=== PATIENT | female | born 1945 | race Caucasian/White ===

== ENCOUNTER → 2018-04-29 10:09 | Outpatient (POV) | payer MEDICARE, SELFPAY | PROVIDERS: Visit Provider Nurse Practitioner Acute Care | DX: Z00.00 Encounter for general adult medical examination without abnormal findings (principal) ==

== ENCOUNTER → 2018-10-28 10:34 | Outpatient (POV) | payer MEDICARE, SELFPAY | PROVIDERS: Visit Provider Nurse Practitioner Acute Care | DX: Z00.00 Encounter for general adult medical examination without abnormal findings (principal) ==

== ENCOUNTER 2020-10-10 12:37 | Emergency (ER) | payer MEDICARE, OTHER, SELFPAY ==
[2020-10-10 12:50] VITALS: BP 148/72; PULSE 83; RESP 19; TEMP 36.8; O2SAT 97; BMI 29.2
--- NOTE | 2020-10-10 13:27 | HMH.EDUTC ---
[facility] Disposition Clinical Impression: Exposure to COVID-19 virus URI (upper respiratory infection) Qualifiers: URI type: unspecified URI Qualified Code(s): J06.9 - Acute upper respiratory infection, unspecified Disposition: Home, Self-Care Condition on Discharge: Good Instructions: DI for COVID-19 (Suspected or Confirmed ), Coronavirus Disease 2019, Preventing the Spread of Coronavirus Discharge Instructions Additional Instructions: *Monitor Temp, Over the counter Motrin or Tylenol as directed/as needed Tylenol every 4 hours and Motrin every 6 hours (as long as your family doctor has told you that you can take it) for fever or pain. and straight to ER if unable to lower temp less than 101.0 after medication given *Warm salt water gargles may help to soothe the throat *Throat Lozenges *Warm fluids like tea with honey may help to soothe the throat *Sleep elevated *Humidifier/Vaporizer Follow up IMMEDIATELY for new or worsening symptoms or no Noticeable improvement over the next 48-72 hours. 911 for difficulty breathing or swallowing You were tested for today for COVID19 your test result should be back in the next 24-48 hours, you may call to the [facility] to see if your test results are back in the next 48 hours [phone] [facility] hours are 9am-9pm You was given a handout with instructions for Self Quarantine and Self isolation for while you wait on test results and what to do if they are positive If you are positive the Health Dept will be contacting you also Prescriptions: Azithromycin [Z-Mario 250mg Tab] 250 mg PO DIRECTED #6 tab Transmission Status: Pending to [email or web address] #[id number] Referrals: Chris Kim [Primary Care Provider] - As needed Time of Disposition: 13:32 Medical Decision Making - Baljeet Inquiry Pt receiving controlled substance: No Baljeet was queried for this patient: No Vital Signs: 10/10/20 12:50 Temperature 98.2 F Temperature Source Oral Pulse Rate [Right Brachial] 83 Respiratory Rate 19 Blood Pressure [Right Arm] 148/72 H Blood Pressure Mean [Right Arm] 97 Blood Pressure Source [Right Arm] Automatic Cuff Blood Pressure Position [Right Arm] Sitting 02 Sat by Pulse Oximetry 97 Oxygen Delivery Method Room Air Orders (Tests/Meds): ORDERS Category Date Time Status Covid-19 Nasal PCR ([facility]) Routine Lab 10/10/20 12:48 Received Medical Decision Narrative: Patient state that she has taken a Z-pack multiple times in the past without reactions or complications [facility] HPI - General Stated complaint: covid test Time Seen by Provider: 10/10/20 13:27 Mode of Arrival: Ambulatory Source of Information: Patient Limitations: No Limitations Description of Symptoms (Recalled from Triage Doc. by RN): COVID TEST D/T EXPOSURE. C/O FATIGUE AND HEADACHE HEENT Symptoms (Recalled from RN notes): Yes Resp Symptoms (Recalled from RN notes): No Skin Symptoms (Recalled from RN notes): No MS Symptoms (Recalled from RN notes): No Functional Status (Recalled from RN notes): WNL - History of Present Illness Provider Complaint: Patient state that she was around her sister in law about 2 weeks ago and 3 days later she tested positive for COVID States that for the last couple of weeks she has been having sinus pressure and drainage in the back of her throat that she feels like is trying to move into her chest area, headache and feeling tired and achy State that she was concerned after it didnt go away so she came in to get tested for COVID - Related Data Home Medications Medication Instructions Recorded Confirmed atorvastatin 20 mg tablet 40 mg PO tab 03/03/20 03/03/20 estradiol 0.5 mg tablet mg PO 03/03/20 03/03/20 lisinopril 20 2 tab PO tab 03/03/20 03/03/20 mg-hydrochlorothiazide 25 mg tablet medroxyprogesterone 2.5 mg tablet mg PO 03/03/20 03/03/20 omeprazole 20 mg capsule,delayed 20 mg PO cap 03/03/20 03/03/20 release Previous Rx's Medication Instructions Recorded nita
[2020-10-10 13:33] VITALS: BP 148/72; PULSE 83; RESP 17; TEMP 36.8; O2SAT 97
--- NOTE | 2020-10-10 20:38 | PC.NURSE ---
PT NOTIFIED OF POSITIVE COVID RESULT
== END 2020-10-10 13:40 | disposition home or self-care (01) ==
PROVIDERS: Emergency Provider Nurse Practitioner; PCP Internal Medicine
DX: U07.1 COVID-19 (principal); I10 Essential (primary) hypertension; K58.9 Irritable bowel syndrome, unspecified; Z79.899 Other long term (current) drug therapy
CPT/HCPCS: G0463; 99202; U0003

== ENCOUNTER 2020-10-16 10:16 | Emergency (ER) | payer MEDICARE, OTHER, SELFPAY ==
[2020-10-16 10:20] VITALS: BP 142/68; PULSE 94; RESP 20; TEMP 36.9; O2SAT 98; BMI 28.3
--- NOTE | 2020-10-16 10:42 | XR_ITS ---
PROCEDURE: XR CHEST 2V Referring Doctor: Vidal Way Patient Age:75Y CLINICAL HISTORY: COVID +, COUGH smoker COMPARISON: CT ABDPELW CT ABD PELVIS W/ CONTRAST from 09/21/2016 FINDINGS: . There is subtle patchy areas of low-density infiltrate and opacity at lung jerome bilaterally. These tend to be towards the periphery of the mid and lower lung jerome but the most evident area is seen towards the lateral aspect of the right lung base. Believe infiltrate is likely involve all lobes but most evident towards lower lobes as well as RML Findings would be compatible with c covd pneumonia No prominent pleural effusion but there is some slight blunting left CP angle which could reflect scant pleural fluid. The heart is normal in size; pulmonary vascularity appears normal to upper normal.. Debra and mediastinal structures unremarkable chest wall in T-spine appears satisfactory. Mild degenerative changes T-spine IMPRESSION: Bilateral pneumonia . Multiple patchy low-density infiltrates throughout lung jerome bilaterally-most evident towards lower lobes and lung bases Dictated by: Carroll Hernandez MD 10/17/2020 07:47 Carroll Hernandez MD in [place] 10/17/2020 07:47
--- NOTE | 2020-10-16 10:52 | HMH.EDUTC ---
[facility] Disposition Clinical Impression: COVID-19 Disposition: Home, Self-Care Condition on Discharge: Good Instructions: Preventing the Spread of Coronavirus Discharge Instructions, DI for COVID-19 (Suspected or Confirmed ) Additional Instructions: follow up with pcp on sunday take all meds as ordered if symptoms worsen or no improvement return or be seen in ed Prescriptions: levoFLOXacin [Levaquin 500mg tab] 500 mg PO DAILY 5 Days #5 tab Transmission Status: Pending to [facility] #[id number] Referrals: Chris Kim [Primary Care Provider] - Time of Disposition: 11:29 Medical Decision Making - Baljeet Inquiry Pt receiving controlled substance: No Vital Signs: 10/16/20 10:20 Temperature 98.5 F Temperature Source Oral Pulse Rate [Right Brachial] 94 H Respiratory Rate 20 Blood Pressure [Right Arm] 142/68 H Blood Pressure Mean [Right Arm] 92 Blood Pressure Source [Right Arm] Automatic Cuff Blood Pressure Position [Right Arm] Sitting 02 Sat by Pulse Oximetry 98 Oxygen Delivery Method Room Air Orders (Tests/Meds): ORDERS Category Date Time Status Chest XR 2 view (NOT portable) [XR chest 2V] Stat Exams 10/16/20 10:42 Taken - Physician Consults Physician Consulted: keila Time: 11:31 Reason -: Other Comment/Response: pt could not tolerate zpak due to nausea. what other antibiotics? she recommends levaquin 500 mg po daily x5. no labs in computer, so lower dose recommended. [facility] HPI - General Chief complaint: Urgent Treatment Center Stated complaint: COVID Positive;SOA;Weak;Achy Time Seen by Provider: 10/16/20 11:25 Mode of Arrival: Ambulatory Source of Information: Patient Limitations: No Limitations Description of Symptoms (Recalled from Triage Doc. by RN): PATIENT REPORTS SHE TESTED POSITIVE FOR COVID ON TUESDAY 10/10. TODAY SHE C/O WEAKNESS, DIARRHEA, DECREASED APPETITE, DRY COUGH AND HEADACHE. SHE STATES SHE FEELS LIKE THE BASES OF HER LUNGS ARE NOT WORKING HEENT Symptoms (Recalled from RN notes): No Resp Symptoms (Recalled from RN notes): Yes Skin Symptoms (Recalled from RN notes): No MS Symptoms (Recalled from RN notes): No Functional Status (Recalled from RN notes): WNL - History of Present Illness Provider Complaint: 75 yr old female presents for soa,weakness and feeling her lower lungs are not working right. Pt states she tested positive for covid and was given zpak but did not finish it due to making stomach upset. - Related Data Home Medications Medication Instructions Recorded Confirmed atorvastatin 20 mg tablet 40 mg PO tab 03/03/20 03/03/20 estradiol 0.5 mg tablet mg PO 03/03/20 03/03/20 lisinopril 20 2 tab PO tab 03/03/20 03/03/20 mg-hydrochlorothiazide 25 mg tablet medroxyprogesterone 2.5 mg tablet mg PO 03/03/20 03/03/20 omeprazole 20 mg capsule,delayed 20 mg PO cap 03/03/20 03/03/20 release Previous Rx's Medication Instructions Recorded diclofenac sodium 1 % topical gel 4 g TOPICAL QID PRN 30 Days #100 g 03/03/20 methylprednisolone 4 mg tablets in See Rx Instructions PO PER PKG DIR 03/03/20 a dose pack #21 tab Azithromycin [Z-Mario 250mg Tab] 250 mg PO DIRECTED #6 tab 10/10/20 levoFLOXacin [Levaquin 500mg 500 mg PO DAILY 5 Days #5 tab 10/16/20 tab] Allergies Allergy/AdvReac Type Severity Reaction Status Date / Time No Known Allergies Allergy Verified 03/03/20 10:21 - Worker's Comp Is this a Worker's Comp case?: No [facility] History - Hepatitis A Screen Drug use history?: No High risk sexual behaviors?: No History of sexually transmitted infection?: No Currently employed?: No Childcare worker?: No Do you have indoor plumbing?: Yes Do you have electricity?: Yes Attestation statement:: This patient has been screened for Hepatitis A risk factors. I have reviewed the patient's past medical history: Yes Other Medical History: Reports: Other (Irritable Bowel Syndrome, Diverticulitis ) Other Surgeries: Yes: Colonoscopy, Tuba
[2020-10-16 11:36] VITALS: BP 142/68; PULSE 94; RESP 20; TEMP 36.9; O2SAT 98
== END 2020-10-16 11:44 | disposition home or self-care (01) ==
PROVIDERS: Emergency Provider Nurse Practitioner Family; PCP Internal Medicine
DX: U07.1 COVID-19 (principal); I10 Essential (primary) hypertension; E78.5 Hyperlipidemia, unspecified; Z79.899 Other long term (current) drug therapy
CPT/HCPCS: G0463; 71046; 99202

== ENCOUNTER 2020-10-18 15:23 | Emergency (ER) | payer MEDICARE, OTHER, SELFPAY ==
[2020-10-18 15:26] VITALS: BP 177/86; PULSE 99; RESP 18; TEMP 37.1; O2SAT 96; BMI 28.3
--- NOTE | 2020-10-18 15:54 | XR_ITS ---
PROCEDURE: XR CHEST PORTABLE CLINICAL HISTORY: covid, soa COMPARISON: CR XR CHEST 2V from 10/16/2020 FINDINGS: The cardiomediastinal silhouette and pulmonary vascularity are within normal limits. Patchy multi focal areas opacification noted consistent with Covid19 pneumonia which is slightly worse in the left upper lobe. No acute bony abnormalities. IMPRESSION: Slight worsening Covid19 pneumonia Dictated by: Brandon Adame MD 10/18/2020 16:33 Brandon Adame MD in [place] 10/18/2020 16:33
--- NOTE | 2020-10-18 15:56 | HMH.EDGENADL ---
ED Disposition Clinical Impression: COVID-19 Disposition: Home, Self-Care Condition on Discharge: Good Instructions: DI for COVID-19 (Suspected or Confirmed ) Additional Instructions: Monitor your pulse oximetry at home with a finger monitor. These can be purchased at most pharmacies. Return to the emergency department if you develop any acute shortness of breath, worsening symptoms. Return to the emergency department for any persistent oxygen saturations less than 90%. Follow-up with your primary care provider via telehealth within 2 to 3 days for reevaluation. - Critical Care Critical Care Time: No Attestation: On 10/18/20, the high probability of a clinically significant, sudden or life threatening deterioration of the following system(s) required my full and direct attention, intervention and personal management. The time I documented below is in addition to time spent performing reported procedures but includes the following listed in this critical care notation. Medical Decision Making - Medical Records Medical records reviewed: Yes: I reviewed the patient's medical records. - Baljeet Inquiry Pt receiving controlled substance: No Vital Signs: 10/18/20 15:26 10/18/20 16:00 Temperature 98.7 F Temperature Source Oral Pulse Rate [Right Radial] 99 H 95 H Respiratory Rate 18 Blood Pressure [Right Arm] 177/86 H 155/87 H Blood Pressure Mean [Right Arm] 116 109 Blood Pressure Source [Right Arm] Automatic Cuff Automatic Cuff Blood Pressure Position [Right Arm] Sitting Sitting 02 Sat by Pulse Oximetry 96 95 Oxygen Delivery Method Room Air Room Air Orders (Tests/Meds): ORDERS Category Date Time Status Chest XR -- portable [XR chest portable] Stat Exams 10/18/20 15:54 Taken - Radiology Data #1 Image(s): Chest Image Reviewed: Yes I reviewed the patient's radiology image Worsening bilateral patchy infiltrates Medical Decision Narrative: 75-year-old female with known Covid, chest x-ray appears slightly worse than a few days ago however her oxygen saturations are 96% on room air. Advise continuing to convalesce at home and purchasing a pulse ox so she can monitor her oxygenation. If less than 90%, she needs to present to emergency room. Patient expresses understanding of the plan, discharged home. General Adult HPI - General Stated complaint: Covid/Penominia, Weakness Time Seen by Provider: 10/18/20 15:56 Mode of Arrival: Ambulatory Source of Information: Patient Limitations: No Limitations - History of Present Illness HPI narrative: This is a 75-year-old female with a recent diagnosis of Covid pneumonia October 10 who presents to the emergency department requesting evaluation to see if her pneumonia is better. She has had shortness of breath and chest tightness since the beginning of her illness, now for several weeks. This is unchanged. She has had 3 days of a 5-day course of Levaquin and wants to know if her pneumonia is improving. No vomiting, diarrhea. - Related Data Home Medications Medication Instructions Recorded Confirmed atorvastatin 20 mg tablet 40 mg PO tab 03/03/20 03/03/20 estradiol 0.5 mg tablet mg PO 03/03/20 03/03/20 lisinopril 20 2 tab PO tab 03/03/20 03/03/20 mg-hydrochlorothiazide 25 mg tablet medroxyprogesterone 2.5 mg tablet mg PO 03/03/20 03/03/20 omeprazole 20 mg capsule,delayed 20 mg PO cap 03/03/20 03/03/20 release Previous Rx's Medication Instructions Recorded diclofenac sodium 1 % topical gel 4 g TOPICAL QID PRN 30 Days #100 g 03/03/20 methylprednisolone 4 mg tablets in See Rx Instructions PO PER PKG DIR 03/03/20 a dose pack #21 tab Azithromycin [Z-Mario 250mg Tab] 250 mg PO DIRECTED #6 tab 10/10/20 levoFLOXacin [Levaquin 500mg 500 mg PO DAILY 5 Days #5 tab 10/16/20 tab] Allergies Allergy/AdvReac Type Severity Reaction Status Date / Time No Known Allergies Allergy Verified 03/03/20 10:21 [facility] History -
[2020-10-18 16:00] VITALS: BP 155/87; PULSE 95; O2SAT 95
[2020-10-18 16:30] VITALS: BP 148/70; PULSE 93; O2SAT 95
[2020-10-18 17:00] VITALS: BP 135/77; PULSE 95; RESP 20; TEMP 37.1; O2SAT 96
== END 2020-10-18 17:00 | disposition home or self-care (01) ==
PROVIDERS: Emergency Provider Emergency Medicine; PCP Internal Medicine
DX: U07.1 COVID-19 (principal); J12.82 Pneumonia due to coronavirus disease 2019; I10 Essential (primary) hypertension; E78.5 Hyperlipidemia, unspecified; Z79.899 Other long term (current) drug therapy
CPT/HCPCS: 71045; 99282

== ENCOUNTER → 2021-06-28 14:49 | Outpatient (CLI) | payer MEDICARE, OTHER, SELFPAY ==
--- NOTE | 2021-06-28 14:53 | XR_ITS ---
PROCEDURE: XR CHEST 2V CLINICAL HISTORY: S/P COVID PNEUMONIA 11/07 COMPARISON: CR XR CHEST 2V from 10/16/2020 CR XR CHEST PORTABLE from 10/18/2020 FINDINGS: The cardiomediastinal silhouette and pulmonary vascularity are within normal limits. The lungs are clear without infiltrates, suspicious nodules, or pleural effusions. There is mild thoracic curvature convex left. Previously noted bilateral pneumonia has cleared. No pulmonary fibrotic changes apparent. IMPRESSION: No acute finding. Interval resolution of bilateral pneumonia Dictated by: Brandon Adame MD 06/29/2021 08:48 Brandon Adame MD in [place] 06/29/2021 08:48
--- NOTE | 2021-06-28 14:55 | XR_ITS ---
PROCEDURE: XR TIBIA FIBULA LT 2V CLINICAL INDICATION: HX OF LT LEG FX, LT LOWER LEG PAIN COMPARISON: No exams were available for comparison FINDINGS: No acute fracture or dislocation. There is mild cortical thickening of the distal fibula which may be related to an old fracture. Minimal hyperostosis noted at the medial malleolar region. No lytic or blastic change. Other findings:None. IMPRESSION: Suspect old distal fibular fracture. No acute finding Dictated by: Brandon Adame MD 06/29/2021 08:44 Brandon Adame MD in [place] 06/29/2021 08:44
== END ==
PROVIDERS: PCP Internal Medicine; Visit Provider Internal Medicine
DX: Z86.16 Personal history of COVID-19 (principal); M79.662 Pain in left lower leg; S82.202D Unspecified fracture of shaft of left tibia, subsequent encounter for closed fracture with routine healing; Z09 Encounter for follow-up examination after completed treatment for conditions other than malignant neoplasm
CPT/HCPCS: 71046; 73590

== ENCOUNTER → 2021-08-23 14:28 | Outpatient (POV) | payer MEDICARE, OTHER, SELFPAY | PROVIDERS: Visit Provider Dermatology | DX: Z00.00 Encounter for general adult medical examination without abnormal findings (principal) ==

== ENCOUNTER → 2021-09-14 15:06 | Outpatient (CLI) | payer MEDICARE, OTHER, SELFPAY ==
--- NOTE | 2021-09-14 | CA_ITS ---
APPROVED REPORT Left Lower Extremity Venous Study for DVT. Development Administrator: CT Indications LLE rash x 1 month. Medications Aspirin 81 mg Vein Imaging CFV (L): compressive, spontaneous, phasic, augmentation SFJ (L): compressive, spontaneous, phasic, augmentation FEM (L): compressive, spontaneous, phasic, augmentation POP (L): compressive, spontaneous, phasic, augmentation DFV (L): compressive, spontaneous, phasic, augmentation PTV (L): compressive, spontaneous, phasic, augmentation GSV (L): compressive, spontaneous, phasic, augmentation Peroneals (L):compressive, spontaneous, phasic, augmentation GAS (L): compressive, spontaneous, phasic, augmentation Findings LLE negative for DVT/SVT Vessels compressible Conclusion LLE negative for DVT/SVT Vessels compressible Electronically signed by : Brandon Adame MD 09/15/2021 14:56:33
== END ==
PROVIDERS: PCP Internal Medicine; Visit Provider Internal Medicine
DX: M79.662 Pain in left lower leg (principal)
CPT/HCPCS: 93971

== ENCOUNTER → 2021-11-30 12:26 | Outpatient (CLI) | payer MEDICARE, OTHER, SELFPAY ==
[2021-11-30 13:17] LABS: Basophils # 0.1 K/mm3 (0-0.2); Basophils % 1.8 % (0.1-2.0); Eosinophils # 0.3 K/mm3 (0.0-0.4); Eosinophils % 4.2 % (0.1-12.0); Hemoglobin 13.5 g/dL (12.2-16.2); Lymphocytes # 1.8 K/mm3 (0.7-4.5); Lymphocytes % 26.6 % (10-50); Mean Corpuscular HGB Conc 31.5 g/dL (31.8-35.4); Mean Corpuscular Hemoglobin 31.5 pg (27.0-31.2); Mean Platelet Volume 9.7 fl (7.4-10.4); Monocytes # 0.3 K/mm3 (0.1-1.0); Monocytes % 4.1 % (1.7-9.3); Neutrophils # 4.2 K/mm3 (1.8-7.8); Neutrophils % 63.4 % (37.0-80.0); Platelet Count 276 K/mm3 (142-424); Red Cell Distribution Width 13.1 % (11.5-17.5); White Blood Count 6.6 K/mm3 (4.8-10.8)
[2021-11-30 13:56] LABS: Chloride 102 mmol/L (98-107); Potassium 4.4 mmoL/L (3.5-5.1); Sodium 137 mmol/L (136-145)
[2021-11-30 13:58] LABS: Alanine Aminotransferase 26 U/L (12-78); Aspartate Amino Transferase 39 U/L (14-36); Blood Urea Nitrogen 13 mg/dl (7-17); Estimated Glomerular Filt Rate 70 ml/min (>60); GFR (African American) 84 ML/MIN (>60)
[2021-11-30 13:59] LABS: Albumin Level 4.2 g/dl (3.5-5.0); Albumin/Globulin Ratio 1.8 (1.1-1.8); Alkaline Phosphatase 78 U/L (38-126); Anion Gap 10.4 mEq/L (5-15); Calcium 8.5 mg/dl (8.4-10.2); Carbon Dioxide 29 mmol/L (22.0-30.0); Chol/HDL Ratio 2.8 (1-3.5); Cholesterol 136 mg/dl (140-200); Globulin 2.3 g/dL (1.3-3.2); Glucose 96 mg/dl (74-100); HDL Cholesterol 48 mg/dl (40-60); Total Protein,Serum 6.5 g/dl (6.3-8.2); Triglycerides 118 mg/dl (30-150); VLDL Cholesterol 24 mg/dL (0-40)
[2021-11-30 14:23] LABS: Direct LDL Cholesterol 63.58 mg/dL (100-129)
[2021-11-30 14:39] LABS: Thyroid Stimulating Hormone 3.41 uIU/mL (0.465-4.68)
== END ==
PROVIDERS: Visit Provider Internal Medicine
DX: I10 Essential (primary) hypertension (principal); E78.5 Hyperlipidemia, unspecified; E03.9 Hypothyroidism, unspecified; I73.9 Peripheral vascular disease, unspecified; D64.9 Anemia, unspecified; N18.2 Chronic kidney disease, stage 2 (mild)
CPT/HCPCS: 80053; 80061; 84443; 85025

== ENCOUNTER → 2022-01-17 13:54 | Outpatient (POV) | payer MEDICARE, OTHER, SELFPAY | PROVIDERS: Visit Provider Dermatology | DX: Z00.00 Encounter for general adult medical examination without abnormal findings (principal) ==

== ENCOUNTER → 2022-05-31 12:35 | Outpatient (CLI) | payer MEDICARE, OTHER, SELFPAY ==
[2022-05-31 13:26] LABS: Alanine Aminotransferase 24 U/L (12-78); Albumin/Globulin Ratio 1.7 (1.1-1.8); Alkaline Phosphatase 109 U/L (38-126); Anion Gap 11.1 mEq/L (5-15); Aspartate Amino Transferase 34 U/L (14-36); Bilirubin,Total 0.7 mg/dl (0.2-1.3); Blood Urea Nitrogen 14 mg/dl (7-17); Calcium 8.9 mg/dl (8.4-10.2); Carbon Dioxide 30 mmol/L (22.0-30.0); Chloride 101 mmol/L (98-107); Chol/HDL Ratio 3.1 (1-3.5); Cholesterol 142 mg/dl (140-200); Estimated Glomerular Filt Rate 70 ml/min (>60); GFR (African American) 84 ML/MIN (>60); Globulin 2.4 g/dL (1.3-3.2); Glucose 106 mg/dl (74-100); HDL Cholesterol 46 mg/dl (40-60); Potassium 4.1 mmoL/L (3.5-5.1); Sodium 138 mmol/L (136-145); Total Protein,Serum 6.4 g/dl (6.3-8.2); Triglycerides 115 mg/dl (30-150); VLDL Cholesterol 23 mg/dL (0-40)
[2022-05-31 13:37] LABS: Direct LDL Cholesterol 75.88 mg/dL (100-129)
[2022-05-31 13:43] LABS: 25-OH Vitamin D, Total 31.9 ng/mL (30-100)
== END ==
PROVIDERS: PCP Internal Medicine; Visit Provider Internal Medicine
DX: I10 Essential (primary) hypertension (principal); E78.5 Hyperlipidemia, unspecified; I73.9 Peripheral vascular disease, unspecified; K76.0 Fatty (change of) liver, not elsewhere classified; G60.9 Hereditary and idiopathic neuropathy, unspecified; M85.89 Other specified disorders of bone density and structure, multiple sites
CPT/HCPCS: 80053; 80061; 82306

== ENCOUNTER → 2022-06-09 09:13 | Outpatient (CLI) | payer MEDICARE, OTHER, SELFPAY ==
--- NOTE | 2022-06-09 09:21 | XR_ITS ---
FINAL REPORT TECHNIQUE: Bone densitometry calculations of the lumbar spine and left hip were obtained. CLINICAL HISTORY: . post menopausal screening, prior 2017 COMPARISON: 05/14/2017 FINDINGS: Using L1-4, the bone mineral density of the spine is 1.154 g/cm2, corresponding to T-score of 1.0. Using the left hip, the bone mineral density of the femoral neck is to the 0.641 g/cm2, corresponding to a T-score of -1.9. Using the right hip, the bone mineral density of the femoral neck is 0.624 g/cm2, corresponding to a T-score of -2.0. NOTE: T-score: Standard deviation compared with peak bone mass of young adult mean. *Following the recommendations of the International Society of Bone densitometry, classification of hip BMD is based on the lower of two T-scores; total hip or femoral neck. IMPRESSION: Diminished bone mineral density in the right and left hip consistent with osteopenia. There has been progressive demineralization as compared to previous. Normal bone mineral density of the lumbar spine however this may be falsely elevated secondary to degenerative change. FRAX data reports major osteoporotic fracture of 21% and hip fracture of 5.2%. Reviewed, Interpreted and Dictated by Lux Ventura MD Transcribed by Annalise Lewis Authenticated and [facility]
== END ==
PROVIDERS: PCP Internal Medicine; Visit Provider Internal Medicine
DX: M81.0 Age-related osteoporosis without current pathological fracture (principal)
CPT/HCPCS: 77080

== ENCOUNTER → 2022-08-01 13:02 | Outpatient (POV) | payer MEDICARE, OTHER, SELFPAY | PROVIDERS: Visit Provider Dermatology | DX: Z00.00 Encounter for general adult medical examination without abnormal findings (principal) ==

== ENCOUNTER → 2022-11-17 10:24 | Outpatient (CLI) | payer MEDICARE, OTHER, SELFPAY ==
--- NOTE | 2022-11-17 | CA_ITS ---
FINAL REPORT CLINICAL HISTORY: Pt fell 11/09/22 Right knee to ankle bruising. swollen right ankle. Pt on 81mg ASA . Dx with Breast Ca this week FINDINGS: DUPLEX VENOUS SONOGRAPHY OF THE RIGHT LOWER EXTREMITY Multiple transverse and longitudinal scans were performed of the femoropopliteal deep venous system, with augmentation and compression maneuvers. Normal phasic flow was noted in the visualized deep venous system. No intraluminal increased echogenicity is noted to suggest thrombus. There is normal compression and augmentation of the venous structures. No abnormal venous collaterals are seen. IMPRESSION: No evidence of deep venous thrombosis of the right lower extremity. Reviewed, Interpreted and Dictated by Matilda Baker MD Transcribed by Annalise Lewis Authenticated and [facility]
--- NOTE | 2022-11-17 11:11 | XR_ITS ---
FINAL REPORT CLINICAL HISTORY: LEG PAIN SWELLING REDNESS, fall COMPARISON: none FINDINGS: AP, lateral and oblique views of the right knee were obtained. There is no prior exam for comparison. There is no acute osseous abnormality of the right knee. The joint space is preserved. The soft tissues are normal. There is no joint effusion. IMPRESSION: No acute osseous abnormality of the right knee. Reviewed, Interpreted and Dictated by Matilda Baker MD Transcribed by Keesha Camacho Authenticated and . [facility]
== END ==
PROVIDERS: PCP Internal Medicine; Visit Provider Internal Medicine
DX: M25.561 Pain in right knee (principal); M79.604 Pain in right leg; R22.41 Localized swelling, mass and lump, right lower limb; W19.XXXA Unspecified fall, initial encounter
CPT/HCPCS: 73562; 93971

== ENCOUNTER → 2022-12-13 11:32 | Outpatient (CLI) | payer MEDICARE, OTHER, SELFPAY ==
--- NOTE | 2022-12-13 11:42 | ECG_ITS ---
APPROVED REPORT Exam: Resting ECG HR:70 bpm ECG Measurements Heart Rate 70 AXES RI 152 P 46 QRSd 84 QRS 62 QT 377 T 73 QTc 398 Conclusion SINUS RHYTHM POOR R WAVE PROGRESSION OTHERWISE A NORMAL ECG Electronically signed by : Chris Kim MD 12/13/2022 11:59:08
[2022-12-13 13:32] LABS: Basophils # 0.1 K/mm3 (0-0.2); Basophils % 0.8 % (0.1-2.0); Eosinophils # 0.3 K/mm3 (0.0-0.4); Hematocrit 41.7 % (37.0-47.0); Hemoglobin 13.4 g/dL (12.2-16.2); Lymphocytes # 1.9 K/mm3 (0.7-4.5); Lymphocytes % 23.4 % (10-50); Mean Corpuscular HGB Conc 32.1 g/dL (31.8-35.4); Mean Corpuscular Hemoglobin 31.2 pg (27.0-31.2); Mean Corpuscular Volume 97.2 fl (81-99); Mean Platelet Volume 9.1 fl (7.4-10.4); Monocytes # 0.3 K/mm3 (0.1-1.0); Monocytes % 4.1 % (1.7-9.3); Neutrophils # 5.6 K/mm3 (1.8-7.8); Neutrophils % 67.7 % (37.0-80.0); Platelet Count 287 K/mm3 (142-424); Red Blood Count 4.29 M/mm3 (4.20-5.40); White Blood Count 8.2 K/mm3 (4.8-10.8)
[2022-12-13 15:03] LABS: Alanine Aminotransferase 24 U/L (12-78); Albumin Level 4.2 g/dl (3.5-5.0); Albumin/Globulin Ratio 1.9 (1.1-1.8); Alkaline Phosphatase 108 U/L (38-126); Anion Gap 6.7 mEq/L (5-15); Aspartate Amino Transferase 34 U/L (14-36); Bilirubin,Total 0.8 mg/dl (0.2-1.3); Blood Urea Nitrogen 15 mg/dl (7-17); Calcium 9.1 mg/dl (8.4-10.2); Carbon Dioxide 30 mmol/L (22.0-30.0); Chloride 98 mmol/L (98-107); Chol/HDL Ratio 2.7 (1-3.5); Cholesterol 158 mg/dl (140-200); Estimated Glomerular Filt Rate 70 ml/min (>60); GFR (African American) 84 ML/MIN (>60); Globulin 2.2 g/dL (1.3-3.2); Glucose 96 mg/dl (74-100); HDL Cholesterol 58 mg/dl (40-60); Magnesium 2.1 mg/dl (1.6-2.3); Potassium 4.7 mmoL/L (3.5-5.1); Sodium 130 mmol/L (136-145); Total Protein,Serum 6.4 g/dl (6.3-8.2); Triglycerides 120 mg/dl (30-150); VLDL Cholesterol 24 mg/dL (0-40)
[2022-12-13 15:14] LABS: Direct LDL Cholesterol 76.35 mg/dL (100-129)
== END ==
PROVIDERS: PCP Internal Medicine; Visit Provider Internal Medicine
DX: I10 Essential (primary) hypertension (principal); I49.9 Cardiac arrhythmia, unspecified
CPT/HCPCS: 80053; 80061; 83735; 85025; 93005

== ENCOUNTER → 2023-01-16 14:07 | Outpatient (POV) | payer MEDICARE, OTHER, SELFPAY | PROVIDERS: Visit Provider Dermatology | DX: Z00.00 Encounter for general adult medical examination without abnormal findings (principal) ==

== ENCOUNTER → 2023-01-16 15:46 | Outpatient (CLI) | payer MEDICARE, OTHER, SELFPAY ==
[2023-01-16 17:43] LABS: Chloride 93 mmol/L (98-107)
[2023-01-16 17:44] LABS: Potassium 4.1 mmoL/L (3.5-5.1); Sodium 135 mmol/L (136-145)
[2023-01-16 17:46] LABS: Blood Urea Nitrogen 14 mg/dl (7-17); Estimated Glomerular Filt Rate 70 ml/min (>60); GFR (African American) 84 ML/MIN (>60)
[2023-01-16 17:47] LABS: Anion Gap 15.1 mEq/L (5-15); Calcium 9.7 mg/dl (8.4-10.2); Carbon Dioxide 31 mmol/L (22.0-30.0); Glucose 91 mg/dl (74-100)
== END ==
PROVIDERS: PCP Internal Medicine; Visit Provider Internal Medicine
DX: I49.9 Cardiac arrhythmia, unspecified (principal); I10 Essential (primary) hypertension
CPT/HCPCS: 80048; 83735; 93225; 93226

== ENCOUNTER → 2023-02-01 07:41 | Outpatient (CLI) | payer MEDICARE, OTHER, SELFPAY | PROVIDERS: PCP Internal Medicine; Visit Provider Internal Medicine | DX: R00.1 Bradycardia, unspecified (principal); R00.0 Tachycardia, unspecified; R94.39 Abnormal result of other cardiovascular function study; R06.09 Other forms of dyspnea | CPT/HCPCS: 93306 ==

== ENCOUNTER → 2023-02-22 13:46 | Outpatient (CLI) | payer MEDICARE, OTHER, SELFPAY | PROVIDERS: PCP Internal Medicine; Visit Provider Internal Medicine | DX: G47.30 Sleep apnea, unspecified (principal); I10 Essential (primary) hypertension; R06.83 Snoring; E66.9 Obesity, unspecified | CPT/HCPCS: G0399 ==

== ENCOUNTER → 2023-04-30 16:15 | Outpatient (CLI) | payer MEDICARE, OTHER, SELFPAY ==
--- NOTE | 2023-04-30 16:24 | CT_ITS ---
FINAL REPORT CLINICAL HISTORY: EPIGASTRIC PAIN that radiates into the back with nausea FINDINGS: Axial CT images of the abdomen and pelvis were obtained without intravenous contrast. Coronal reformatted images were also obtained. This study was performed with techniques to keep radiation doses as low as reasonably achievable (ALARA). Individualized dose reduction techniques using automated exposure control or adjustment of mA and/or kV according to the patient''s size were employed. Abdomen: The lung bases are clear. There is no evidence of renal stone or hydronephrosis. The liver, spleen and pancreas have an unremarkable, unenhanced appearance. No mass or adenopathy is seen. No inflammatory process is identified. Pelvis: Images of the pelvis reveal no evidence of ureteral dilation or ureteral stone. No mass or abnormal fluid collection is identified. The appendix is unremarkable. IMPRESSION: No renal or ureteral stone, or hydronephrosis. No mass or inflammatory process. Authenticated and [facility]
[2023-04-30 17:51] LABS: Basophils % 0.3 % (0.1-2.0); Eosinophils # 0.2 K/mm3 (0.0-0.4); Eosinophils % 1.7 % (0.1-12.0); Hemoglobin 13.1 g/dL (12.2-16.2); Lymphocytes # 1.7 K/mm3 (0.7-4.5); Mean Corpuscular Hemoglobin 31.2 pg (27.0-31.2); Mean Corpuscular Volume 97.3 fl (81-99); Mean Platelet Volume 8.5 fl (7.4-10.4); Monocytes # 0.5 K/mm3 (0.1-1.0); Monocytes % 4.4 % (1.7-9.3); Neutrophils # 9.2 K/mm3 (1.8-7.8); Neutrophils % 78.7 % (37.0-80.0); Platelet Count 276 K/mm3 (142-424); Red Blood Count 4.22 M/mm3 (4.20-5.40); Red Cell Distribution Width 13.5 % (11.5-17.5); White Blood Count 11.6 K/mm3 (4.8-10.8)
[2023-04-30 18:08] LABS: Alanine Aminotransferase 25 U/L (12-78); Albumin Level 4.3 g/dl (3.5-5.0); Albumin/Globulin Ratio 1.7 (1.1-1.8); Alkaline Phosphatase 122 U/L (38-126); Amylase 54 U/L (30-110); Anion Gap 14.3 mEq/L (5-15); Aspartate Amino Transferase 34 U/L (14-36); Bilirubin,Total 0.6 mg/dl (0.2-1.3); Blood Urea Nitrogen 13 mg/dl (7-17); Calcium 9.4 mg/dl (8.4-10.2); Carbon Dioxide 29 mmol/L (22.0-30.0); Chloride 95 mmol/L (98-107); Estimated Glomerular Filt Rate 70 ml/min (>60); GFR (African American) 84 ML/MIN (>60); Globulin 2.5 g/dL (1.3-3.2); Glucose 94 mg/dl (74-100); Potassium 4.3 mmoL/L (3.5-5.1); Sodium 134 mmol/L (136-145); Total Protein,Serum 6.8 g/dl (6.3-8.2)
== END ==
PROVIDERS: PCP Internal Medicine; Visit Provider Internal Medicine
DX: R10.13 Epigastric pain (principal)
CPT/HCPCS: 74176; 80053; 82150; 85025

== ENCOUNTER → 2023-05-03 08:32 | Outpatient (CLI) | payer MEDICARE, OTHER, SELFPAY ==
--- NOTE | 2023-05-03 08:48 | US_ITS ---
FINAL REPORT CLINICAL HISTORY: Right upper quadrant pain COMPARISON: None FINDINGS: Sonographic images of the right upper quadrant were obtained. The pancreas is partially obscured. The liver is fatty infiltrated. The gallbladder appears normal without evidence of gallstones.There is no evidence of biliary ductal dilatation.The common duct measures 4mm. Limited images of the right kidney are unremarkable. IMPRESSION: Fatty liver. Reviewed, Interpreted and Dictated by Terrance Doe III, MD Transcribed by Keesha Camacho Authenticated and [facility]
== END ==
PROVIDERS: PCP Internal Medicine; Visit Provider Internal Medicine
DX: R10.13 Epigastric pain (principal)
CPT/HCPCS: 76705

== ENCOUNTER → 2023-05-28 13:29 | Outpatient (CLI) | payer MEDICARE, OTHER, SELFPAY ==
[2023-05-28 16:36] LABS: Alanine Aminotransferase 30 U/L (12-78); Albumin Level 4.1 g/dl (3.5-5.0); Albumin/Globulin Ratio 1.8 (1.1-1.8); Alkaline Phosphatase 120 U/L (38-126); Anion Gap 13.3 mEq/L (5-15); Aspartate Amino Transferase 34 U/L (14-36); Bilirubin,Total 0.9 mg/dl (0.2-1.3); Blood Urea Nitrogen 19 mg/dl (7-17); Calcium 9.2 mg/dl (8.4-10.2); Carbon Dioxide 30 mmol/L (22.0-30.0); Chloride 97 mmol/L (98-107); Chol/HDL Ratio 2.5 (1-3.5); Cholesterol 160 mg/dl (140-200); Estimated Glomerular Filt Rate 70 ml/min (>60); GFR (African American) 84 ML/MIN (>60); Globulin 2.3 g/dL (1.3-3.2); Glucose 76 mg/dl (74-100); HDL Cholesterol 65 mg/dl (40-60); Potassium 5.3 mmoL/L (3.5-5.1); Sodium 135 mmol/L (136-145); Total Protein,Serum 6.4 g/dl (6.3-8.2); Triglycerides 75 mg/dl (30-150); VLDL Cholesterol 15 mg/dL (0-40)
[2023-05-28 16:47] LABS: Direct LDL Cholesterol 70.37 mg/dL (100-129)
== END ==
PROVIDERS: PCP Internal Medicine; Visit Provider Internal Medicine
DX: I10 Essential (primary) hypertension (principal); E78.5 Hyperlipidemia, unspecified; K76.0 Fatty (change of) liver, not elsewhere classified; K58.0 Irritable bowel syndrome with diarrhea; I73.9 Peripheral vascular disease, unspecified; C43.62 Malignant melanoma of left upper limb, including shoulder; C50.911 Malignant neoplasm of unspecified site of right female breast
CPT/HCPCS: 80053; 80061; 83735

== ENCOUNTER → 2023-06-22 15:53 | Outpatient (CLI) | payer MEDICARE, OTHER, SELFPAY ==
--- NOTE | 2023-06-22 15:58 | CT_ITS ---
FINAL REPORT CLINICAL HISTORY: ABD PAIN, CRAMPING COMPARISON: 04/30/2023 FINDINGS: Axial CT images of the abdomen and pelvis were obtained without intravenous contrast. Coronal and sagittal reformatted images were also obtained.This study was performed with techniques to keep radiation doses as low as reasonably achievable (ALARA). Individualized dose reduction techniques using automated exposure control or adjustment of mA and/or kV according to the patient's size were employed. Abdomen: There is lateral right lower lobe atelectasis or pneumonia. Moderate vascular calcifications are present. There is no evidence of renal stone or hydronephrosis.The liver, spleen and pancreas have an unremarkable, unenhanced appearance. No mass or adenopathy is seen. No inflammatory process is identified. Pelvis: Images of the pelvis reveal no evidence of ureteral dilation or ureteral stone.No mass or abnormal fluid collection is identified.There is diverticulosis of the descending and sigmoid colon, without evidence of acute inflammatory change. There is dextroscoliosis and degenerative change of the lumbar spine. The appendix is unremarkable in appearance. IMPRESSION: Lateral right lower lobe atelectasis or pneumonia. Diverticulosis of the descending and sigmoid colon without evidence of diverticulitis. Reviewed, Interpreted and Dictated by Trerance Doe III, MD Transcribed by Vivi Jansen Authenticated and [facility]
--- OUTSIDE RECORDS SUMMARY | 2023-06-22 15:59 | XMS_ITS | Clinical Summary ---
Author Name Unknown Address [address] [place] [address] Phone Organization [facility] Address [address] [place] [address] Phone Care Team Providers Care Radio Equipment Installer Name Role Phone THEE HERNANDEZ, ARON Matos Unavailable [phone] Sameer HERNANDEZ, Rafael Unavailable [phone] Reason for Visit and Chief Complaint The Chief Complaint is: Low back pain Problems Includes: Problems addressed during this encounter and other active Problems Current Visit Onset Date Resolved Date Provider Conditio n Status Lower Back Pain 03/05/2023 Rafael rios MD Active Plan of Treatment Pending Tests Order Diagnosis Results Due Ordering P rovider Radiology - MRI MRI Lumbar Spine Low back pain, unspecified 03/19/23 Rafael Estrella MD Future Appointments Date Time Location Provi bob Epidural Steroid Injection 08/16/2023 2:00PM [facility] [employer] Instructions to patient Lose weight Last Documented On 2:00PM ; [facility], [facility] Assessments Includes: Assessments from this encounter Findings - Overweight - Last Documented On 06/12/2023 4:44PM ; [facility], [facility] Lj
--- OUTSIDE RECORDS SUMMARY | 2023-06-22 15:59 | XMS_ITS | Clinical Summary ---
Author Name Unknown Address [address] [place] [address] Phone [facility] Address [address] [place] [address] Phone Care Team Providers Care Cross Tie Maker Name Role Phone THEE HERNANDEZ, ARON Matos Unavailable [phone] Sameer HERNANDEZ, Rafael Unavailable [phone] Reason for Visit and Chief Complaint Epidural Steroid Injection Problems Includes: Problems addressed during this encounter and other active Problems All Visits Onset Date Resolved Date Provider Condition S tatus Lower Back Pain 03/05/2023 Rafael rios MD Active Plan of Treatment Pending Tests Order Diagnosis Results Due Ordering P rovider Radiology - MRI MRI Lumbar Spine Low back pain, unspecified 03/19/23 Rafael Estrella MD Future Appointments Date Time Location Provi bob Epidural Steroid Injection [facility] 2[facility] Tsang CRNA Assessments Includes: Assessments from this encounter No Assessments Recorded Medical Equipment - Implanted Devices Includes: Current Devices No Medical Equipment Recorded Medications Includes: Medications discussed during this encounter and other current Medications Current Medications (continue as prescribed) Venlafaxine HCl ER 37.5 MG O ral Capsule
--- OUTSIDE RECORDS SUMMARY | 2023-06-22 15:59 | XMS_ITS ---
Author Name Unknown Address [address] [place] [address] Phone Organization [facility] Address [address] [place] [address] Phone Care Team Providers Care Machine Candle Molder Name Role Phone THEE HERNANDEZ, ARON Matos Unavailable [phone] Sameer HERNANDEZ, Rafael Unavailable [phone] Problems Includes: Active, inactive, and resolved Problems All Visits Onset Date Resolved Date Provider Condition S tatus Lower Back Pain 03/05/2023 Rafael rios MD Active Plan of Treatment Pending Tests Order Diagnosis Results Due Ordering P rovider Radiology - MRI MRI Lumbar Spine Low back pain, unspecified 03/19/23 Rafael Estrella MD Future Appointments Date Time Location Provi bob Epidural Steroid Injection [facility] MARY Tsang CRNA Instructions to patient Lose weight Last Documented On 3 2:00PM ; [facility], [facility] Lose weight Last Documented On 3 3:22PM ; [facility], [facility] Lose weight Last Documented On 3 1:03PM ; [facility], [facility] Assessments
--- OUTSIDE RECORDS SUMMARY | 2023-06-22 15:59 | XMS_ITS | Clinical Summary ---
Author Name Unknown Address [address] [place] [address] Phone Organization [facility] Address [address] [place] [address] Phone Care Team Providers Care Saddle Cutter Name Role Phone THEE HERNANDEZ, ARON Matos [...] Provi bob Epidural Steroid Injection 08/16/2023 2:00PM [facility] Tsnag CRNA Assessments Includes: Assessments from this encounter No Assessments Recorded Medical Equipment - Implanted Devices Includes: Current Devices No Medical Equipment Recorded Medications Includes: Medications discussed during this encounter and other current Medications Current Medications (continue as prescribed) Venlafaxine HCl ER 37.5 MG O ral Capsule
--- OUTSIDE RECORDS SUMMARY | 2023-06-22 15:59 | XMS_ITS ---
Care Plan - [facility] Created on: June 22, 2023 [place] Corbin : 1945 Sex: Female Author Name Unknown Address [address] [place] [address] Phone Organization [facility] Address [address] [place] [address] Phone Care Team Providers Care Geriatric Physical Therapist Name Role Phone THEE HERNANDEZ, ARON Matos Unavailable [phone] Sameer HERNANDEZ, Rafael Unavailable [phone]
--- OUTSIDE RECORDS SUMMARY | 2023-06-22 16:00 | XMS_ITS | Clinical Summary ---
Author Name Unknown Address [address] [place] [address] Phone Organization [facility] Address [address] [place] [address] Phone Care Team Providers Care Gyroscope Repairer Name Role Phone THEE HERNANDEZ, ARON Matos [...] Provi bob Epidural Steroid Injection 08/16/2023 2:00PM [facility] MARY Tsang EXECUTIVE DIRECTOR [employer]ET[employer] Instructions to patient Lose weight Last Documented On 3:22PM ; [facility], [facility] Assessments Includes: Assessments from this encounter Findings - Overweight - Last Documented On 06/22/2023 2:17PM ; [facility], [facility] Lj
--- OUTSIDE RECORDS SUMMARY | 2023-06-22 16:00 | XMS_ITS | Clinical Summary ---
Author Name Unknown Address [address] [place] [address] Phone Organization [facility] , [facility] Address [address] [place] [address] Phone Care Team Providers Care Sales Order Processor Name Role Phone THEE HERNANDEZ, ARON Matos Unavailable [phone] Sameer HERNANDEZ, Rafael Unavailable [phone] Reason for Visit and Chief Complaint MRI Problems Includes: Problems addressed during this encounter and other active Problems All Visits Onset Date Resolved Date Provider Condition S tatus Lower Back Pain 03/05/2023 Rafael rios MD Active Plan of Treatment Future Appointments Date Time Location Provi bob Epidural Steroid Injection 08/16/2023 2:00PM [facility] MARY Tsang WOOD ROOM SUPERVISOR Assessments Includes: Assessments from this encounter No Assessments Recorded Medical Equipment - Implanted Devices Includes: Current Devices No Medical Equipment Recorded Medications Includes: Medications discussed during this encounter and other current Medications Current Medications (continue as prescribed) Venlafaxine HCl ER 37.5 MG O ral Capsule Extended Release 24 Hour 03/04/2023 Provider: Shelia Mora MD Diagnosis: Anastrozole 1 MG Oral Tablet
== END ==
LOC: RAD 15:55
PROVIDERS: PCP Internal Medicine; Visit Provider Internal Medicine
DX: R10.9 Unspecified abdominal pain (principal)
CPT/HCPCS: 74176

== ENCOUNTER 2023-11-26 09:45 | Outpatient (CLI) | payer MEDICARE, OTHER, SELFPAY ==
[2023-11-26 10:15] LABS: Basophils # 0.1 K/mm3 (0-0.2); Basophils % 0.4 % (0.1-2.0); Eosinophils # 0.1 K/mm3 (0.0-0.4); Eosinophils % 0.5 % (0.1-12.0); Hematocrit 41.2 % (37.0-47.0); Hemoglobin 13.3 g/dL (12.2-16.2); Lymphocytes # 1.5 K/mm3 (0.7-4.5); Lymphocytes % 13.5 % (10-50); Mean Corpuscular HGB Conc 32.4 g/dL (31.8-35.4); Mean Corpuscular Hemoglobin 33.5 pg (27.0-31.2); Mean Corpuscular Volume 103.3 fl (81-99); Mean Platelet Volume 8.1 fl (7.4-10.4); Monocytes # 0.4 K/mm3 (0.1-1.0); Monocytes % 3.6 % (1.7-9.3); Neutrophils # 8.8 K/mm3 (1.8-7.8); Neutrophils % 81.9 % (37.0-80.0); Platelet Count 271 K/mm3 (142-424); Red Blood Count 3.98 M/mm3 (4.20-5.40); Red Cell Distribution Width 13.6 % (11.5-17.5); White Blood Count 10.8 K/mm3 (4.8-10.8)
[2023-11-26 10:43] LABS: Alanine Aminotransferase 24 U/L (12-78); Albumin Level 4.6 g/dl (3.5-5.0); Alkaline Phosphatase 101 U/L (38-126); Anion Gap 10.1 mEq/L (5-15); Aspartate Amino Transferase 29 U/L (14-36); Blood Urea Nitrogen 18 mg/dl (7-17); Calcium 9.6 mg/dl (8.4-10.2); Carbon Dioxide 31 mmol/L (22.0-30.0); Chloride 99 mmol/L (98-107); Chol/HDL Ratio 3.1 (1-3.5); Cholesterol 201 mg/dl (140-200); Estimated Glomerular Filt Rate 69 ml/min (>60); GFR (African American) 84 ML/MIN (>60); Globulin 2.3 g/dL (1.3-3.2); Glucose 108 mg/dl (74-100); HDL Cholesterol 64 mg/dl (40-60); Potassium 4.1 mmoL/L (3.5-5.1); Sodium 136 mmol/L (136-145); Total Protein,Serum 6.9 g/dl (6.3-8.2); Triglycerides 111 mg/dl (30-150); VLDL Cholesterol 22 mg/dL (0-40)
[2023-11-26 10:54] LABS: Direct LDL Cholesterol 91.26 mg/dL (100-129)
[2023-11-27 10:30] LABS: Vitamin B12 480 pg/mL (239-931)
[2023-11-27 13:10] LABS: Estradiol <5.0 pg/mL (0.0-54.7)
[2023-11-29 15:10] LABS: Pancreatic Elastase, Fecal 491 (>200)
== END 2023-11-26 23:59 ==
PROVIDERS: PCP Internal Medicine; Visit Provider Nurse Practitioner Family
DX: I10 Essential (primary) hypertension (principal); Z79.899 Other long term (current) drug therapy; K30 Functional dyspepsia; R14.0 Abdominal distension (gaseous); K58.0 Irritable bowel syndrome with diarrhea; N18.2 Chronic kidney disease, stage 2 (mild); E78.5 Hyperlipidemia, unspecified
CPT/HCPCS: 36415; 80053; 80061; 82607; 82656; 82670; 82746; 85025

== ENCOUNTER 2024-05-13 12:09 | Outpatient (CLI) | payer MEDICARE, OTHER, SELFPAY ==
--- OUTSIDE RECORDS SUMMARY | 2024-05-13 12:12 | XMS_ITS ---
Care Plan - [facility], [facility] Created on: May 13, 2024 Brooklyn Corbin : 1945 Sex: Female Author Organization [facility] Address [address] [place] [address] Phone Care Team Providers Care Crossbow Maker Name Role Phone THEE HERNANDEZ, ARON Matos Unavailable [phone] Sameer HERNANDEZ, Rafael Unavailable [phone]
--- OUTSIDE RECORDS SUMMARY | 2024-05-13 12:12 | XMS_ITS ---
Author Organization [facility] Address [address] [place] [address] Phone Care Team Providers Care Grill Cook Name Role Phone THEE HERNANDEZ, ARON Matos Unavailable [phone] Sameer HERNANDEZ, Rafael Unavailable [phone] Problems Includes: Active, inactive, and resolved Problems All Visits Onset Date Resolved Date Provider Condition S tatus Lower Back Pain 03/05/2023 Rafael rios MD Active Last Documented On 3 1:01PM ; [facility] Plan of Treatment Findings Encounter Date Patient screened for future fall risk: documentation of any fall with injury in past year Follow Up with THAI BECK PA-C 03/19/2024 Last Documented On 4 4:16PM ; [facility] Pending Tests Order Diagnosis Results Due Ordering P rovider Radiology - MRI MRI Lumbar Spine Low back pain, unspecified 03/19/23 Rafael Estrella MD Last Documented On 3 2:51PM ; [facility] Future Appointments Date Time Location Provi bob Follow Up 07/17/2024 10:45AM [facility] MARY BECK PA-C Last Documented On 4 2:06PM ; [facility] Follow Up 08/01/2024 1:15PM [facility] MARY Tsang CRNA Last Documented On 4 2:06PM ; [facility] Instructions to patient Lose weight Last Documented On 4 1:48PM ; [facility] Lose weight Last Documented On 4 10:12AM ; [facility] Lose weight Last Documented On 3 2:00PM ; [facility] Lose weight Last Documented On 3 3:22PM ; [facility] Lose weight Last Documented On 3 1:03PM ; [facility] Assessments Includes: Assessments for all patient encounters Findings Encounter Date Overweight Follow Up with THAI Moya 03/19/2024 Last Documented On 4 4:16PM ; [facility] Overweight Follow Up with THAI Moya 11/09/2023 Last Documented On 4 11:19AM ; [facility] Overweight Follow Up with Rafael Dugan MD 06/12/2023 Last Documented On 3 4:44PM ; [facility] Overweight Follow Up with Rafael Dugan MD 04/02/2023 Last Documented On 3 2:17PM ; [facility] Instructions Includes: Instructions for all patient encounters Instructions to patient Lose weight Last Documented On 4 1:48PM ; [facility] Lose weight Last Documented On 4 10:12AM ; [facility] Lose weight Last Documented On 3 2:00PM ; [facility] Lose weight Last Documented On 3 3:22PM ; [facility] Lose weight Last Documented On 3 1:03PM ; [facility] Medical Equipment - Implanted Devices Includes: Current and historical Devices No Medical Equipment Recorded Medications Includes: Current and historical Medications Current Medications (continue as prescribed) Venlafaxine HCl ER 37.5 MG O ral Capsule Extended Release 24 Hour 03/04/2023 Provider: Shelia Mora MD Diagnosis: Last Documented On 3 1:01PM By [place] ; [facility] Anastrozole 1 MG Oral Tablet 02/27/2023 Provider: Shelia Mora MD Diagnosis: Last Documented On 3 1:01PM By [place] ; [facility] chlordiazePOXIDE HCl 10 MG Oral Capsule 02/19/2023 P rovider: ARON KINGSTON MD Diagnosis: Last Documented On 3 1:02PM By [place] ; [facility] busPIRone HCl 10 MG Oral Tablet 02/12/2023 Provider: JOHN BAJWA II, MD Diagnosis: Last Documented On 3 1:02PM By [place] ; [facility] Atorvastatin Calcium 40 MG Oral Tablet 02/09/2023 Pr ovider: ARON KINGSTON MD Diagnosis: Last Documented On 3 1:02PM By [place] ; [facility] Lisinopril-hydroCHLOROthiazi de 20-25 MG Oral Tablet 02/09/2023 Provider: ARON KINGSTON MD Diagnosis: Last Documented On 3 1:02PM By [place] ; [facility] Omeprazole 20 MG Oral Capsule Delayed Release 02/10/20 Provider: ARON KINGSTON MD Diagnosis: Last Documented On 3 1:02PM By [place] ; [facility] ZyrTEC-D Allergy & Congestio n 5-120 MG Oral Tablet Extended Release 12 Hour 01/12/2023 Provider: ARON KINGSTON MD Diagnosis: Last Documented On 3 1:02PM By [place] ; [facility] Calcium Carb-Cholecalciferol 600-10 MG-MCG Oral Tablet 12/07/2022 Provider: Diagnosis: Last Documented On 3 1:02PM By [place] ; [facility] Past Medications on file Venlafaxine HCl ER 37.5 MG O ral Capsule Extended Release 24 Hour 02/05/2023 - 03/04/2023 Provider: Libby Mora MD Diagnosis: Last Documented On 3 3:18PM By Rafael Estrella ; [facility] Medications Administered Includes: Administered Medications in patient's chart No Administered Medications Recorded Vital Signs Includes: Vital Signs from 05/13/2023 through 05/13/2024 Vital Name 03/19/2024 01:49P 11/09/2023 10:12A 06/12 02:17P Height (in) 65 65 65 Weight (lb) 187 183.4 177.1 Body Mass Index 31.1 30.5 29.5 Body Surface Area 1.9 1.9 1.9 Pain Level 5 Note: HL HL Last Documented: On 03/19/2024 1:49PM ; [facility] On 11/09/2023 10:16AM ; [facility] On 06/12/2023 2:17PM ; [facility] Results Includes: Results from 05/13/2023 through 05/13/2024 No Results Recorded For Specified Dates History of Present Illness History of Present Illness not supported for this document type No History of Present Illness Recorded Social History Description Last Updated Caffeine use 03/05/2023 Last Documented On 3 3:19PM ; [facility] Exercising regularly 03/05/2023 Last Documented On 3 3:19PM ; [facility] Tobacco non-user 03/05/2023 Last Documented On 3 3:19PM ; [facility] No recent change in diet 03/05/2023 Last Documented On 3 3:19PM ; [facility] Not a current smoker. 03/05/2023 Last Documented On 3 3:19PM ; [facility] Not using alcohol 03/05/2023 Last Documented On 3 3:19PM ; [facility] Not using drugs 03/05/2023 Last Documented On 3 3:19PM ; [facility] Smoking Status Unknown Procedures and Surgical History Includes: Procedures from 05/13/2023 through 05/13/2024 Procedures Code Diagnosis Performing Provider Service Location Service Date Triamcinolone/Hugo alog, 10mg per cc J3301 Radiculopathy, lumbar region Rafael Tsang CRNA [facility] 04/02/2024 Last Documented On 4 7:10AM ; [facility] Lumbar epidural 92424 Radiculopathy, l umbar region Rafael Tsang WARDROBE TECHNICIAN [facility] 04/02/2024 Last Documented On 4 7:10AM ; [facility] X-RAY EXAM OF LOWER SPINE 4-5 VIEWS 11049 Other intervertebral disc degeneration, lumbar region, Spinal stenosis, lumbar region without neurogenic major THAI Sriram BECK PA-C [facility] 03/19/2024 Last Documented On 4 10:06AM ; [facility] Lumbar epidural 52299 Radiculopathy, l umbar region Rafael Tsang WARDROBE TECHNICIAN [facility] 11/21/2023 Last Documented On 4 10:08AM ; [facility] Triamcinolone/Kenalog, 10mg per cc J3301 Radiculopathy, lumbar region Rafael Tsang WARDROBE TECHNICIAN [facility] 11/21/2023 Last Documented On 4 10:08AM ; [facility] OMIPAQUE (WARDROBE TECHNICIAN performes anesthesia) Q9965 Radiculopathy, lumbar region Rafael Tsang WARDROBE TECHNICIAN [facility] 08/16/2023 Last Documented On 4 6:42PM ; [facility] Lumbar epidural (ABN signed) [id number] Radiculopathy, lumbar region Rafael Tsang WARDROBE TECHNICIAN [facility] 08/16/2023 Last Documented On 3 10:45AM ; [facility] Triamcinolone/Kenalog, 10mg per cc J3301 Radiculopathy, lumbar region Rafael Tsang WARDROBE TECHNICIAN [facility] 08/16/2023 Last Documented On 3 10:45AM ; [facility] OMIPAQUE Q9965 Radiculopathy, l umbar region Rafael Estrella MD [facility] 05/14/2023 Last Documented On 3 12:34PM ; [facility] Injection, methylprednisolone acetate, 40 mg J1030 Radiculopathy, lumbar region Rafael Estrella MD [facility] 05/14/2023 Last Documented On 3 12:34PM ; [facility] Lumbar epidural (ABN signed) [id number] Radiculopathy, lumbar region Rafael Estrella MD [facility] [place] 05/14/2023 Last Documented On 3 12:34PM ; [facility] Medical History Includes: Medical History in patient's chart Description Last Updated Past surgical history non-contributory 0 03/05/2023 Last Documented On 3 3:19PM ; [facility] History of arthritis 03/05/2023 Last Documented On 3 3:19PM ; [facility] History of diverticulitis of colon 03/05 Last Documented On 3 3:19PM ; [facility] History of Heartburn / Acid Reflux 03/05 Last Documented On 3 3:19PM ; [facility] History of History of Cancer 03/05/2023 Last Documented On 3 3:19PM ; [facility] History of Hypertension 03/05/2023 Last Documented On 3 3:19PM ; [facility] Family History Includes: Family History in patient's chart Description Last Updated Diabetes mellitus 03/05/2023 Last Documented On 3 3:19PM ; [facility] Family history of cancer 03/05/2023 Last Documented On 3 3:19PM ; [facility] Family history of heart disease 03/05/20 23 Last Documented On 3 3:19PM ; [facility] Family history of rheumatoid arthritis 0 03/05/2023 Last Documented On 3 3:19PM ; [facility] Stroke / Seizures 03/05/2023 Last Documented On 3 3:19PM ; [facility] Review of Systems Review of Systems not supported for this document type No Review of Systems Recorded Mental Status No Mental Status Recorded Functional Status No Functional Status Recorded Physical Exam Physical Exam not supported for this document type No Physical Exam Recorded Immunizations Includes: Immunizations in patient's chart Vaccine Dose # Date Site Reaction(s) Status Source Influenza 1 03/05/2023 Complete (Refused - Patient objection) [facility] Last Documented On 3 1:04PM ; [facility] PCV (Pneumovax 23) 1 03/05/2023 Complete (Refused - Patient objection) [facility] Last Documented On 3 1:04PM ; [facility] Allergies Includes: Active, inactive, and resolved Allergies No Known Allergies Encounters Includes: Encounters from 05/13/2023 through 05/13/2024 Encounter Provider Location Date Check-In Time Check-Out Time Diagnosis Epidural Steroid Injection Rafael Tsang WARDROBE TECHNICIAN 04/02/20 24 03/19/2024 3:10PM 03/19/2024 11:59PM Epidural Steroid Injection Rafael Tsang [facility] 04/02/20 12:56PM 1:57PM Follow Up THAI BECK PA-C [facility] 03/19/20 1:30PM 1:56PM Overweight Epidural Steroid Injection Rafael Tsang WARDROBE TECHNICIAN 11/21/19 24 11/09/2023 3:38PM 11/09/2023 11:59PM Epidural Steroid Injection Rafael Tsang [facility] 11/21/19 24 12:49PM 1:47PM Follow Up THAI BECK PA-C [facility] 11/09/19 24 10:05AM 10:28AM Overweight Epidural Steroid Injection Rafael Tsang [facility] 08/16/20 2:00PM 2:43PM Epidural Steroid Injection Rafael Tsang [facility] 08/16/20 23 06/12/2023 9:14AM 06/12/2023 11:59PM Follow Up Rafael rios MD [facility] 06/12/20 23 2:02PM 2:53PM Overweight Epidural Steroid Injection Rafael rios MD [facility] 05/14/20 1:49PM 2:32PM Epidural Steroid Injection Rafael rios MD 05/14/20 23 04/02/2023 11:41AM 04/02/2023 11:59PM Insurance Includes: Active Insurance Policies Plan Name Member ID Group # Subscriber Relationship Effect boom Dates 1 - Medicare Part B [facility] [id number] Brooklyn Corbin Self 2 - [facility] [id number] Brooklyn Corbin Self Clinical Notes Includes: Signed Clinical Notes starting from 08/31/2022 * Progress note Date Encounter Last Documented by 03/19/2024 Follow Up Last documented on 03/19/2024; 4:16 PM, THAI Nye; [facility] Active Problems & Conditions - Lower Back Pain Chief Complaint The Chief Complaint is: Low back pain. Referred Here Referred by Self. History of Present Illness Brooklyn Corbin is a 78 year old female. - Allergy list reviewed - Problem list reviewed - Medication list reviewed - Patient pain level from 1-10: 5 - History of Injections 05/14/2023 L4-5 ANA 08/16/2023 L4-5 ANA 11/09/2023 L4-5 ANA 80% FOR 3 MTHS - - Review of medications documented Patient returns prior to repeat lumbar epidural injection. She is received several these over the past couple of years. She finds him very effective. Patient reports she will get 80% relief of her back pain and 100% relief of her leg symptoms for about 3 months before the symptoms returned. She finds the injections very effective. She is able to participate with more activities. She would get out and do her yd work and some house work without significant problems. Patient does require the injections to be done periodically as her symptoms occur about every 3 months. In she would like to continue these. She does not feel like she requires any surgical treatment. Current Medication - Anastrozole 1 MG Oral Tablet 90 days, 0 refills - Atorvastatin Calcium 40 MG Oral Tablet 90 days, 0 refills - busPIRone HCl 10 MG Oral Tablet 90 days, 0 refills - Calcium Carb-Cholecalciferol 600-10 MG-MCG Oral Tablet 90 days, 0 refills - chlordiazePOXIDE HCl 10 MG Oral Capsule 30 days, 0 refills - Lisinopril-hydroCHLOROthiazide 20-25 MG Oral Tablet 90 days, 0 refills - Omeprazole 20 MG Oral Capsule Delayed Release 90 days, 0 refills - Venlafaxine HCl ER 37.5 MG Oral Capsule Extended Release 24 Hour 30 days, 0 refills - ZyrTEC-D Allergy & Congestion 5-120 MG Oral Tablet Extended Release 12 Hour 84 days, 0 refills Past Medical/Surgical History Diagnoses: History of Cancer Heartburn / Acid Reflux Hypertension. Diverticulitis of colon. Arthritis Past surgical history non-contributory. Social History Not a current smoker. Current diet: No recent change in diet. Caffeine use: Caffeine use. Tobacco use: Tobacco non-user. Alcohol: Not using alcohol. Drug Use: Not using drugs. Habits: Exercising regularly. Allergies - No Known Allergies Family History Cancer Heart disease Stroke / Seizures Diabetes mellitus Rheumatoid arthritis Review Of Systems Systemic: Not feeling tired, no recent weight loss, and no recent weight gain. Head: Headache. No sinus pain. Eyes: No vision problems, no Cataracts, no Glasses/Contacts, and no Glaucoma. Otolaryngeal: No hearing loss. Tinnitus. Cardiovascular: No chest pain or discomfort and no palpitations. Hypertension and High Cholesterol. Pulmonary: No daytime asthma symptoms and no chronic cough. No wheezing. Gastrointestinal: No heartburn and no abdominal pain. No Indigestion, no Peptic Ulcer, no GI Stomach Bleed, and no Ulcers. Acid Reflux. Endocrine: Hot flashes and muscle weakness. No Diabetes, no Hypothyroid, and no Hyperthyroid. Hematologic: No easy bleeding, no tendency for easy bruising, and no Anemia. Musculoskeletal: Arthritis and lower back pain. No soft tissue swelling. Pain localized to one or more joints. Neurological: No dizziness and no convulsions. Numbness. Psychological: Anxiety. No emotional lability, no depression, and no insomnia. Not crying for no reason. Skin: No dry skin. No Ulcers. Scars. No rash. Allergic and Immunologic: Complaint of seasonal allergic reaction. Physical Findings - Vitals taken 03/19/2024 01:49 pm Height 65 in 59 - 78 Weight 187 lbs 95 - 175 Body Mass Index 31.1 kg/m2 Body Surface Area 1.9 m2 Pain Level 5 Skin is unremarkable. There is some scoliosis. Patient has good mobility. She would done easily without assistance. Hip knee and ankle motion normal. She has a normal gait. Normal strength. As with activities she will have increasing L5 and S1 radicular symptoms down into both legs with increasing pain and pressure across the lower back. Tests Four views of the lumbar spine demonstrating advanced disc degeneration with some lumbar scoliosis. There is foraminal narrowing associated with this. No evidence of fracture or gross instability. Assessment - Overweight Lumbar disc degeneration with stenosis. Patient is getting excellent results out of the occasional L4-5 epidural injection. Previous Tests Imaging: X-Ray: An X-ray was performed 03/05/2023 [facility]. MRI Scan: An MRI was performed 03/22/2023 [facility]. Basic Management Procedures And Services: - Brace Counseling/Education - Tobacco non-user - Use of tobacco assessment performed - Lose weight Plan - Patient screened for future fall risk: documentation of any fall with injury in past year Fall Risk Assessment: This patient has been identified as a fall risk. Balance/gait along with postural blood pressure, vision and home fall hazards have been assessed. Medications have been reviewed, and recommendations made with regard to contributing factors for future falls. Plan of care: Consideration of vitamin D supplementation along with balance and strength training with consideration for formal physical therapy has been discussed with the patient. Patient is already scheduled for repeat injection. As long as she is doing well we will see her on an as-needed basis. Notes This dictation was done with voice recognition software and may contain errors and omissions. Practice Management Use of tobacco assessment performed and patient screened for future fall risk documentation of any fall with injury in past year Review of medications documented. Care Team - ARON KINGSTON MD - DECK MECHANIC Health Reminders - Assess BMI satisfied 03/19/2024. - Assess Tobacco Use satisfied 03/19/2024. - Follow Up Plan BMI Management satisfied 03/19/2024. User Defined 5 Fall Risk Assessment: This patient has been identified as a fall risk. Balance/gait along with postural blood pressure, vision and home fall hazards have been assessed. Medications have been reviewed, and recommendations made with regard to contributing factors for future falls. Plan of care: Consideration of vitamin D supplementation along with balance and strength training with consideration for formal physical therapy has been discussed with the patient. * Progress note Date Encounter Last Documented by 11/09/2023 Follow Up Last documented on 11/09/2023; 11:19 AM, THAI Nye; [facility] Active Problems & Conditions - Lower Back Pain Chief Complaint The Chief Complaint is: Low back pain. Referred Here Referred by Self. History of Present Illness Brooklyn Corbin is a 78 year old female. - Allergy list reviewed - Problem list reviewed - Medication list reviewed - Previous history of new onset pain Injury is not work related or an automotive accident - Pain is constant (100% of the time) - Pain is dull, aching - Patient pain level from 1-10: 7 - Yes, previous treatment. Dr. Jones - History of Physical Therapy @ [facility] - History of Home Exercise - History of Injections 05/14/2023 L4-5 ANA 08/16/2023 L4-5 ANA Medications used for this condition: Patient returns to see us prior to another lumbar epidural injection. She has had a few these over the past year to with great success. She will get 80% relief for about 3 months before she requires repeat injection. Certain activities may aggravate her symptoms such as bending lifting. Overall she finds the injections very effective. They improve her mobility and range of motion and the improve her activity level. Current Medication - Anastrozole 1 MG Oral Tablet 90 days, 0 refills - Atorvastatin Calcium 40 MG Oral Tablet 90 days, 0 refills - busPIRone HCl 10 MG Oral Tablet 90 days, 0 refills - Calcium Carb-Cholecalciferol 600-10 MG-MCG Oral Tablet 90 days, 0 refills - chlordiazePOXIDE HCl 10 MG Oral Capsule 30 days, 0 refills - Lisinopril-hydroCHLOROthiazide 20-25 MG Oral Tablet 90 days, 0 refills - Omeprazole 20 MG Oral Capsule Delayed Release 90 days, 0 refills - Venlafaxine HCl ER 37.5 MG Oral Capsule Extended Release 24 Hour 30 days, 0 refills - ZyrTEC-D Allergy & Congestion 5-120 MG Oral Tablet Extended Release 12 Hour 84 days, 0 refills Past Medical/Surgical History Diagnoses: History of Cancer Heartburn / Acid Reflux Hypertension. Diverticulitis of colon. Arthritis Past surgical history non-contributory. Social History Not a current smoker. Current diet: No recent change in diet. Caffeine use: Caffeine use. Tobacco use: Tobacco non-user. Alcohol: Not using alcohol. Drug Use: Not using drugs. Habits: Exercising regularly. Allergies - No Known Allergies Family History Cancer Heart disease Stroke / Seizures Diabetes mellitus Rheumatoid arthritis Review Of Systems Systemic: Not feeling tired, no recent weight loss, and no recent weight gain. Head: Headache. No sinus pain. Eyes: No vision problems, no Cataracts, no Glasses/Contacts, and no Glaucoma. Otolaryngeal: No hearing loss. Tinnitus. Cardiovascular: No chest pain or discomfort and no palpitations. Hypertension and High Cholesterol. Pulmonary: No daytime asthma symptoms and no chronic cough. No wheezing. Gastrointestinal: No heartburn and no abdominal pain. No Indigestion. Acid Reflux. No Peptic Ulcer, no GI Stomach Bleed, and no Ulcers. Endocrine: Hot flashes and muscle weakness. No Diabetes, no Hypothyroid, and no Hyperthyroid. Hematologic: No easy bleeding, no tendency for easy bruising, and no Anemia. Musculoskeletal: Arthritis and lower back pain. No soft tissue swelling. Pain localized to one or more joints. Neurological: No dizziness and no convulsions. Numbness. Psychological: Anxiety. No emotional lability, no depression, and no insomnia. Not crying for no reason. Skin: No dry skin. No Ulcers. Scars. No rash. Allergic and Immunologic: Complaint of seasonal allergic reaction. Physical Findings - Vitals taken 11/09/2023 10:12 am HL Height 65 in 59 - 78 Weight 183 lbs 6.4 oz 95 - 175 Body Mass Index 30.5 kg/m2 Body Surface Area 1.9 m2 Patient does not have a lot of symptoms at rest periods when she stands or walks or does a lot of bending. She would get up and down easily without assistance. She has a normal gait. Hip knee and ankle motion normal. Straight leg raising negative nerve root compression. Symptoms seem to follow more of a spinal stenosis pattern with increasing lower back and hip pains and leg pain with numbness and weakness that extended down into the legs. At rest symptoms resolve. Assessment - Overweight Lumbar scoliosis with advanced disc degeneration facet arthropathy. Foraminal stenosis. Patient has excellent response to the occasional epidural injection. She has not interested in pursuing any surgical treatment present time. She finds the injections provide really good relief for a few months at a time. She would like to continue these as long as they are effective. Previous Tests Imaging: X-Ray: An X-ray was performed 03/05/2023 [facility]. MRI Scan: An MRI was performed 03/22/2023 [facility]. Basic Management Procedures And Services: - Brace Counseling/Education - Lose weight Plan Patient is already scheduled for another epidural injection here in the next couple of weeks. We will continue these as long as they are effective. Follow up as needed. Fall Risk Assessment: This patient has been identified as a fall risk. Balance/gait along with postural blood pressure, vision and home fall hazards have been assessed. Medications have been reviewed, and recommendations made with regard to contributing factors for future falls. Plan of care: Consideration of vitamin D supplementation along with balance and strength training with consideration for formal physical therapy has been discussed with the patient. Notes This dictation was done with voice recognition software and may contain errors and omissions. Practice Management Use of tobacco assessment performed and patient screened for future fall risk documentation of any fall with injury in past year Review of medications documented. Care Team - ARON KINGSTON MD - DECK MECHANIC Health Reminders - Assess BMI satisfied 11/09/2023. - Assess Tobacco Use satisfied 03/05/2023. - Follow Up Plan BMI Management satisfied 11/09/2023. 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 Corbin had a great response to an L4-5 epidural steroid injection. I am going to give her a prescription for a therapeutic L4-5 epidural steroid injection which she can proceed with at her discretion. I told her that most she can do this every 3 months but my hope is that she can space them out considerably further than that. She will do so and follow-up with us as needed in the future. Fall Risk Assessment: This patient has been identified as a fall risk. Balance/gait along with postural blood pressure, vision and home fall hazards have been assessed. Medications have been reviewed, and recommendations made with regard to contributing factors for future falls. Plan of care: Consideration of vitamin D supplementation along with balance and strength training with consideration for formal physical therapy has been discussed with the patient. * Progress note Date Encounter Last Documented by 06/12/2023 Follow Up Last documented on 06/12/2023; 4:44 PM, Rafael Dugan MD; [facility], [facility] Active Problems & Conditions - Lower Back Pain Chief Complaint The Chief Complaint is: Low back pain. Referred Here Referred by Self. History of Present Illness Brooklyn Corbin is a 77 year old female. - Allergy list reviewed - Problem list reviewed - Medication list reviewed - Previous history of new onset pain Injury is not work related or an automotive accident - Pain is constant (100% of the time) - Pain is dull, aching - Patient pain level from 1-10: 2 - Yes, previous treatment. Dr. Jones - History of Physical Therapy @ [facility] - History of Home Exercise - History of Injections 05/14/2023 L4-5 ANA Medications used for this condition: This is a 77-year-old female with a known history of adult degenerative scoliosis and mild L4-5 spondylolisthesis following up with me after undergoing an L4-5 epidural steroid injection. Brooklyn is very happy to tell me today that this provided her a great deal of pain relief and she is doing very well. She is hopeful to continue nonoperatively for the foreseeable future. Current Medication - Anastrozole 1 MG Oral Tablet 90 days, 0 refills - Atorvastatin Calcium 40 MG Oral Tablet 90 days, 0 refills - busPIRone HCl 10 MG Oral Tablet 90 days, 0 refills - Calcium Carb-Cholecalciferol 600-10 MG-MCG Oral Tablet 90 days, 0 refills - chlordiazePOXIDE HCl 10 MG Oral Capsule 30 days, 0 refills - Lisinopril-hydroCHLOROthiazide 20-25 MG Oral Tablet 90 days, 0 refills - Omeprazole 20 MG Oral Capsule Delayed Release 90 days, 0 refills - Venlafaxine HCl ER 37.5 MG Oral Capsule Extended Release 24 Hour 30 days, 0 refills - ZyrTEC-D Allergy & Congestion 5-120 MG Oral Tablet Extended Release 12 Hour 84 days, 0 refills Past Medical/Surgical History Diagnoses: History of Cancer Heartburn / Acid Reflux Hypertension. Diverticulitis of colon. Arthritis Past surgical history non-contributory. Social History Not a current smoker. Current diet: No recent change in diet. Caffeine use: Caffeine use. Tobacco use: Tobacco non-user. Alcohol: Not using alcohol. Drug Use: Not using drugs. Habits: Exercising regularly. Allergies - No Known Allergies Family History Cancer Heart disease Stroke / Seizures Diabetes mellitus Rheumatoid arthritis Review Of Systems Systemic: Not feeling tired, no recent weight loss, and no recent weight gain. Head: Headache. No sinus pain. Eyes: No vision problems, no Cataracts, no Glasses/Contacts, and no Glaucoma. Otolaryngeal: No hearing loss. Tinnitus. Cardiovascular: No chest pain or discomfort and no palpitations. Hypertension and High Cholesterol. Pulmonary: No daytime asthma symptoms and no chronic cough. No wheezing. Gastrointestinal: No heartburn and no abdominal pain. No Indigestion. Acid Reflux. No Peptic Ulcer, no GI Stomach Bleed, and no Ulcers. Endocrine: Hot flashes and muscle weakness. No Diabetes, no Hypothyroid, and no Hyperthyroid. Hematologic: No easy bleeding, no tendency for easy bruising, and no Anemia. Musculoskeletal: Arthritis and lower back pain. No soft tissue swelling. Pain localized to one or more joints. Neurological: No dizziness and no convulsions. Numbness. Psychological: Anxiety. No emotional lability, no depression, and no insomnia. Not crying for no reason. Skin: No dry skin. No Ulcers. Scars. No rash. Allergic and Immunologic: Complaint of seasonal allergic reaction. reviewed 06/12/2023 Physical Findings - Vitals taken 06/12/2023 02:17 pm HL Height 65 in Weight 177 lbs 1.6 oz Body Mass Index 29.5 kg/m2 Body Surface Area 1.9 m2 General: Alert and Oriented ? 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 Corbin had a great response to an L4-5 epidural steroid injection. I am going to give her a prescription for a therapeutic L4-5 epidural steroid injection which she can proceed with at her discretion. I told her that most she can do this every 3 months but my hope is that she can space them out considerably further than that. She will do so and follow-up with us as needed in the future. Fall Risk Assessment: This patient has been identified as a fall risk. Balance/gait along with postural blood pressure, vision and home fall hazards have been assessed. Medications have been reviewed, and recommendations made with regard to contributing factors for future falls. Plan of care: Consideration of vitamin D supplementation along with balance and strength training with consideration for formal physical therapy has been discussed with the patient. Assessment - Overweight Previous Tests Imaging: X-Ray: An X-ray was performed 03/05/2023 [facility]. MRI Scan: An MRI was performed 03/22/2023 [facility]. Basic Management Procedures And Services: - Brace Counseling/Education - Lose weight Practice Management Use of tobacco assessment performed and patient screened for future fall risk documentation of any fall with injury in past year Review of medications documented. Care Team - ARON KINGSTON MD - DECK MECHANIC Notes This dictation was done with voice recognition software and may contain errors and omissions.
--- OUTSIDE RECORDS SUMMARY | 2024-05-13 12:12 | XMS_ITS | Clinical Summary ---
Author Organization [facility] , [facility] Address [address] [place] [address] Phone Care Team Providers Care Electro Mechanic Name Role Phone THEE HERNANDEZ, ARON E Unavailable [phone] Sameer HERNANDEZ, Rafael Unavailable [phone] Reason for Visit and Chief Complaint Epidural Steroid Injection Problems Includes: Problems addressed during this encounter and other active Problems All Visits Onset Date Resolved Date Provider Condition S tatus Lower Back Pain 03/05/2023 Rafael rios MD Active Last Documented On 3 1:01PM ; [facility] Plan of Treatment Future Appointments Date Time Location Provi bob Follow Up 07/17/2024 10:45AM [facility] MARY BECK PA-C Last Documented On 4 2:06PM ; [facility] Follow Up 08/01/2024 1:15PM [facility] Rafael Tsang CRNA Last Documented On 4 2:06PM ; [facility] Assessments Includes: Assessments from this encounter No [...] On 3 1:01PM By [place] ; [facility] Anastrozole 1 MG Oral Tablet 02/27/2023 Provider: Shelia Mora MD Diagnosis: Last Documented On 3 1:01PM By [place] ; [facility] chlordiazePOXIDE HCl 10 MG Oral Capsule 02/19/2023 Viji bland: ARON KINGSTON MD Diagnosis: Last Documented On 3 1:02PM By [place] ; [facility] busPIRone HCl 10 MG Oral Tablet 02/12/2023 Provider: JOHN BAJWA II, MD Diagnosis: Last Documented On 3 1:02PM By [place] ; [facility] Atorvastatin Calcium 40 MG Oral Tablet 02/09/2023 Pr ovider: ARON KINGSTON MD Diagnosis: Last Documented On 3 1:02PM By [place] ; [facility] Lisinopril-hydroCHLOROthiazi de 20-25 MG Oral Tablet 02/09/2023 Provider: ARON KINGSTON MD Diagnosis: Last Documented On 3 1:02PM By [place] ; [facility] Omeprazole 20 MG Oral Capsule Delayed Release 02/10/20 Provider: ARON KINGSTON MD Diagnosis: Last Documented On 3 1:02PM By [place] ; [facility] ZyrTEC-D Allergy & Congestio n 5-120 MG Oral Tablet Extended Release 12 Hour 01/12/2023 Provider: ARON KINGSTON MD Diagnosis: Last Documented On 3 1:02PM By [place] ; [facility] Calcium Carb-Cholecalciferol 600-10 MG-MCG Oral Tablet 12/07/2022 Provider: Diagnosis: Last Documented On 3 1:02PM By [place] ; [facility] Medications Administered Includes: Administered Medications from this encounter No Administered Medications Recorded Results Includes: Results discussed during this encounter No Results Recorded For Specified Dates History of Present Illness Includes: History of Present Illness from this encounter No History of Present Illness Recorded Social History No Social History Recorded - Smoking Status Unknown Procedures and Surgical History Includes: Procedures from this encounter Procedures Code Diagnosis Performing Provider Service Location Service Date Lumbar epidural 50088 Radiculopathy, lumbar region Rafael Tsang [facility] 04/02/2024 Last Documented On 4 7:10AM ; [facility] Triamcinolone/Kenalog, 10mg per cc [id number] Radiculopathy, lumbar region Rafael Tsang CRNA [facility] 04/02/2024 Last Documented On 4 7:10AM ; [facility] Medical History Includes: Medical History addressed during this encounter No Medical History Recorded Family History Includes: Family History addressed during this encounter No Family History Recorded Review of Systems Includes: Review of Systems from this encounter No Review of Systems Recorded Mental Status Includes: Mental Status from this encounter No Mental Status Recorded Functional Status Includes: Functional Status from this encounter No Functional Status Recorded Physical Exam Includes: Physical Exam from this encounter No Physical Exam Recorded Allergies Includes: Active Allergies No Known Allergies Encounters Encounter Provider Location Date Check-In Time Check-Out Time Diagnosis Epidural Steroid Injection Rafael Tsang CRNA [facility] 04/02/20 24 12:56PM 1:57PM Insurance Includes: Active Insurance Policies Plan Name Member ID Group # Subscriber Relationship Effect boom Dates 1 - Medicare Part B [facility] [id number] [place] Corbin Self 2 - [facility] [id number] [place] Corbin Self Clinical Notes Includes: Clinical Notes from this encounter No Clinical Notes Recorded
--- OUTSIDE RECORDS SUMMARY | 2024-05-13 12:12 | XMS_ITS | Clinical Summary ---
Author Organization [facility] , [facility] Address [address] [place] [address] Phone Care Team Providers Care Retail Management Keyholder Name Role Phone THEE HERNANDEZ, ARON E [...] Active Last Documented On 3 1:01PM ; [facility] Plan of Treatment Future Appointments Date Time Location Provi bob Follow Up 07/17/2024 10:45AM [facility] MARY BECK PA-C Last Documented On 4 2:06PM ; [facility] Follow Up 08/01/2024 1:15PM [facility] Rafael Tsang CRNA Last Documented On 4 2:06PM ; [facility] Assessments Includes: Assessments from this encounter No [...] On 3 1:01PM By [place] ; [facility] Anastrozole 1 MG Oral Tablet 02/27/2023 Provider: Shelia Mora MD Diagnosis: Last Documented On 3 1:01PM By [place] ; [facility], [facility] chlordiazePOXIDE HCl 10 MG Oral Capsule 02/19/2023 Viji bland: ARON KINGSTON MD Diagnosis: Last Documented On 3 1:02PM By [place] ; [facility], [facility] busPIRone HCl 10 MG Oral Tablet 02/12/2023 Provider: JOHN BAJWA II, MD Diagnosis: Last Documented On 3 1:02PM By [place] ; [facility], [facility] Atorvastatin Calcium 40 MG Oral Tablet 02/09/2023 Pr ovider: ARON KINGSTON MD Diagnosis: Last Documented On 3 1:02PM By [place] ; [facility], [facility] Lisinopril-hydroCHLOROthiazi de 20-25 MG Oral Tablet 02/09/2023 Provider: ARON KINGSTON MD Diagnosis: Last Documented On 3 1:02PM By [place] ; [facility], [facility] Omeprazole 20 MG Oral Capsule Delayed Release 02/10/20 Provider: ARON KINGSTON MD Diagnosis: Last Documented On 3 1:02PM By [place] ; [facility], [facility] ZyrTEC-D Allergy & Congestio n 5-120 MG Oral Tablet Extended Release 12 Hour 01/12/2023 Provider: ARON KINGSTON MD Diagnosis: Last Documented On 3 1:02PM By [place] ; [facility], [facility] Calcium Carb-Cholecalciferol 600-10 MG-MCG Oral Tablet 12/07/2022 Provider: Diagnosis: Last Documented On 3 1:02PM By [place] ; [facility], [facility] Medications Administered Includes: Administered Medications from this encounter No Administered Medications Recorded Results Includes: Results discussed during this encounter No Results Recorded For Specified Dates History of Present Illness Includes: History of Present Illness from this encounter No History of Present Illness Recorded Social History No Social History Recorded - Smoking Status Unknown Medical History Includes: Medical History addressed during [...] Diagnosis Epidural Steroid Injection Rafael Tsang CRNA 04/02/2024 3:10PM 11:59PM Insurance Includes: Active Insurance Policies Plan Name Member ID Group # Subscriber Relationship Effect boom Dates 1 - Medicare Part B [facility] [id number] Brooklyn Batista 2 - [facility] [id number] Brooklyn Batista Clinical Notes Includes: Clinical Notes from this encounter No Clinical Notes Recorded
--- OUTSIDE RECORDS SUMMARY | 2024-05-13 12:13 | XMS_ITS | Clinical Summary ---
Author Organization [facility] , [facility] Address [address] [place] [address] Phone Care Team Providers Care Thread Puller Name Role Phone THEE HERNANDEZ, ARON Matos Unavailable [phone] Sameer HERNANDEZ, Rafael Unavailable [phone] Reason for Visit and Chief Complaint The Chief Complaint is: Low back pain Problems Includes: Problems addressed during this encounter and other active Problems Current Visit Onset Date Resolved Date Provider Iftikhar agustin Status Lower Back Pain 03/05/2023 Rafael rios MD Active Last Documented On 1:01PM ; [facility] Plan of Treatment - Patient screened for future fall risk: documentation of any fall with injury in past year - Last Documented On 03/19/2024 4:16PM ; [facility] Fall Risk Assessment: This patient has been [...] therapy has been discussed with the patient. - Last Documented On 03/19/2024 4:16PM ; [facility] Patient is already scheduled for repeat injection. As long as she is doing well we will see her on an as-needed basis. - Last Documented On 03/19/2024 4:16PM ; [facility] Future Appointments Date Time Location Provi bob Follow Up 07/17/2024 10:45AM [facility] MARY BECK PA-C Last Documented On 4 2:06PM ; [facility] Follow Up 08/01/2024 1:15PM [facility] MARY Tsang CRNA Last Documented On 4 2:06PM ; [facility] Instructions to patient Lose weight Last Documented On 4 1:48PM ; [facility] Assessments Includes: Assessments from this encounter Findings - Overweight - Last Documented On 03/19/2024 4:16PM ; [facility] Lumbar disc degeneration with stenosis. Patient is getting excellent results out of the occasional L4-5 epidural injection. - Last Documented On 03/19/2024 4:16PM ; [facility] Fall Risk Assessment: - Last Documented On 03/19/2024 4:16PM ; [facility] This patient has been identified as a fall risk. Balance/gait along with postural blood pressure, vision and home fall hazards have been assessed. Medications have been reviewed, and recommendations made with regard to contributing factors for future falls. - Last Documented On 03/19/2024 4:16PM ; [facility] Plan of care: Consideration of vitamin D supplementation along with balance and strength training with consideration for formal physical therapy has been discussed with the patient. - Last Documented On 03/19/2024 4:16PM ; [facility] Instructions Includes: Instructions from this encounter Instructions to patient Lose weight Last Documented On 4 1:48PM ; [facility] Medical Equipment - Implanted Devices Includes: Current Devices No Medical Equipment Recorded Medications Includes: Medications discussed during this encounter and other current Medications Current Medications (continue as prescribed) Venlafaxine HCl ER 37.5 MG O ral Capsule Extended Release 24 Hour 03/04/2023 Provider: Shelia Mora MD Diagnosis: Last Documented On 3 1:01PM By [place] ; [facility] Anastrozole 1 MG Oral Tablet 02/27/2023 Provider: Shelia Mora MD Diagnosis: Last Documented On 3 1:01PM By [place] ; [facility] chlordiazePOXIDE HCl 10 MG Oral Capsule 02/19/2023 Viji bland: ARON KINGSTON MD Diagnosis: Last Documented On 3 1:02PM By [place] ; [facility] busPIRone HCl 10 MG Oral Tablet 02/12/2023 Provider: JOHN BAJWA II, MD Diagnosis: Last Documented On 3 1:02PM By [place] ; [facility] Atorvastatin Calcium 40 MG Oral Tablet 02/09/2023 Pr ovider: ARON KINGSTON MD Diagnosis: Last Documented On 3 1:02PM By [place] ; [facility] Lisinopril-hydroCHLOROthiazi de 20-25 MG Oral Tablet 02/09/2023 Provider: ARON KINGSTON MD Diagnosis: Last Documented On 3 1:02PM By [place] ; [facility] Omeprazole 20 MG Oral Capsule Delayed Release 02/10/20 Provider: ARON KINGSTON MD Diagnosis: Last Documented On 3 1:02PM By [place] ; [facility] ZyrTEC-D Allergy & Congestio n 5-120 MG Oral Tablet Extended Release 12 Hour 01/12/2023 Provider: ARON KINGSTON MD Diagnosis: Last Documented On 3 1:02PM By [place] ; [facility] Calcium Carb-Cholecalciferol 600-10 MG-MCG Oral Tablet 12/07/2022 Provider: Diagnosis: Last Documented On 3 1:02PM By [place] ; [facility] Medications Administered Includes: Administered Medications from this encounter No Administered Medications Recorded Vital Signs Includes: Vital Signs from this encounter Vital Name 03/19/2024 01:49P Height (in) 65 Weight (lb) 187 Body Mass Index 31.1 Body Surface Area 1.9 Pain Level 5 Last Documented: On 03/19/2024 1:49PM ; [facility] Results Includes: Results discussed during this encounter No Results Recorded For Specified Dates History of Present Illness Includes: History of Present Illness from this encounter HANNAH Corbin is a 78 year old female. [...] feel like she requires any surgical treatment. Social History Description Last Updated Caffeine use 03/05/2023 Last Documented On 4 1:48PM ; [facility] Exercising regularly 03/05/2023 Last Documented On 4 1:48PM ; [facility] Tobacco non-user 03/05/2023 Last Documented On 4 1:48PM ; [facility] No recent change in diet 03/05/2023 Last Documented On 4 1:48PM ; [facility] Not a current smoker. 03/05/2023 Last Documented On 4 1:48PM ; [facility] Not using alcohol 03/05/2023 Last Documented On 4 1:48PM ; [facility] Not using drugs 03/05/2023 Last Documented On 4 1:48PM ; [facility] Smoking Status Unknown Procedures and Surgical History Includes: Procedures from this encounter Procedures Code Diagnosis Performing Provider Service Location Service Date X-RAY EXAM OF LOWER SPINE 4-5 VIEWS 74513 Other intervertebral disc degeneration, lumbar region, Spinal stenosis, lumbar region without neurogenic major THAI BECK PA-C [facility] MARY 03/19/2024 Last Documented On 4 10:06AM ; [facility] use of tobacco assessment performed 1000F Last Documented On 4 1:48PM ; [facility] patient screened for future fall risk: documentation of any fall with injury in past year 1100F Last Documented On 4 1:48PM ; [facility] review of medications documented 1160F Last Documented On 4 1:48PM ; [facility] an X-ray was performed 03/05/2023 [facility] @ [facility] [id number] Last Documented On 4 1:48PM ; [facility] an MRI was performed 03/22/2023 [facility] @ [facility] [id number] Last Documented On 4 1:48PM ; [facility] brace Last Documented On 4 1:48PM ; [facility] Medical History Includes: Medical History addressed during this encounter Description Last Updated Past surgical history non-contributory 0 03/05/2023 Last Documented On 4 1:48PM ; [facility] History of arthritis 03/05/2023 Last Documented On 4 1:48PM ; [facility] History of diverticulitis of colon 03/05 Last Documented On 4 1:48PM ; [facility] History of Heartburn / Acid Reflux 03/05 Last Documented On 4 1:48PM ; [facility] History of History of Cancer 03/05/2023 Last Documented On 4 1:48PM ; [facility] History of Hypertension 03/05/2023 Last Documented On 4 1:48PM ; [facility] Family History Includes: Family History addressed during this encounter Description Last Updated Diabetes mellitus 03/05/2023 Last Documented On 4 1:48PM ; [facility] Family history of cancer 03/05/2023 Last Documented On 4 1:48PM ; [facility] Family history of heart disease 03/05/20 Last Documented On 4 1:48PM ; [facility] Family history of rheumatoid arthritis 0 03/05/2023 Last Documented On 4 1:48PM ; [facility] Stroke / Seizures 03/05/2023 Last Documented On 4 1:48PM ; [facility] Review of Systems Includes: Review of Systems from this encounter Systemic: Not feeling tired, no recent weight [...] and Immunologic: Complaint of seasonal allergic reaction. Mental Status Includes: Mental Status from this encounter Description Anxiety Functional Status Includes: Functional Status from this encounter No Functional Status Recorded Physical Exam Includes: Physical Exam from this encounter Allergies Includes: Active Allergies No Known Allergies Encounters Encounter Provider Location Date Check-In Time Check-Out Time Diagnosis Follow Up THAI BECK PA-C [facility] 4 1:30PM 1:56PM Overweight Insurance Includes: Active Insurance Policies Plan Name Member ID Group # Subscriber Relationship Effect boom Dates 1 - Medicare Part B [facility] [id number] [place] Corbin Self 2 - [facility] [id number] Brooklyn Batista Clinical Notes Includes: Clinical Notes from this encounter * Progress note Date Encounter Last Documented by 03/19/2024 Follow Up Last documented on 03/19/2024; 4:16 PM, THAI Nye; [facility] Active Problems & Conditions - Lower Back [...] Imaging: X-Ray: An X-ray was performed 03/05/2023 [facility] @ [facility]. MRI Scan: An MRI was [place] [facility]. Basic Management Procedures And Services: - Brace [...] Care Team - ARON KINGSTON MD - [employer] Health Reminders - Assess BMI satisfied 03/19/2024. [...]
--- OUTSIDE RECORDS SUMMARY | 2024-05-13 12:13 | XMS_ITS | Clinical Summary ---
Author Organization [facility] Address [address] [place] [address] Phone Care Team Providers Care Instrument And Electrical Technician Name Role Phone THEE HERNANDEZ, ARON E [...] Active Last Documented On 3 1:01PM ; [facility] Plan of Treatment Future Appointments Date Time Location Provi bob Follow Up 07/17/2024 10:45AM [facility] MARY BECK PA-C Last Documented On 4 2:06PM ; [facility] Follow Up 08/01/2024 1:15PM [facility] Rafael Tsang CRNA Last Documented On 4 2:06PM ; [facility] Assessments Includes: Assessments from this [...] On 3 1:01PM By [place] ; [facility] Anastrozole 1 MG Oral Tablet 02/27/2023 Provider: Shelia Mora MD Diagnosis: Last Documented On 3 1:01PM By [place] ; [facility] chlordiazePOXIDE HCl 10 MG Oral Capsule 02/19/2023 Viji bland: ARON KINGSTON MD Diagnosis: Last Documented On 3 1:02PM By [place] ; [facility] busPIRone HCl 10 MG Oral Tablet 02/12/2023 Provider: JOHN BAJWA II, MD Diagnosis: Last Documented On 3 1:02PM By [place] ; [facility] Atorvastatin Calcium 40 MG Oral Tablet 02/09/2023 Pr ovider: ARON KINGSTON MD Diagnosis: Last Documented On 3 1:02PM By [place] ; [facility] Lisinopril-hydroCHLOROthiazi de 20-25 MG Oral Tablet 02/09/2023 Provider: ARON KINGSTON MD Diagnosis: Last Documented On 3 1:02PM By [place] ; [facility] Omeprazole 20 MG Oral Capsule Delayed Release 02/10/20 Provider: ARON KINGSTON MD Diagnosis: Last Documented On 3 1:02PM By [place] ; [facility] ZyrTEC-D Allergy & Congestio n 5-120 MG Oral Tablet Extended Release 12 Hour 01/12/2023 Provider: ARON KINGSTON MD Diagnosis: Last Documented On 3 1:02PM By [place] ; [facility] Calcium Carb-Cholecalciferol 600-10 MG-MCG Oral Tablet 12/07/2022 Provider: Diagnosis: Last Documented On 3 1:02PM By [place] ; [facility] Medications Administered Includes: Administered Medications [...] Provider Service Location Service Date Lumbar epidural 36177 Radiculopathy, lumbar region Rafael Tsang [facility] 11/21/2023 Last Documented On 4 10:08AM ; [facility] Triamcinolone/Kenalog, 10mg per cc J3301 Radiculopathy, lumbar region Rafael Tsang CRNA [facility] 11/21/2023 Last Documented On 4 10:08AM ; [facility] Medical History Includes: Medical History [...] Diagnosis Epidural Steroid Injection Rafael Tsang CRNA [facility] 11/21/19 24 12:49PM 1:47PM Insurance Includes: Active Insurance Policies Plan Name Member ID Group # Subscriber Relationship Effect boom Dates 1 - Medicare Part B [facility] [id number] Brooklyn Corbin Self 2 - [facility] [id number] [place] Corbin Self Clinical Notes Includes: Clinical Notes from this encounter No Clinical Notes Recorded
--- OUTSIDE RECORDS SUMMARY | 2024-05-13 12:13 | XMS_ITS | Clinical Summary ---
Author Organization [facility] , [facility] Address [address] [address] Phone Care Team Providers Care Dock Builder Name Role Phone THEE HERNANDEZ, ARON E [...] Active Last Documented On 3 1:01PM ; [facility] Plan of Treatment Future Appointments Date Time Location Provi bob Follow Up 07/17/2024 10:45AM [facility] MARY BECK PA-C Last Documented On 4 2:06PM ; [facility] Follow Up 08/01/2024 1:15PM [facility] Rafael Tsang CRNA Last Documented On 4 2:06PM ; [facility] Assessments Includes: Assessments from this [...] On 3 1:01PM By [place] ; [facility] Anastrozole 1 MG Oral Tablet 02/27/2023 Provider: Shelia Mora MD Diagnosis: Last Documented On 3 1:01PM By [place] ; [facility], [facility] chlordiazePOXIDE HCl 10 MG Oral Capsule 02/19/2023 Viji bland: ARON KINGSTON MD Diagnosis: Last Documented On 3 1:02PM By [place] ; [facility], [facility] busPIRone HCl 10 MG Oral Tablet 02/12/2023 Provider: JOHN BAJWA II, MD Diagnosis: Last Documented On 3 1:02PM By [place] ; [facility], [facility] Atorvastatin Calcium 40 MG Oral Tablet 02/09/2023 Pr ovider: ARON KINGSTON MD Diagnosis: Last Documented On 3 1:02PM By [place] ; [facility], [facility] Lisinopril-hydroCHLOROthiazi de 20-25 MG Oral Tablet 02/09/2023 Provider: ARON KINGSTON MD Diagnosis: Last Documented On 3 1:02PM By [place] ; [facility], [facility] Omeprazole 20 MG Oral Capsule Delayed Release 02/10/20 Provider: ARON KINGSTON MD Diagnosis: Last Documented On 3 1:02PM By [place] ; [facility], [facility] ZyrTEC-D Allergy & Congestio n 5-120 MG Oral Tablet Extended Release 12 Hour 01/12/2023 Provider: ARON KINGSTON MD Diagnosis: Last Documented On 3 1:02PM By [place] ; [facility], [facility] Calcium Carb-Cholecalciferol 600-10 MG-MCG Oral Tablet 12/07/2022 Provider: Diagnosis: Last Documented On 3 1:02PM By [place] ; [facility], [facility] Medications Administered Includes: Administered Medications from [...] Diagnosis Epidural Steroid Injection Rafael Tsang CRNA 11/21/2023 3:38PM 11:59PM Insurance Includes: Active Insurance Policies Plan Name Member ID Group # Subscriber Relationship Effect boom Dates 1 - Medicare Part B [facility] [id number] Brooklyn Batista 2 - [facility] [id number] Brooklyn Batista Clinical Notes Includes: Clinical Notes from this encounter No Clinical Notes Recorded
--- NOTE | 2024-05-13 12:31 | CT_ITS ---
FINAL REPORT TECHNIQUE: Axial images through the abdomen and pelvis were performed without contrast. This study was performed with techniques to keep radiation doses as low as reasonably achievable, (ALARA). Individualized dose reduction techniques using automated exposure control or adjustment of mA and/or kV according to the patient's size were employed. CLINICAL HISTORY: Right lower quadrant pain COMPARISON: 06/22/2023 FINDINGS: Abdomen: There is chronic scarring in the lung bases. The liver parenchyma is homogeneous. The gallbladder is present. There are calcified granulomas in the spleen. The pancreas, adrenals and kidneys are unremarkable. Pelvis: The urinary bladder is unremarkable. The appendix is not visualized. The uterus is present and lies eccentric to the lower left. There is no pelvic mass or inflammation. There is a 30 degree lumbar scoliosis convex to the right. There is advanced disc space narrowing at L1-2, L2-3, and L3-4. IMPRESSION: No acute inflammatory process in the abdomen or pelvis. Scoliosis. Reviewed, Interpreted and Dictated by Lux Ventura MD Transcribed by Tiffany Herrera Authenticated and [facility]
== END 2024-05-13 23:59 | disposition home or self-care (01) ==
LOC: RAD 12:11
PROVIDERS: PCP Internal Medicine; Visit Provider Internal Medicine
DX: R10.31 Right lower quadrant pain (principal)
CPT/HCPCS: 74176

== ENCOUNTER 2024-05-15 14:31 | Outpatient (CLI) | payer MEDICARE, OTHER, SELFPAY ==
[2024-05-15 15:00] LABS: Basophils # 0.1 K/mm3 (0-0.2); Basophils % 0.6 % (0.1-2.0); Eosinophils # 0.2 K/mm3 (0.0-0.4); Eosinophils % 2.7 % (0.1-12.0); Hematocrit 37.5 % (37.0-47.0); Hemoglobin 12.1 g/dL (12.2-16.2); Lymphocytes % 12.6 % (10-50); Mean Corpuscular HGB Conc 32.1 g/dL (31.8-35.4); Mean Corpuscular Hemoglobin 32.6 pg (27.0-31.2); Mean Corpuscular Volume 101.4 fl (81-99); Mean Platelet Volume 8.1 fl (7.4-10.4); Monocytes # 0.3 K/mm3 (0.1-1.0); Monocytes % 3.9 % (1.7-9.3); Neutrophils # 6.6 K/mm3 (1.8-7.8); Neutrophils % 80.1 % (37.0-80.0); Platelet Count 293 K/mm3 (142-424); Red Cell Distribution Width 14.6 % (11.5-17.5); White Blood Count 8.2 K/mm3 (4.8-10.8)
== END 2024-05-15 23:59 | disposition home or self-care (01) ==
LOC: LAB 14:32
PROVIDERS: PCP Internal Medicine; Visit Provider Internal Medicine
DX: R10.31 Right lower quadrant pain (principal)
CPT/HCPCS: 36415; 85025

== ENCOUNTER 2024-05-28 09:00 | Outpatient (CLI) | payer MEDICARE, OTHER, SELFPAY ==
[2024-05-28 19:02] LABS: Alanine Aminotransferase 49 U/L (12-78); Albumin Level 3.5 g/dl (3.5-5.0); Albumin/Globulin Ratio 1.4 (1.1-1.8); Alkaline Phosphatase 94 U/L (38-126); Anion Gap 10.3 mEq/L (5-15); Aspartate Amino Transferase 34 U/L (14-36); Bilirubin,Total 0.9 mg/dl (0.2-1.3); Blood Urea Nitrogen 20 mg/dl (7-17); Calcium 8.6 mg/dl (8.4-10.2); Carbon Dioxide 27 mmol/L (22.0-30.0); Chloride 96 mmol/L (98-107); Chol/HDL Ratio 3.6 (1-3.5); Cholesterol 160 mg/dl (140-200); Estimated Glomerular Filt Rate 97 ml/min (>60); GFR (African American) 117 ML/MIN (>60); Globulin 2.5 g/dL (1.3-3.2); Glucose 59 mg/dl (74-100); HDL Cholesterol 44 mg/dl (40-60); Potassium 4.3 mmoL/L (3.5-5.1); Sodium 129 mmol/L (136-145); Triglycerides 109 mg/dl (30-150); VLDL Cholesterol 22 mg/dL (0-40)
[2024-05-28 19:15] LABS: Direct LDL Cholesterol 90.39 mg/dL (100-129)
== END 2024-05-28 23:59 | disposition home or self-care (01) ==
LOC: LAB.DROPOF 05-29 09:33
PROVIDERS: PCP Internal Medicine; Visit Provider Internal Medicine
DX: E78.5 Hyperlipidemia, unspecified (principal); I77.9 Disorder of arteries and arterioles, unspecified; I10 Essential (primary) hypertension
CPT/HCPCS: 80053; 80061

== ENCOUNTER 2024-07-03 14:43 | Outpatient (CLI) | payer MEDICARE, OTHER, SELFPAY ==
[2024-07-03 15:22] LABS: Anion Gap 4.4 mEq/L (5-15); Blood Urea Nitrogen 9 mg/dl (7-17); Calcium 9.3 mg/dl (8.4-10.2); Carbon Dioxide 31 mmol/L (22.0-30.0); Chloride 101 mmol/L (98-107); Estimated Glomerular Filt Rate 81 ml/min (>60); GFR (African American) 98 ML/MIN (>60); Glucose 91 mg/dl (74-100); Potassium 4.4 mmoL/L (3.5-5.1); Sodium 132 mmol/L (136-145)
== END 2024-07-03 23:59 | disposition home or self-care (01) ==
LOC: LAB.DROPOF 14:44
PROVIDERS: PCP Internal Medicine; Visit Provider Internal Medicine
DX: E87.1 Hypo-osmolality and hyponatremia (principal); I10 Essential (primary) hypertension
CPT/HCPCS: 80048

== ENCOUNTER 2024-07-22 08:40 | Outpatient (POV) | payer MEDICARE, OTHER, SELFPAY ==
--- OUTSIDE RECORDS SUMMARY | 2024-07-23 07:32 | XMS_ITS | Clinical Summary ---
Author Organization [facility] Address [address] [place] [address] Phone Care Team Providers Care Fuller Brush Man Name Role Phone THEE HERNANDEZ, ARON Matos [...] Documented On 3 1:01PM ; [facility], [facility] Plan of Treatment Future Appointments Date Time Location Provi bob Epidural Steroid Injection 08/01/2024 1:00PM [facility] MARY Tsang [employer] Last Documented On 4 2:10PM ; [facility], [facility] Assessments Includes: Assessments from this encounter [...] 1:01PM By [place] ; [facility], [facility] Anastrozole 1 MG Oral Tablet 02/27/2023 Provider: Shelia Mora MD Diagnosis: Last Documented On 3 1:01PM By [place] ; [facility], [facility] chlordiazePOXIDE HCl 10 MG Oral Capsule 02/19/2023 Viji bland: ARON KINGSTON MD Diagnosis: Last Documented On 3 1:02PM By [place] ; [facility] busPIRone HCl 10 MG Oral Tablet 02/12/2023 Provider: JOHN BAJWA II, MD Diagnosis: Last Documented On 3 1:02PM By [place] ; [facility] Atorvastatin Calcium 40 MG Oral Tablet 02/09/2023 Pr ovider: ARON KINGSTON MD Diagnosis: Last Documented On 3 1:02PM By [place] ; [facility] Lisinopril-hydroCHLOROthiazi de 20-25 MG Oral Tablet 02/09/2023 Provider: ARON KINGSTON MD Diagnosis: Last Documented On 3 1:02PM By [place] ; [facility] Omeprazole 20 MG Oral Capsule Delayed Release 02/10/20 Provider: ARON KINGSTON MD Diagnosis: Last Documented On 3 1:02PM By [place] ; [facility] ZyrTEC-D Allergy & Congestio n 5-120 MG Oral Tablet Extended Release 12 Hour 01/12/2023 Provider: ARON KINGSTON MD Diagnosis: Last Documented On 3 1:02PM By [place] ; [facility] Calcium Carb-Cholecalciferol 600-10 MG-MCG Oral Tablet 12/07/2022 Provider: Diagnosis: Last Documented On 3 1:02PM By [place] ; [facility] Medications Administered Includes: Administered Medications from [...] Provider Service Location Service Date Lumbar epidural 88335 Radiculopathy, lumbar region Rafael Tsang CRNA [facility] 04/02/2024 Last Documented On 4 7:10AM ; [facility] Triamcinolone/Kenalog, 10mg per cc J3301 Radiculopathy, lumbar region Rafael Tsang CRNA [facility] 04/02/2024 Last Documented On 4 7:10AM ; [facility] Medical History Includes: Medical History addressed [...] Time Diagnosis Epidural Steroid Injection Rafael Tsang [facility] 04/02/20 24 12:56PM 1:57PM Insurance Includes: Active Insurance Policies Plan Name Member ID Group # Subscriber Relationship Effect boom Dates 1 - Medicare Part B [facility] [id number] [place] Batista 2 - [employer] Medicare Supplement [id number] Brooklyn Batista Clinical Notes Includes: Clinical Notes from this encounter No Clinical Notes Recorded
--- OUTSIDE RECORDS SUMMARY | 2024-07-23 07:32 | XMS_ITS | Clinical Summary ---
Author Organization [facility] Address [address] [place] [address] Phone Care Team Providers Care Assistant Tennis Coach Name Role Phone THEE HERNANDEZ, ARON Matos [...] MD Active Last Documented On 1:01PM ; [facility] Plan of Treatment - Patient screened for future fall risk: documentation of any fall with injury in past year - Last Documented On 07/17/2024 11:11AM ; [facility] Fall Risk Assessment: This patient has been [...] with the patient. - Last Documented On 07/17/2024 11:11AM ; [facility] We will set her up for another epidural injection here in a few weeks. Follow up as needed. No surgical needs at the present time. - Last Documented On 07/17/2024 11:11AM ; [facility] Future Appointments Date Time Location Provi bob Epidural Steroid Injection 08/01/2024 1:00PM [facility] MARY Tsang [employer] Last Documented On 4 2:10PM ; [facility] Instructions to patient Lose weight Last Documented On 4 10:41AM ; [facility] Assessments Includes: Assessments from this encounter Findings - Overweight - Last Documented On 07/17/2024 11:11AM ; [facility] Patient has a lumbar scoliosis with 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 She had been getting excellent results out of the occasional L4-5 epidural injection. - Last Documented On 07/17/2024 11:11AM ; [facility] Fall Risk Assessment: - Last Documented On 07/17/2024 11:11AM ; [facility] This patient has been identified as a fall risk. Balance/gait along with postural blood pressure, vision and home fall hazards have been assessed. Medications have been reviewed, and recommendations made with regard to contributing factors for future falls. - Last Documented On 07/17/2024 11:11AM ; [facility] Plan of care: Consideration of vitamin D supplementation along with balance and strength training with consideration for formal physical therapy has been discussed with the patient. - Last Documented On 07/17/2024 11:11AM ; [facility] Instructions Includes: Instructions from this encounter Instructions to patient Lose weight Last Documented On 4 10:41AM ; [facility] Medical Equipment - Implanted Devices Includes: Current Devices No Medical Equipment Recorded Medications Includes: Medications discussed during this encounter and other current Medications Current Medications (continue as prescribed) Venlafaxine HCl ER 37.5 MG O ral Capsule Extended Release 24 Hour 03/04/2023 Provider: Shelia Mora MD Diagnosis: Last Documented On 3 1:01PM By [place] ; [facility] Anastrozole 1 MG Oral Tablet 02/27/2023 Provider: Shelia Mora MD Diagnosis: Last Documented On 3 1:01PM By [place] ; [facility] chlordiazePOXIDE HCl 10 MG Oral Capsule 02/19/2023 Viji bland: ARON KINGSTON MD Diagnosis: Last Documented On 3 1:02PM By [place] ; [facility] busPIRone HCl 10 MG Oral Tablet 02/12/2023 Provider: JOHN BAJWA II, MD Diagnosis: Last Documented On 3 1:02PM By [place] ; [facility] Atorvastatin Calcium 40 MG Oral Tablet 02/09/2023 Pr ovider: ARON KINGSTON MD Diagnosis: Last Documented On 3 1:02PM By [place] ; [facility] Lisinopril-hydroCHLOROthiazi de 20-25 MG Oral Tablet 02/09/2023 Provider: ARON KINGSTON MD Diagnosis: Last Documented On 3 1:02PM By [place] ; [facility] Omeprazole 20 MG Oral Capsule Delayed Release 02/10/20 Provider: ARON KINGSTON MD Diagnosis: Last Documented On 3 1:02PM By [place] ; [facility] ZyrTEC-D Allergy & Congestio n 5-120 MG Oral Tablet Extended Release 12 Hour 01/12/2023 Provider: ARON KINGSTON MD Diagnosis: Last Documented On 3 1:02PM By [place] ; [facility] Calcium Carb-Cholecalciferol 600-10 MG-MCG Oral Tablet 12/07/2022 Provider: Diagnosis: Last Documented On 3 1:02PM By [place] ; [facility] Medications Administered Includes: Administered Medications from this encounter No Administered Medications Recorded Vital Signs Includes: Vital Signs from this encounter Vital Name 07/17/2024 11:08A Height (in) 65 Weight (lb) 187 Body Mass Index 31.1 Body Surface Area 1.9 Pain Level 8 Note: PW Last Documented: On 07/17/2024 11:09A M ; [facility] Results Includes: Results discussed during this encounter No Results Recorded For Specified Dates History of Present Illness Includes: History of Present Illness from this encounter HANNAH Corbin is a 79 year old female. - Allergy list reviewed - Problem list reviewed - Medication list reviewed - Patient pain level from 1-10: 8 - History of Home Exercise 11/09/2023-DAILY - History of Injections 05/14/2023 L4-5 ANA 08/16/2023 L4-5 ANA 11/09/2023 L4-5 ANA 80% FOR 3 MTHS 04/02/2024 L4-5 ANA 95% FOR 3 MTHS - - Review of medications documented Medications used for this condition: IBUPROFEN Patient returns regarding her lower back bilateral leg pain numbness and weakness. Patient has been receiving the occasional L4-5 epidural injections since April of last year. She has found them to be extremely effective. She reports 95% relief with the injections that we will last for about 3 months or so. Patient finds that the injections improve her mobility as well and she can get out and participate with more activities even doing things out in the yd and around the house. Patient is starting to notice some increasing symptoms again through the lower back hips and legs. She would like to go ahead and do another epidural injection is it has been very effective in treating her symptoms. Social History Description Last Updated Caffeine use 03/05/2023 Last Documented On 4 10:41AM ; [facility] Exercising regularly 03/05/2023 Last Documented On 4 10:41AM ; [facility] Tobacco non-user 03/05/2023 Last Documented On 4 10:41AM ; [facility] No recent change in diet 03/05/2023 Last Documented On 4 10:41AM ; [facility] Not a current smoker. 03/05/2023 Last Documented On 4 10:41AM ; [facility] Not using alcohol 03/05/2023 Last Documented On 4 10:41AM ; [facility] Not using drugs 03/05/2023 Last Documented On 4 10:41AM ; [facility] Smoking Status Unknown Procedures and Surgical History Includes: Procedures from this encounter Procedures Code Diagnosis Performing Provider Service L ocation Service Date use of tobacco assessment performed 1000F Last Documented On 4 10:41AM ; [facility] patient screened for future fall risk: documentation of any fall with injury in past year 1100F Last Documented On 4 10:41AM ; [facility] review of medications documented 1160F Last Documented On 4 10:41AM ; [facility] an X-ray was performed 03/05/2023 [facility] @ [facility] ~ 03/19/2024 [facility] [id number] Last Documented On 4 10:42AM ; [facility] an MRI was performed 03/22/2023 [facility]Spine @ [facility] [id number] Last Documented On 4 10:41AM ; [facility] brace Last Documented On 4 10:41AM ; [facility] Medical History Includes: Medical History addressed during this encounter Description Last Updated Past surgical history non-contributory 0 03/05/2023 Last Documented On 4 10:41AM ; [facility] History of arthritis 03/05/2023 Last Documented On 4 10:41AM ; [facility] History of diverticulitis of colon 03/05 Last Documented On 4 10:41AM ; [facility] History of Heartburn / Acid Reflux 03/05 Last Documented On 4 10:41AM ; [facility] History of History of Cancer 03/05/2023 Last Documented On 4 10:41AM ; [facility] History of Hypertension 03/05/2023 Last Documented On 4 10:41AM ; [facility] Family History Includes: Family History addressed during this encounter Description Last Updated Diabetes mellitus 03/05/2023 Last Documented On 4 10:41AM ; [facility] Family history of cancer 03/05/2023 Last Documented On 4 10:41AM ; [facility] Family history of heart disease 03/05/20 23 Last Documented On 4 10:41AM ; [facility] Family history of rheumatoid arthritis 0 03/05/2023 Last Documented On 4 10:41AM ; [facility] Stroke / Seizures 03/05/2023 Last Documented On 4 10:41AM ; [facility] Review of Systems Includes: Review of Systems [...] Check-In Time Check-Out Time Diagnosis Follow Up THIA BECK PA-C [facility] 4 10:32AM 11:02AM Overweight Insurance Includes: Active Insurance Policies Plan Name Member ID Group # Subscriber Relationship Effect boom Dates 1 - Medicare Part [facility] [id number] Brooklyn Corbin Self 2 - LILIYA Medicare Supplement [id number] Brooklyn Corbin Self Clinical Notes Includes: Clinical Notes from this encounter * Progress note Date Encounter Last Documented by 07/17/2024 Follow Up Last documented on 07/17/2024; 11:11 AM, THAI Nye; [facility] Active Problems & Conditions - Lower Back Pain Chief Complaint The Chief Complaint is: Low back pain. Referred Here Referred by Self. History of Present Illness Brooklyn Corbin is a 79 year old female. - Allergy list reviewed - Problem list reviewed - Medication list reviewed - Patient pain level from 1-10: 8 - History of Home Exercise 11/09/2023-DAILY - History of Injections 05/14/2023 L4-5 ANA 08/16/2023 L4-5 ANA 11/09/2023 L4-5 ANA 80% FOR 3 MTHS 04/02/2024 L4-5 ANA 95% FOR 3 MTHS - - Review of medications documented Medications used for this condition: IBUPROFEN Patient returns regarding her lower back bilateral leg pain numbness and weakness. Patient has been receiving the occasional L4-5 epidural injections since April of last year. She has found them to be extremely effective. She reports 95% relief with the injections that we will last for about 3 months or so. Patient finds that the injections improve her mobility as well and she can get out and participate with more activities even doing things out in the yd and around the house. Patient is starting to notice some increasing symptoms again through the lower back hips and legs. She would like to go ahead and do another epidural injection is it has been very effective in treating her symptoms. Current Medication - Anastrozole 1 MG Oral [...] allergic reaction. Physical Findings - Vitals taken 07/17/2024 11:08 am PW Height 65 in 59 - 78 Weight 187 lbs 95 - 175 Body Mass Index 31.1 kg/m2 Body Surface Area 1.9 m2 Pain Level 8 Skin is unremarkable. There is some scoliosis. Patient has good mobility. She would done easily without assistance. Hip knee and ankle motion normal. She has a normal gait. Normal strength. As with activities she will have increasing L5 and S1 radicular symptoms down into both legs with increasing pain and pressure across the lower back. 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 She had been getting excellent results out of the occasional L4-5 epidural injection. Previous Tests Imaging: X-Ray: An X-ray was performed 03/05/2023 [facility] 03/19/2024 [facility]. MRI Scan: An MRI was performed 03/22/2023 [facility] @ [facility]. Basic Management Procedures And Services: - [...] therapy has been discussed with the patient. We will set her up for another epidural injection here in a few weeks. Follow up as needed. No surgical needs at the present time. Notes This dictation was done with voice recognition software and may contain errors and omissions. Practice Management Use of tobacco assessment performed and patient screened for future fall risk documentation of any fall with injury in past year Review of medications documented. Care Team - ARON KINGSTON MD - [employer] Health Reminders - Assess BMI satisfied 07/17/2024. - Assess Tobacco Use satisfied 03/05/2023. - Follow Up Plan BMI Management satisfied 07/17/2024. User Defined 5 Fall Risk Assessment: This [...]
--- OUTSIDE RECORDS SUMMARY | 2024-07-23 07:32 | XMS_ITS ---
Author Organization [facility] , [facility] Address [address] [place] [address] Phone Care Team Providers Care Accountant Manager Name Role Phone THEE HERNANDEZ, ARON Matos Unavailable [phone] Sameer HERNANDEZ, Rafael Unavailable [phone] Problems Includes: Active, inactive, and resolved Problems All Visits Onset Date Resolved Date Provider Condition S tatus Lower Back Pain 03/05/2023 Rafael rios MD Active Last Documented On 3 1:01PM ; [facility], [facility] Plan of Treatment Findings Encounter Date Patient screened for future fall risk: documentation of any fall with injury in past year Follow Up with THAI BECK PA-C 07/17/2024 Last Documented On 4 11:11AM ; [facility], [facility] Patient screened for future fall risk: documentation of any fall with injury in past year Follow Up with THAI BECK PA-C 03/19/2024 Last Documented On 4 4:16PM ; [facility], [facility] Pending Tests Order Diagnosis Results Due Ordering P rovider Radiology - MRI MRI Lumbar Spine Low back pain, unspecified 03/19/23 Rafael Estrella MD Last Documented On 3 2:51PM ; [facility], [facility] Future Appointments Date Time Location Provi bob Epidural Steroid Injection 08/01/2024 1:00PM [facility] MARY Tsang CRNA Last Documented On 4 2:10PM ; [facility], [facility] Instructions to patient Lose weight Last Documented On 4 10:41AM ; [facility] Lose weight Last Documented On 4 1:48PM ; [facility] Lose weight Last Documented On 4 10:12AM ; [facility] Lose weight Last Documented On 3 2:00PM ; [facility] Lose weight Last Documented On 3 3:22PM ; [facility] Lose weight Last Documented On 3 1:03PM ; [facility] Assessments Includes: Assessments for all patient encounters Findings Encounter Date Overweight Follow Up with THAI Moya 07/17/2024 Last Documented On 4 11:11AM ; [facility] Overweight Follow Up with THAI Moya 03/19/2024 Last Documented On 4 4:16PM ; [facility] Overweight Follow Up with THAI Moya 11/09/2023 Last Documented On 4 11:19AM ; [facility] Overweight Follow Up with Rafael Dugan MD 06/12/2023 Last Documented On 3 4:44PM ; [facility] Overweight Follow Up with Rafael Dugan MD 04/02/2023 Last Documented On 3 2:17PM ; [facility] Instructions Includes: Instructions for all patient encounters Instructions to patient Lose weight Last Documented On 4 10:41AM ; [facility] Lose weight Last Documented On 4 1:48PM ; [facility] Lose weight Last Documented On 4 10:12AM ; [facility] Lose weight Last Documented On 3 2:00PM ; [facility] Lose weight Last Documented On 3 3:22PM ; [facility] Lose weight Last Documented On 3 1:03PM ; [facility] Medical Equipment - Implanted Devices Includes: Current and historical Devices No Medical Equipment Recorded Medications Includes: Current and historical Medications Current Medications (continue as prescribed) Venlafaxine HCl ER 37.5 MG O ral Capsule Extended Release 24 Hour 03/04/2023 Provider: Shelia Mora MD Diagnosis: Last Documented On 3 1:01PM By [place] ; [facility], [facility] Anastrozole 1 MG Oral Tablet 02/27/2023 Provider: Shelia Mora MD Diagnosis: Last Documented On 3 1:01PM By [place] ; [facility], [facility] chlordiazePOXIDE HCl 10 MG Oral Capsule 02/19/2023 P rovider: ARON KINGSTON MD Diagnosis: Last Documented On 3 1:02PM By [place] ; [facility] busPIRone HCl 10 MG Oral Tablet 02/12/2023 Provider: JOHN BAJWA II, MD Diagnosis: Last Documented On 3 1:02PM By [place] ; [facility] Atorvastatin Calcium 40 MG Oral Tablet 02/09/2023 Pr ovider: ARON KINGSTON MD Diagnosis: Last Documented On 3 1:02PM By [place] ; [facility] Lisinopril-hydroCHLOROthiazi de 20-25 MG Oral Tablet 02/09/2023 Provider: ARON KINGSTON MD Diagnosis: Last Documented On 3 1:02PM By [place] ; [facility] Omeprazole 20 MG Oral Capsule Delayed Release 02/10/20 Provider: ARON KINGSTON MD Diagnosis: Last Documented On 3 1:02PM By [place] ; [facility] ZyrTEC-D Allergy & Congestio n 5-120 MG Oral Tablet Extended Release 12 Hour 01/12/2023 Provider: ARON KINGSTON MD Diagnosis: Last Documented On 3 1:02PM By [place] ; [facility] Calcium Carb-Cholecalciferol 600-10 MG-MCG Oral Tablet 12/07/2022 Provider: Diagnosis: Last Documented On 3 1:02PM By [place] ; [facility], [facility] Past Medications on file Venlafaxine HCl ER 37.5 MG O ral Capsule Extended Release 24 Hour 02/05/2023 - 03/04/2023 Provider: Libby Mora MD Diagnosis: Last Documented On 3 3:18PM By Rafael Estrella ; [facility] Medications Administered Includes: Administered Medications in patient's chart No Administered Medications Recorded Vital Signs Includes: Vital Signs from 07/23/2023 through 07/23/2024 Vital Name 07/17/2024 11:08A 03/19/2024 01:49P 11/09 10:12A Height (in) 65 65 65 Weight (lb) 187 187 183.4 Body Mass Index 31.1 31.1 30.5 Body Surface Area 1.9 1.9 1.9 Pain Level 8 5 Note: PW HL Last Documented: On 07/17/2024 11:09A M ; [facility], [facility] On 03/19/2024 1:49PM ; [facility], [facility] On 11/09/2023 10:16AM ; [facility], [facility] Results Includes: Results from 07/23/2023 through 07/23/2024 No Results Recorded For Specified Dates History of Present Illness History of Present Illness not supported for this document type No History of Present Illness Recorded Social History Description Last Updated Caffeine use 03/05/2023 Last Documented On 3 3:19PM ; [facility], [facility] Exercising regularly 03/05/2023 Last Documented On 3 3:19PM ; [facility], [facility] Tobacco non-user 03/05/2023 Last Documented On 3 3:19PM ; [facility], [facility] No recent change in diet 03/05/2023 Last Documented On 3 3:19PM ; [facility], [facility] Not a current smoker. 03/05/2023 Last Documented On 3 3:19PM ; [facility], [facility] Not using alcohol 03/05/2023 Last Documented On 3 3:19PM ; [facility], [facility] Not using drugs 03/05/2023 Last Documented On 3 3:19PM ; [facility] Smoking Status Unknown Procedures and Surgical History Includes: Procedures from 07/23/2023 through 07/23/2024 Procedures Code Diagnosis Performing Provider Service Location Service Date Triamcinolone/Hugo alog, 10mg per cc J3301 Radiculopathy, lumbar region Rafael Tsang [facility] 04/02/2024 Last Documented On 4 7:10AM ; [facility] Lumbar epidural 70140 Radiculopathy, l umbar region Rafael Tsang [facility] 04/02/2024 Last Documented On 4 7:10AM ; [facility] X-RAY EXAM OF LOWER SPINE 4-5 VIEWS [id number] Other intervertebral disc degeneration, lumbar region, Spinal stenosis, lumbar region without neurogenic major THAI Sriram BECK PA-C [facility] 03/19/2024 Last Documented On 4 10:06AM ; [facility] Lumbar epidural 56798 Radiculopathy, l umbar region Rafael Tsang [facility] 11/21/2023 Last Documented On 4 10:08AM ; [facility] Triamcinolone/Kenalog, 10mg per cc J3301 Radiculopathy, lumbar region Rafael Tsang [facility] 11/21/2023 Last Documented On 4 10:08AM ; [facility] OMIPAQUE (SOFTWARE LICENSING ANALYST performes anesthesia) Q9965 Radiculopathy, lumbar region Rafael Tsang [facility] 08/16/2023 Last Documented On 4 6:42PM ; [facility] Lumbar epidural (ABN signed) [id number] Radiculopathy, lumbar region Rafael Tsang [facility] 08/16/2023 Last Documented On 3 10:45AM ; [facility] Triamcinolone/Kenalog, 10mg per cc [id number] Radiculopathy, lumbar region Rafael Tsang [facility] 08/16/2023 Last Documented On 3 10:45AM ; [facility] Medical History Includes: Medical History in patient's chart Description Last Updated Past surgical history non-contributory 0 03/05/2023 Last Documented On 3 3:19PM ; [facility] History of arthritis 03/05/2023 Last Documented On 3 3:19PM ; [facility], [facility] History of diverticulitis of colon 03/05 Last Documented On 3 3:19PM ; [facility] History of Heartburn / Acid Reflux 03/05 Last Documented On 3 3:19PM ; [facility], [facility] History of History of Cancer 03/05/2023 Last Documented On 3 3:19PM ; [facility] History of Hypertension 03/05/2023 Last Documented On 3 3:19PM ; [facility], [facility] Family History Includes: Family History in patient's chart Description Last Updated Diabetes mellitus 03/05/2023 Last Documented On 3 3:19PM ; [facility], [facility] Family history of cancer 03/05/2023 Last Documented On 3 3:19PM ; [facility] Family history of heart disease 03/05/20 23 Last Documented On 3 3:19PM ; [facility] Family history of rheumatoid arthritis 0 03/05/2023 Last Documented On 3 3:19PM ; [facility], [facility] Stroke / Seizures 03/05/2023 Last Documented On 3 3:19PM ; [facility] Review of Systems Review of Systems not supported for this document type No Review of Systems Recorded Mental Status Description Anxiety Functional Status No Functional Status Recorded Physical Exam Physical Exam not supported for this document type No Physical Exam Recorded Immunizations Includes: Immunizations in patient's chart Vaccine Dose # Date Site Reaction(s) Status Source Influenza 1 03/05/2023 Complete (Refused - Patient objection) [facility] Last Documented On 3 1:04PM ; [facility], [facility] PCV (Pneumovax 23) 1 03/05/2023 Complete (Refused - Patient objection) [facility] Last Documented On 3 1:04PM ; [facility], [facility] Allergies Includes: Active, inactive, and resolved Allergies No Known Allergies Encounters Includes: Encounters from 07/23/2023 through 07/23/2024 Encounter Provider Location Date Check-In Time Check-Out Time Diagnosis Follow Up THAI BECK PA-[facility] 07/17/20 24 10:32AM 11:02AM Overweight [Patient Encounter] Rafael Tsang SOFTWARE LICENSING ANALYST 06/19/20 24 04/02/2024 2:37PM 04/02/2024 11:59PM Epidural Steroid Injection Rafael Tsang [facility] 04/02/20 24 03/19/2024 3:10PM 03/19/2024 11:59PM Epidural Steroid Injection Rafael Tsang SOFTWARE LICENSING ANALYST [facility] 04/02/20 12:56PM 1:57PM Follow Up THAI BECK PA-C [facility] 03/19/20 24 1:30PM 1:56PM Overweight Epidural Steroid Injection Rafael Tsang [facility] 11/21/19 24 11/09/2023 3:38PM 11/09/2023 11:59PM Epidural Steroid Injection Rafael Tsang [facility] 11/21/19 24 12:49PM 1:47PM Follow Up THAI BECK PA-C [facility] 11/09/19 24 10:05AM 10:28AM Overweight Epidural Steroid Injection Rafael Tsang [facility] 08/16/20 23 2:00PM 2:43PM Epidural Steroid Injection Rafael Tsang [facility] 08/16/20 23 06/12/2023 9:14AM 06/12/2023 11:59PM Insurance Includes: Active Insurance Policies Plan Name Member ID Group # Subscriber Relationship Effect boom Dates 1 - Medicare Part B [facility] [id number] [place] Batista 2 - LILIYA Medicare Supplement [id number] [place] Batista Clinical Notes Includes: Signed Clinical Notes starting from 08/31/2022 * Progress note Date Encounter Last Documented by 07/17/2024 Follow Up Last documented on 07/17/2024; 11:11 AM, HTAI Nye; [facility] Active Problems & Conditions - Lower [...] X-Ray: An X-ray was performed 03/05/2023 [facility] 03/19/2024 [facility]. MRI Scan: An MRI was performed 03/22/2023 [place] @ [facility]. Basic Management Procedures And Services: - Brace [...] Care Team - ARON KINGSTON MD - FELT HAT POUNCING OPERATOR HAND Health Reminders - Assess BMI satisfied 07/17/2024. [...] documented on 03/19/2024; 4:16 PM, THAI Nye; [facility] Active Problems & Conditions - Lower [...] An X-ray was performed 03/05/2023 [place] @ [facility]. MRI Scan: An MRI was performed 03/22/2023 [place] @ [facility]. Basic Management Procedures And Services: - Brace [...] Care Team - ARON KINGSTON MD - FELT HAT POUNCING OPERATOR HAND Health Reminders - Assess BMI satisfied 03/19/2024. [...] documented on 11/09/2023; 11:19 AM, THAI Nye; [facility] Active Problems & Conditions - Lower [...] Jones - History of Physical Therapy @ [facility] - History of Home Exercise - [...] Imaging: X-Ray: [place] [facility]. MRI Scan: An MRI was performed [place] [facility]. Basic Management Procedures And Services: - Brace [...] Care Team - ARON KINGSTON MD - FELT HAT POUNCING OPERATOR HAND Health Reminders - Assess BMI satisfied 11/09/2023. [...]
--- OUTSIDE RECORDS SUMMARY | 2024-07-23 07:32 | XMS_ITS | Clinical Summary ---
Author Organization [facility] Address [address] [place] [address] Phone Care Team Providers Care Executive Manager Name Role Phone THEE HERNANDEZ, ARON [...] MD Active Last Documented On 1:01PM ; [facility] Plan of Treatment - Patient screened for future fall risk: documentation of any fall with injury in past year - Last Documented On 03/19/2024 4:16PM ; [facility] Fall Risk Assessment: This patient has [...] - Last Documented On 03/19/2024 4:16PM ; [facility] Patient is already scheduled for repeat injection. As long as she is doing well we will see her on an as-needed basis. - Last Documented On 03/19/2024 4:16PM ; [facility] Future Appointments Date Time Location Provi bob Epidural Steroid Injection 08/01/2024 1:00PM [facility] MARY Tsang RECREATION CENTER DIRECTOR Last Documented On 4 2:10PM ; [facility] Instructions to patient Lose weight Last Documented On 4 1:48PM ; [facility] Assessments Includes: Assessments from this encounter Findings - Overweight - Last Documented On 03/19/2024 4:16PM ; [facility], [facility] Lumbar disc degeneration with stenosis. Patient is getting excellent results out of the occasional L4-5 epidural injection. - Last Documented On 03/19/2024 4:16PM ; [facility] Fall Risk Assessment: - Last Documented On 03/19/2024 4:16PM ; [facility] This patient has been identified as a fall risk. Balance/gait along with postural blood pressure, vision and home fall hazards have been assessed. Medications have been reviewed, and recommendations made with regard to contributing factors for future falls. - Last Documented On 03/19/2024 4:16PM ; [facility], [facility] Plan of care: Consideration of vitamin D supplementation along with balance and strength training with consideration for formal physical therapy has been discussed with the patient. - Last Documented On 03/19/2024 4:16PM ; [facility] Instructions Includes: Instructions from this encounter Instructions to patient Lose weight Last Documented On 4 1:48PM ; [facility] Medical Equipment - Implanted Devices Includes: Current Devices No Medical Equipment Recorded Medications Includes: Medications discussed during this encounter and other current Medications Current Medications (continue as prescribed) Venlafaxine HCl ER 37.5 MG O ral Capsule Extended Release 24 Hour 03/04/2023 Provider: Shelia Mora MD Diagnosis: Last Documented On 3 1:01PM By [place] Park ; [facility] Anastrozole 1 MG Oral Tablet 02/27/2023 Provider: Shelia Mora MD Diagnosis: Last Documented On 3 1:01PM By [place] ; [facility] chlordiazePOXIDE HCl 10 MG Oral Capsule 02/19/2023 Viji bland: ARON KINGSTON MD Diagnosis: Last Documented On 3 1:02PM By [place] Park ; [facility] busPIRone HCl 10 MG Oral Tablet 02/12/2023 Provider: JOHN BAJWA II, MD Diagnosis: Last Documented On 3 1:02PM By [place] Park ; [facility] Atorvastatin Calcium 40 MG Oral Tablet 02/09/2023 Pr ovider: ARON KINGSTON MD Diagnosis: Last Documented On 3 1:02PM By [place] Park ; [facility] Lisinopril-hydroCHLOROthiazi de 20-25 MG Oral Tablet 02/09/2023 Provider: ARON KINGSTON MD Diagnosis: Last Documented On 3 1:02PM By Carey Park ; [facility] Omeprazole 20 MG Oral Capsule Delayed Release 02/10/20 Provider: ARON KINGSTON MD Diagnosis: Last Documented On 3 1:02PM By Carey Park ; [facility] ZyrTEC-D Allergy & Congestio n 5-120 MG Oral Tablet Extended Release 12 Hour 01/12/2023 Provider: ARON KINGSTON MD Diagnosis: Last Documented On 3 1:02PM By [place] Park ; [facility] Calcium Carb-Cholecalciferol 600-10 MG-MCG Oral Tablet 12/07/2022 Provider: Diagnosis: Last Documented On 3 1:02PM By Carey Park ; [facility] Medications Administered Includes: Administered Medications from this encounter No Administered Medications Recorded Vital Signs Includes: Vital Signs from this encounter Vital Name 03/19/2024 01:49P Height (in) 65 Weight (lb) 187 Body Mass Index 31.1 Body Surface Area 1.9 Pain Level 5 Last Documented: On 03/19/2024 1:49PM ; [facility] Results Includes: Results discussed during this encounter No Results Recorded For Specified Dates History of Present Illness Includes: History of Present Illness from this encounter HPI Brooklyn Corbin is a 78 year old [...] 03/05/2023 Last Documented On 4 1:48PM ; [facility] Exercising regularly 03/05/2023 Last Documented On 4 1:48PM ; [facility] Tobacco non-user 03/05/2023 Last Documented On 4 1:48PM ; [facility] No recent change in diet 03/05/2023 Last Documented On 4 1:48PM ; [facility] Not a current smoker. 03/05/2023 Last Documented On 4 1:48PM ; [facility] Not using alcohol 03/05/2023 Last Documented On 4 1:48PM ; [facility] Not using drugs 03/05/2023 Last Documented On 4 1:48PM ; [facility] Smoking Status Unknown Procedures and Surgical History Includes: Procedures from this encounter Procedures Code Diagnosis Performing Provider Service Location Service Date X-RAY EXAM OF LOWER SPINE 4-5 VIEWS 07161 Other intervertebral disc degeneration, lumbar region, Spinal stenosis, lumbar region without neurogenic major THAI BECK PA-C [facility] 03/19/2024 Last Documented On 4 10:06AM ; [facility] use of tobacco assessment performed 1000F Last Documented On 4 1:48PM ; [facility] patient screened for future fall risk: documentation of any fall with injury in past year 1100F Last Documented On 4 1:48PM ; [facility] review of medications documented 1160F Last Documented On 4 1:48PM ; [facility] an X-ray was performed 03/05/2023 LSpine @ [facility] [id number] Last Documented On 4 1:48PM ; [facility], [facility] an MRI was performed 03/22/2023 LSpine @ [facility] [id number] Last Documented On 4 1:48PM ; [facility] brace Last Documented On 4 1:48PM ; [facility], [facility] Medical History Includes: Medical History addressed during this encounter Description Last Updated Past surgical history non-contributory 0 03/05/2023 Last Documented On 4 1:48PM ; [facility], [facility] History of arthritis 03/05/2023 Last Documented On 4 1:48PM ; [facility], [facility] History of diverticulitis of colon 03/05 Last Documented On 4 1:48PM ; [facility], [facility] History of Heartburn / Acid Reflux 03/05 Last Documented On 4 1:48PM ; [facility], [facility] History of History of Cancer 03/05/2023 Last Documented On 4 1:48PM ; [facility], [facility] History of Hypertension 03/05/2023 Last Documented On 4 1:48PM ; [facility], [facility] Family History Includes: Family History addressed during this encounter Description Last Updated Diabetes mellitus 03/05/2023 Last Documented On 4 1:48PM ; [facility], [facility] Family history of cancer 03/05/2023 Last Documented On 4 1:48PM ; [facility], [facility] Family history of heart disease 03/05/20 23 Last Documented On 4 1:48PM ; [facility], [facility] Family history of rheumatoid arthritis 0 03/05/2023 Last Documented On 4 1:48PM ; [facility], [facility] Stroke / Seizures 03/05/2023 Last Documented On 4 1:48PM ; [facility], [facility] Review of Systems Includes: Review of Systems [...] Time Check-Out Time Diagnosis [facility]:30[facility] 1:56PM Overweight Insurance Includes: Active Insurance Policies Plan Name Member ID Group # Subscriber Relationship Effect boom Dates 1 - Medicare Part [facility] [id number] Brooklyn Corbin Self 2 - LILIYA Medicare Supplement [id number] Brooklyn Corbin Self Clinical Notes Includes: Clinical Notes from this encounter * Progress note Date Encounter Last Documented by 03/19/2024 Follow Up Last documented on 03/19/2024; 4:16 PM, THAI Nye; [facility] Active Problems & Conditions - Lower [...] An X-ray was performed 03/05/2023 Osbaldo @ [facility]. MRI Scan: An MRI was performed 03/22/2023 Osbaldo @ [facility]. Basic Management Procedures And Services: - [...] of medications documented. Care Team - ARON IKNGSTON MD - BACTERIOLOGIST [employer] Health Reminders - Assess BMI satisfied 03/19/2024. [...]
--- OUTSIDE RECORDS SUMMARY | 2024-07-23 07:32 | XMS_ITS ---
Care Plan - [facility], [facility] Created on: July 23, 2024 Brooklyn Corbin : 1945 Sex: Female Author Organization [facility] Address [address] [place] [address] Phone Care Team Providers Care Supervisor Marble Name Role Phone THEE HERNANDEZ, ARON Matos Unavailable [phone] Sameer HERNANDEZ, Rafael Unavailable [phone]
--- OUTSIDE RECORDS SUMMARY | 2024-07-23 07:32 | XMS_ITS | Clinical Summary ---
Author Organization [facility] Address [address] [place] [address] Phone Care Team Providers Care Concentrator Operator Name Role Phone THEE HERNANDEZ, ARON Matos [...] Active Last Documented On 3 1:01PM ; [facility], [facility] Plan of Treatment Future Appointments Date Time Location Provi bob Epidural Steroid Injection 08/01/2024 1:00PM [facility] MARY Tsang HITTING COACH Last Documented On 4 2:10PM ; [facility], [facility] Assessments Includes: Assessments from this encounter No [...] On 3 1:01PM By Carey Park ; [facility], [facility] Anastrozole 1 MG Oral Tablet 02/27/2023 Provider: Shelia Mora MD Diagnosis: Last Documented On 3 1:01PM By Carey Park ; [facility], [facility] chlordiazePOXIDE HCl 10 MG Oral Capsule 02/19/2023 Viji bland: ARON KINGSTON MD Diagnosis: Last Documented On 3 1:02PM By Carey Park ; [facility], [facility] busPIRone HCl 10 MG Oral Tablet 02/12/2023 Provider: JOHN BAJWA II, MD Diagnosis: Last Documented On 3 1:02PM By Carey Park ; [facility], [facility] Atorvastatin Calcium 40 MG Oral Tablet 02/09/2023 Pr ovider: ARON KINGSTON MD Diagnosis: Last Documented On 3 1:02PM By Carey Park ; [facility], [facility] Lisinopril-hydroCHLOROthiazi de 20-25 MG Oral Tablet 02/09/2023 Provider: ARON KINGSTON MD Diagnosis: Last Documented On 3 1:02PM By Carey Park ; [facility], [facility] Omeprazole 20 MG Oral Capsule Delayed Release 02/10/20 Provider: ARON KINGSTON MD Diagnosis: Last Documented On 3 1:02PM By Carey Park ; [facility] ZyrTEC-D Allergy & Congestio n 5-120 MG Oral Tablet Extended Release 12 Hour 01/12/2023 Provider: ARON KINGSTON MD Diagnosis: Last Documented On 3 1:02PM By Carey Park ; [facility], [facility] Calcium Carb-Cholecalciferol 600-10 MG-MCG Oral Tablet 12/07/2022 Provider: Diagnosis: Last Documented On 3 1:02PM By Carey Park ; [facility], [facility] Medications Administered Includes: Administered Medications from this [...] 1 - Medicare Part B [facility] [id number] Brooklyn Batista 2 - [place]IL[place] Medicare Supplement [id number] Brooklyn Batista Clinical Notes Includes: Clinical Notes from this encounter No Clinical Notes Recorded
--- OUTSIDE RECORDS SUMMARY | 2024-07-23 07:32 | XMS_ITS | Clinical Summary ---
Author Organization [facility] Address [address] [place] [address] Phone Care Team Providers Care Warp Starter Name Role Phone THEE HERNANDEZ, ARON Matos Unavailable [phone] Sameer HERNANDEZ, Rafael Unavailable [phone] Reason for Visit and Chief Complaint [Patient Encounter] Problems Includes: Problems addressed during this encounter and other active Problems All Visits Onset Date Resolved Date Provider Condition S tatus Lower Back Pain 03/05/2023 Rafael rios MD Active Last Documented On 3 1:01PM ; [facility], [facility] Plan of Treatment Future Appointments Date Time Location Provi bob Epidural Steroid Injection 08/01/2024 1:00PM [facility] MARY Tsang ROLLER Last Documented On 4 2:10PM ; [facility], [facility] Assessments Includes: Assessments from this encounter [...] On 3 1:01PM By Carey Park ; [facility], [facility] Anastrozole 1 MG Oral Tablet 02/27/2023 Provider: Shelia Mora MD Diagnosis: Last Documented On 3 1:01PM By Carey Park ; [facility], [facility] chlordiazePOXIDE HCl 10 MG Oral Capsule 02/19/2023 P rovider: ARON KINGSTON MD Diagnosis: Last Documented On 3 1:02PM By Carey Park ; [facility], [facility] busPIRone HCl 10 MG Oral Tablet 02/12/2023 Provider: JOHN BAJWA II, MD Diagnosis: Last Documented On 3 1:02PM By Carey Park ; [facility], [facility] Atorvastatin Calcium 40 MG Oral Tablet 02/09/2023 Pr ovider: ARON KINGSTON MD Diagnosis: Last Documented On 3 1:02PM By Carey Park ; [facility], [facility] Lisinopril-hydroCHLOROthiazi de 20-25 MG Oral Tablet 02/09/2023 Provider: ARON KINGSTON MD Diagnosis: Last Documented On 3 1:02PM By Carey Park ; [facility], [facility] Omeprazole 20 MG Oral Capsule Delayed Release 02/10/20 Provider: ARON KINGSTON MD Diagnosis: Last Documented On 3 1:02PM By Carey Park ; [facility] ZyrTEC-D Allergy & Congestio n 5-120 MG Oral Tablet Extended Release 12 Hour 01/12/2023 Provider: ARON KINGSTON MD Diagnosis: Last Documented On 3 1:02PM By Carey Park ; [facility], [facility] Calcium Carb-Cholecalciferol 600-10 MG-MCG Oral Tablet 12/07/2022 Provider: Diagnosis: Last Documented On 3 1:02PM By Carey Park ; [facility], [facility] Medications Administered Includes: Administered Medications from [...] Location Date Check-In Time Check-Out Time Diagnosis [Patient Encounter] Rafael Lucio Inderamber DENNYS 06/19/2024 2:37PM 11:59PM Insurance Includes: Active Insurance Policies Plan Name Member ID Group # Subscriber Relationship Effect boom Dates 1 - Medicare Part B [facility] [id number] Brooklyn Batista 2 - LILIYA Medicare Supplement [id number] Brooklyn Batista Clinical Notes Includes: Clinical Notes from this encounter No Clinical Notes Recorded
== END 2024-07-22 23:59 | disposition home or self-care (01) ==
LOC: SC 07-23 07:30
PROVIDERS: Visit Provider Dermatology
DX: Z00.00 Encounter for general adult medical examination without abnormal findings (principal)

== ENCOUNTER 2024-11-25 12:59 | Outpatient (CLI) | payer MEDICARE, OTHER, SELFPAY | END 2024-11-25 23:59 | disposition home or self-care (01) | LOC: DIETICIAN 13:00 | PROVIDERS: PCP Internal Medicine; Visit Provider Nurse Practitioner Family | DX: K63.8219 Small intestinal bacterial overgrowth, unspecified (principal); K58.9 Irritable bowel syndrome, unspecified | CPT/HCPCS: 97802 ==

== ENCOUNTER 2024-12-02 09:30 | Outpatient (CLI) | payer MEDICARE, OTHER, SELFPAY ==
[2024-12-02 16:54] LABS: Basophils # 0.1 K/mm3 (0-0.2); Basophils % 0.5 % (0.1-2.0); Eosinophils # 0.2 K/mm3 (0.0-0.4); Eosinophils % 1.6 % (0.1-12.0); Hematocrit 37.2 % (37.0-47.0); Hemoglobin 12.1 g/dL (12.2-16.2); Lymphocytes # 1.5 K/mm3 (0.7-4.5); Lymphocytes % 16.1 % (10-50); Mean Corpuscular HGB Conc 32.5 g/dL (31.8-35.4); Mean Corpuscular Volume 101.4 fl (81-99); Mean Platelet Volume 11.1 fl (7.4-10.4); Monocytes # 0.5 K/mm3 (0.1-1.0); Monocytes % 5.3 % (1.7-9.3); Neutrophils # 7.3 K/mm3 (1.8-7.8); Neutrophils % 76.3 % (37.0-80.0); Platelet Count 186 K/mm3 (142-424); Red Blood Count 3.67 M/mm3 (4.20-5.40); Red Cell Distribution Width 12.8 % (11.5-17.5); White Blood Count 9.6 K/mm3 (4.8-10.8)
[2024-12-02 18:25] LABS: Albumin Level 4.1 g/dl (3.5-5.0); Chloride 101 mmol/L (98-107); Potassium 4.3 mmoL/L (3.5-5.1); Sodium 133 mmol/L (136-145)
[2024-12-02 18:28] LABS: Alanine Aminotransferase 25 U/L (12-78); Albumin/Globulin Ratio 2.3 (1.1-1.8); Alkaline Phosphatase 79 U/L (38-126); Anion Gap 8.3 mEq/L (5-15); Aspartate Amino Transferase 35 U/L (14-36); Bilirubin,Total 0.4 mg/dl (0.2-1.3); Blood Urea Nitrogen 19 mg/dl (7-17); Carbon Dioxide 28 mmol/L (22.0-30.0); Cholesterol 155 mg/dl (140-200); Estimated Glomerular Filt Rate 60 ml/min (>60); GFR (African American) 73 ML/MIN (>60); Globulin 1.8 g/dL (1.3-3.2); Total Protein,Serum 5.9 g/dl (6.3-8.2); Triglycerides 119 mg/dl (30-150); VLDL Cholesterol 24 mg/dL (0-40)
[2024-12-02 18:29] LABS: Calcium 8.9 mg/dl (8.4-10.2); Chol/HDL Ratio 2.8 (1-3.5); Glucose 73 mg/dl (74-100); HDL Cholesterol 56 mg/dl (40-60)
[2024-12-02 18:39] LABS: Direct LDL Cholesterol 74.64 mg/dL (100-129)
== END 2024-12-02 23:59 | disposition home or self-care (01) ==
LOC: LAB.DROPOF 12-03 09:47
PROVIDERS: PCP Internal Medicine; Visit Provider Internal Medicine
DX: E78.5 Hyperlipidemia, unspecified (principal); I10 Essential (primary) hypertension; E87.1 Hypo-osmolality and hyponatremia
CPT/HCPCS: 80053; 80061; 85025

== ENCOUNTER 2024-12-26 13:53 | Emergency (ER) | payer MEDICARE, OTHER, SELFPAY ==
--- NOTE | 2024-12-26 13:59 | ED_ITS ---
Discharge Plan Disposition Patient Disposition: Home, Self-Care Condition: Good Prescriptions Prescriptions: New methocarbamol 750 mg tablet 750 mg PO Q6H PRN (Reason: muscle spasm) Qty: 20 0RF lidocaine 5 % adhesive patch,medicated 1 patch topical DAILY Qty: 30 0RF Rx Instructions: leave on most painful area for up to 12 hrs No Action venlafaxine 37.5 mg capsule,extended release 24hr PO buspirone 10 mg tablet 10 mg PO DAILY dicyclomine 10 mg capsule 10 mg PO ONCE tamoxifen 20 mg tablet 20 mg PO DAILY polyethylene glycol 3350 [Miralax] 17 gram/dose powder 17 g PO DAILY ruewqvedqrgz-Lt-ciin-minerals 18-0.4 mg tablet PO acetaminophen [Tylenol] 325 mg tablet 325 mg PO QID PRN Saccharomyces boulardii [Daily Probiotic (S. boulardii)] 250 mg capsule 250 mg PO BID Zyrtec 10 mg capsule 10 mg PO DAILY PRN Konsyl Sugar-Free 6 gram/6 gram powder 1 tbsp PO DAILY PRN Rx Instructions: mix into at least 8 oz of water or juice before administering simethicone [Gas-X Extra Strength] 125 mg capsule 125 mg PO QD-BID PRN turmeric 400 mg capsule 400 mg PO DAILY doxycycline hyclate 100 mg capsule 100 mg PO BID Qty: 28 0RF omeprazole 20 mg capsule,delayed release(DR/EC) See Rx Instructions .ROUTE .COMPLEX Qty: 90 1RF Dose Instruction: TAKE 1 CAPSULE EVERY MORNING Rx Instructions: TAKE 1 CAPSULE EVERY MORNING atorvastatin 40 mg tablet See Rx Instructions .ROUTE .COMPLEX Qty: 90 1RF Dose Instruction: TAKE 1 TABLET AT BEDTIME Rx Instructions: TAKE 1 TABLET AT BEDTIME lisinopril-hydrochlorothiazide 20-25 mg tablet See Rx Instructions .ROUTE .COMPLEX Qty: 90 1RF Dose Instruction: TAKE 1 TABLET EVERY MORNING Rx Instructions: TAKE 1 TABLET EVERY MORNING chlordiazepoxide HCl 10 mg capsule 10 mg PO TID PRN (Reason: anxiety) Qty: 90 1RF amlodipine 5 mg tablet 5 mg PO DAILY Qty: 90 1RF Referrals Follow up/Referrals: Chris Kim MD [Primary Care Provider] - See instructions Activity Restrictions/Add. Instructions Additional Instructions/Restrictions: Have sent a prescription for Robaxin and Lidoderm patch. If the Lidoderm patch works for you brain picker the prescription. If you have continued new or worsening signs or symptoms follow-up with your PCP return to the ER as needed. I have recommended that you follow-up with [facility] as you already established care. Clinical Impressions Clinical Impression: Right-sided chest wall pain Print Language Print Language: Croatian Discharge ED Provider: Wally Doll General Adult HPI <JUSTA Bucio - Last Filed: 12/26/24 15:25> General Chief complaint: PAIN Stated complaint: AO4/4@home, Rt side and back pain Time Seen by Provider: 12/26/24 13:59 History of Present Illness HPI narrative: Patient presents for evaluation of right-sided anterior chest wall pain. Dalton vazquez states she tripped falling into the edge of a table several days ago. It is continued to hurt in the location where she struck. She did not suffer any other injury she did not strike her head. Patient denies shortness of breath fever chills hemoptysis hematochezia melena nausea vomiting diarrhea. Patient also has longstanding scoliosis with lumbar disease and sees [facility] for injections approximately every 3 months. She states that when she fell she may have wrenched her back as well but she has no loss of motor or sensory no focal neurologic deficits and has full range of motion of her lower extremities. Related Data Home Medications ?Medication ?Instructions ?Recorded ?Confirmed buspirone 10 mg tablet 10 mg PO DAILY 05/13/24 12/02/24 dicyclomine 10 mg capsule 10 mg PO ONCE 05/13/24 12/02/24 venlafaxine 37.5 mg mg PO 05/13/24 12/02/24 capsule,extended release 24 hr tamoxifen 20 mg tablet 20 mg PO DAILY 07/03/24 12/02/24 Saccharomyces boulardii 250 mg 250 mg PO BID 07/24/24 12/02/24 capsule (Daily Probiotic (S. boulardii)) acetaminophen 325 mg tablet 325 mg PO QID PRN 07/24/24 12/02/24 (Tylenol) cetirizine 10 mg capsule (Zyrtec) 10 mg PO DAILY PRN 07/24/24 12/02/24 uvtvuytcwkee-Tv-fvuf-minerals 18 tab PO 07/24/24 12/02/24 mg-0.4 mg tablet polyethylene glycol 3350 17 17 g PO DAILY 07/24/24 12/02/24 gram/dose oral powder (Miralax) psyllium husk 6 gram/6 gram oral 1 tbsp PO DAILY PRN 07/24/24 12/02/24 powder (Konsyl Sugar-Free) simethicone 125 mg capsule (Gas-X 125 mg PO QD-BID PRN 07/24/24 12/02/24 Extra Strength) turmeric 400 mg capsule 400 mg PO DAILY 10/23/24 12/02/24 Previous Rx's ?Medication ?Instructions ?Recorded doxycycline hyclate 100 mg capsule 100 mg PO BID #28 caps 08/13/24 atorvastatin 40 mg tablet See Rx Instructions .Route 09/19/24 .COMPLEX #90 tabs omeprazole 20 mg capsule,delayed See Rx Instructions .Route 09/19/24 release .COMPLEX #90 caps lisinopril 20 See Rx Instructions .Route 10/03/24 mg-hydrochlorothiazide 25 mg tablet .COMPLEX #90 tabs chlordiazepoxide HCl 10 mg capsule 10 mg PO TID PRN anxiety #90 caps 11/14/24 amlodipine 5 mg tablet 5 mg PO DAILY #90 tabs 12/26/24 lidocaine 5 % topical patch 1 patch topical DAILY #30 ea 12/26/24 methocarbamol 750 mg tablet 750 mg PO Q6H PRN muscle spasm #20 12/26/24 tabs Allergies Allergy/AdvReac Type Severity Reaction Status Date / Time No Known Allergies Allergy Verified 12/02/24 08:54 [facility] <JUSTA Bucio - Last Filed: 12/26/24 15:25> [facility] Disclaimer: The information contained in this section may have been updated after the patient was seen, as this information can be updated by other users. Social History Smoking Status: Never smoker alcohol intake: never current occupational status: retired Travel in the last 8 weeks: None Have you lived/traveled outside [place] in past 30 days?: No Contact w/someone who lives/traveled outside [place] past 30 days?: No Exposure to someone with infectious disease in past 14 days?: No Do you have a fever (greater than 100.4 F or 38 C)?: No Have you tested positive for COVID-19: No Exposed to someone with COVID-19 in past 14 days?: No Do you have a sore throat?: No Do you have a cough?: No Do you have any weakness?: No Do you have any diarrhea?: No Are you experiencing any unusual bleeding?: No Do you have any muscle aches/pain?: No Do you have any abdominal pain?: No Are you experiencing loss of taste or smell?: No Other Medical History Have you received the Flu Vaccine for this season: No Have you received the Pneumonia Vaccine: Yes <JUSTA Bucio - Last Filed: 12/26/24 15:25> ROS Obtained: Yes Systems reviewed as appropriate & no additional complaints except as documented Physical Exam <JUSTA Bucio - Last Filed: 12/26/24 15:25> General General appearance: alert and in no apparent distress Respiratory Respiratory exam: Present normal lung sounds bilaterally and accessory muscle use Cardiovascular Cardiovascular exam: Present regular rate Neurological Exam Neurological exam: Present alert and oriented X3 Medical Decision Making <JUSTA Bucio - Last Filed: 12/26/24 15:25> Medical Records Medical records reviewed: Yes I reviewed the patient's medical records. Screening: Per USPSTF and CDC recommendations, given the prevalence of disease in our region, it is our hospital?s policy to screen for HIV and viral Hepatitis for all patients aged 18 and over and those with ongoing risk factors. Baljeet Inquiry Pt receiving controlled substance: No Vital Signs: 12/26/24 14:07 12/26/24 14:30 12/26/24 15:00 Temperature 98.7 F Temperature Source Oral Pulse Rate 72 72 Pulse Rate [Left Radial] 80 Respiratory Rate 13 Blood Pressure 134/57 L 135/64 Blood Pressure [Right Arm] 172/75 H Blood Pressure Mean [Right Arm] 107 02 Sat by Pulse Oximetry 98 100 98 Oxygen Delivery Method Room Air Room Air Orders (Tests/Meds): ED MEDICATIONS Discontinued Medications Generic Name Dose Route Start Last Admin Trade Name Freq PRN Reason Stop Dose Admin Acetaminophen 1,000 mg 12/26/24 14:22 Acetaminophen 500mg Tab PO 12/26/24 14:23 ONCE ONE Lidocaine 1 each 12/26/24 14:22 Lidocaine 5% Transdermal Patch TD 12/26/24 14:23 ONCE ONE Methocarbamol 500 mg 12/26/24 14:22 Methocarbamol 500mg Tablet PO 12/26/24 14:23 ONCE ONE ORDERS Category Date Time Status CT chest wo con Stat Cat Scan 12/26/24 14:22 Completed HIV Combo Stat Lab 12/26/24 14:11 Ordered Hepatitis C Ab Qual. W/ RFX Stat Lab 12/26/24 14:11 Ordered Medical Decision Narrative: In summary patient is a 79-year-old female who presents to the emergency department for evaluation of right-sided anterior chest wall pain. Patient is initially hypertensive with a blood pressure of 172/75 heart rate 80 with normal sinus rhythm on the bedside monitor breathing 13 times minute satting at 98% on room air upon arrival, afebrile at 90.7. Physical exam is remarkable for tenderness to palpation in the right anterior chest wall and the nipple line underneath the breast crease of the right breast however there is no palpable bony deformity ecchymosis contusions abrasions erythema edema noted. Breath sounds are clear and equal bilaterally to the bases without adventitious sounds or increased work of breathing. Patient has full range of motion of her bilater al extremities is ambulatory in the ER has no focal neurologic deficits has slight tenderness in the paraspinous musculature of the lumbar spine without palpable bony deformity contusions abrasions erythema edema ecchymosis noted.. Differential diagnosis includes costochondral separation versus occult fracture versus lumbar strain versus contusion etc. Initial workup will be conducted with CT of the chest without contrast. Initial interventions include Tylenol Lidoderm Robaxin. Initial workup reviewed by me and my informal to rotation of CT scan does not show any evidence of fracture contusion or acute intrathoracic abnormality prior to radiology read.. Upon repeat evaluation patient reported only minimal improvement after initial intervention. Given this patient is appropriate for discharge with a prescription for Robaxin and Lidoderm. I have offered pain management but she prefers to follow-up with [facility] as she is already established there. I have advised patient if she has any worsening signs or symptoms to return to the ER as needed. <Wally Doll MD - Last Filed: 12/26/24 15:32> Vital Signs: 12/26/24 14:07 12/26/24 14:30 12/26/24 15:00 Temperature 98.7 F Temperature Source Oral Pulse Rate 72 72 Pulse Rate [Left Radial] 80 Respiratory Rate 13 Blood Pressure 134/57 L 135/64 Blood Pressure [Right Arm] 172/75 H Blood Pressure Mean [Right Arm] 107 02 Sat by Pulse Oximetry 98 100 98 Oxygen Delivery Method Room Air Room Air Orders (Tests/Meds): ED MEDICATIONS Discontinued Medications Generic Name Dose Route Start Last Admin Trade Name Aimee PRN Reason Stop Dose Admin Acetaminophen 1,000 mg 12/26/24 14:22 Acetaminophen 500mg Tab PO 12/26/24 14:23 ONCE ONE Lidocaine 1 each 12/26/24 14:22 Lidocaine 5% Transdermal Patch TD 12/26/24 14:23 ONCE ONE Methocarbamol 500 mg 12/26/24 14:22 Methocarbamol 500mg Tablet PO 12/26/24 14:23 ONCE ONE ORDERS Category Date Time Status CT chest wo con Stat Cat Scan 12/26/24 14:22 Completed HIV Combo Stat Lab 12/26/24 14:11 Ordered Hepatitis C Ab Qual. W/ RFX Stat Lab 12/26/24 14:11 Ordered Medical Decision Narrative: In summary patient is a 79-year-old female who presents to the emergency department for evaluation of right-sided anterior chest wall pain. Patient is initially hypertensive with a blood pressure of 172/75 heart rate 80 with normal sinus rhythm on the bedside monitor breathing 13 times minute satting at 98% on room air upon arrival, afebrile at 90.7. Physical exam is remarkable for tenderness to palpation in the right anterior chest wall and the nipple line underneath the breast crease of the right breast however there is no palpable bony deformity ecchymosis contusions abrasions erythema edema noted. Breath sounds are clear and equal bilaterally to the bases without adventitious sounds or increased work of breathing. Patient has full range of motion of her bilateral extremities is ambulatory in the ER has no focal neurologic deficits has slight tenderness in the paraspinous musculature of the lumbar spine without palpable bony deformity contusions abrasions erythema edema ecchymosis noted.. Differential diagnosis includes costochondral separation versus occult fracture versus lumbar strain versus contusion etc. Initial workup will be conducted with CT of the chest without contrast. Initial interventions include Tylenol Lidoderm Robaxin. Initial workup reviewed by me and my informal to rotation of CT scan does not show any evidence of fracture contusion or acute intrathoracic abnormality prior to radiology read.. Upon repeat evaluation patient reported only minimal improvement after initial intervention. Given this patient is appropriate for discharge with a prescription for Robaxin and Lidoderm. I have offered pain management but she prefers to follow-up with [facility] as she is already established there. I have advised patient if she has any worsening signs or symptoms to return to the ER as needed. I was consulted by the SALMA, and we discussed the complexity of the problems being addressed. I approved the treatment and management plan for this patient's care in the emergency department, thus performing a substantive portion of the medical decision making. Wally Doll MD Critical Care <JUSTA Bucio - Last Filed: 12/26/24 15:25> Critical Care Time Critical Care Time: No
[2024-12-26 14:07] VITALS: BP 172/75; PULSE 80; RESP 13; TEMP 37.1; O2SAT 98; BMI 29.9
--- NOTE | 2024-12-26 14:14 | PC.NURSE ---
SPEAKING WITH VERONIQEU SMITH FROM
--- NOTE | 2024-12-26 14:22 | CT_ITS ---
FINAL REPORT CLINICAL HISTORY: Right sided anterior chest wall pain after falling COMPARISON: None FINDINGS: CT CHEST without contrast COMPARISON: None . TECHNIQUE: Axial CT without contrast This study was performed with techniques to keep radiation doses as low as reasonably achievable, (ALARA). Individualized dose reduction techniques using automated exposure control or adjustment of mA and/or kV according to the patient's size were employed. FINDINGS: Scattered atelectasis is present. There is no evidence of pneumothorax or pulmonary contusion. No pleural or pericardial effusion is seen . No adenopathy or mass lesion is present . No rib or sternal fracture is appreciated. IMPRESSION: No evidence of pneumothorax, pulmonary contusion, or fracture. This study was performed using automated techniques to achieve radiation exposure as low as reasonably achievable Reviewed, Interpreted and Dictated by Abdiel Lugo MD Transcribed by Vivi Jansen Authenticated and [facility]
[2024-12-26 14:30] VITALS: BP 134/57; PULSE 72; O2SAT 100
[2024-12-26 15:00] VITALS: BP 135/64; PULSE 72; O2SAT 98
[2024-12-26] MEDS: LIDOCAINE 5% TRANSDERMAL PATCH 1 EACH TD (15:31)
[2024-12-26] MEDS: ACETAMINOPHEN 500MG TAB 1000 MG PO (15:31)
[2024-12-26] MEDS: METHOCARBAMOL 500MG TABLET 500 MG PO (15:31)
[2024-12-26 15:52] VITALS: BP 135/64; PULSE 72; RESP 17; TEMP 37.1; O2SAT 98
== END 2024-12-26 15:52 | disposition home or self-care (01) ==
PROVIDERS: Emergency Provider Emergency Medicine; PCP Internal Medicine
DX: R07.89 Other chest pain (principal)
CPT/HCPCS: 71250; 99284

== ENCOUNTER 2025-06-04 09:50 | Outpatient (CLI) | payer MEDICARE, OTHER, SELFPAY ==
--- OUTSIDE RECORDS SUMMARY | 2025-04-10 14:00 | XMS_ITS | Encounter Summary ---
Author Organization [employer] ([place], [place], [place], [place]) Address [address] [place] [address] Care Team Providers Care Registered Nurse Bone Marrow Transplant Name Role Phone Chris Kim MD Primary Care Provider [phone] Shelia Mora MD Unavailable [phone] Mehrdad Ford MD Unavailable [phone] Reason for Referral * Ultrasound (Routine) - Closed Specialty Diagnoses / Procedures Referred By Edmundo vazquez Referred To Contact Radiology Diagnoses RLQ abdominal pain Procedures Ultrasound non-ob transvaginal Keesha Tidwell DO [address] [place] [address] Phone: tel: fax: [facility] Ultrasound [address] [place] [phone] Phone: tel: fax: Referral ID Status Reason Start Date Expiration Date Visits Re quested Visits Authorized [id number] Closed 04/10/2025 04/10/2026 1 1 Encounter Details Date Type Department Care Team (Late st Contact Info) Description 04/10/2025 2:00 PM EDT Office Visit [facility] ANIMAL CARE SERVICE WORKER - [address] [place] [address] Tidwell, Keesha E, DO [address] [place] [address] RLQ abdominal pain (Primary Dx); Use of tamoxifen (Nolvadex); Thickened endometrium; Endometrial polyp Social History Tobacco Use Types Packs/Day Years Used Date Smoking Tobacco: Never Passive Smoke Exposure: Never Smokeless Tobacco: Never Alcohol Use Standard Drinks/Week Comments Never 0 (1 standard drink = 0.6 oz pur e alcohol) Social Connection and Isolation Panel Answer Date Recorded In a typical week, how many times do you talk on the phone with family, friends, or neighbors? More than three times a week 11/16/2022 How often do you get togethe r with friends or relatives? More than three times a week 11/16/2022 How often do you attend chur ch or adventism services? More than 4 times per year 11/16/2022 Do you belong to any clubs o r organizations such as islam groups, unions, fraternal or athletic groups, or school groups? Yes 11/16/2022 How often do you attend meet ings of the clubs or organizations you belong to? More than 4 times per year 11/16/2022 Are you , , di vorced, , never , or living with a partner? 11/16/2022 Overall Financial Resource Strain (CARDIA) Answe r Date Recorded How hard is it for you to pa y for the very basics like food, housing, medical care, and heating? Not hard at all 11/16/2022 Exercise Vital Sign Answer Date Recorde d On average, how many days pe r week do you engage in moderate to strenuous exercise (like a brisk walk)? 0 days Minutes of Exercise per Session Not on file 11/16/2022 Hunger Vital Sign Answer Date Recorded Within the past 12 months, y ou worried that your food would run out before you got the money to buy more. Never true 11/17/19 23 Within the past 12 months, t he food you bought just didn't last and you didn't have money to get more. Never true 11/16/2022 PRAPARE - Transportation Answer Date Re corded In the past 12 months, has l ack of transportation kept you from medical appointments or from getting medications? No 10/2022 In the past 12 months, has l ack of transportation kept you from meetings, work, or from getting things needed for daily living? No 11/16/2022 Family and Community Support Answer Ace e Recorded Help with Day to Day Activities Not on file 09/28/2023 Feeling Lonely or Isolated Not on file 09/28 Educational Attainment Answer Date Donavon rded Speak language other than [place]ore[place] at home Not on file 09/28/2023 Want help with school or training Not on file 09/28/2023 Substance Use Answer Date Recorded Used prescription meds for non-medical reasons N ot on file 09/28/2023 Used illegal drugs past 12 months Not on file 09/28/2023 Comments No Sex and Gender Information Value Date Recorded Sex Assigned at Not on file Legal Sex Female 7:22 PM CDT Gender Identity Not on file Sexual Orientation Not on file documented as of this encounter Last Filed Vital Signs Vital Sign Reading Time Taken Comments Blood Pressure 144/73 04/10/2025 2:02 PM EDT Pulse 83 04/10/2025 2:02 PM EDT Temperature - - Respiratory Rate - - Oxygen Saturation - - Inhaled Oxygen Concentration - - Weight 81.2 kg (179 lb) 04/10/2025 2:02 PM EDT Height 165.1 cm (5' 5 ) 04/10/2025 2:02 PM EDT Body Mass Index 29.79 04/10/2025 2:02 PM EDT documented in this encounter Progress Notes * Keesha Tidwell, - 04/10/2025 2:00 PM EDT MANAGER IMPLEMENTATION Ambulatory Office Note HPI: Brooklyn Corbin is a 79 y.o. here to discuss surgical management of endometrial polyp. She has single polyp seen during [facility] in [place]. At last visit patient was considering hysterectomy but has now decided to just have polypectomy. Since our last visit she has also stopped taking her Tamoxifen. She states she was told she had a small right ovarian cyst but records from [place] state normalovaries bilaterally on US done in December 2024. She reports having right lower quadrant pain that is intermittent. Seems to worsen later in the day. Obstetrical history OB History Para Term AB Living 1 1 SAB IAB Ectopic Multiple Live Births # Outcome Date GA Lbr Loki/2nd Weight Sex Type Anes PTL Lv 1 Para Obstetric Comments Menarche: age 12 LMP: around age 50 P: 1 Age at first live : 31 Hx hrt: yes, 30 year hx Surgeries: Past Surgical History: Procedure Laterality Date BIOPSY/EXCISION,SENTINEL LYMPH NODE Right 11/28/2022 Procedure: EXCISIONAL BIOPSY, LYMPH NODE, SENTINEL; Surgeon: Mehrdad Ford MD; Location: [facility] OR; Service: General Surgery; Laterality: Right; BREAST BIOPSY Right 11/01/2022 COLONOSCOPY LUMPECTOMY Right 11/28/2022 Procedure: LUMPECTOMY, BREAST; Surgeon: Mehrdad Ford MD; Location: [facility] OR; Service: General Surgery; Laterality: Right; LYMPH NODE BIOPSY Left 11/15/2022 left axillary node NEEDLE LOCALIZATION Right 11/28/2022 Procedure: RIGHT BREAST NEEDLE LOCALIZED LUMPECTOMY WITH SENTINEL NODE BX; Surgeon: Mehrdad Ford MD; Location: [facility] OR; Service: General Surgery; Laterality: Right; SKIN CANCER EXCISION Left 03/23/2021 left arm; melanoma TUBAL LIGATION 1980 Curent Medications: Current Outpatient Medications Medication Sig Dispense Refill acetaminophen (TYLENOL) 325 MG tablet Take 500 mg by mouth every 6 (six) hours if needed . amLODIPine (NORVASC) 5 MG tablet Take 1 tablet (5 mg total) by mouth daily. aspirin 81 MG EC tablet Take 1 tablet (81 mg total) by mouth. atorvastatin (LIPITOR) 40 MG tablet Take by mouth. busPIRone (BUSPAR) 5 MG tablet Take 1 tablet (5 mg total) by mouth 2 (two) times daily For IBS . calcium carbonate-vitamin D3 (Calcium 600 + D,3,) 600 mg-10 mcg (400 unit) Tab Take 1 tablet by mouth 2 (two) times daily. 180 tablet 3 calcium polycarbophil (KONSYL FIBER ORAL) Take by mouth daily. cetirizine (ZyrTEC) 10 MG tablet Take 1 tablet (10 mg total) by mouth daily. chlordiazePOXIDE (LIBRIUM) 10 MG capsule Take 1 capsule (10 mg total) by mouth. dicyclomine (BENTYL) 10 MG capsule Take 1 capsule (10 mg total) by mouth every 6 (six) hours as needed. exemestane (AROMASIN) 25 mg tablet Take 1 tablet (25 mg total) by mouth daily. 90 tablet 2 lisinopril-hydroCHLOROthiazide (PRINZIDE,ZESTORETIC) 20-25 mg per tablet Take by mouth. multivitamin per tablet Take 1 tablet by mouth daily. omeprazole (PriLOSEC) 20 MG capsule Take by mouth. polyethylene glycol (GLYCOLAX) 17 gram packet Take 17 g by mouth daily. tamoxifen (NOLVADEX) 20 MG tablet Take 1 tablet (20 mg total) by mouth daily. 90 tablet 3 venlafaxine XR (EFFEXOR-XR) 37.5 MG 24 hr capsule Take 1 capsule (37.5 mg total) by mouth daily. 90capsule 3 vit L-xilkmip-djin-rutin-hb196 (Bioflex) 762-03-11-40 mg Tab Take by mouth. No current facility-administered medications for this visit. Allergies: Allergies Allergen Reactions Pollen Extracts Other (See Comments) Family History: family history includes Breast cancer in her paternal aunt; Cancer in her father; Diabetes in her brother; Prostate cancer in her father; Rheum arthritis in her brother; Stroke in her mother. Review of Systems: A complete review of systems revealed no pertinent patient complaints except as noted below or in the history of present illness. Constitutional: Normal. Eyes: Normal. ENT: Normal. Cardiovascular: Normal. Breasts: Normal. Respiratory: Normal. Gastrointestinal: Normal. Genital: Normal. Urinary: Normal. Musculoskeletal: Normal. Integumentary: Normal. Neurological: Normal. Psychiatric: Normal. Endocrine: Normal. Hematologic/lymphatic: Normal. Allergic/immunologic: Normal. Physical Exam: BP (!) 144/73 Pulse 83 Ht 1.651 m (5' 5 ) Wt 81.2 kg (179 lb) BMI 29.79 kg/m?? BP Readings from Last 3 Encounters: 04/10/25 (!) 144/73 03/30/25 130/67 12/04/24 (!) 150/68 BP (!) 144/73 Pulse 83 Ht 1.651 m (5' 5 ) Wt 81.2 kg (179 lb) BMI 29.79 kg/m?? General: well-developed, well-nourished, and in no acute distress. HEENT: Atraumatic, EOMI Pulmonary: Respiratory effort is normal, no increased work of breathing or signs of respiratory distress. 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 year-old Thickened endometrium Endometrial polyp RLQ pain Tamoxifen use At this time, patient desires hysteroscopy, dilation and curettage, polypectomy. Explained surgical procedure in detail including surgical risks such as bleeding, infection, risk for open surgery, damage to internal organs, pelvic pain following surgery. This was reviewed with the patient and she understands the potential risks related to the procedure. Reviewed postoperative pain management and post-operative recovery time and restrictions. Will also order repeat TVUS due to pain and patient concern for ovarian cyst Advised patient not to stop her Tamoxifen unless directed to do so by Oncologist. Electronically signed by Keesha Tidwell DO - 04/10/2025 - 2:44 PM EDT documented in this encounter Plan of Treatment Upcoming Encounters Date Type Department Care Team (Late st Contact Info) Description 06/25/2025 1:00 PM EDT Appointment [facility] Breast [facility] [address] [place] [address] Mehrdad Ford MD [address] [place] [address] 06/25/2025 2:15 PM EDT Office Visit [facility] - [address] [place] [address] Tracie Menendez PA-C [address] [place] [address] Shelia Mora MD [address] [facility] [address] [place], [place] [id number] 12/10/2025 1:00 PM EDT Appointment [facility] Breast Care [address] [facility] [address] [place] [id number] Mehrdad Ford MD [address] [place] [address] 12/10/2025 2:00 PM EDT Office Visit [facility] [address] [facility] [address] [place] [address] Mehrdad Ford MD [address] [place], [place] [id number] 05/17/2026 2:00 PM EDT Office Visit [facility] ANIMAL CARE SERVICE WORKER - [address] [place] [address] Keesha Tidwell, DO [address] [place] [address] documented as of this encounter Results * Ultrasound non-ob transvaginal (04/20/2025 2:03 PM EDT) Anatomical Region Laterality Modality Pelvis Ultrasound 04/20/2025 4:26 PM EDT Impressions 04/20/2025 4:53 PM EDT 1. Thickened, heterogeneous endometrium in this patient on Tamoxifen. Recommend short follow-up. If this patient has bleeding, consider biopsy. 2. Normal sonographic appearance to the ovaries for age. Images reviewed, interpreted, and dictated by Matilda Baker MD Narrative 04/20/2025 4:53 PM EDT ULTRASOUND PELVIS, TRANSVAGINAL INDICATION: Right lower quadrant pain. History of breast cancer. On Tamoxifen. TECHNIQUE: Sonographic images of the pelvis were obtained transvaginally. COMPARISON: None. FINDINGS: The uterus is retroverted and retroflexed. It measures 4.4 x 6.0 x 3.7 cm. The endometrial stripe measures 8 mm. It is heterogeneous. This is thickened, even in a patient on Tamoxifen. The myometrium is homogeneous. The cervix is unremarkable. The right ovary measures 1.5 x 2.4 x 1.6 cm. There is a 1.7 cm cyst. Color and spectral imaging of the right ovary reveals blood flow to be present. The left ovary measures 0.8 x 1.8 x 0.8 cm. It is unremarkable for age. Color and spectral imaging to the left ovary reveals blood flow to be present. There is no free fluid. Procedure Note Matilda Baker MD - 04/20/2025 ULTRASOUND PELVIS, TRANSVAGINAL INDICATION: Right lower quadrant pain. History of breast cancer. On Tamoxifen. TECHNIQUE: Sonographic images of the pelvis were obtained transvaginally. COMPARISON: None. FINDINGS: The uterus is retroverted and retroflexed. It measures 4.4 x 6.0 x 3.7 cm. The endometrial stripe measures 8 mm. It is heterogeneous. This is thickened, even in a patient on Tamoxifen. The myometrium is homogeneous. The cervix is unremarkable. The right ovary measures 1.5 x 2.4 x 1.6 cm. There is a 1.7 cm cyst. Color and spectral imaging of the right ovary reveals blood flow to be present. The left ovary measures 0.8 x 1.8 x 0.8 cm. It is unremarkable for age. Color and spectral imaging to the left ovary reveals blood flow to be present. There is no free fluid. IMPRESSION: 1. Thickened, heterogeneous endometrium in this patient on Tamoxifen. Recommend short follow-up. If this patient has bleeding, consider biopsy. 2. Normal sonographic appearance to the ovaries for age. Images reviewed, interpreted, and dictated by Matilda Baker MD us Keesha Tidwell DO Nivia US ORDERABLES Final Result documented in this encounter Visit Diagnoses Diagnosis RLQ abdominal pain- Primary Abdominal pain, right lower quadrant Use of tamoxifen (Nolvadex) Thickened endometrium Nonspecific (abnormal) findings on radiological and other examination of genitourinary organs Endometrial polyp Polyp of corpus uteri RLQ abdominal pain Abdominal pain, right lower quadrant documented in this encounter Care Teams Registered Nurse Bone Marrow Transplant Relationship Specialty Start Date End Date Chris Kim MD [address] [place] [address] [place] [id number] PCP - General General Internal Medicine 10/11/22 Shelia Mora MD [address] [facility] [address] [place] [address] Medical Oncologist Hematology and Oncology 11/14/22 Mehrdad Ford MD [address] [facility] [address] [place], [place] [id number] General Surgery 12/04/22 documented as of this encounter
--- OUTSIDE RECORDS SUMMARY | 2025-04-20 13:31 | XMS_ITS | Encounter Summary ---
Author Organization [employer] ([place], [place], [place], [place]) Address [address] [place] [address] Care Team Providers Care Wood Piler Name Role Phone Chris Kim MD Primary Care Provider [phone] Shelia Mora MD Unavailable Mehrdad Ford MD Unavailable [phone] Reason for Referral * Ultrasound (Routine) - Closed Specialty Diagnoses / Procedures Referred By Contac t Referred To Contact Radiology Diagnoses RLQ abdominal pain Procedures Ultrasound non-ob transvaginal Keesha Tidwell DO [address] [place] [address] Phone: tel: fax: [address] [address] Phone: tel: fax: Referral ID Status Reason Start Date Expiration Date Visits Re quested Visits Authorized [id number] Closed 04/10/2025 04/10/2026 1 1 Reason for Visit * Ultrasound (Routine) - Closed Specialty Diagnoses / Procedures Referred By Contac t Referred To Contact Radiology Diagnoses RLQ abdominal pain Procedures Ultrasound non-ob transvaginal Keesha Tidwell DO [address] [place] [address] Phone: tel: fax: [facility] Ultrasound [address] [place] [address] Phone: tel: fax: Referral ID Status Reason Start Date Expiration Date Visits Re quested Visits Authorized [id number] Closed 04/10/2025 04/10/2026 1 1 Encounter Details Date Type Department Care Team (Latest Contact Info) Description 04/20/2025 1:31 PM EDT - 04/20/2025 11:59 PM EDT Hospital Encounter [facility] Ultrasound [address] [place] [address] Keesha Tidwell, DO [address] [place] [address] RLQ abdominal pain Discharge Disposition: Home or Self Care Social History Tobacco Use Types Packs/Day Years [...] often do you attend chur ch or cheondoism services? More than 4 times per year 11/16/2022 Do you belong to any clubs o r organizations such as worship groups, unions, fraternal or athletic groups, or [...] Date Donavon rded Speak language other than [place]er at home Not on file 09/28/2023 Want [...] on file documented as of this encounter Medications at Time of Discharge acetaminophen (TYLENOL) 325 MG tablet Take 500 mg by mouth every 6 (six) hours if needed . amLODIPine (NORVASC) 5 MG tablet Take 1 tablet (5 mg total) by mouth daily. 09/15/2024 aspirin 81 MG EC tablet Take 1 tablet (81 mg total) by mouth. atorvastatin (LIPITOR) 40 MG tablet Take by mouth. 08/30/2022 busPIRone (BUSPAR) 5 MG tablet Take 1 tablet (5 mg total) by mouth 2 (two) times daily For IBS . calcium carbonate-vitamin D3 (Calcium 600 + D,3,) 600 mg-10 mcg (400 unit) Tab Take 1 tablet by mouth 2 (two) times daily. 180 tablet 3 05/14/2023 calcium polycarbophil (KONSYL FIBER ORAL) Take by mouth daily. cetirizine (ZyrTEC) 10 MG tablet Take 1 tablet (10 mg total) by mouth daily. chlordiazePOXIDE (LIBRIUM) 10 MG capsule Take 1 capsule (10 mg total) by mouth. dicyclomine (BENTYL) 10 MG capsule Take 1 capsule (10 mg total) by mouth every 6 (six) hours as needed. 08/07/2023 exemestane (AROMASIN) 25 mg tabletIndications:M alignant neoplasm of upper-inner quadrant of right breast in female, estrogen receptor positive (HCC),Post-menopaus e,Vasomotor symptoms due to menopause Take 1 tablet (25 mg total) by mouth daily. 90 tablet 2 02/25/2025 lisinopril-hydroCHL OROthiazide (PRINZIDE,ZESTORETI C) 20-25 mg per tablet Take by mouth. 08/30/2022 multivitamin per tablet Take 1 tablet by mouth daily. omeprazole (PriLOSEC) 20 MG capsule Take by mouth. 08/30/2022 polyethylene glycol (GLYCOLAX) 17 gram packet Take 17 g by mouth daily. tamoxifen (NOLVADEX) 20 MG tabletIndications:H istory of breast cancer Take 1 tablet (20 mg total) by mouth daily. 90 tablet 3 12/04/2024 venlafaxine XR (EFFEXOR-XR) 37.5 MG 24 hr capsuleIndications: History of breast cancer Take 1 capsule (37.5 mg total) by mouth daily. 90 capsule 3 12/04/2024 vit O-mikugsd-mheb-lacey n-hb196 (Bioflex) 456-81-98-40 mg Tab Take by mouth. ibuprofen (MOTRIN) 600 MG tablet Take 1 tablet (600 mg total) by mouth every 6 (six) hours as needed for pain for up to 10 days. 40 tablet 04/30/2025 documented as of this encounter Miscellaneous Notes * Result Encounter Note - Keesha Tidwell DO - 04/20/2025 2:30 PM EDT Please call patient with result. Ovaries appear normal. Endometrium still thickened which we will address with D&C as planned. documented in this encounter Plan of Treatment Upcoming Encounters Date Type Department Care Team (Late st Contact Info) Description 06/25/2025 1:00 PM EDT Appointment [facility] [address] [facility] [address] [place] [address] Mehrdad Ford MD [address] [facility] [address] [place] [address] 06/25/2025 2:15 PM EDT Office Visit [facility] - [address] [facility] [address] [place] [address] Tracie Menendez PA-C [address] [place] [address] Shelia Mora MD [address] [facility] [address] [place] [address] 12/10/2025 1:00 PM EDT Appointment [facility] [address] [facility] [address] [place] [address] Mehrdad Ford MD [address] [place] [address] 12/10/2025 2:00 PM EDT Office Visit [facility] [address] [facility] [address] [place] [address] Mehrdad Ford MD [address] [facility] [address] [place] [address] 05/17/2026 2:00 PM EDT Office Visit [facility] SPANISH TUTOR - [address] [place] [address] Keesha Tidwell, [address] [place] [address] documented as of this encounter Procedures Procedure Name Priority Date/Time Associated Diagnosis Comments US NON-OB TRANSVAGINAL Routine 04/20/2025 2:03 PM EDT RLQ abdominal pain documented in this encounter Results * Ultrasound non-ob transvaginal [...] Matilda Baker MD us Keesha Tidwell DO [facility] US ORDERABLES Final Result documented in this encounter Visit Diagnoses Diagnosis RLQ abdominal pain Abdominal pain, right lower quadrant documented in this encounter Care Teams Wood Piler Relationship Specialty Start Date End Date Chris Kim MD [address] [place] [address] [place] [address] PCP - General General Internal Medicine 10/11/22 Shelia Mora MD [address] [facility] [address] [place] [address] Medical Oncologist Hematology and Oncology 11/14/22 Mehrdad Ford MD [address] [facility] [address] [place] [address] General Surgery 12/04/22 documented as of this encounter
--- OUTSIDE RECORDS SUMMARY | 2025-04-30 10:39 | XMS_ITS | Encounter Summary ---
Author Organization [employer] ([place], [place], [place], [place]) Address [address] [place] [address] Care Team Providers Care Map Plotter Name Role Phone Chris Kim MD Primary Care Provider [phone] Shelia Mora MD Unavailable [phone] Mehrdad Ford MD Unavailable [phone] Reason for Visit * Auth/Cert (Routine) Specialty Diagnoses / Procedures Referred By Edmundo vazquez Referred To Contact Diagnoses Endometrial polyp Endometrial polyp Procedures VA HYSTEROSCOPY BX ENDOMETRIUM&/POLYPC W/WO D&C HYSTEROSCOPY, WITH DILATION AND CURETTAGE OF UTERUS IF INDICATED Keesha Tidwell DO [address] [place] [address] Phone: tel: fax: Referral ID Status Reason Start Date Expiration Date Visits Re quested Visits Authorized [id number] 04/10/2025 1 1 Encounter Details Date Type Department Care Team (Latest Contact Info) Description 04/30/2025 10:39 AM EDT - 04/30/2025 4:09 PM EDT Hospital Encounter [facility] Surgery Department [address] [place] [address] Keesha Tidwell DO [address] [place] [address] Endometrial polyp Discharge Disposition: Home or Self Care Social [...] often do you attend chur ch or spiritism services? More than 4 times per year 11/16/2022 Do you belong to any clubs o r organizations such as shinto groups, unions, fraternal or athletic groups, or [...] Date Donavon rded Speak language other than Botswanan at home Not on file 09/28/2023 Want [...] Sign Reading Time Taken Comments Blood Pressure 144/70 04/30/2025 3:44 PM EDT Pulse 74 04/30/2025 3:44 PM EDT Temperature 36.7 C (98 F) 04/30/2025 3:23 PM EDT Respiratory Rate 16 04/30/2025 3:44 PM EDT Oxygen Saturation 98% 04/30/2025 3:4 4 PM EDT Inhaled Oxygen Concentration - - Weight 82.7 kg (182 lb 5.1 oz) 04/30/2025 11:00 AM EDT Previous value was entered in error Height - - Body Mass Index 30.34 04/10/2025 2:02 PM EDT documented in this encounter Discharge Instructions * Attachments The following attachments cannot be sent through Care Everywhere. * Hysteroscopy Care After (Botswanan) * General Anesthesia Adult Care After (Botswanan) * Dilation and Curettage or Vacuum Curettage Care After Egsf-zm-Arzd (Botswanan) documented in this encounter Medications at Time of Discharge [...] mouth daily. 90 capsule 3 12/04/2024 vit T-nepacbv-ctyh-lacey n-hb196 (Bioflex) 195-09-96-40 mg Tab Take by mouth. ibuprofen (MOTRIN) 600 MG tablet Take 1 tablet (600 mg total) by mouth every 6 (six) hours as needed for pain for up to 10 days. 40 tablet 04/30/2025 5 documented as of this encounter H&P Notes * Keesha Tidwell, - 04/30/2025 12:57 PM EDT SURGICAL FIRST ASSISTANT History & Physical Name: Brooklyn Corbin Date/Time of Admission: 04/30/2025 10:39 AM CSN: [id number] Attending Provider: Keesha Tidwell DO Room/Bed: Periop Pool Rooms/OR : 1945 79 y.o. CC: Endometrial polyp Subjective: HPI: Brooklyn Corbin is a 79 y.o. who presents for scheduled procedure due to thickened endometrium and endometrial polyp seen during hysteroscopy at outside facility. She is also taking Tamoxifen. ALL: Allergies Allergen Reactions Pollen Extracts Other (See Comments) HOME MEDS: Prior to Admission medications Medication Sig Start Date End Date Taking? Authorizing Provider acetaminophen (TYLENOL) 325 MG tablet Take 500 mg by mouth every 6 (six) hours if needed . Historical Provider, amLODIPine (NORVASC) 5 MG tablet Take 1 tablet (5 mg total) by mouth daily. 09/15/24 Historical Provider, aspirin 81 MG EC tablet Take 1 tablet (81 mg total) by mouth. Historical Provider, atorvastatin (LIPITOR) 40 MG tablet Take by mouth. 08/30/22 Historical Provider, busPIRone (BUSPAR) 5 MG tablet Take 1 tablet (5 mg total) by mouth 2 (two) times daily For IBS . Historical Provider, calcium carbonate-vitamin D3 (Calcium 600 + D,3,) 600 mg-10 mcg (400 unit) Tab Take 1 tablet by mouth 2 (two) times daily. 05/14/23 Shelia Mora MD calcium polycarbophil (KONSYL FIBER ORAL) Take by mouth daily. Historical Provider, cetirizine (ZyrTEC) 10 MG tablet Take 1 tablet (10 mg total) by mouth daily. Historical Provider, chlordiazePOXIDE (LIBRIUM) 10 MG capsule Take 1 capsule (10 mg total) by mouth. Historical Provider, dicyclomine (BENTYL) 10 MG capsule Take 1 capsule (10 mg total) by mouth every 6 (six) hours as needed. 08/07/23 Historical Provider, exemestane (AROMASIN) 25 mg tablet Take 1 tablet (25 mg total) by mouth daily. 02/25/25 Leigh B Martyeling, TIE LOADER lisinopril-hydroCHLOROthiazide (PRINZIDE,ZESTORETIC) 20-25 mg per tablet Take by mouth. 08/30/22 Historical Provider, multivitamin per tablet Take 1 tablet by mouth daily. Historical Provider, omeprazole (PriLOSEC) 20 MG capsule Take by mouth. 08/30/22 Historical Provider, polyethylene glycol (GLYCOLAX) 17 gram packet Take 17 g by mouth daily. Historical Provider, tamoxifen (NOLVADEX) 20 MG tablet Take 1 tablet (20 mg total) by mouth daily. 12/04/24 Tracie Menendez PA-C venlafaxine XR (EFFEXOR-XR) 37.5 MG 24 hr capsule Take 1 capsule (37.5 mg total) by mouth daily. 12/04/24 Tracie Menendez PA-C vit N-vjkvrpz-kndw-rutin-hb196 (Bioflex) 159-16-83-40 mg Tab Take by mouth. Historical Provider, PMH: Past Medical History: Diagnosis Date Anxiety Arthritis Back pain Breast cancer (HCC) Broken fibula 2013 Left GERD (gastroesophageal reflux disease) High cholesterol Hypertension IBS (irritable bowel syndrome) Melanoma (HCC) left upper arm Seasonal allergies SURHX: Past Surgical History: Procedure Laterality Date BIOPSY/EXCISION,SENTINEL LYMPH NODE Right 11/28/2022 Procedure: EXCISIONAL BIOPSY, LYMPH NODE, SENTINEL; Surgeon: Mehrdad Ford MD; Location: [facility] OR; Service: General Surgery; Laterality: Right; BREAST BIOPSY Right 11/01/2022 COLONOSCOPY LUMPECTOMY Right 11/28/2022 Procedure: LUMPECTOMY, BREAST; Surgeon: Mehrdad Ford MD; Location: [facility] OR; Service: General Surgery; Laterality: Right; LYMPH NODE BIOPSY Left 11/15/2022 left axillary node NEEDLE LOCALIZATION Right 11/28/2022 Procedure: RIGHT BREAST NEEDLE LOCALIZED LUMPECTOMY WITH SENTINEL NODE BX; Surgeon: Mehrdad Ford MD; Location: [facility] OR; Service: General Surgery; Laterality: Right; SKIN CANCER EXCISION Left 03/23/2021 left arm; melanoma TUBAL LIGATION 1979 FAMHX: Family History Problem Relation Name Age of Onset Stroke Mother Appie Cancer Father Dakota Prostate cancer Father Dakota Diabetes Brother Evgeny Rheum arthritis Brother Noel Breast cancer Paternal Aunt Eleni Family Status Relation Name Status Mother Appie Father Dakota Brother Evgeny Brother Noel Pat Aunt Eleni No partnership data on file SOCHX: Social History Socioeconomic History Marital status: Tobacco Use Smoking status: Never Passive exposure: Never Smokeless tobacco: Never Vaping Use Vaping status: Never Used Substance and Sexual Activity Alcohol use: Never Drug use: Never Sexual activity: Yes Social Drivers of Health Financial Resource Strain: Low Risk (11/16/2022) Overall Financial Resource Strain (CARDIA) Difficulty of Paying Living Expenses: Not hard at all Food Insecurity: No Food Insecurity (11/16/2022) Hunger Vital Sign Worried About Running Out of Food in the Last Year: Never true Ran Out of Food in the Last Year: Never true Transportation: No Transportation Needs (11/16/2022) PRAPARE - Transportation Lack of Transportation (Medical): No Lack of Transportation (Non-Medical): No Physical Activity: Unknown (11/16/2022) Exercise Vital Sign Days of Exercise per Week: 0 days Family and Community Support REVIEW OF SYSTEMS: CONSTI no weight loss, fever, night sweats EYES negative HENT negative HRT no chest pain or dyspnea on exertion LUNGS no cough, shortness of breath, or wheezing GI no abdominal pain, change in bowel habits, or black or bloody stools no dysuria, trouble voiding, or hematuria MSKS negative SKIN negative NEURO no TIA or stroke symptoms PSYCH negative ENDO negative HEME/LYM negative IMMUNO negative Objective: VITALS: Blood pressure (!) 218/85, pulse 91, temperature 98.6 ??F (37 ??C), temperature source Oral, resp. rate 16, weight 51.3 kg (113 lb), SpO2 97%. PHYSICAL EXAM: CONST: Well developed, well nourished, in no distress. HEENT: EOMI LUNGS: Unlabored breathing HRT: RRR, ABD: Soft, nontender, nondistended EXT: No cyanosis or edema. NEURO: A/O x 3. Normal affect. LABS: CBC BMP LIVER No results for input(s): WBC , HEMOGLOBIN , HCT , PLT , MCV in the last 72 hours. No results for input(s): NA , K , CL , CO2 , BUN , CREATININE , GLU in the last 72 hours. No results for input(s): AST , ALT , ALKPHOS , BILITOTAL , BILIIND , ALBUMIN in the last 72 hours. Cardiac ABG Other No results for input(s): TROPONINI , BNP in the last 72 hours. Invalid input(s): CREATINEPHOSKINASE No results for input(s): PH , PO2 , PCO2 , [id number] in the last 72 hours. No results for input(s): TSH , ARSIPYYF18 , FOLATE in the last 72 hours. Invalid input(s): [id number] Imaging Ultrasound non-ob transvaginal Result Date: 04/20/2025 ULTRASOUND PELVIS, TRANSVAGINAL INDICATION: Right lower quadrant pain. History of breast cancer. OnTamoxifen. TECHNIQUE: Sonographic images of the pelvis were obtained transvaginally. COMPARISON: None. FINDINGS: The uterus is retroverted and retroflexed. It measures 4.4 x 6.0 x 3.7 cm. The endometrial stripe measures 8 mm. It is heterogeneous. This is thickened, even in a patient on Tamoxifen. Th e myometrium is homogeneous. The cervix is unremarkable. [...] be present. There is no free fluid. 1. Thickened, heterogeneous endometrium in this patient on Tamoxifen. Recommend short follow-up. Ifthis patient has bleeding, consider biopsy. 2. Normal sonographic appearance to the ovaries for age. Images reviewed, interpreted, and dictated by Matilda Baker MD Assessment/Plan Endometrial polyp Tamoxifen use R/B/A discussed. Risks include but not limited to infection, bleeding, injury to bowel, bladder, major blood vessels, uterus, ovaries, fallopian tubes. Patient voiced understanding and consents. Patient wishes to proceed with hysteroscopy, dilation and curettage, polypectomy. Keesha Tidwell DO documented in this encounter OR Notes * Op Note - Keesha Tidwell DO - 04/30/2025 2:12 PM EDT Operative Report Name: Brooklyn Corbin Surgeon: Keesha Tidwell DO PCP: Chris Kim MD CSN#: [id number] Date of Surgery: 04/30/2025 : 1945 Facility: [facility] PREOP DX: Thickened endometrium Endometrial polyp Tamoxifen use POSTOP DX: Same SURGICAL PROCEDURES: Hysteroscopy 2. Dilatation and Curettage 3. Endometrial polypectomy TYPE OF ANESTHESIA: General SPECIMENS: Endometrial polyp, Endometrial currettings DEVICES IMPLANTED: none ESTIMATED BLOOD LOSS: scant COMPLICATIONS: none INDICATIONS FOR PROCEDURE: The patient is a 79 y.o. female that presented to the office with known endometrial polyp seen during Endosee at outside facility. Patient also on Tamoxifen. FINDINGS: On bimanual exam, the uterus was noted to be anteverted and of normal size, shape, and symmetry without any adnexal masses palpated. On hysteroscopic examination, the endometrial cavity appears within normal limits. Bilateral tubal ostia are easily visualized. One endometrial polyp noted originating from the left fundus. Grossly normal endometrial tissue present otherwise. PROCEDURE IN DETAIL: The risks, benefits, and alternatives were discussed with the patient including but not limited to risk of infection, bleeding, damage to bowel, bladder, ureters and other pelvicorgans. The patient voiced understanding and agreed to proceed. The patient was wheeled back to theoperating room and placed under general anesthesia without difficulty. The patient was placed in the dorsal lithotomy position and prepped and draped in the the normal sterile fashion. A bimanual exam was performed. A weighted speculum was placed inside the vaginal vault. A single-tooth tenaculum was used to grasp the anterior lip of the cervix. Sequential Genaro dilators were used to dilate the cervical os. Uterine sound measured depth of the cavity to 7cm. Hysteroscope was tested and inserted through the cervical os. Examination of the endometrial cavity was performed. See findings as above. Appropriate pictures were taken. Mysoure was used to remove polyp in its entirety. Hysteroscope was removed and sharp curette inserted through the cervical os and rotated in a 360 degree fashion to obtain a small amount of tissue which will be sent to pathology for review. All instruments were then removed from the vagina. Tenaculum site was noted to be hemostatic. Patient was cleaned and returned to the dorsal supine position. She tolerated the procedure well and was transported to the recovery room in stable condition. Patient will be discharged home when awake andambulating. She will be given prescriptions for pain control upon discharge as well as instructionsto follow up in the office in 2 weeks. Keesha Tidwell DO documented in this encounter Plan of Treatment Upcoming Encounters Date Type Department Care Team (Late st Contact Info) Description 06/25/2025 1:00 PM EDT Appointment [facility] [address] [place] [phone] Mehrdad Ford MD [address] [place] [address] 06/25/2025 2:15 PM EDT Office Visit [facility] [address] [place] [phone] Tracie Menendez PA-C [address] [place] [phone] Shelia Mora MD [address] [place] [address] 12/10/2025 1:00 PM EDT Appointment [facility] [address] [place] [phone] Mehrdad Ford MD [address] [place] [address] 12/10/2025 2:00 PM EDT Office Visit [facility] [address] [address] [place] [address] Mehrdad Ford MD [address] [place], [place] [id number] 05/17/2026 2:00 PM EDT Office Visit [facility] CARDIOLOGY NURSE - [address] [place] [address] Keesha Tidwell, DO [address] [place] [address] documented as of this encounter Procedures Procedure Name Priority Date/Time Associated Diagnosis Comments TISSUE EXAM (GREGORIA PAULINO) AP Routine 04/30/2025 1 :51 PM EDT Endometrial polyp VA DILATION & CURETTAGE DX&/THER NONOBSTETRIC 04/30/2025 1:29 PM EDT Endometrial polyp HYSTEROSCOPY, WITH TISSUE REMOVAL, USING HYSTEROSCOPIC ROTATING CUTTER BLADE 04/30/2025 1:29 PM EDT Endometrial polyp NOVA GLUCOSE POC Routine 04/30/2025 11:2 3 AM EDT documented in this encounter Results * Tissue Exam (04/30/2025 1:51 PM EDT) AP RESULT See Note: [facility] Comment: PATHOLOGY REPORT DIAGNOSIS: A. ENDOMETRIUM, CURETTINGS: Scant benign endometrial tissue, admixed with strips of squamous mucosa No atypia identified B. ENDOMETRIUM, POLYPECTOMY: Benign endometrial polyp Negative for hyperplasia, atypia, or malignancy Final Reviewed, Diagnosed and Electronically Signed By: FADY MILLIGAN MD CLINICAL HISTORY: Essential (primary) hypertension ENDOMETRIAL POLYP, GERD, ANXIETY MICROSCOPIC DESCRIPTION: Tissue blocks are prepared and slides examined microscopically on all specimens. See diagnosis for details. GROSS DESCRIPTION: A. Labeled endometrial curettings . Consists of multiple pieces of agrawal soft tissue with mucus measuring 1.2 x 0.8 x 0.2 cm in aggregate, filtered and submitted entirely in 1 block. CHANTALE B. Labeled endometrial polyp . Consists of multiple pieces of agrawal soft tissue with mucus measuring 2.5 x 1.4 x 0.4 cm in aggregate, filtered and submitted entirely on 1 block. See other report ([id number]) Tissue SPECIMEN FROM ENDOMETRIUM OBTAINED BY CURETTAGE / Unknown 04/30/2025 1:51 PM EDT Tissue specimen (specimen) POLYP / Unknown 04/30/2025 1:51 PM EDT Keesha Tidwell DO PATHOLOGY/CYTOLOGY ORDERABLES Fi nal Result Performing Organization Address [facility] Co de Phone Number [facility] [address] * (ABNORMAL) Glucose, Nova Meter (04/30/2025 11:23 AM EDT) POC-GLUCOSE 113(H) 70 - 110 mg/dL 04/30/2025 11:29 AM EDT [facility] Comment:In the event of poor peripheral blood flow, venous or arterial blood should be used due to the potential of erroneous results. Salvage Supervisor [phone] 04/30/2025 11:29 AM EDT [facility] Blood WHOLE BLOOD / Unknown 04/30/2025 11:23 AM EDT 04/30/2025 11:29 AM EDT Narrative [facility] - 04/30/2025 11:29 AM EDT Salvage Supervisor ID is - [id number] Keesha Tidwell DO POINT OF CARE TEST ORDERABLES Fi nal Result Performing Organization Address [facility]/ZIP Co de Phone Number [facility] [address] [phone] documented in this encounter Visit Diagnoses Diagnosis Endometrial polyp- Primary Polyp of corpus uteri GERD (gastroesophageal reflux disease) Esophageal reflux Hypertension Unspecified essential hypertension Anxiety Anxiety state, unspecified documented in this encounter Admitting Diagnoses Diagnosis Endometrial polyp Polyp of corpus uteri documented in this encounter Administered Medications Inactive Administered Medications - up to 3 most recent administrations Medication Order MAR Action Action Date Dose Rate Site electrolyte-R (NORMOSOL-R) infusion at 100 mL/hr, intravenous, Continuous, Starting on Nichole 04/30/25 at 1130, Pre-op New Bag 04/30/2025 1:29 PM EDT 75 mL/hr 75 mL/h r famotidine (PEPCID) tablet 20 mg 20 mg Once, oral, On Nichole 04/30/25 at 1130, For 1 dose, Pharmacist to renally dose if CrCl is less than 50 mL/min or on CRRT., Pre-op Given 04/30/2025 11:14 AM EDT 20 mg sodium chloride flush 10 mL 10 mL As needed, intravenous, line care, Starting on Nichole 04/30/25 at 1114, Every 8 hours and PRN to flush, Pre-op sodium chloride flush 10 mL 10 mL As needed, intravenous, line care, Starting on Nichole 04/30/25 at 1308, Every 8 hours and PRN to flush, Pre-op documented in this encounter Active and Recently Administered Medications Times are shown in EDT. Scheduled Medication Order 04/28/2025 04/29/2025 04/30/2025 ceFAZolin (ANCEF) IVPB 2 g/50 mL D5W (premix) (COMPLETED) 2 g Once, intravenous, Administer over 30 Minutes, On Nichole 04/30/25 at 1330, For 1 dose, Administer within 60 minutes of incision or procedure start., Pre-op, Please choose an indication: Surgical Prophylaxis 1343 (Given - Provid er: Rafael Ruvalcaba CRNA) famotidine (PEPCID) tablet 20 mg (COMPLETED) 20 mg Once, oral, On Nichole 04/30/25 at 1130, For 1 dose, Pharmacist to renally dose if CrCl is less than 50 mL/min or on CRRT., Pre-op 1114 (Given - Provid er: Anabel Rapp RN) Continuous Medication Order 04/28/2025 04/29/2025 04/30/2025 electrolyte-R (NORMOSOL-R) infusion at 100 mL/hr, intravenous, Continuous, Starting on Nichole 04/30/25 at 1130, Pre-op 1329 (New Bag - Prov ider: Rafael uRvalcaba CRNA)1410 (Anesthesia Volume Adjustment - Provider: Rafael Ruvalcaba CRNA) PRN Medication Order 04/28/2025 04/29/2025 04/30/2025 sodium chloride flush 10 mL(Linked Group 1) 10 mL As needed, intravenous, line care, Starting on Nichole 04/30/25 at 1114, Every 8 hours and PRN to flush, Pre-op sodium chloride flush 10 mL(Linked Group 2) 10 mL As needed, intravenous, line care, Starting on Nichole 04/30/25 at 1308, Every 8 hours and PRN to flush, Pre-op Linked Groups Order Group 1: Insert Peripheral IV (CANCELED) STAT, Once, On Nichole 04/30/25 at 1114, For 1 occurrence, Pre-op And Saline Lock IV (CANCELED) Routine, Once, On Nichole 04/30/25 at 1114, For 1 occurrence, Pre-op And sodium chloride flush 10 mLJump to med 10 mL As needed, intravenous, line care, Starting on Nichole 04/30/25 at 1114, Every 8 hours and PRN to flush, Pre-op Group 2: Insert Peripheral IV (CANCELED) STAT, Once, On Nichole 04/30/25 at 1309, For 1 occurrence, Pre-op And Saline Lock IV (CANCELED) Routine, Once, On Nichole 04/30/25 at 1309, For 1 occurrence, Pre-op And sodium chloride flush 10 mLJump to med 10 mL As needed, intravenous, line care, Starting on Inchole 04/30/25 at 1308, Every 8 hours and PRN to flush, Pre-op documented in this encounter Care Teams Map Plotter Relationship Specialty Start Date End Date Chris Kim MD [address] [place] [address] [place] [address] PCP - General General Internal Medicine 10/11/22 Shelia Mora MD [address] [facility] [address] [place] [address] Medical Oncologist Hematology and Oncology 11/14/22 Mehrdad Ford MD [address] [facility] [address] [place] [address] General Surgery 12/04/22 documented as of this encounter
--- OUTSIDE RECORDS SUMMARY | 2025-04-30 13:29 | XMS_ITS | Encounter Summary ---
Author Organization [employer] ([place], [place], [place], [place]) Address [address] [place] [address] Care Team Providers Care Sales Training Manager Name Role Phone Chris Kim MD Primary Care Provider [phone] Shelia Mora MD Unavailable [phone] Mehrdad Ford MD Unavailable [phone] Reason for Visit * Auth/Cert (Routine) Specialty Diagnoses / Procedures Referred By Contac t Referred To Contact Diagnoses Endometrial polyp Endometrial polyp Procedures [place] HYSTEROSCOPY BX ENDOMETRIUM&/POLYPC W/WO D&C HYSTEROSCOPY, WITH DILATION AND CURETTAGE OF UTERUS IF INDICATED Keesha Tidwell, DO [address] [place] [address] Phone: tel: fax: Referral ID Status Reason Start Date Expiration Date Visits Re quested Visits Authorized [id number] 04/10/2025 1 1 Encounter Details Date Type Department Care Team (Late st Contact Info) Description 04/30/2025 1:29 PM EDT Anesthesia Event [facility] Surgery Department [address] [place] [address] Rafael Ruvalcaba CRNA [address] [place], [place] [phone] Hector Hamilton MD [address] [place], [place] [phone] (work) Anesthesia Record Procedure Summary Procedure Name [...] week 11/16/2022 How often do you attend [facility] or zoroastrian services? More than 4 times per year 11/16/2022 Do you belong to any clubs o r organizations such as scientologist groups, unions, fraternal or athletic groups, or [...] Date Donavon rded Speak language other than [place]ican at home Not on file 09/28/2023 Want [...] Procedure Summary Date: 04/30/25 Room / Location: [facility] OR OPERATING ROOM Anesthesia Start: 1329 Anesthesia [...] and oral airway Hydration status: stable Color: Zuehl Activity: Moves 4 extremities Inotropes/Vasopressors: N/A No [...] OF UTERUS IF INDICATED - polypectomy Location: [facility] OR 03 / [facility] O[facility]ATING [facility] Surgeons: [...] risks discussed with patient. Plan discussed with WHITE METAL CASTER. documented in this encounter Plan of Treatment Upcoming Encounters Date Type Department Care Team (Late st Contact Info) Description 06/25/2025 1:00 PM EDT Appointment [facility] [address] [facility] [address] [place] [address] Mehrdad Ford MD [address] [facility] [address] [place] [address] 06/25/2025 2:15 PM EDT Office Visit [place] [facility] - [facility] [address] [place] [address] [address] [place] [address] Tracie Menendez PA-C [address] [facility] [address] [place] [address] Shelia Mora MD [address] [facility] [address] [place] [address] 12/10/2025 1:00 PM EDT Appointment [facility] [address] [place] [address] Mehrdad Ford MD [address] [place] [address] [address] [place] [address] 12/10/2025 2:00 PM EDT Office Visit [facility] [address] [facility] [address] [place] [address] Mehrdad Ford MD [address] [place] [address] 05/17/2026 2:00 PM EDT Office Visit [facility] CATALOGUE CLERK - [address] [place] [address] Keesha Tidwell, DO [address] [place] [address] documented as of this encounter [...] mg documented in this encounter Care Teams Sales Training Manager Relationship Specialty Start Date End Date Chris Kim MD [address] [place] [address] PCP - General General Internal Medicine 10/11/22 Shelia Mora MD [address] [facility] [address] [place], [place] [phone] Medical Oncologist Hematology and Oncology 11/14/22 Mehrdad Ford MD [address] [facility] [address] [place], [place] [phone] General Surgery 12/04/22 documented as of this encounter
--- OUTSIDE RECORDS SUMMARY | 2025-04-30 13:43 | XMS_ITS | Encounter Summary ---
Author Organization [employer] ([place], [place], [place], [place]) Address [address] [place] [address] Care Team Providers Care Medical Doctor Md/Medical Director Name Role Phone Chris Kim MD Primary Care Provider [phone] Shelia Mora MD Unavailable [phone] Mehrdad Ford MD Unavailable [phone] Reason for Visit * Auth/Cert (Routine) Specialty Diagnoses / Procedures Referred By Edmundo vazquez Referred To Contact Diagnoses Endometrial polyp Endometrial polyp Procedures AL HYSTEROSCOPY BX ENDOMETRIUM&/POLYPC W/WO D&C HYSTEROSCOPY, WITH DILATION AND CURETTAGE OF UTERUS IF INDICATED Keesha Tidwell DO [address] [place] [address] Phone: tel: fax: Referral ID Status Reason Start Date Expiration Date Visits Re quested Visits Authorized [id number] 04/10/2025 1 1 Encounter Details Date Type Department Care Team (Late st Contact Info) Description 04/30/2025 1:43 PM EDT - 04/30/2025 2:46 PM EDT Surgery [facility] Surgery Department [address] [place] [address] Keesha Tidwell DO [address] [place] [address] HYSTEROSCOPY, WITH DILATION AND CURETTAGE, WITH POLYPECTOMY OF UTERUS Social History Tobacco Use Types Packs/Day Years [...] often do you attend chur ch or lutheran services? More than 4 times per year 11/16/2022 Do you belong to any clubs o r organizations such as episcopal groups, unions, fraternal or athletic groups, or [...] Date Donavon rded Speak language other than New Zealander at home Not on file 09/28/2023 Want [...] Sign Reading Time Taken Comments Blood Pressure 156/66 04/30/2025 2:45 PM EDT Pulse 67 04/30/2025 2:45 PM EDT Temperature 36.3 C (97.4 F) 04/30/2025 2:03 PM EDT Respiratory Rate 17 04/30/2025 2:45 PM EDT Oxygen Saturation 100% 04/30/2025 2:4 5 PM EDT Inhaled Oxygen Concentration - - Weight 82.7 kg (182 lb 5.1 oz) 04/30/2025 11:00 AM EDT Previous value was entered in error Height - - Body Mass Index 30.34 04/10/2025 2:02 PM EDT documented in this encounter Discharge Instructions * Attachments The following attachments cannot be sent through Care Everywhere. * Hysteroscopy Care After (New Zealander) * General Anesthesia Adult Care After ([place] Zealander) * Dilation and Curettage or Vacuum Curettage Care After Ppmr-lo-Gqvg ([place] Zealander) documented in this encounter Medications at Time [...] mouth daily. 90 capsule 3 12/04/2024 vit H-xpvvqhl-jitk-lacey n-hb196 (Bioflex) 623-64-26-40 mg Tab Take by mouth. ibuprofen (MOTRIN) 600 MG tablet Take 1 tablet (600 mg total) by mouth every 6 (six) hours as needed for pain for up to 10 days. 40 tablet 04/30/2025 5 documented as of this encounter H&P Notes * Keesha Tidwell DO - 04/30/2025 12:57 PM EDT ORACLE TECHNICAL DEVELOPER History & Physical Name: Brooklyn oCrbin Date/Time of Admission: 04/30/2025 10:39 AM CSN: [id number] Attending Provider: Keesha Tidwell DO Room/Bed: Periop [...] mg total) by mouth daily. 02/25/25 Leigh Romi Rodarte APRN lisinopril-hydroCHLOROthiazide (PRINZIDE,ZESTORETIC) 20-25 mg per tablet Take [...] mouth daily. 12/04/24 Tracie Menendez PA-C vit L-bjelzeg-pyea-rutin-hb196 (Bioflex) 364-15-99-40 mg Tab Take by mouth. Historical Provider, [...] NODE, SENTINEL; Surgeon: Mehrdad Ford MD; Location: [facility] OR; Service: General Surgery; Laterality: Right; BREAST BIOPSY Right 11/01/2022 COLONOSCOPY LUMPECTOMY Right 11/28/2022 Procedure: LUMPECTOMY, BREAST; Surgeon: Mehrdad Ford MD; Location: [facility] OR; Service: General Surgery; Laterality: Right; LYMPH NODE BIOPSY Left 11/15/2022 left axillary node NEEDLE LOCALIZATION Right 11/28/2022 Procedure: RIGHT BREAST NEEDLE LOCALIZED LUMPECTOMY WITH SENTINEL NODE BX; Surgeon: Mehrdad Ford MD; Location: [facility] OR; Service: General Surgery; Laterality: Right; SKIN CANCER EXCISION Left 03/23/2021 left arm; melanoma TUBAL LIGATION 1979 FAMHX: Family History Problem Relation Name Age of Onset Stroke Mother Appie Cancer Father Dakota Prostate cancer Father [place] Diabetes Brother Evgeny Rheum arthritis Brother Noel Breast cancer Paternal Aunt Eleni Family Status Relation Name Status Mother Appie Father [place] Brother Evgeny Brother Noel Pat Aunt Eleni [...] input(s): PH , PO2 , PCO2 , QPY5KEG in the last 72 hours. No results for input(s): TSH , [id number] , FOLATE in the last 72 hours. Invalid input(s): [id number] Imaging Ultrasound non-ob transvaginal Result Date: 04/20/2025 [...] thickened, even in a patient on Tamoxifen. T he myometrium is homogeneous. The cervix is unremarkable. [...] Keesha Tidwell DO PCP: Chris Kim MD [facility]#: [id number] Date of Surgery: 04/30/2025 : 1945 Facility: [...] Info) Description 06/25/2025 1:00 PM EDT Appointment [facility] [address] [place] [address] Mehrdad Ford MD [facility] [address] [place] [address] 06/25/2025 2:15 PM EDT Office Visit [facility] [address] [place] [address] Tracie Menendez PA-C [address] [place] [address] Shelia Mora MD [address] [place] [address] 12/10/2025 1:00 PM EDT Appointment [facility] [address] [place] [address] Mehrdad Ford MD [address] [place] [address] 12/10/2025 2:00 PM EDT Office Visit [facility] [address] [place] [address] Mehrdad Ford MD [address] [place] [address] [facility] [address] [place] [address] 05/17/2026 2:00 PM EDT Office Visit [facility] WRINGER MACHINE OPERATOR - [address] [place] [address] Keesha Tidwell, DO [address] [place] [address] documented as of this encounter Procedures Procedure Name Priority Date/Time Associated Diagnosis Comments TISSUE EXAM (GREGORIA PAULINO) AP Routine 04/30/2025 1 :51 PM EDT Endometrial polyp AL DILATION & CURETTAGE DX&/THER NONOBSTETRIC 04/30/2025 1:29 [...] entirely on 1 block. See other report ([id number]) Tissue SPECIMEN FROM ENDOMETRIUM OBTAINED BY CURETTAGE / Unknown 04/30/2025 1:51 PM EDT Tissue specimen (specimen) POLYP / Unknown 04/30/2025 1:51 PM EDT Keesha Tidwell DO PATHOLOGY/CYTOLOGY ORDERABLES Fi nal Result Performing Organization Address [facility] Co de Phone Number [facility]Y [facility]TOLOGY LABORATORY [address] * (ABNORMAL) Glucose, Nova Meter (04/30/2025 11:23 AM EDT) POC-GLUCOSE 113(H) 70 - 110 mg/dL 04/30/2025 11:29 AM EDT [facility] Comment:In the event of poor peripheral blood flow, venous or arterial blood should be used due to the potential of erroneous results. Career Education Teacher [phone] 04/30/2025 11:29 AM EDT [facility] Blood WHOLE BLOOD / Unknown 04/30/2025 11:23 AM EDT 04/30/2025 11:29 AM EDT Narrative [facility] - 04/30/2025 11:29 AM EDT Career Education Teacher ID is - [id number] us Keesha Tidwell DO POINT OF CARE TEST ORDERABLES Fi nal Result [facility] [address] [phone] documented in this encounter Visit Diagnoses Diagnosis Endometrial polyp- Primary Polyp of corpus uteri GERD (gastroesophageal reflux disease) Esophageal reflux Hypertension Unspecified essential hypertension Anxiety Anxiety state, unspecified Endometrial polyp Polyp of corpus uteri documented in this encounter Admitting Diagnoses Diagnosis [...] Pre-op documented in this encounter Care Teams Medical Doctor Md/Medical Director Relationship Specialty Start Date End Date Chris Kim MD [address] [place] [address] [place] [address] PCP - General General Internal Medicine 10/11/22 Shelia Mora MD [address] [facility] [address] [place] [address] Medical Oncologist Hematology and Oncology 11/14/22 Mehrdad Ford MD [address] [phone] General Surgery 12/04/22 documented as of this encounter
--- OUTSIDE RECORDS SUMMARY | 2025-05-13 11:00 | XMS_ITS | Encounter Summary ---
Author Organization [employer] ([place], [place], [place], [place]) Address [address] [place] [address] Care Team Providers Care Gunner'S Mate Name Role Phone Chris Kim MD Primary Care Provider [phone] Shelia Mora MD Unavailable [phone] Mehrdad Ford MD Unavailable [phone] Encounter Details Date Type Department Care Team (Latest Contact Info) Description 05/13/2025 11:00 AM EDT Office Visit [facility] AIRLINE PILOT FLIGHT INSTRUCTOR - [address] [place] [address] Keesha Tidwell, DO [address] [place] [address] Postoperative examination (Primary Dx) Social History Tobacco Use Types Packs/Day Years Used Date Smoking Tobacco: Never Passive Smoke Exposure: Never Smokeless Tobacco: Never Tobacco Cessation:Counseling Given: No Alcohol Use Standard Drinks/Week Comments Never 0 [...] week 11/16/2022 How often do you attend [facility] or latter-day services? More than 4 times per year 11/16/2022 Do you belong to any clubs o r organizations such as confucianist groups, unions, fraternal or athletic groups, or [...] Date Donavon rded Speak language other than [place]inean at home Not on file 09/28/2023 Want [...] Sign Reading Time Taken Comments Blood Pressure 149/77 05/13/2025 10:51 AM EDT Pulse 78 05/13/2025 10:51 AM EDT Temperature - - Respiratory Rate - - Oxygen Saturation - - Inhaled Oxygen Concentration - - Weight 82.1 kg (181 lb) 05/13/2025 10:51 AM EDT Height 165.1 cm (5' 5 ) 05/13/2025 10:51 AM EDT Body Mass Index 30.12 05/13/2025 10:51 AM EDT documented in this encounter Progress Notes * Keesha Tidwell DO - 05/13/2025 11:00 AM EDT Postoperative follow up visit SUBJECTIVE: Status post hysteroscopy, D&C, endometrial polypectomy Date: 04/30/25 She has had the following problems since discharge from the hospital: none no fever or chills Urinary symptoms: No dysuria, incontinence, hematuria. No Nausea/vomiting, constipation. Pain is controlled. OBJECTIVE: There were no vitals taken for this visit. General: alert and no distress Lungs: unlabored breathing Heart: regular rate and rhythm Abdomen: soft, nontender, nondistended Assessment: 79 y.o. yo s/p hysteroscopy, D&C, endometrial polypectomy Plan: Reviewed pathology - benign endometrial polyp Electronically signed by Keesha Tidwell DO - 05/13/2025 - 10:37 AM EDT documented in this encounter Plan of Treatment Upcoming Encounters Date Type Department Care Team (Late st Contact Info) Description 06/25/2025 1:00 PM EDT Appointment [facility] Department [address] [place] [address] Mehrdad Ford MD [address] [place], [place] [id number] 06/25/2025 2:15 PM EDT Office Visit [facility] - [address] [place] [address] Tracie Menendez PA-C [address] [facility] [address] [place] [address] Shelia oMra MD [address] [facility] [address] [place] [address] 12/10/2025 1:00 PM EDT Appointment [facility] Breast Care [address] [facility] [address] [place] [address] Mehrdad Ford MD [address] [facility] [address] [place], [place] [address] 12/10/2025 2:00 PM EDT Office Visit [facility] [address] [facility] [address] [place] [address] Mehrdad Ford MD [address] [facility] [address] [place], [place] [address] 05/17/2026 2:00 PM EDT Office Visit [facility] AIRLINE PILOT FLIGHT INSTRUCTOR - [address] [place] [address] Keesha Tidwell, [address] [place] [address] documented as of this encounter Visit Diagnoses Diagnosis Postoperative examination- Primary Follow-up examination, following unspecified surgery documented in this encounter Care Teams Gunner'S Mate Relationship Specialty Start Date End Date Chris Kim MD [address] [place] [address] PCP - General General Internal Medicine 10/11/22 Shelia Mora MD [address] [facility] [address] [place] [address] Medical Oncologist Hematology and Oncology 11/14/22 Mehrdad Ford MD [address] [place] [address] General Surgery 12/04/22 documented as of this encounter
[2025-06-04 14:20] LABS: Hematocrit 36.6 % (37.0-47.0); Hemoglobin 12.1 g/dL (12.2-16.2); Immature Granulocytes % 0.6 %; Mean Corpuscular HGB Conc 33.1 g/dL (31.8-35.4); Mean Corpuscular Hemoglobin 32.8 pg (27.0-31.2); Mean Corpuscular Volume 99.2 fl (81-99); Nucleated Red Blood Cells % 0 %; Platelet Count 239 K/mm3 (142-424); Red Blood Count 3.69 M/mm3 (4.20-5.40); Red Cell Distribution Width-SD 46.8 fL; White Blood Count 10.8 K/mm3 (4.8-10.8)
[2025-06-04 14:50] LABS: Alanine Aminotransferase 25 U/L (12-78); Albumin Level 4.2 g/dl (3.5-5.0); Albumin/Globulin Ratio 1.8 (1.1-1.8); Alkaline Phosphatase 75 U/L (38-126); Anion Gap 12.6 mEq/L (5-15); Aspartate Amino Transferase 34 U/L (14-36); Bilirubin,Total 1.1 mg/dl (0.2-1.3); Blood Urea Nitrogen 18 mg/dl (7-17); Calcium 9.1 mg/dl (8.4-10.2); Carbon Dioxide 28 mmol/L (22.0-30.0); Chloride 98 mmol/L (98-107); Cholesterol 171 mg/dl (140-200); Creatinine,Serum 1.00 mg/dl (0.52-1.04); Estimated Glomerular Filt Rate 53 ml/min (>60); GFR (African American) 65 ML/MIN (>60); Globulin 2.4 g/dL (1.3-3.2); Glucose 83 mg/dl (74-100); HDL Cholesterol 57 mg/dl (40-60); Potassium 4.6 mmoL/L (3.5-5.1); Sodium 134 mmol/L (136-145); Total Protein,Serum 6.6 g/dl (6.3-8.2); Triglycerides 145 mg/dl (30-150)
--- OUTSIDE RECORDS SUMMARY | 2025-06-05 13:38 | XMS_ITS | Continuity of Care Document ---
Author Organization [facility]. If a dditional information is needed, contact Health Information Management at [phone] Address [address] [place] [address] Phone Care Team Providers Care Project Design Engineer Name Role Phone Unavailable Unavailable Unavailable Unavailable Unavailable Unavailable Problems Right upper quadrant pain Onset:11-Sep-2016 Ant Bojorquez II DO Diarrhea Onset:11-Sep-2016 Ant Bojorquez II DO Allergies and Adverse Reactions No Known Allergies(Allergy) Onset: 08-Sep-2016 Medications 12 HR cetirizine hydrochlori de 5 MG / pseudoephedrine hydrochloride 120 MG Extended Release Oral Tablet [ZyrTEC-D];1 TAB PO DAILY Start:08-Sep-2016 Comments:1 TAB PO DAILY hydroCHLOROthiazide 25 MG / lisinopril 20 MG Oral Tablet [Zestoretic];1 TAB PO DAILY Start:08-Sep-2016 Comments:1 TAB PO DAILY MULTIVITAMIN;1 TAB PO BID Start:08-Sep-2016 Comments:1 TAB PO BID estradiol 0.5 MG Oral Tablet ;0.5 MG PO ASDIR Start:08-Sep-2016 Comments:0.5 MG PO ASDIR PROVERA;2.5 MG PO ASDIR Start:08-Sep-2016 Comments:2.5 MG PO ASDIR linseed oil 1000 MG Oral Cap byron;1000 MG PO BEDTIME Start:08-Sep-2016 Comments:1000 MG PO BEDTIME atorvastatin 80 MG Oral Tabl et;80 MG PO BEDTIME Start:08-Sep-2016 Comments:80 MG PO BEDTIME aspirin 81 MG Delayed Releas e Oral Tablet;81 MG PO BEDTIME Start:08-Sep-2016 Comments:81 MG PO BEDTIME chlordiazePOXIDE hydrochlori de 10 MG Oral Capsule;10 MG PO DAILY Start:08-Sep-2016 Comments:10 MG PO DAILY acetaminophen 325 MG Oral Ta blet [Tactinal];325 MG PO DAILY Start:08-Sep-2016 Comments:325 MG PO DAILY omeprazole 20 MG Delayed Rel ease Oral Capsule;20 MG PO DAILY Start:08-Sep-2016 Comments:20 MG PO DAILY PROBIOTIC;1 CAP PO BEDTIME Start:08-Sep-2016 Comments:1 CAP PO BEDTIME polyethylene glycol 3350 170 00 MG Powder for Oral Solution;17 GRAM PO DAILY Start:08-Sep-2016 Comments:17 GRAM PO DAILY Social History Smoking Status Never smoked tobacco Recorded: 08-Sep-2016
--- OUTSIDE RECORDS SUMMARY | 2025-06-05 13:39 | XMS_ITS | Encounter Summary ---
Author Organization [employer] ([place], [place], [place], [place]) Address [address] [place] [address] Care Team Providers Care Graining Operator Name Role Phone Chris Kim MD Primary Care Provider [phone] Shelia Mora MD Unavailable [phone] Liliam Raman RN Unavailable Unavailable Mehrdad Ford MD Unavailable [phone] Reason for Referral * Ultrasound (Routine) - Closed Specialty Diagnoses / Procedures Referred By Contac t Referred To Contact Diagnoses Personal history of malignant neoplasm of breast Procedures US breast axilla left US BREAST RIGHT LIMITED Mehrdad Ford MD Phone: tel: fax: Referral ID Status Reason Start Date Expiration Date Visits Re quested Visits Authorized [id number] Closed 11/06/2022 05/05/2023 1 1 Encounter Details Date Type Department Care Team (Late st Contact Info) Description 11/06/2022 Outside Orders [facility] Breast Care [address] [place] [address] [address] [place] [address] Mehrdad Ford MD [address] [facility] [address] [place] [address] Personal history of malignant neoplasm of breast (Primary Dx) Social History Tobacco Use Types Packs/Day Years Used Date Smoking Tobacco: Never Assessed Comments Unknown Sex and Gender Information Value Date Recorded Sex Assigned at Not on file Legal Sex Female 7:22 PM CDT Gender Identity Not on file Sexual Orientation Not on file documented as of this encounter Plan of Treatment Upcoming Encounters Date Type Department Care Team (Late st Contact Info) Description 06/25/2025 1:00 PM EDT Appointment [facility] Breast [address] [place] [address] Mehrdad Ford MD [address] [place] [address] [address] [place] [address] 06/25/2025 2:15 PM EDT Office Visit [facility] [address] [facility] [address] [place] [address] Tracie Menendez PA-C [address] [facility] [address] [place] [address] Shelia Mora MD [address] [facility] [address] [place] [address] 12/10/2025 1:00 PM EDT Appointment [facility] Breast [facility] [address] [facility] [address] [place] [address] Mehrdad Ford MD [address] [place] [address] [address] [place] [address] 12/10/2025 2:00 PM EDT Office Visit [facility] Breast Surgery Clinic [address] [facility] [address] [place] [address] Mehrdad Ford MD [address] [place] [address] [address] [place] [address] 05/17/2026 2:00 PM EDT [facility] LEAK DETECTION ENGINEER - [address] [place] [address] Keesha Tidwell, DO [address] [place] [address] documented as of this encounter Results * (ABNORMAL) US breast axilla left (11/15/2022 4:22 PM EST) Anatomical Region Laterality Modality Breast Left Ultrasound 11/15/2022 6:03 PM EST Impressions 11/20/2022 1:11 PM EST FINAL IMPRESSION: ACR BI-RADS 4: Suspicious findings. RECOMMENDATION: Ultrasound-guided biopsy The findings and recommendations were discussed with the patient and a report in lay language was given to the patient. PROCEDURE: Ultrasound guided LEFT axillary lymph node core biopsy INDICATION: Abnormal LEFT axillary lymph node. New diagnosis of RIGHT breast cancer. History of LEFT upper extremity melanoma REPORT: Informed consent was obtained. Time-out was observed to verify patient's identity and correct location of the breast abnormality. The presence of the LEFT abnormal lymph node was confirmed with a 18 MHz linear transducer. A inferolateral approach was chosen. The breast was prepped and draped in the usual sterile fashion. 1% Lidocaine solution mixed with epinephrine was used for local anesthesia. A small skin incision was made with a scalpel. A 16-gauge [place] biopsy device was introduced into the lesion under direct sonographic guidance. Position within the mass was documented with ultrasound. A total of 4 core samples were obtained following the above described procedure. The samples were placed in formalin to be forwarded to the Pathology Department. Upon completion of the procedure, manual compression was applied to the biopsy site until all appreciable bleeding subsided. The incision was cleaned and closed with Steri-Strips and a dressing. An ice pack was applied. Post-biopsy instructions were reviewed with the patient. A written copy of these instructions was sent home with the patient as well. PATHOLOGY: Benign reactive lymph node. Negative for melanoma or metastatic carcinoma. These results are concordant with the mammographic/sonographic evaluation. FINAL IMPRESSION: ACR BI-RADS 1: Negative. RECOMMENDATION: The patient has been referred to Dr. Ford for her known right breast malignancy.. Six month follow-up with ultrasound of the breast. The results and recommendations were phoned to the patient by Hailey Echevarria on 11/20/22 Narrative 11/20/2022 1:11 PM EST PROCEDURE: Left axillary Ultrasound, using 18 MHz transducer and left axillary lymph node ultrasound-guided biopsy. REASON FOR EXAM: Prominent LEFT axillary lymph nodes on preoperative breast MRI for a new RIGHT breast malignancy. The patient relates that she has a history of a left upper extremity melanoma excised approximately 3 years ago. FAMILY HISTORY: Weak family history of breast cancer. COMPARISON STUDY: The MRI performed earlier today 11/15/2022 as well as the recent bilateral screening mammogram 10/11/2022 FINDINGS: Scattered in the left axilla axilla normal lymph nodes with fatty ruben are seen. However, there is a level 1 axillary lymph node with lobular cortical thickening up to 7 mm. Given the history of ipsilateral upper extremity melanoma and new diagnosis of contralateral breast cancer, ultrasound-guided biopsy will be performed. us Mehrdad Ford MD IMG US ORDERABLES Final Resu lt documented in this encounter Visit Diagnoses Diagnosis Personal history of malignant neoplasm of breast- Primary Personal history of malignant neoplasm of breast documented in this encounter Care Teams Graining Operator Relationship Specialty Start Date End Date Chris Kim MD [address] [facility] [address] [place] [address] PCP - General General Internal Medicine 10/11/22 Shelia Mora MD [address] [facility] [address] [place] [address] Medical Oncologist Hematology and Oncology 11/14/22 Liliam Raman RN Nurse Navigator 11/14/22 03/16/24 Mehrdad Ford MD General Surgery 12/04/22 documented as of this encounter
--- OUTSIDE RECORDS SUMMARY | 2025-06-05 13:39 | XMS_ITS | Encounter Summary ---
Author Organization [employer] ([place], [place], [place], [place]) Address [address] [place] [address] Care Team Providers Care Forder Operator Name Role Phone Chris Kim MD Primary Care Provider [phone] Shelia Mora MD Unavailable [phone] Liliam Raman RN Unavailable Unavailable Mehrdad Ford MD Unavailable [phone] Reason for Referral * Mammography (Routine) - Closed Specialty Diagnoses / Procedures Referred By Contac t Referred To Contact Diagnoses Abnormal mammogram Procedures MM Stereotactic breast biopsy right Leidy Gordillo MD [address] [place] [phone] Phone: tel: fax: Referral ID Status Reason Start Date Expiration Date Visits Re quested Visits Authorized [id number] Closed 10/30/2022 04/28/2023 1 1 Encounter Details Date Type Department Care Team (Late st Contact Info) Description 10/30/2022 Outside Orders [facility] Breast Care [address] [place] [phone] Leidy Gordillo MD [address] [place] [phone] Abnormal mammogram (Primary Dx) Social History Tobacco Use Types [...] Info) Description 06/25/2025 1:00 PM EDT Appointment [facility] Breast [facility] [address] [place] [phone] Mehrdad Ford MD [facility] [address] [place] [address] 06/25/2025 2:15 PM EDT Office Visit [facility] [place] [address] [place] [address] Tracie Menendez PA-C [address] [place] [phone] Shelia Mora MD [address] [place] [address] 12/10/2025 1:00 PM EDT Appointment [facility] [address] [place] [phone] Mehrdad Ford MD [address] [place] [address] [address] [place] [address] 12/10/2025 2:00 PM EDT Office Visit [facility] [address] [facility] [address] [place] [phone] Mehrdad Ford MD [address] [place] [address] [address] [place] [address] 05/17/2026 2:00 PM EDT [facility] FORMING PROCESS LINE WORKER - [address] [place] [address] YawKeesha, DO [address] [place] [address] documented as of this encounter Results * (ABNORMAL) MM Stereotactic breast biopsy right (11/01/2022 9:43 AM EST) Anatomical Region Laterality Modality Breast Right Mammography 11/01/2022 10:0 0 AM EST Impressions 11/03/2022 3:09 PM EST FINAL IMPRESSION: ACR BI-RADS 6: Known biopsy proven cancer. RECOMMENDATION: The patient will be referred for surgical intervention as well as possible breast MRI. This report will serve as an order for the above imaging study. The results and recommendations have been called to the patient by on cc: Narrative 11/03/2022 3:09 PM EST PROCEDURE: VACUUM ASSISTED STEREOTACTIC/ 3D NEEDLE CORE BIOPSY FOLLOWED BY A UNILATERAL MAMMOGRAM TO DOCUMENT MARKER POSITION INDICATION: Posterior 3:00 architectural distortion REPORT: Informed consent was obtained. Time-out was observed to verify patient's identity and correct location of the breast abnormality. A medial approach was used. The lesion was targeted on 3D images. The breast was cleansed with ChloraPrep and local anesthesia was obtained with 1% Lidocaine, with and without Epinephrine. A small skin incision was made with a scalpel and an 8 gauge Mammotome Revolve probe was then advanced into the breast using the stereotactic coordinates. Images were obtained to confirm accurate positioning of the probe. Continuous core samples were then obtained. A specimen radiograph was obtained confirming calcifications in the core samples. Post-biopsy images revealed that the architectural distortion had been sampled. An MR compatible HydroMark tissue marker was placed at the biopsy site for future monitoring. The needle was withdrawn and pressure was applied until all appreciable bleeding subsided. The incision was closed with Steri-strips and a dressing/ice pack was applied. Mammographic images were obtained in ML and CC projections to document position of the clip relative to the biopsy site. The clip was shown to be in excellent position Biopsy specimens were forwarded to the Pathology Department. Post-biopsy instructions were reviewed with and a written copy was given to the patient. PATHOLOGY: Invasive lobular carcinoma 0.2 cm in greatest dimension. ER positive, OR positive, HER-2/cristin negative These results are concordant with the mammographic evaluation. Leidy Gordillo MD IMG MAMMOGRAPHY ORDERABLES Annalise pulido Result documented in this encounter Visit Diagnoses Diagnosis Abnormal mammogram- Primary Abnormal mammogram, unspecified Abnormal mammogram Abnormal mammogram, unspecified documented in this encounter Care Teams Forder Operator Relationship Specialty Start Date End Date Chris Kim MD [address] [place] [address] [place] [address] PCP - General General Internal Medicine 10/11/22 Shelia Mora MD [address] [facility] [address] [place] [address] Medical Oncologist Hematology and Oncology 11/14/22 Lamine, Liliam Nye RN Nurse Navigator 11/14/22 03/16/24 Mehrdad Ford MD General Surgery 12/04/22 documented as of this encounter
--- OUTSIDE RECORDS SUMMARY | 2025-06-05 13:40 | XMS_ITS | Encounter Summary ---
Author Organization [employer] ([place], [place], [place], [place]) Address [address] [place] [address] Care Team Providers Care Childcare Director Name Role Phone Chris Kim MD Primary Care Provider Shelia Mora MD Unavailable [phone] Mehrdad Ford MD Unavailable [phone] Reason for Visit * Reason Onset Date Comments Appointment 04/07/2025 Encounter Details Date Type Department Care Team (Late st Contact Info) Description 04/07/2025 Telephone [facility] BILLING MANAGER - [address] [place] [address] Keesha Tidwell, DO [address] [place] [address] Appointment Social History Tobacco Use Types Packs/Day Years [...] How often do you attend [facility] or mosque services? More than 4 times per year 11/16/2022 Do you belong to any clubs o r organizations such as religious groups, unions, fraternal or athletic groups, or [...] on file documented as of this encounter Miscellaneous Notes * Telephone Encounter - [facility] - 04/07/2025 10:57 AM EDT Per RN, patient needs an appt to come discuss surgery options with Dr. Tidwell. Called patient back, she is agreeable to come in to discuss. Scheduled patient for Thursday, April 10, 2025 at 2:00 PM. * Telephone Encounter - [facility] - 04/07/2025 10:20 AM EDTSummary: Surgery Patient called, states she had spoke with Dr. Tidwell about surgery during her office visit. She thinks she would like to proceed with surgery, but would like someone to call to discuss the options Dr. Tidwell went over during the visit and to see what Dr. Tidwell thinks is best for her situation. She is unsure which options would be best for her. Pt also wants her to know that she is not currently taking Tamoxifen- She stopped taking it last Sunday. She said she does not see the point of taking something like that if it is going to cause issues somewhere else. documented in this encounter Plan of Treatment Upcoming Encounters Date Type Department Care Team (Late st Contact Info) Description 06/25/2025 1:00 PM EDT Appointment [facility] Breast [facility] [address] [facility] [address] [place] [address] Mehrdad Ford MD [address] [facility] [address] [place] [address] 06/25/2025 2:15 PM EDT Office Visit [facility] - [address] [place] [address] Tracie Menendez PA-C [address] [place] [address] Shelia Mora MD [address] [facility] [address] [place], [place] [id number] 12/10/2025 1:00 PM EDT Appointment [facility] Breast Care [address] [facility] [address] [place] [phone] Mehrdad Ford MD [address] [place] [address] 12/10/2025 2:00 PM EDT Office Visit [facility] Breast Surgery [facility] [address] [facility] [address] [place] [address] Mehrdad Ford MD [address] [facility] [address] [place], [place] [phone] 05/17/2026 2:00 PM EDT Office Visit [facility] BILLING MANAGER - [address] [place] [address] Keesha Tidwell DO [address] [place] [address] documented as of this encounter Visit Diagnoses Not on filedocumented in this encounter Care Teams Childcare Director Relationship Specialty Start Date End Date Chris Kim MD [address] [place] [address] [place] [address] PCP - General General Internal Medicine 10/11/22 Shelia Mora MD [address] [facility] [address] [place], [place] [phone] Medical Oncologist Hematology and Oncology 11/14/22 [place] [address] [place] [address] [address] [place], [place] [id number] General Surgery 12/04/22 documented as of this encounter
--- OUTSIDE RECORDS SUMMARY | 2025-06-05 13:40 | XMS_ITS | Encounter Summary ---
Author Organization [employer] ([place], [place], [place], [place]) Address [address] [place] [address] Care Team Providers Care Cigarette Stamper Name Role Phone Chris Kim MD Primary Care Provider [phone] Shelia Mora MD Unavailable [phone] Mehrdad Ford MD Unavailable [phone] Encounter Details Date Type Department Care Team (Latest Contact Info) Description 04/10/2025 Travel Social History Tobacco Use Types Packs/Day Years [...] often do you attend chur ch or sabianism services? More than 4 times per year 11/16/2022 Do you belong to any clubs o r organizations such as baptism groups, unions, fraternal or athletic groups, or [...] Date Donavon rded Speak language other than Irish at home Not on file 09/28/2023 Want [...] Info) Description 06/25/2025 1:00 PM EDT Appointment [facility] [address] [place] [address] Mehrdad Ford MD [address] [facility] [address] [place] [address] 06/25/2025 2:15 PM EDT Office Visit [facility] [address] [place] [phone] Tracie Menendez PA-C [address] [place] [phone] Shelia Mora MD [address] [place] [address] 12/10/2025 1:00 PM EDT Appointment [facility] Breast Care [address] [facility] [address] [place] [address] Mehrdad Ford MD [address] [facility] [address] [place] [address] 12/10/2025 2:00 PM EDT Office Visit [facility] [address] [facility] [address] [place] [phone] Mehrdad Ford MD [address] [facility] [address] [place] [address] 05/17/2026 2:00 PM EDT Office Visit [facility] RECORDS MANAGEMENT CLERK - [address] [place] [address] Keesha Tidwell, DO [address] [place] [address] documented as of this encounter Visit Diagnoses Not on filedocumented in this encounter Care Teams Cigarette Stamper Relationship Specialty Start Date End Date Chris Kim MD [address] [place] [address] [place] [address] PCP - General General Internal Medicine 10/11/22 Shelia Mora MD [address] [facility] [address] [place] [address] Medical Oncologist Hematology and Oncology 11/14/22 Mehrdad Ford MD [address] [facility] [address] [place] [address] General Surgery 12/04/22 documented as of this encounter
--- OUTSIDE RECORDS SUMMARY | 2025-06-05 13:40 | XMS_ITS | Referral Summary ---
Author Organization [employer] ([place], [place], [place], [place]) Address [address] [place] [address] Care Team Providers Care Planner Internship Name Role Phone Chris Kim MD Primary Care Provider [phone] Shelia Mora MD Unavailable [phone] Mehrdad Ford MD Unavailable Encounters Date Type Department Care Team Description 05/13/2025 11:00 AM EDT Office Visit [facility] CHEMICAL EDUCATOR - [address] [place] [address] Keesha Tidwell, DO Postoperative examination (Primary Dx) 05/04/2025 Telephone [facility] CHEMICAL EDUCATOR - [place] [address] [facility] [address] [place] [address] Anisa Castro RN Results 04/30/2025 1:43 PM EDT - 04/30/2025 2:46 PM EDT Surgery [facility] Surgery Department [address] [place] [address] Keesha Tidwell, DO HYSTEROSCOPY, WITH DILATION AND CURETTAGE, WITH POLYPECTOMY OF UTERUS 04/30/2025 1:29 PM EDT Anesthesia Event [facility] Surgery Department [address] [place] [address] Rafael Ruvalcaba, Hector Gallegos MD 04/30/2025 10:39 AM EDT - 04/30/2025 4:09 PM EDT Hospital Encounter [facility] Surgery Department [address] [place] [address] Keesha Tidwell, Endometrial polyp Discharge Disposition: Home or Self Care 04/29/2025 Telephone [facility] CHEMICAL EDUCATOR - [place] [address] [facility] [address] [place] [address] Anisa Castro RN Triage Call 04/21/2025 Telephone [facility] CHEMICAL EDUCATOR [facility] [address] [facility] [address] [place] [address] Rosa Monahan, LÁZARO Results 04/20/2025 1:31 PM EDT - 04/20/2025 11:59 PM EDT Hospital Encounter [facility] Ultrasound [address] [place] [address] Keesha Tidwell, RLQ abdominal pain Discharge Disposition: Home or Self Care 04/10/2025 Surgery Prep [facility] CHEMICAL EDUCATOR [facility] [address] [facility] [address] [place] [address] Rosa Monahan, RN Endometrial polyp (Primary Dx) 04/10/2025 Travel 04/10/2025 2:00 PM EDT Office Visit [facility] CHEMICAL EDUCATOR [facility] [address] [facility] [address] [place] [address] Keesha Tidwell, RLQ abdominal pain (Primary Dx); Use of tamoxifen (Nolvadex); Thickened endometrium; Endometrial polyp 04/07/2025 Telephone [facility] CHEMICAL EDUCATOR [facility] [address] [facility] [address] [place] [address] Keesha Tidwell, Appointment 03/30/2025 Travel 03/30/2025 1:40 PM EDT Office Visit [facility] CHEMICAL EDUCATOR [facility] [address] [facility] [address] [place] [address] Keesha Tidwell DO Use of tamoxifen (Nolvadex) (Primary Dx); Thickened endometrium; Endometrial polyp 03/27/2025 Telephone [facility] CHEMICAL EDUCATOR - [address] [place] [address] Keesha Tidwell DO Appointment; Confirmation from Last 3 Months Allergies Active Allergy Reactions Criticality Noted Date Comments Pollen Extracts Other (See Comments) Low 03/24/2021 Medications omeprazole (PriLOSEC) 20 MG capsule Take by mouth. 2 Active lisinopril-hydroCH LOROthiazide (PRINZIDE,ZESTORET IC) 20-25 mg per tablet Take by mouth. 2 Active atorvastatin (LIPITOR) 40 MG tablet Take by mouth. 2 Active busPIRone (BUSPAR) 5 MG tablet Take 1 tablet (5 mg total) by mouth 2 (two) times daily For IBS . Active chlordiazePOXIDE (LIBRIUM) 10 MG capsule Take 1 capsule (10 mg total) by mouth. Active cetirizine (ZyrTEC) 10 MG tablet Take 1 tablet (10 mg total) by mouth daily. Active acetaminophen (TYLENOL) 325 MG tablet Take 500 mg by mouth every 6 (six) hours if needed . Active aspirin 81 MG EC tablet Take 1 tablet (81 mg total) by mouth. Active vit G-nwidxsj-narm-rut in-hb196 (Bioflex) 678-17-40-40 mg Tab Take by mouth. Active multivitamin per tablet Take 1 tablet by mouth daily. Active polyethylene glycol (GLYCOLAX) 17 gram packet Take 17 g by mouth daily. Active calcium polycarbophil (KONSYL FIBER ORAL) Take by mouth daily. Active calcium carbonate-vitamin D3 (Calcium 600 + D,3,) 600 mg-10 mcg (400 unit) Tab Take 1 tablet by mouth 2 (two) times daily. 180 tablet 3 3 Active dicyclomine (BENTYL) 10 MG capsule Take 1 capsule (10 mg total) by mouth every 6 (six) hours as needed. 3 Active amLODIPine (NORVASC) 5 MG tablet Take 1 tablet (5 mg total) by mouth daily. 4 Active tamoxifen (NOLVADEX) 20 MG tabletIndications: History of breast cancer Take 1 tablet (20 mg total) by mouth daily. 90 tablet 3 5 Active venlafaxine XR (EFFEXOR-XR) 37.5 MG 24 hr capsuleIndications :History of breast cancer Take 1 capsule (37.5 mg total) by mouth daily. 90 capsule 3 5 Active exemestane (AROMASIN) 25 mg tabletIndications: Malignant neoplasm of upper-inner quadrant of right breast in female, estrogen receptor positive (HCC),Post-menopau se,Vasomotor symptoms due to menopause Take 1 tablet (25 mg total) by mouth daily. 90 tablet 2 5 Active ibuprofen (MOTRIN) 600 MG tablet Take 1 tablet (600 mg total) by mouth every 6 (six) hours as needed for pain for up to 10 days. 40 tablet 5 05/10/20 25 Active Problems Problem Noted Date Diagnosed Date Endometrial polyp 04/10/2025 Malignant neoplasm of upper- inner quadrant of right breast in female, estrogen receptor positive 11/16/2022 Cancer Staging:Clinical stage from 11/16/2022:Stage IA(cT1b, cN0, cM0, G1, ER+, NH+, HER2-) - Signed by Shelia Mora MD on 11/16/2022 Pathologic stage from 11/28/2022:Stage IA(pT1b, pN0(sn), cM0, G1, ER+, NH+, HER2- ) - Signed by Jose Angel Parrish MD on 12/04/2022 Atypical melanocytic hyperplasia 03/24/2021 Malignant melanoma of left u pper extremity including shoulder 03/24/2021 Melanoma GERD (gastroesophageal reflux disease) Hypertension Anxiety Social History Tobacco Use Types Packs/Day Years [...] often do you attend chur ch or jehovah's witness services? More than 4 times per year [...] Date Donavon rded Speak language other than Zambian at home Not on file 09/28/2023 Want [...] on file Sexual Orientation Not on file Last Filed Vital Signs Vital Sign Reading Time Taken Comments Blood Pressure 149/77 05/13/2025 10:51 AM EDT Pulse 78 05/13/2025 10:51 AM EDT Temperature 36.7 C (98 F) 04/30/2025 3:23 PM EDT Respiratory Rate 16 04/30/2025 3:44 PM EDT Oxygen Saturation 98% 04/30/2025 3:44 PM EDT Inhaled Oxygen Concentration - - Weight 82.1 kg (181 lb) 05/13/2025 10:51 AM EDT Height 165.1 cm (5' 5 ) 05/13/2025 10:51 AM EDT Body Mass Index 30.12 05/13/2025 10:51 AM EDT Plan of Treatment Upcoming Encounters Date Type Department Care Team (Late st Contact Info) Description 06/25/2025 1:00 PM EDT Appointment [address] [place] [address] Mehrdad Ford MD [address] [place] [address] 06/25/2025 2:15 PM EDT Office Visit [facility] - [address] [facility] [address] [facility] [address] [place] [id number] Tracie Menendez PA-C [address] [place] [address] Shelia Mora MD [address] [facility] [address] [place] [address] 12/10/2025 1:00 PM EDT Appointment [address] [place] [address] Mehrdad Ford MD [address] [place] [address] 12/10/2025 2:00 PM EDT Office Visit [facility] [address] [facility] [address] [place] [address] Mehrdad Ford MD [address] [place] [address] 05/17/2026 2:00 PM EDT Office Visit [facility] CHEMICAL EDUCATOR - [address] [place] [address] Keesha Tidwell DO [address] [place] [address] Procedures Procedure Name Priority Date/Time Associated Diagnosis Comments TISSUE EXAM (GREGORIA PAULINO) AP Routine 04/30/2025 1 :51 PM EDT Endometrial polyp ANESTHESIA INTUBATION Routine 04/30/2025 1:39 PM EDT [place] DILATION & CURETTAGE DX&/THER NONOBSTETRIC 04/30/2025 1:29 PM EDT Endometrial polyp HYSTEROSCOPY, WITH TISSUE REMOVAL, USING HYSTEROSCOPIC ROTATING CUTTER BLADE 04/30/2025 1:29 PM EDT Endometrial polyp NOVA GLUCOSE POC Routine 04/30/2025 11:2 3 AM EDT US NON-OB TRANSVAGINAL Routine 04/20/2025 2:03 PM EDT RLQ abdominal pain DXA BONE DENSITY SPINE AND HIP Routine 06/12/2024 10:41 AM EDT Malignant neoplasm of upper-inner quadrant of right breast in female, estrogen receptor positive (HCC) Post-menopause Vasomotor symptoms due to menopause Osteopenia after menopause from Last 3 Months or Most Recently Relevant to Health Maintenance Results * Tissue Exam (04/30/2025 1:51 PM [...] entirely on 1 block. See other report ([id number]) Tissue SPECIMEN FROM ENDOMETRIUM OBTAINED BY CURETTAGE / Unknown 04/30/2025 1:51 PM EDT Tissue specimen (specimen) POLYP / Unknown 04/30/2025 1:51 PM EDT us Keesha Tidwell DO PATHOLOGY/CYTOLOGY ORDERABLES Fi nal Result [facility] [address] [place] [address] * AN SINGLE LUMEN INTUBATION (04/30/2025 1:39 PM EDT) Narrative Rafael Ruvalcaba CRNA - 04/30/2025 1:39 PM EDT Rafael Ruvalcaba CRNA 04/30/2025 1:45 PM Intubation Authorized by: Rafael Ruvalcaba CRNA Performed by: Rfaael Ruvalcaba CRNA Date/Time: 04/30/2025 1:39 PM Urgency: elective Indications and Patient Condition Indications for airway management: anesthesia and airway protection Spontaneous Ventilation: absent Sedation level: general anesthesia Preoxygenated: yes Patient position: sniffing no Mask difficulty assessment: 0 - not attempted no Final Airway Details Final airway type: supraglottic airway Size: 3 Number of attempts at approach: 1 Number of other approaches attempted: 0 us Rafael Ruvalcaba CRNA ANESTHESIA ORDERABLES Final Result * (ABNORMAL) Glucose, Nova Meter (04/30/2025 11:23 AM EDT) POC-GLUCOSE 113(H) 70 - 110 mg/dL 04/30/2025 11:29 AM EDT [facility] Comment:In the event of poor peripheral blood flow, venous or arterial blood should be used due to the potential of erroneous results. Polysomnographic Tech [id number] 04/30/2025 11:29 AM EDT [facility] Blood WHOLE BLOOD / Unknown 04/30/2025 11:23 AM EDT 04/30/2025 11:29 AM EDT Narrative [facility] - 04/30/2025 11:29 AM EDT Polysomnographic Tech ID is - [id number] us Keesha Tidwell DO POINT OF CARE TEST ORDERABLES Fi nal Result [facility] [address] [phone] * Ultrasound non-ob transvaginal (04/20/2025 2:03 PM [...] dictated by Matilda Baker MD us Keesha E Tidwell DO IMG US ORDERABLES Final Result * DXA bone density spine and hip (06/12/2024 10:41 AM EDT) Anatomical Region Laterality Modality Bone Dual-energy X-ra y absorptiometry (DEXA) 06/12/2024 1:45 PM EDT Impressions 06/12/2024 1:57 PM EDT 1. Normal BMD of the lumbar spine. No increased risk for fracture. 2. Osteoporotic BMD of the left femoral neck. Increased risk for fracture. Images reviewed, interpreted, and dictated by Dr. Jodee Ludwig. Transcribed by Liliam Edwards PA-C. Narrative 06/12/2024 1:57 PM EDT BONE MINERAL DENSITOMETRY, DEXA SCAN 06/12/2024 10:41 AM . CLINICAL HISTORY: Osteoporosis. COMPARISON: None. FINDINGS: Bone densitometry calculations of the lumbar spine and left femoral neck were obtained. Average BMD for the lumbar spine from L1-L4 is 1.2 g/sq cm. T-score is 0.4. Z-score is 1.7. Left femoral neck BMD is 0.6 g/sq cm. T-score is -2.6. Z score is -0.9. Procedure Note Dean Ludwig MD - 06/12/2024 BONE MINERAL DENSITOMETRY, DEXA SCAN 06/12/2024 10:41 AM . CLINICAL HISTORY: Osteoporosis. COMPARISON: None. FINDINGS: Bone densitometry calculations of the lumbar spine and left femoral neck were obtained. Average BMD for the lumbar spine from L1-L4 is 1.2 g/sq cm. T-score is 0.4. Z-score is 1.7. Left femoral neck BMD is 0.6 g/sq cm. T-score is -2.6. Z score is -0.9. IMPRESSION: 1. Normal BMD of the lumbar spine. No increased risk for fracture. 2. Osteoporotic BMD of the left femoral neck. Increased risk for fracture. Images reviewed, interpreted, and dictated by Dr. Jodee Ludwig. Transcribed by Liliam Edwards PA-C. Shelia Mora MD [facility] DXA ORDERABLES Final Resul t from Last 3 Months or Most Recently Relevant to Health Maintenance Insurance [address] [place] [id number] MEDICARE PART A B [employer] Advance Directives For more information, please contact: [phone] * Full Code (Latest Code Status on File) Date Activated Date Inactivated Comments 04/30/2025 10:14 AM 04/30/2025 5:24 PM Care Teams Planner Internship Relationship Specialty Start Date End Date Chris Kim MD [address] [place] [address] [place] [address] PCP - General General Internal Medicine 10/11/22 Shelia Mora MD [address] [facility] [address] [place] [address] Medical Oncologist Hematology and Oncology 11/14/22 Mehrdad Ford MD [address] [facility] [address] [place] [address] General Surgery 12/04/22
--- OUTSIDE RECORDS SUMMARY | 2025-06-05 13:41 | XMS_ITS | Clinical Summary ---
Author Organization [employer] ([place], [place], [place], [place]) Address [address] [place] [address] Care Team Providers Care Client Insights Consultant Name Role Phone Chris Kim MD Primary Care Provider [phone] Shelia Mora MD Unavailable [phone] Mehrdad Ford MD Unavailable [phone] Allergies Active Allergy Reactions Criticality Noted Date [...] (81 mg total) by mouth. Active vit V-kmhapzy-zddw-rut in-hb196 (Bioflex) 203-06-78-40 mg Tab Take by mouth. Active multivitamin [...] from 11/16/2022:Stage IA(cT1b, cN0, cM0, G1, ER+, OH+, HER2-) - Signed by Shelia Mora MD on 11/16/2022 Pathologic stage from 11/28/2022:Stage IA(pT1b, pN0(sn), cM0, G1, ER+, OH+, HER2- ) - Signed by Jose Angel Parrish MD on 12/04/2022 Atypical melanocytic hyperplasia 03/24/2021 Malignant melanoma of left u pper extremity including shoulder 03/24/2021 Melanoma GERD (gastroesophageal reflux disease) Hypertension Anxiety Encounters Date Type Department Care Team Description 05/13/2025 11:00 AM EDT Office Visit [facility] HEAD OF MARKETING ANALYTICS - [address] [place] [address] Keesha Tidwell, DO Postoperative examination (Primary Dx) 05/04/[address] [facility] HEAD OF MARKETING ANALYTICS - [place] [address] [place] [address] Anisa Castro, LÁZARO Results 04/30/2025 1:43 PM EDT - 04/30/2025 2:46 PM EDT Surgery [facility] Surgery Department [address] [place] [address] Keesha Tidwell, DO HYSTEROSCOPY, WITH DILATION AND CURETTAGE, WITH POLYPECTOMY OF UTERUS 04/30/2025 1:29 PM EDT Anesthesia Event [facility] Surgery Department [address] [place] [address] Rafael Ruvalcaba, Hector Gallegos MD 04/30/2025 10:39 AM EDT - 04/30/2025 4:09 PM EDT Hospital Encounter [facility] Surgery Department [address] [place] [address] Keesha Tidwell, DO Endometrial polyp Discharge Disposition: Home or Self Care 04/29/[address] [facility] HEAD OF MARKETING ANALYTICS - [place] [address] [facility] [address] [place] [address] Anisa Castro RN Triage Call 04/21/2025 Telephone [facility] HEAD OF MARKETING ANALYTICS - [address] [place] [address] Rosa Monahan RN Results 04/20/2025 1:31 PM EDT - 04/20/2025 11:59 PM EDT Hospital Encounter [facility] Ultrasound [address] [place] [address] Keesha Tidwell DO RLQ abdominal pain Discharge Disposition: Home or Self Care 04/10/2025 2:00 PM EDT Office Visit [facility] HEAD OF MARKETING ANALYTICS [facility] [address] [facility] [address] [place] [address] Keesha Tidwell DO RLQ abdominal pain (Primary Dx); Use of tamoxifen (Nolvadex); Thickened endometrium; Endometrial polyp 04/10/2025 Surgery Prep [facility] [address] [facility] [address] [place] [address] Rosa Monahan RN Endometrial polyp (Primary Dx) 04/10/2025 Travel 04/07/2025 Telephone [facility] [address] [facility] [address] [place] [address] Keesha Tidwell DO Appointment 03/30/2025 1:40 PM EDT Office Visit [facility] [address] [facility] [address] [place] [address] Keesha Tidwell DO Use of tamoxifen (Nolvadex) (Primary Dx); Thickened endometrium; Endometrial polyp 03/30/2025 Travel 03/27/2025 Telephone [facility] [address] [facility] [address] [place] [address] Keesha Tidwell DO Appointment; Confirmation from Last 3 Months Family History Medical History Relation Name Comments Diabetes Brother 1 [place] Rheum arthritis Brother 2 Noel Cancer Father [place] Prostate cancer Father [place] Stroke Mother App[place] Breast cancer Paternal Aunt Eleni Relation Name Status Comments Brother 1 [place] Brother 2 Noel Father [place] Mother Appie Paternal Aunt Eleni Social History Tobacco Use Types Packs/Day Years [...] often do you attend chur ch or nondenominational services? More than 4 times per year 11/16/2022 Do you belong to any clubs o r organizations such as mormon groups, unions, fraternal or athletic groups, or [...] Date Donavon rded Speak language other than [place]an at home Not on file 09/28/2023 Want [...] Info) Description 06/25/2025 1:00 PM EDT Appointment [facility] Breast [facility] [address] [facility] [address] [place] [address] Mehrdad Ford MD [address] [place] [address] 06/25/2025 2:15 PM EDT Office Visit [facility] - [place] [address] [place] [address] Tracie Menendez PA-C [address] [place] [address] Shelia Mora MD [address] [place] [id number] 12/10/2025 1:00 PM EDT Appointment [facility] Breast Care [address] [facility] [address] [place] [address] Mehrdad Ford MD [address] [facility] [address] [place] [address] 12/10/2025 2:00 PM EDT Office Visit [facility] [address] [facility] [address] [place] [address] Mehrdad Ford MD [address] [facility] [address] [place], [place] [id number] 05/17/2026 2:00 PM EDT Office Visit [facility] HEAD OF MARKETING ANALYTICS - [address] [place] [address] Keesha Tidwell, DO [address] [place] [address] Health Maintenance Due Date Last Done Comments Medicare Initial AWV G0438 Hepatitis C Screening 1963 DTAP/TDAP/TD VACCINES (1 - Tdap) 1964 Shingles Vaccine (Zoster) (1 of 2) 1995 Respiratory Syncytial Virus (RSV) Adult or (1 - 1-dose 75+ series) 2020 Falls Risk Screening 09/17/2024 COVID-19 VACCINE (6 - 2024-2 6 season) 2025 06/14/2022, 12/23/2021, 06/15/2021, Additional history exists Influenza Vaccine (#1) 2025 06/01/2022 Depression Screening (12+) 12/04/2025 12/04/2024 Tobacco Cessation Counseling and Screening (12+) 05/13/2026 05/13/2025 DXA SCAN 06/12/2026 06/12/2024 Pneumococcal 50+ years Completed 03/24/2022, 2020 Procedures Procedure Name Priority Date/Time Associated Diagnosis Comments TISSUE EXAM (GREGORIA PAULINO) AP Routine 04/30/2025 1 :51 PM EDT Endometrial polyp ANESTHESIA INTUBATION Routine 04/30/2025 1:39 PM EDT [place] DILATION & CURETTAGE DX&/THER NONOBSTETRIC 04/30/2025 1:29 [...] entirely on 1 block. See other report ([id number]) Tissue SPECIMEN FROM ENDOMETRIUM OBTAINED BY CURETTAGE / Unknown 04/30/2025 1:51 PM EDT Tissue specimen (specimen) POLYP / Unknown 04/30/2025 1:51 PM EDT Keesha Tidwell DO PATHOLOGY/CYTOLOGY ORDERABLES Fi nal Result PATHOLOGY AND [facility]OLOGY LABORATORY [address] [place] [address] * AN SINGLE LUMEN INTUBATION (04/30/2025 1:39 [...] - 110 mg/dL 04/30/2025 11:29 AM EDT [facility] Comment:In the event of poor peripheral blood flow, venous or arterial blood should be used due to the potential of erroneous results. Filer Finish [id number] 04/30/2025 11:29 AM EDT [facility] Blood WHOLE BLOOD / Unknown 04/30/2025 11:23 AM EDT 04/30/2025 11:29 AM EDT Narrative [facility] - 04/30/2025 11:29 AM EDT Filer Finish ID is - [id number] us Keesha Tidwell DO POINT OF CARE TEST ORDERABLES Fi nal Result Performing Organization Address City/State/[facility] Co de Phone Number [facility] [address] [phone] * Ultrasound non-ob transvaginal (04/20/2025 2:03 PM [...] Matilda Baker MD us Keesha Tidwell DO IMG US ORDERABLES Final Result [...] by Liliam Edwards PA-C. Shelia Mora MD IM DXA ORDERABLES Final Resul t from Last 3 Months or Most Recently Relevant to Health Maintenance Insurance MEDICARE PART A B [employer] Advance Directives For more information, please contact: [phone] * Full Code (Latest Code Status on File) Date Activated Date Inactivated Comments 04/30/2025 10:14 AM 04/30/2025 5:24 PM Care Teams Client Insights Consultant Relationship Specialty Start Date End Date Chris Kim MD [address] [place] [address] [place] [address] PCP - General General Internal Medicine 10/11/22 Shelia Mora MD [address] [facility] [address] [place] [address] Medical Oncologist Hematology and Oncology 11/14/22 Mehrdad Ford MD [address] [facility] [address] [place], [place] [id number] General Surgery 12/04/22
--- OUTSIDE RECORDS SUMMARY | 2025-06-05 13:41 | XMS_ITS | Encounter Summary ---
Author Organization Healthcare Address [address] 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 LEFT ARM, UPPER ANTERIOR DISTAL ( A, [id number]): - MALIGNANT MELANOMA IN-SITU (SEE COMMENT). COMMENT: Both peripheral margins are involved with tumor. The tumor is decorated by Sox-10. B. LEFT ARM, UPPER DISTAL ANTERIOR ( B, [id number]): - MALIGNANT MELANOMA IN-SITU, RE-EXCISION (SEE COMMENT). COMMENT: One peripheral margin is involved with tumor. C. LEFT ARM, UPPER DISTAL ANTERIOR ([id number]): - MALIGNANT MELANOMA, THICKNESS 0.2 MM (SEE COMMENT). COMMENT: The tumor is decorated by SOX-10. D. LEFT ARM, UPPER PROXIMAL ANTERIOR LATERAL (D, [id number]): - MALIGNANT MELANOMA IN SITU, RE-EXCISION (SEE COMMENT). COMMENT: The margins are free of tumor. Subcutaneous fat is identified. 03/31/2021 5:26 PM EDT [facility] Amendment electronically signed by Britney Quezada MD on 03/31/2021 at 1726 EDT at 0952 EDT Comment:Corrected result: Pr eviously reported as [Previous value contains rich text formatting which cannot be displayed here] (see Result History) on 03/24/2021 at 0952 EDT. Comment This report reflects the expert opinion of Dr. Carlos Aponte. Dr. Aponte's entire consultation report can be viewed as a scanned document in [employer]. 03/31/2021 5:26 PM EDT [facility] Comment:Corrected result: Pr eviously reported as [Previous value contains rich text formatting which cannot be displayed here] (see Result History) on 03/24/2021 at 0952 EDT. Synoptic Checklist MELANOMA OF THE SKIN: Excision, Re-Excision (MELANOMA OF THE SKIN: EXCISION, RE-EXCISION - C) 8th Edition - Protocol posted: 01/14/2020 SPECIMEN Procedure: Re-excision Specimen Laterality: Left TUMOR Tumor Site: Skin of upper limb and shoulder: left arm, upper distal anterior Histologic Type: Melanoma, not otherwise classified Histologic Type Comments: two small to classify Maximum Tumor (Breslow) Thickness (Millimeters): 0.2 mm Macroscopic Satellite Nodule(s): Not identified Ulceration: Not identified Anatomic (Doug) Level: II (Melanoma present in but does not fill and expand papillary dermis) Mitotic Rate: None identified Microsatellite(s) : Not identified Lymphovascular Invasion: Not identified Neurotropism: Not identified Tumor-Infiltratin g Lymphocytes: Not identified Tumor Regression: Not identified MARGINS: Peripheral Margins: Negative for invasive melanoma Distance of Invasive Melanoma from Closest Peripheral Margin (Millimeters): 4 mm Status of Melanoma in situ at Peripheral Margins: Melanoma in situ present at margin Location: not oriented Deep Margin: Negative for invasive melanoma Distance of Invasive Melanoma from Deep Margin (Millimeters): Less than: 1 mm Status of Melanoma in situ at Deep Margin: Negative for melanoma in situ LYMPH NODES: Regional Lymph Nodes: No lymph nodes submitted or found PATHOLOGIC STAGE CLASSIFICATION (pTNM, AJCC 8th Edition): Primary Tumor (pT): pT1a Regional Lymph Nodes (pN): pNX Comment(s) Comment(s): The tumor, consisting of a few cells is decorated by SOX10 with a properly working control. 03/31/2021 5:26 PM EDT [facility] Tumor Adequacy for Ancillary Testing Limited Tissue Present 03/31/2021 5:26 PM EDT [facility] Comment:These results have b een appended to a previously final verified report. Clinical Information Melanoma in situ 03/31/2021 5:26 PM EDT [facility] Gross Description A. OU [id number] Received along with a corresponding pathology report from [facility] are 3 slide(s) labeled outside case: [id number] collected on 08/20/2020. B. OU [id number] Received along with a corresponding pathology report from [facility] are 4 slide(s) labeled outside case: [id number] collected on 09/03/2020. C. OU [id number] Received along with a corresponding pathology report from [facility] are 5 slide(s) labeled outside case: [id number] collected on 11/24/2020. DFrances IZQUIERDO [id number] Received along with a corresponding pathology report from [facility] are 4 slide(s) labeled outside case: [id number] collected on 12/23/2020. 03/31/2021 5:26 PM EDT [facility] Comment:Corrected result: Pr eviously reported as [Previous value contains rich text formatting which cannot be displayed here] (see Result History) on 03/24/2021 at 0952 EDT. 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
--- OUTSIDE RECORDS SUMMARY | 2025-06-05 13:41 | XMS_ITS | Encounter Summary ---
Author Organization [employer] ([place], [place], [place], [place]) Address [address] [place] [address] Care Team Providers Care Ornamental Ironworking Supervisor Name Role Phone Chris Kim MD Primary Care Provider [phone] Shelia Mora MD Unavailable [phone] Mehrdad Ford MD Unavailable [phone] Reason for Visit * Reason Onset Date Comments Results 05/04/2025 Encounter Details Date Type Department Care Team (Late st Contact Info) Description 05/04/2025 Telephone [facility] METER CALIBRATOR - [address] [facility] [address] [place] [address] Anisa Castro, RN Results Social History Tobacco Use Types Packs/Day Years [...] 11/16/2022 How often do you attend chur or mormonism services? More than 4 times per year 11/16/2022 Do you belong to any clubs o r organizations such as yazidism groups, unions, fraternal or athletic groups, or [...] Date Donavon rded Speak language other than Jamaican at home Not on file 09/28/2023 Want [...] encounter Miscellaneous Notes * Telephone Encounter - Anisa Castro RN - 05/04/2025 2:04 PM EDT Patient called triage requesting pathology results. Explained everything was negative and provider will discuss more at f/u appt. Patient acknowledged. documented in this encounter Plan of Treatment Upcoming Encounters Date Type Department Care Team (Late st Contact Info) Description 06/25/2025 1:00 PM EDT Appointment [facility] [address] [facility] [address] [place] [phone] Mehrdad Ford MD [address] [place] [address] 06/25/2025 2:15 PM EDT Office Visit [facility] - [address] [facility] [address] [place] [address] Tracie Menendez PA-C [address] [place] [address] Shelia Mora MD [address] [place] [address] 12/10/2025 1:00 PM EDT Appointment [facility] [address] [facility] [address] [place] [address] Mehrdad Ford MD [address] [place] [address] 12/10/2025 2:00 PM EDT Office Visit [facility] [address] [facility] [address] [place] [address] Mehrdad Ford MD [address] [place] [address] 05/17/2026 2:00 PM EDT Office Visit [facility] METER CALIBRATOR - [address] [place] [address] Keesha Tidwell, [address] [place] [address] documented as of this encounter Visit Diagnoses Not on filedocumented in this encounter Care Teams Ornamental Ironworking Supervisor Relationship Specialty Start Date End Date Chris Kim MD [address] [place] [address] PCP - General General Internal Medicine 10/11/22 Shelia Mora MD [address] [facility] [address] [place] [address] Medical Oncologist Hematology and Oncology 11/14/22 Mehrdad Ford MD [address] [facility] [address] [place], [place] [id number] General Surgery 12/04/22 documented as of this encounter
--- OUTSIDE RECORDS SUMMARY | 2025-06-05 13:41 | XMS_ITS | Encounter Summary ---
Author Organization [employer] ([place], [place], [place], [place]) Address [address] [place] [address] Care Team Providers Care Rooms Director Name Role Phone Chris Kim MD Primary Care Provider [phone] Shelia Mora MD Unavailable [phone] Liliam Raman RN Unavailable Unavailable Mehrdad Ford MD Unavailable [phone] Reason for Referral * Mammography (Routine) - Closed Specialty Diagnoses / Procedures Referred By Contac t Referred To Contact Diagnoses Malignant neoplasm of right female breast, unspecified estrogen receptor status, unspecified site of breast (HCC) Procedures MM digital mammo diagnostic with sylvain right Mehrdad Ford MD [address] [place] [address] Phone: tel: fax: Referral ID Status Reason Start Date Expiration Date Visits Re quested Visits Authorized [id number] Closed 11/22/2022 05/21/2023 1 1 Encounter Details Date Type Department Care Team (Late st Contact Info) Description 11/22/2022 Outside Orders [facility] [address] [place] [address] Mehrdad Ford MD [address] [place] [address] Malignant neoplasm of right female breast, unspecified estrogen receptor status, unspecified site of breast (HCC) (Primary Dx) Social History Tobacco Use Types Packs/Day Years Used Date Smoking Tobacco: Never Smokeless Tobacco: Never Alcohol Use Standard [...] often do you attend chur ch or tenriism services? More than 4 times per year 11/16/2022 Do you belong to any clubs o r organizations such as jainism groups, unions, fraternal or athletic groups, or [...] things needed for daily living? No 11/16/2022 Comments No Sex and Gender Information Value Date Recorded Sex Assigned at Not on file Legal Sex Female 7:22 PM CDT Gender Identity Not on file Sexual Orientation Not on file COVID-19 Exposure Response Date Recorded In the last 10 days, have yo u been in contact with someone who was confirmed or suspected to have Coronavirus/COVID-19? No / Unsure 11/21/2022 5:44 PM EST documented as of this encounter Plan of Treatment Upcoming Encounters Date Type Department Care Team (Late st Contact Info) Description 06/25/2025 1:00 PM EDT Appointment [facility] [address] [facility] [address] [place] [address] Mehrdad Ford MD [address] [facility] [address] [place], [place] [address] 06/25/2025 2:15 PM EDT Office Visit [facility] [address] [address] [place] [address] Tracie Menendez PA-C [address] [facility] [address] [place] [address] Shelia Mora MD [address] [facility] [address] [place], [place] [address] 12/10/2025 1:00 PM EDT Appointment [facility] [address] [facility] [address] [place] [address] Mehrdad Ford MD [address] [facility] [address] [place], [place] [address] 12/10/2025 2:00 PM EDT Office Visit [facility] [address] [facility] [address] [place] [address] Mehrdad Ford MD [address] [place], [place] [address] 05/17/2026 2:00 PM EDT Office Visit [facility] FIRST PRESS OPERATOR - [address] [place] [address] Keesha Tidwell, DO [address] [place] [address] documented as of this encounter Results * MM digital mammo diagnostic with sylvain right (06/07/2023 1:53 PM EDT) Anatomical Region Laterality Modality Breast Right Mammography 06/07/2023 1:56 PM EDT Impressions 06/07/2023 2:04 PM EDT FINAL IMPRESSION: No findings suspicious for malignancy. New postoperative changes as described Bi-RADS: ACR BI-RADS 2: Benign findings. RECOMMENDATIONS: 6 month follow-up bilateral mammogram At our facility, a twenty-nine palms marker is positioned over a visible skin lesion and a linear marker is The results and recommendations were discussed with the patient on the day of her appointment. In addition, a written report in lay terms was given to the patient. Patient information was entered into a reminder system with a target due date for the next mammogram. Narrative 06/07/2023 2:04 PM EDT PROCEDURE: Right diagnostic mammogram with Digital Breast Tomosynthesis (DBT). REASON FOR EXAM: First follow-up post lumpectomy on the right November 28, 2022 FAMILY HISTORY: Weak family history of breast cancer COMPARISON STUDY: [facility] 11/28/2022 11/15/2022, 11/01/2022, 10/26/2022, 10/11/2022, 10/10/2021 FINDINGS: Craniocaudal and mediolateral oblique images of the right breast were obtained in 2D and DBT modes. Synthesized views were reconstructed from DBT data. The breast tissue is heterogeneously dense, which may obscure small masses. New postsurgical changes are present in the posterior upper inner quadrant with apparent residual seroma measuring approximately 2 cm. The breast is otherwise entirely stable with no focal dominant mass, group of calcifications, or distortion to suggest malignancy. This examination was reviewed with the benefit of computer aided detection (CAD). us Mehrdad Ford MD IMG MAMMOGRAPHY ORDERABLES F inal Result documented in this encounter Visit Diagnoses Diagnosis Malignant neoplasm of right female breast, unspecified estrogen receptor status, unspecified site of breast (HCC)- Primary Malignant neoplasm of right female breast, unspecified estrogen receptor status, unspecified site of breast (HCC) documented in this encounter Care Teams Rooms Director Relationship Specialty Start Date End Date Chris Kim MD [address] [place] [address] PCP - General General Internal Medicine 10/11/22 Shelia Mora MD [address] [facility] [address] [place] [address] Medical Oncologist Hematology and Oncology 11/14/22 Case, Liliam Nye, RN Nurse Navigator 11/14/22 03/16/24 Mehrdad Ford MD General Surgery 12/04/22 documented as of this encounter
--- OUTSIDE RECORDS SUMMARY | 2025-06-05 13:41 | XMS_ITS | Encounter Summary ---
Author Organization [employer] ([place], [place], [place], [place]) Address [address] [place] [address] Care Team Providers Care Vascular Surgery Physician Name Role Phone Chris Kim MD Primary Care Provider [phone] Shelia Mora MD Unavailable [phone] Mehrdad Ford MD Unavailable [phone] Reason for Visit * Reason Onset Date Comments Results 04/21/2025 Encounter Details Date Type Department Care Team (Late st Contact Info) Description 04/21/2025 Telephone [facility] DRAMATIC READER - [address] [place] [address] Rosa Monahan, RN Results Social History Tobacco Use Types [...] any clubs o r organizations such as orthodoxy groups, unions, fraternal or athletic groups, or [...] Date Donavon rded Speak language other than Tuvaluan at home Not on file 09/28/2023 Want [...] encounter Miscellaneous Notes * Telephone Encounter - Rosa Monahan RN - 04/21/2025 4:50 PM EDT Spoke with patient, updated on results. All questions answered. * Telephone Encounter - Rosa Monahan RN - 04/21/2025 4:48 PM EDT ----- Message from Keesha Tidwell sent at 04/21/2025 4:25 PM EDT ----- Please call patient with result. Ovaries appear normal. Endometrium still thickened which we will address with D&C as planned. documented in this encounter Plan of Treatment Upcoming Encounters Date Type Department Care Team (Late st Contact Info) Description 06/25/2025 1:00 PM EDT Appointment [address] [place] [address] Mehrdad Ford MD [address] [place] [address] 06/25/2025 2:15 PM EDT Office Visit [facility] - [address] [facility] [address] [facility] [address] [place] [address] Tracie Menendez PA-C [address] [facility] [address] [place] [address] Shelia Mora MD [address] [place] [address] 12/10/2025 1:00 PM EDT Appointment [facility] [address] [facility] [address] [place] [address] Mehrdad Ford MD [address] [place] [address] 12/10/2025 2:00 PM EDT Office Visit [facility] [address] [place] [address] Mehrdad Ford MD [address] [place], [place] [address] 05/17/2026 2:00 PM EDT Office Visit [facility] DRAMATIC READER - [address] [place] [address] Keesha Tidwell, DO [address] [place] [address] documented as of this encounter Visit Diagnoses Not on filedocumented in this encounter Care Teams Vascular Surgery Physician Relationship Specialty Start Date End Date Chris Kim MD [address] [place] [address] PCP - General General Internal Medicine 10/11/22 Shelia Mora MD [address] [facility] [address] [place], [place] [address] Medical Oncologist Hematology and Oncology 11/14/22 Mehrdad Ford MD [address] [facility] [address] [place], [place] [address] General Surgery 12/04/22 documented as of this encounter
--- OUTSIDE RECORDS SUMMARY | 2025-06-05 13:41 | XMS_ITS | Clinical Summary ---
Author Organization Healthcare Address [address] [place] [address] Care Team Providers Care Business Services Director Name Role Phone Pcp, No Primary Care Provider Unavailabl e Allergies Active Allergy Reactions Criticality Noted Date Comments Gramineae Pollens Runny nose Low 03/24/2021 Medications atorvastatin (Lipitor) 40 MG tablet 02/15/2021 Active estradiol (Estrace) 0.5 MG tablet 02/15/2021 Active lisinopril-hydro CHLOROthiazide 20-25 MG tablet 02/15/2021 Act boom medroxyPROGESTER one (Provera) 2.5 MG tablet 02/15/2021 Activ e omeprazole (PriLOSEC) [address] capsule 02/15/2021 Active polyethylene glycol (Miralax) 17 g packet Take 17 g by mouth 1 (one) time each day. Active acetaminophen (Tylenol) 325 MG tablet Take by mouth every 6 (six) hours if needed for mild pain. Active fish oil (Pruden-3) 500 MG capsule Take 500 mg by mouth 1 (one) time each day. Active aspirin 81 MG EC tablet Take 81 mg by mouth 1 (one) time each day. Active simethicone (Mylicon,Gas-X) 125 MG capsule Take 125 mg by mouth every 6 (six) hours if needed for flatulence. 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 Malignant melanoma of left u pper extremity including shoulder 03/24/2021 Cancer Staging:Pathologic stage from 12/23/2020:Stage IA(pT1a, cN0, cM0) - Signed by Arlin Bush on 03/24/2021 Family History Medical History Relation Name Comments Cancer Father Arthritis Other Diabetes Other Heart Problem Other Hypertension Other Stroke Other Relation Name Status Comments Father Other Social History Tobacco Use Types Packs/Day Years Used Date Smoking Tobacco: Never Smokeless Tobacco: Never Comments Unknown Sex and Gender Information Value Date Recorded Sex Assigned at Not on file Legal Sex Female 8:50 PM EDT Gender Identity Not on file Sexual Orientation Not on file Last Filed Vital Signs Vital Sign Reading Time Taken Comments Blood Pressure 138/80 02/01/2023 10:25 AM EDT Pulse 84 03/24/2021 2:37 PM EDT Temperature 36.7 C (98 F) 03/24/2021 2:37 PM EDT Respiratory Rate 20 03/24/2021 2:37 PM EDT Oxygen Saturation 98% 03/24/2021 2:37 PM EDT Inhaled Oxygen Concentration - - Weight 79.4 kg (175 lb) 02/01/2023 10:25 AM EDT Height 165.1 cm (5' 5 ) 02/01/2023 10:25 AM EDT Body Mass Index 29.12 02/01/2023 10:25 AM EDT Plan of Treatment Health Maintenance Due Date Last Done Comments [facility]-Bone Density Scan 1945 [facility]-Depression Screening 1945 [facility]-Hepatitis C Screening 1945 [facility]-Medicare Annual Wellness (AWV) 1945 [facility]-Infant/Child/Adol SDOH Screenings 1945 [facility]-Obesity Intervention 1951 [facility]- SDOH Screenings 1963 [facility]-Adult SDOH Screenings 1963 [facility]-DTaP,Tdap,and Td Vaccines (1 - Tdap) 1964 [facility]-Zoster Vaccines (1 of 2) 1964 [facility]-RSV Vaccine: 60+ Years or (1 - 1-dose 75+ series) 2020 [id number] Vaccine ( - season) 2025 06/14/2022, 12/23/2021, 06/15/2021, Additional history exists [facility]-Influenza Vaccine (#1) 2025 [facility]-Pneumococcal Vaccine: 50+ Years Completed 03/24/2022, 02/18/2021 HPV Vaccines Aged Out No longer eligi ble based on patient's age to complete this topic [facility]-HIB Vaccines Aged Out No longer e ligible based on patient's age to complete this topic [facility]-Hepatitis A Vaccines Aged Out No longer eligible based on patient's age to complete this topic [facility]-IPV Vaccines Aged Out No longer e ligible based on patient's age to complete this topic [facility]-Rotavirus Vaccines Aged Out No lo nger eligible based on patient's age to complete this topic Insurance MEDICARE Member Subscriber Plan / Payer (Ef fective 2010-Present) Name:Brooklyn Corbin Member ID:[id number] Relation to Subscriber:Self Name:Brooklyn Corbin Subscriber ID:[id number] Payer ID:MEDICARE Group ID:Not on file Type:Medicare Address: [address] [facility] [employer] [address] [address] [place] [address] [employer]IC COMMERCIAL Care Teams Business Services Director Relationship Specialty Start Date End Date Pcp, Merly [address] [place] [address] PCP - General Family Medicine 09/17/21
--- OUTSIDE RECORDS SUMMARY | 2025-06-05 13:41 | XMS_ITS | Encounter Summary ---
Author Organization [employer] ([place], [place], [place], [place]) Address [address] [place] [address] Care Team Providers Care Camera Maker Name Role Phone Chris Kim MD Primary Care Provider [phone] Shelia Mora MD Unavailable [phone] Mehrdad Ford MD Unavailable [phone] Encounter Details Date Type Department Care Team (Late st Contact Info) Description 04/10/2025 Surgery Prep [facility] BEHAVIOR ANALYST - [address] [place] [address] Rosa Monahan RN Endometrial polyp (Primary Dx) Social History Tobacco Use Types [...] often do you attend chur ch or christian services? More than 4 times per year 11/16/2022 Do you belong to any clubs o r organizations such as religion groups, unions, fraternal or athletic groups, or [...] Date Donavon rded Speak language other than Togolese at home Not on file 09/28/2023 Want [...] 06/25/2025 1:00 PM EDT Appointment [facility] 160 . [facility] [address] [place] [address] Mehrdad Ford MD 160 [facility] [address] [place] [address] 06/25/2025 2:15 PM EDT Office Visit [facility] - [facility] [address] [facility] [address] [place] [address] Tracie Menendez PA-C [address] [facility] [address] [place] [address] Shelia Mora MD [address] [facility] [address] [place] [address] 12/10/2025 1:00 PM EDT Appointment [address] [place] [address] Mehrdad Ford MD 160 [facility] [address] [place] [address] 12/10/2025 2:00 PM EDT Office Visit [facility] [address] [phone] Mehrdad Ford MD 160 [facility] [address] [place] [address] 05/17/2026 2:00 PM EDT [facility] - [address] [place] [address] Keesha Tidwell, [address] [place] [address] documented as of this encounter Visit Diagnoses Diagnosis Endometrial polyp- Primary Polyp of corpus uteri documented in this encounter Care Teams Camera Maker Relationship Specialty Start Date End Date Chris Kim MD [address] [place] [address] PCP - General General Internal Medicine 10/11/22 Shelia Mora MD [address] [facility] [address] [place], [place] [address] Medical Oncologist Hematology and Oncology 11/14/22 Mehrdad Ford MD [address] [facility] [address] [place], [place] [address] General Surgery 12/04/22 documented as of this encounter
--- OUTSIDE RECORDS SUMMARY | 2025-06-05 13:41 | XMS_ITS | Encounter Summary ---
Author Organization [employer] ([place], [place]) Address [address] [place] [address] Care Team Providers Care Manager Economic Name Role Phone Chris Kim MD Primary Care Provider [phone] Shelia Mora MD Unavailable [phone] Mehrdad Ford MD Unavailable [phone] Reason for Visit * Reason Onset Date Comments Triage Call 04/29/2025 Encounter Details Date Type Department Care Team (Late st Contact Info) Description 04/29/2025 Telephone [facility] INDEPENDENT LIVING SPECIALIST - [place] [address] [facility] [address] [place] [address] Anisa Castro, first sampler Call Social History Tobacco Use Types Packs/Day Years [...] How often do you attend chur or quaker services? More than 4 times per year 11/16/2022 Do you belong to any clubs o r organizations such as cheondoism groups, unions, fraternal or athletic groups, or [...] Date Donavon rded Speak language other than Czech at home Not on file 09/28/2023 Want [...] Telephone Encounter - Anisa Castro RN - 04/29/2025 11:58 AM EDT Patient called triage asking if she can proceed with surgery tomorrow, she has a UTI currently. PerDr. Tidwell, yes, as long as she doesn't have a fever. Patient acknowledged. documented in this encounter Plan of Treatment Upcoming Encounters Date Type Department Care Team (Late st Contact Info) Description 06/25/2025 1:00 PM EDT Appointment [facility] Breast [facility] 160 [facility] [address] [place] [address] Mehrdad Ford MD [address] [place], [place] [address] [place] [address] 06/25/2025 2:15 PM EDT Office Visit [facility] - [address] [place] [address] Tracie Menendez PA-C [address] [place] [address] [address] [place] [address] Shelia Mora MD [address] [place] [address] [address] [place] [address] 12/10/2025 1:00 PM EDT Appointment [facility] [address] [facility] [address] [place] [address] Mehrdad Ford MD [address] [place] [address] 12/10/2025 2:00 PM EDT Office Visit [facility] 160 [facility] 101 [place] [address] Mehrdad Ford MD [address] [place], [place] [address] 05/17/2026 2:00 PM EDT Office Visit [facility] INDEPENDENT LIVING SPECIALIST - [address] [place] [address] Keesha Tidwell, [address] [place] [address] documented as of this encounter Visit Diagnoses Not on filedocumented in this encounter Care Teams Manager Economic Relationship Specialty Start Date End Date Chris Kim MD [address] [place] [address] [place] [address] PCP - General General Internal Medicine 10/11/22 Shelia Mora MD [address] [facility] [address] [place], [place] [address] Medical Oncologist Hematology and Oncology 11/14/22 Mehrdad Ford MD [address] [facility] [address] [place], [place] [address] General Surgery 12/04/22 documented as of this encounter
== END 2025-06-04 23:59 | disposition home or self-care (01) ==
LOC: LAB.DROPOF 06-05 13:37
PROVIDERS: PCP Internal Medicine; Visit Provider Internal Medicine
DX: E78.5 Hyperlipidemia, unspecified (principal); I10 Essential (primary) hypertension; I77.9 Disorder of arteries and arterioles, unspecified
CPT/HCPCS: 80053; 80061; 85025

== ENCOUNTER 2025-06-22 10:41 | Emergency (ER) | payer MEDICARE, OTHER, SELFPAY ==
--- OUTSIDE RECORDS SUMMARY | 2025-04-30 10:39 | XMS_ITS | Encounter Summary ---
Author Organization [employer] ([place], [place], [place], [place]) Address [address] [place] [address] Care Team Providers Care Wellness Instructor Name Role Phone Chris Kim MD Primary Care Provider [phone] Shelia Mora MD Unavailable [phone] Mehrdad Ford MD Unavailable [phone] Reason for Visit * Auth/Cert (Routine) Specialty Diagnoses / Procedures Referred By Edmundo vazquez Referred To Contact Diagnoses Endometrial polyp Endometrial polyp Procedures AR HYSTEROSCOPY BX ENDOMETRIUM&/POLYPC W/WO D&C HYSTEROSCOPY, WITH DILATION AND CURETTAGE OF UTERUS IF INDICATED Keesha Tidwell DO [address] [place] [address] Phone: tel: fax: Referral ID Status Reason Start Date Expiration Date Visits Re quested Visits Authorized [id number] 04/10/2025 1 1 Encounter Details Date Type Department Care Team (Latest Contact Info) Description 04/30/2025 10:39 AM EDT - 04/30/2025 4:09 PM EDT Hospital Encounter [facility] Surgery Department [address] [place] [address] Keesha Tidwell DO [address] [place] [address] Endometrial polyp Discharge Disposition: Home [...] often do you attend chur ch or jain services? More than 4 times per year [...] Date Donavon rded Speak language other than [place] at home Not on file 09/28/2023 [...] through Care Everywhere. * Hysteroscopy Care After ([place]) * General Anesthesia Adult Care After ([place]) * Dilation and Curettage or Vacuum Curettage Care After Pyxt-oo-Lkti ([place]) documented in this encounter Medications at Time [...] mouth daily. 90 capsule 3 12/04/2024 vit I-tdyknwx-padu-lacey n-hb196 (Bioflex) 254-65-75-40 mg Tab Take by mouth. ibuprofen (MOTRIN) 600 MG tablet Take 1 tablet (600 mg total) by mouth every 6 (six) hours as needed for pain for up to 10 days. 40 tablet 04/30/2025 5 documented as of this encounter H&P Notes * Keesha Tidwell, - 04/30/2025 12:57 PM EDT CURATOR H[employer]ICULTURAL MUSEUM History & Physical Name: Brooklyn Corbin Date/Time of Admission: 04/30/2025 10:39 AM CSN: [id number] Attending Provider: Keesha Tidwell DO Room/Bed: Periop [...] by mouth daily. 02/25/25 Leigh B Martyeling, DOOR TO DOOR SELLING DISTRIBUTOR lisinopril-hydroCHLOROthiazide (PRINZIDE,ZESTORETIC) 20-25 mg per tablet Take [...] mouth daily. 12/04/24 Tracie Menendez PA-C vit G-dzzosdr-salz-rutin-hb196 (Bioflex) 398-33-13-40 mg Tab Take by mouth. Historical Provider, [...] NODE, SENTINEL; Surgeon: Mehrdad Ford MD; Location: [facility] OR; Service: General Surgery; Laterality: Right; BREAST BIOPSY Right 11/01/2022 COLONOSCOPY LUMPECTOMY Right 11/28/2022 Procedure: LUMPECTOMY, BREAST; Surgeon: Mehrdad Ford MD; Location: [facility] OR; Service: General Surgery; Laterality: Right; LYMPH NODE BIOPSY Left 11/15/2022 left axillary node NEEDLE LOCALIZATION Right 11/28/2022 Procedure: RIGHT BREAST NEEDLE LOCALIZED LUMPECTOMY WITH SENTINEL NODE BX; Surgeon: Mehrdad Ford MD; Location: [facility] OR; Service: General Surgery; Laterality: Right; SKIN [...] input(s): PH , PO2 , PCO2 , BFU7KTK in the last 72 hours. No results for input(s): TSH , EYRMXVXR35 , FOLATE in the last 72 hours. Invalid input(s): [id number] Imaging Ultrasound non-ob transvaginal Result Date: 04/20/2025 [...] Tidwell DO PCP: Chris Kim MD CSN#: [id number] Date of Surgery: 04/30/2025 : 1945 Facility: [...] Description 06/25/2025 1:00 PM EDT Hospital Encounter [facility] Breast [facility] [address] [place] [address] Mehrdad Ford MD [address] [place] [address] 06/25/2025 2:15 PM EDT Office Visit [facility] [address] [place] [address] Tracie Menendez PA-C [address] [place] [address] Shelia Mora MD [address] [place] [address] 12/10/2025 1:00 PM EDT Appointment [facility] [address] [place] [address] Mehrdad Ford MD [address] [place] [address] 12/10/2025 2:00 PM EDT Office Visit [facility] Breast Surgery Clinic [address] [facility] [address] [place] [address] Mehrdad Ford MD [address] [place] [address] 05/17/2026 2:00 PM EDT [facility] SCRUBBING MACHINE OPERATOR - [address] [place] [address] Keesha Tidwell, DO [address] [place] [address] documented as of this encounter Procedures Procedure Name Priority Date/Time Associated Diagnosis Comments TISSUE EXAM (GREGORIA PAULINO) AP Routine 04/30/2025 1 :51 PM EDT Endometrial polyp AR DILATION & CURETTAGE DX&/THER NONOBSTETRIC 04/30/2025 1:29 [...] polyp . Consists of multiple pieces of agraawl soft tissue with mucus measuring 2.5 x 1.4 x 0.4 cm in aggregate, filtered and submitted entirely on 1 block. See other report ([id number]) Tissue SPECIMEN FROM ENDOMETRIUM OBTAINED BY CURETTAGE / Unknown 04/30/2025 1:51 PM EDT Tissue specimen (specimen) POLYP / Unknown 04/30/2025 1:51 PM EDT Keesha Tidwell DO PATHOLOGY/CYTOLOGY ORDERABLES Fi nal Result Performing Organization Address [facility] Co de Phone Number PATHOLOGY [facility]TOLOG[facility] LAB[facility] [address] * (ABNORMAL) Glucose, Nova Meter (04/30/2025 11:23 AM EDT) POC-GLUCOSE 113(H) 70 - 110 mg/dL 04/30/2025 11:29 AM EDT [facility] Comment:In the event of poor peripheral blood flow, venous or arterial blood should be used due to the potential of erroneous results. Child Care Team Lead [id number] 04/30/2025 11:29 AM EDT [facility] Blood WHOLE BLOOD / Unknown 04/30/2025 11:23 AM EDT 04/30/2025 11:29 AM EDT Narrative [facility] - 04/30/2025 11:29 AM EDT Child Care Team Lead ID is - [id number] Keesha Tidwell DO POINT OF CARE TEST ORDERABLES Fi nal Result Performing Organization Address [facility]/ZIP Co de Phone Number [facility] [address] [phone] documented in this encounter Visit Diagnoses Diagnosis [...] Once, intravenous, Administer over 30 Minutes, On Nichoel 04/30/25 at 1330, For 1 dose, Administer [...] Pre-op documented in this encounter Care Teams Wellness Instructor Relationship Specialty Start Date End Date Chris Kim MD [address] [place] [address] PCP - General General Internal Medicine 10/11/22 Shelia Mora MD [facility] [address] [place] [address] Medical Oncologist Hematology and Oncology 11/14/22 Mehrdad Ford MD [address] [facility] [address] [place], [place] [id number] General Surgery 12/04/22 documented as of this encounter
--- OUTSIDE RECORDS SUMMARY | 2025-04-30 13:29 | XMS_ITS | Encounter Summary ---
Author Organization [employer] ([place], [place], [place], [place]) Address [address] [place] [address] Care Team Providers Care Automatic Spooler Operator Name Role Phone Chris Kim MD Primary Care Provider [phone] Shelia Mora MD Unavailable [phone] Mehrdad Ford MD Unavailable [phone] Reason for Visit * Auth/Cert (Routine) Specialty Diagnoses / Procedures Referred By Contac t Referred To Contact Diagnoses Endometrial polyp Endometrial polyp Procedures [place] HYSTEROSCOPY BX ENDOMETRIUM&/POLYPC W/WO D&C HYSTEROSCOPY, WITH DILATION AND CURETTAGE OF UTERUS IF INDICATED Keesha Tidwell, DO [address] [place] [address] Phone: tel: fax: Referral ID Status Reason Start Date Expiration Date Visits Re quested Visits Authorized [id number] 04/10/2025 1 1 Encounter Details Date Type Department Care Team (Late st Contact Info) Description 04/30/2025 1:29 PM EDT Anesthesia Event [facility] Surgery Department [address] [place] [address] Rafael Ruvalcaba CRNA [address], [place] [phone] Hector Hamilton MD [address], [place] [phone] (work) Anesthesia Record Procedure Summary Procedure Name Responsible Anesthesiologist Anesthesia Start Time Anesthesia Stop Time HYSTEROSCOPY, WITH DILATION AND CURETTAGE, WITH POLYPECTOMY OF UTERUS Rafael Ruvalcaba CRNA 04/30/25 1329 04/30/25 1409 Events Date Time Event Comment 04/30/2025 1219 1329 An Start Patient identif ied and chart reviewed. 1329 An Start Data Anesthesia mac neto and monitors checked. 1329 Pre-Induction Eval FDA anest hesia machine pre-use checkout completed. Patient status reassessed prior to start of anesthesia care. 1334 An Induction 1339 An Intubation 1346 Anesthesia Ready 1357 An Extubation 1400 an stop data 1402 Handoff to Receiving I compl eted my handoff to the receiving clinician during which we: 1. Identified the patient. 2. Identified the responsible provider. 3. Reviewed the pertinent medical history. 4. Discussed the surgical course. 5. Reviewed intra-op anesthesia management and issues during anesthesia. 6. Set expectations for post-procedure period. 7. Allowed opportunity for questions and acknowledgement of understanding. 1409 An Stop Meds Name Total dexamethasone (DECADRON) injection 4 mg/ mL 4 mg fentaNYL (SUBLIMAZE) injection 75 mcg lidocaine (XYLOCAINE) injection 2% 80 mg ondansetron (ZOFRAN) injection vial 4 mg propofol (DIPRIVAN) injection 10 mg/mL b olus 200 mg ceFAZolin (ANCEF) IVPB 2 g/50 mL D5W (pr emix) 2 g electrolyte-R (NORMOSOL-R) infusion 51.2 5 mL * Agents Name O2 N2O Air SEVOFLURANE * Blood No blood administrations on file. Lines, Drains, and Airways Type Details Placement Removal Wound 11/28/22; 1249; Inci librado; Breast; Right; exofin skin adhesive 11/28/22 1249 by Washington Dominguez RN Wound 11/28/22; 1337; Axil la; Anterior, Proximal, Right 11/28/22 1337 by Alida Meeks RN ETT Placement Date 04/30; Placement Time 1339 (created via procedure documentation); Removal Date 04/30/25; Removal Time 1357 04/30/25 1339 by Rafael Ruvalcaba CRNA 04/30/25 1357 by Rafael Ruvalcaba CRNA Peripheral IV Placement Date: 04/17 01/09; Placement Time: 1410 (time first assessed. was placed in preop); Size: 20 G; Orientation: Left, Posterior; Location: Hand; Inserted by: Preop RN; Removal Date: 04/30/25; Removal Time: 1549; Removal Reason: Per order 04/30/25 1411 by Elizabeth Liu RN 04/30/25 1550 by Coleen Muhammad RN documented in this encounter Social History Tobacco Use Types Packs/Day Years [...] week 11/16/2022 How often do you attend [facility] or yarsani services? More than 4 times per year 11/16/2022 Do you belong to any clubs o r organizations such as christian groups, unions, fraternal or athletic groups, or [...] Date Donavon rded Speak language other than Wolof at home Not on file 09/28/2023 Want [...] on file documented as of this encounter OR Notes * Anesthesia Postprocedure Evaluation - Rafael Ruvalcaba CRNA - 04/30/2025 2:11 PM EDT Patient: Brooklyn Corbin Procedure Summary Date: 04/30/25 Room / Location: [facility] OR OPERATING ROOM Anesthesia Start: 1329 Anesthesia Stop: Procedure: HYSTEROSCOPY, WITH DILATION AND CURETTAGE, WITH POLYPECTOMY OF UTERUS IF INDICATED Diagnosis: Endometrial polyp (Endometrial polyp) Surgeons: Keesha Tidwell DO Responsible Provider: Rafael Ruvalcaba CRNA Anesthesia Type: general ASA Status: 2 Anesthesia Type: general Vitals Value Taken Time BP 144/70 04/30/25 1407 Temp 97.4 ??F (36.3 ??C) 04/30/25 1403 Pulse 98 04/30/25 1411 Resp 16 04/30/25 1407 SpO2 98 % 04/30/25 1411 Vitals shown include unfiled device data. Wt 82.7 kg (182 lb 5.1 oz) Comment: Previous value was entered in error BMI 30.34 kg/m?? Anesthesia Post Evaluation Patient location during evaluation: PACU Patient participation: complete - patient participated Level of consciousness: obtunded/minimal responses Pain management: adequate Multimodal analgesia pain management approach Airway patency: patent Cardiovascular status: stable Respiratory status: face mask and oral airway Hydration status: stable Color: [place] Activity: Moves 4 extremities Inotropes/Vasopressors: N/A No notable events documented. Rafael Ruvalcaba CRNA 04/30/2025 2:11 PM EDT * Anesthesia Procedure Notes - Rafael Ruvalcaba CRNA - 04/30/2025 1:45 PM EDTAssociated Order(s): Intubation Intubation Authorized by: Rafael Ruvalcaba CRNA Performed by: Rafael Ruvalcaba CRNA Date/Time: 04/30/2025 1:39 PM Urgency: elective Indications and Patient Condition Indications for airway management: anesthesia and airway protection Spontaneous Ventilation: absent Sedation level: general anesthesia Preoxygenated: yes Patient position: sniffing no Mask difficulty assessment: 0 - not attempted no Final Airway Details Final airway type: supraglottic airway Size: 3 Number of attempts at approach: 1 Number of other approaches attempted: 0 * Anesthesia Preprocedure Evaluation - Trenton Gunter DO - 04/30/2025 12:18 PM EDT Anesthesia Pre Evaluation Ms. Brooklyn Corbin is a 79 y.o. female being evaluated for the following: Date/Time: 04/30/25 1343 Procedure: HYSTEROSCOPY, WITH DILATION AND CURETTAGE, WITH POLYPECTOMY OF UTERUS IF INDICATED - polypectomy Location: [facility] OR 03 / [facility] OPERATING [facility] Surgeons: Keesha Tidwell DO Relevant Problems CARDIOVASCULAR (+) Hypertension GASTROINTESTINAL (+) GERD (gastroesophageal reflux disease) (controlled) NEURO/PSYCH (+) Anxiety Clinical information reviewed: NPO Status No data recorded Physical Exam Airway Mallampati: II Neck ROM: full Cardiovascular Rhythm: regular Rate: normal Dental - normal exam Pulmonary Breath sounds clear to auscultation Abdominal Other findings: AAOx3 Anesthesia Plan ASA 2 Planned anesthetic: general Anesthesia Plan Factors- The patient is not a current smoker. Patient was not previously instructed to abstain from smoking on day of procedure. Patient did not smoke on day of procedure. Induction: intravenous Postoperative Plan- Postoperative administration of opioids is intended. Informed Consent- Anesthetic plan and risks discussed with patient. Plan discussed with CASKET COVERER. documented in this encounter Plan of Treatment Upcoming Encounters Date Type Department Care Team (Late st Contact Info) Description 06/25/2025 1:00 PM EDT Hospital Encounter [facility] [address] [facility] [address] [place] [phone] Mehrdad Ford MD [address] [facility] [address] [place] [address] 06/25/2025 2:15 PM EDT Office Visit [facility] - [place] [facility] [address] [place] [address] Tracie Menendez PA-C [address] [facility] [address] [place] [address] Shelia Mora MD [address] [facility] [address] [place] [address] 12/10/2025 1:00 PM EDT Appointment [facility] [address] [place] [address] Mehrdad Ford MD [address] [place] [address] 12/10/2025 2:00 PM EDT Office Visit [facility] [address] [facility] [address] [place] [address] Mehrdad Ford MD [address] [place] [address] 05/17/2026 2:00 PM EDT Office Visit [facility] HEAD OF MARKETING - [address] [place] [address] Keesha Tidwell, DO [address] [place] [address] documented as of this encounter Procedures Procedure Name Priority Date/Time Associated Diagnosis Comments ANESTHESIA INTUBATION Routine 04/30/2025 1:39 PM EDT documented in this encounter Results * AN SINGLE LUMEN INTUBATION (04/30/2025 1:39 PM EDT) Rafael Godfrey CRNA - 04/30/2025 1:39 PM EDT Rafael Ruvalcaba CRNA 04/30/2025 1:45 PM Intubation Authorized by: Rafael Ruvalcaba CRNA Performed by: Rafael Ruvalcaba CRNA Date/Time: 04/30/2025 1:39 PM Urgency: elective Indications and Patient Condition Indications for airway management: anesthesia and airway protection Spontaneous Ventilation: absent Sedation level: general anesthesia Preoxygenated: yes Patient position: sniffing no Mask difficulty assessment: 0 - not attempted no Final Airway Details Final airway type: supraglottic airway Size: 3 Number of attempts at approach: 1 Number of other approaches attempted: 0 Rafael Ruvalcaba CRNA ANESTHESIA ORDERABLES Final Result documented in this encounter Visit Diagnoses Not on filedocumented in this encounter Administered Medications Inactive Administered Medications - up to 3 most recent administrations Medication Order MAR Action Action Date Dose Rate Site ceFAZolin (ANCEF) IVPB 2 g/50 mL D5W (premix) 2 g Once, intravenous, Administer over 30 Minutes, On Nichole 04/30/25 at 1330, For 1 dose, Administer within 60 minutes of incision or procedure start., Pre-op, Please choose an indication: Surgical Prophylaxis Given 04/30/2025 1:43 PM EDT 2 g dexAMETHasone (DECADRON) injection As needed, intravenous, Starting on Nichole 04/30/25 at 1349, Anesthesia Intra-op Given 04/30/2025 1:49 PM EDT 4 mg electrolyte-R (NORMOSOL-R) infusion at 100 mL/hr, intravenous, Continuous, Starting on Nichole 04/30/25 at 1130, Pre-op New Bag 04/30/2025 1:29 PM EDT 75 mL/hr 75 mL/h r fentaNYL PF (SUBLIMAZE) injection As needed, intravenous, Starting on Nichole 04/30/25 at 1345, Anesthesia Intra-op Given 04/30/2025 2:00 PM EDT 25 mcg Given 04/30/2025 1:55 PM EDT 25 mcg Given 04/30/2025 1:45 PM EDT 25 mcg lidocaine (XYLOCAINE) injection 2% As needed, intravenous, Starting on Nichole 04/30/25 at 1334, Anesthesia Intra-op Given 04/30/2025 1:34 PM EDT 80 mg ondansetron (ZOFRAN) injection As needed, intravenous, Starting on Nichole 04/30/25 at 1354, Anesthesia Intra-op Given 04/30/2025 1:54 PM EDT 4 mg propofol (DIPRIVAN) injection 10 mg/mL bolus As needed, intravenous, Starting on Nichole 04/30/25 at 1334, Anesthesia Intra-op Given 04/30/2025 1:34 PM EDT 200 mg documented in this encounter Care Teams Automatic Spooler Operator Relationship Specialty Start Date End Date Chris Kim MD [address] [facility] [address] [place] [address] PCP - General General Internal Medicine 10/11/22 Shelia oMra MD [address] [facility] [address] [place] [address] Medical Oncologist Hematology and Oncology 11/14/22 Mehrdad Ford MD [address] [place], [place] [phone] General Surgery 12/04/22 documented as of this encounter
--- OUTSIDE RECORDS SUMMARY | 2025-04-30 13:43 | XMS_ITS | Encounter Summary ---
Author Organization [employer] ([place], [place], [place], [place]) Address [address] [place] [address] Care Team Providers Care Software Tools Engineer Name Role Phone Chris Kim MD Primary Care Provider [phone] Shelia Mora MD Unavailable [phone] Mehrdad Ford MD Unavailable [phone] Reason for Visit * Auth/Cert (Routine) Specialty Diagnoses / Procedures Referred By Edmundo vazquez Referred To Contact Diagnoses Endometrial polyp Endometrial polyp Procedures SD HYSTEROSCOPY BX ENDOMETRIUM&/POLYPC W/WO D&C HYSTEROSCOPY, WITH DILATION AND CURETTAGE OF UTERUS IF INDICATED Keesha Tidwell DO [address] [place] [address] Phone: tel: fax: Referral ID Status Reason Start Date Expiration Date Visits Re quested Visits Authorized [id number] 04/10/2025 1 1 Encounter Details Date Type Department Care Team (Late st Contact Info) Description 04/30/2025 1:43 PM EDT - 04/30/2025 2:46 PM EDT Surgery [facility] Surgery Department [address] [place] [address] Keesha Tidwell DO [address] [place] [address] HYSTEROSCOPY, WITH DILATION AND CURETTAGE, [...] any clubs o r organizations such as christianity groups, unions, fraternal or athletic groups, or [...] Donavon rded Speak language other than British at home Not on file 09/28/2023 Want [...] through Care Everywhere. * Hysteroscopy Care After (British) * General Anesthesia Adult Care After (British) * Dilation and Curettage or Vacuum Curettage Care After Ggaq-hd-Onkk (British) documented in this encounter Medications at Time [...] mouth daily. 90 capsule 3 12/04/2024 vit L-vqlhgsx-fzxt-lacey n-hb196 (Bioflex) 948-48-47-40 mg Tab Take by mouth. ibuprofen (MOTRIN) 600 MG tablet Take 1 tablet (600 mg total) by mouth every 6 (six) hours as needed for pain for up to 10 days. 40 tablet 04/30/2025 5 documented as of this encounter H&P Notes * Keesha Tidwell DO - 04/30/2025 12:57 PM EDT LIQUID COMPOUNDER History & Physical Name: Brooklyn Corbin Date/Time of Admission: 04/30/2025 10:39 AM CSN: [id number] Attending Provider: Keesha Tidwell DO Room/Bed: Periop [...] mouth daily. 12/04/24 Tracie Menendez PA-C vit G-ptrdaiv-huai-rutin-hb196 (Bioflex) 904-10-62-40 mg Tab Take by mouth. Historical Provider, [...] NODE, SENTINEL; Surgeon: Mehrdad Ford MD; Location: [facility] OR; Service: General Surgery; Laterality: Right; BREAST BIOPSY Right 11/01/2022 COLONOSCOPY LUMPECTOMY Right 11/28/2022 Procedure: LUMPECTOMY, BREAST; Surgeon: Mehrdad Ford MD; Location: [facility] OR; Service: General Surgery; Laterality: Right; LYMPH NODE BIOPSY Left 11/15/2022 left axillary node NEEDLE LOCALIZATION Right 11/28/2022 Procedure: RIGHT BREAST NEEDLE LOCALIZED LUMPECTOMY WITH SENTINEL NODE BX; Surgeon: Mehrdad Ford MD; Location: [facility] OR; Service: General Surgery; Laterality: Right; SKIN CANCER EXCISION Left 03/23/2021 left arm; melanoma TUBAL LIGATION 1979 FAMHX: Family History Problem Relation Name Age of Onset Stroke Mother Appie Cancer Father [place] Prostate cancer Father [place] Diabetes Brother [place] Rheum arthritis Brother Noel Breast cancer Paternal Aunt Eleni Family Status Relation Name Status Mother Appie Father [place] Brother [place] Brother Noel Pat Aunt Eleni No partnership [...] input(s): PH , PO2 , PCO2 , IKF1TED in the last 72 hours. No results for input(s): TSH , [id number] , FOLATE in the last 72 hours. Invalid input(s): [id number] Imaging Ultrasound non-ob transvaginal Result Date: 04/20/2025 [...] Keesha Tidwell DO PCP: Chris Kim MD [facility]#: [id number] Date of Surgery: 04/30/2025 : 1945 Facility: [...] Description 06/25/2025 1:00 PM EDT Hospital Encounter [facility] [address] [place] [address] Mehrdad Ford MD [address] [place] [address] 06/25/2025 2:15 PM EDT Office Visit [facility] [place] [place] [address] Tracie Menendez PA-C [address] [place] [address] [place] [address] Shelia Mora MD [address] [address] [place] [address] 12/10/2025 1:00 PM EDT Appointment [facility] [address] [place] [address] Mehrdad Ford MD [address] [place] [address] 12/10/2025 2:00 PM EDT Office Visit [facility] [address] [facility] [address] [place] [address] Mehrdad Ford MD [address] [place] [address] [address] [place] [address] 05/17/2026 2:00 PM EDT [facility] TYPE COPY EXAMINER - [address] [place] [address] Keesha Tidwell, DO [address] [place] [address] documented as of this encounter Procedures Procedure Name Priority Date/Time Associated Diagnosis Comments TISSUE EXAM (GREGORIA PAULINO) AP Routine 04/30/2025 1 :51 PM EDT Endometrial polyp SD DILATION & CURETTAGE DX&/THER NONOBSTETRIC 04/30/2025 1:29 [...] entirely on 1 block. See other report ([id number]) Tissue SPECIMEN FROM ENDOMETRIUM OBTAINED BY CURETTAGE / Unknown 04/30/2025 1:51 PM EDT Tissue specimen (specimen) POLYP / Unknown 04/30/2025 1:51 PM EDT Keesha Tidwell DO PATHOLOGY/CYTOLOGY ORDERABLES Fi nal Result Performing Organization Address [facility] Co de Phone Number PATHOLOGY AND CYTOLOGY LABORATORY [address] * (ABNORMAL) Glucose, Nova Meter (04/30/2025 11:23 AM EDT) POC-GLUCOSE 113(H) 70 - 110 mg/dL 04/30/2025 11:29 AM EDT [facility] Comment:In the event of poor peripheral blood flow, venous or arterial blood should be used due to the potential of erroneous results. Food Service Representative [phone] 04/30/2025 11:29 AM EDT [facility] Blood WHOLE BLOOD / Unknown 04/30/2025 11:23 AM EDT 04/30/2025 11:29 AM EDT Narrative [facility] - 04/30/2025 11:29 AM EDT Food Service Representative ID is - [id number] us Keesha Tidwell DO POINT OF CARE TEST ORDERABLES Fi nal Result [facility] [address] [phone] documented in this encounter Visit Diagnoses Diagnosis [...] Pre-op documented in this encounter Care Teams Software Tools Engineer Relationship Specialty Start Date End Date Chris Kim MD [address] [place] [address] PCP - General General Internal Medicine 10/11/22 Shelia Mora MD [address] [facility] [address] [place] [address] Medical Oncologist Hematology and Oncology 11/14/22 Mehrdad Ford MD [address] [facility] [address] [place] [address] General Surgery 12/04/22 documented as of this encounter
--- OUTSIDE RECORDS SUMMARY | 2025-05-13 11:00 | XMS_ITS | Encounter Summary ---
Author Organization [employer] ([place], [place], [place], [place]) Address [address] [place] [address] Care Team Providers Care Stroke Program Coordinator Name Role Phone Chris Kim MD Primary Care Provider [phone] Shelia Mora MD Unavailable [phone] Mehrdad Ford MD Unavailable [phone] Encounter Details Date Type Department Care Team (Latest Contact Info) Description 05/13/2025 11:00 AM EDT Office Visit [facility] SUPPLY CLERK - [address] [place] [address] Keesha Tidwell, DO [address] [place] [address] Postoperative examination (Primary Dx) Social [...] week 11/16/2022 How often do you attend [facility] or episcopalian services? More than 4 times per year 11/16/2022 Do you belong to any clubs o r organizations such as presybeterian groups, unions, fraternal or athletic groups, or [...] Date Donavon rded Speak language other than Polish at home Not on file 09/28/2023 Want [...] Description 06/25/2025 1:00 PM EDT Hospital Encounter [facility] Breast Care [address] [place] [address] Mehrdad Ford MD [address] [place], [place] [address] 06/25/2025 2:15 PM EDT Office Visit [facility] - [address] [place] [address] Tracie Menendez PA-C [address] [facility] [address] [place] [address] Shelia Mora MD [address] [facility] [address] [place], [place] [address] 12/10/2025 1:00 PM EDT Appointment [facility] Breast Care [address] [facility] [address] [place] [address] Mehrdad Ford MD [address] [facility] [address] [place], [place] [address] 12/10/2025 2:00 PM EDT Office Visit [facility] Breast Surgery Clinic [address] [facility] 101 [place] [address] Mehrdad Ford MD [address] [facility] [address] [place], [place] [address] 05/17/2026 2:00 PM EDT [facility] Visit [facility] SUPPLY CLERK - [address] [place] [address] Keesha Tidwell, DO [address] [place] [address] documented as of this encounter Visit Diagnoses Diagnosis Postoperative examination- Primary Follow-up examination, following unspecified surgery documented in this encounter Care Teams Stroke Program Coordinator Relationship Specialty Start Date End Date Chris Kim MD [address] [place] [address] PCP - General General Internal Medicine 10/11/22 Shelia Mora MD [address] [facility] [address] [place] [address] Medical Oncologist Hematology and Oncology 11/14/22 Mehrdad Ford MD [address] [place] [address] General Surgery 12/04/22 documented as of this encounter
[2025-06-22] VITALS (10 sets, daily range): BP systolic 132–157; BP diastolic 60–70; PULSE 65–90; RESP 16–18; TEMP 36.7–36.8; O2SAT 95–100; BMI 29.9
--- OUTSIDE RECORDS SUMMARY | 2025-06-22 10:52 | XMS_ITS | Encounter Summary ---
Author Organization [employer] ([place], [place], [place], [place]) Address [address] [place] [address] Care Team Providers Care Entry Level Machine Operator Name Role Phone Chris Kim MD Primary Care Provider Shelia Mora MD Unavailable [phone] Liliam Raman RN Unavailable Unavailable Mehrdad Ford MD Unavailable [phone] Reason for Referral * Mammography (Routine) - Closed Specialty Diagnoses / Procedures Referred By Contac t Referred To Contact Diagnoses Abnormal mammogram Procedures MM Stereotactic breast biopsy right Leidy Gordillo MD [address] [place] [address] Phone: tel: fax: Referral ID Status Reason Start Date Expiration Date Visits Re quested Visits Authorized [id number] Closed 10/30/2022 04/28/2023 1 1 Encounter Details Date Type Department Care Team (Late st Contact Info) Description 10/30/2022 Outside Orders [facility] Breast Care [address] [place] [address] Leidy Gordillo MD [address] [place] [address] Abnormal mammogram (Primary Dx) Social History Tobacco [...] Description 06/25/2025 1:00 PM EDT Hospital Encounter [facility] Breast [facility] [address] [place] [address] Mehrdad Ford MD [address] [place] [address] 06/25/2025 2:15 PM EDT Office Visit [facility] [place] [address] [place] [address] Tracie Menendez PA-C [address] [place] [address] Shelia Mora MD [address] [place] [address] 12/10/2025 1:00 PM EDT Appointment [facility] [address] [facility] [address] [place] [address] Mehrdad Ford MD 160 [facility] [address] [place] [address] 12/10/2025 2:00 PM EDT Office Visit [facility] 160 [facility] 101 [place] [address] Mehrdad Ford MD [address] [place] [address] [address] [place] [address] 05/17/2026 2:00 PM EDT [facility] Visit [facility] GLAUCOMA SPECIALIST - [address] [place] [address] Keesha Tidwell, DO [address] [place] [address] documented as of this encounter [...] with the mammographic evaluation. Leidy Gordillo MD IM MAMMOGRAPHY ORDERABLES Annalise pulido Result documented in this encounter Visit Diagnoses Diagnosis Abnormal mammogram- Primary Abnormal mammogram, unspecified Abnormal mammogram Abnormal mammogram, unspecified documented in this encounter Care Teams Entry Level Machine Operator Relationship Specialty Start Date End Date Chris Kim MD [address] [place] [address] PCP - General General Internal Medicine 10/11/22 Shelia Mora MD [address] [facility] [address] [place] [address] Medical Oncologist Hematology and Oncology 11/14/22 Case, Liliam Nye RN Nurse Navigator 11/14/22 03/16/24 Mehrdad Ford MD General Surgery 12/04/22 documented as of this encounter
--- OUTSIDE RECORDS SUMMARY | 2025-06-22 10:52 | XMS_ITS | Referral Summary ---
Author Organization [employer] ([place], [place], [place], [place]) Address [address] [place] [address] Care Team Providers Care Perinatal Specialist Name Role Phone Chris Kim MD Primary Care Provider Shelia Mora MD Unavailable [phone] Mehrdad Ford MD Unavailable [phone] Encounters Date Type Department Care Team Description 05/13/2025 11:00 AM EDT Office Visit [facility] WEAVER DOBBY LOOM - [address] [place] [address] Keesha Tidwell, DO Postoperative examination (Primary Dx) 05/04/2025 [facility]phone [facility] WEAVER DOBBY LOOM - [place] [address] [facility] [address] [place] [address] Anisa Castro RN Results 04/30/2025 1:43 PM EDT - 04/30/2025 2:46 PM EDT Surgery [facility] Surgery Department [address] [place] [address] Keesha Tidwell, DO HYSTEROSCOPY, WITH DILATION AND CURETTAGE, WITH POLYPECTOMY OF UTERUS 04/30/2025 1:29 PM EDT Anesthesia Event [facility] Surgery Department [address] [place] [address] Rafael Ruvalcaba, Hector Gallegos MD 04/30/2025 10:39 AM EDT - 04/30/2025 4:09 PM EDT Hospital Encounter [facility] Surgery Department 150 [place] [address] Keesha Tidwell, Endometrial polyp Discharge Disposition: Home or Self Care 04/29/2025 Telephone [facility] WEAVER DOBBY LOOM - [place] 170 [facility] [address] [place] [address] Anisa Castro RN Triage Call 04/21/2025 Telephone [facility] WEAVER DOBBY LOOM [facility] 211 [facility] [address] [place] [address] Rosa Monahan, LÁZARO Results 04/20/2025 1:31 PM EDT - 04/20/2025 11:59 PM EDT Hospital Encounter [facility] Ultrasound [address] [place] [address] Keesha Tidwell, RLQ abdominal pain Discharge Disposition: Home or Self Care 04/10/2025 Surgery Prep [facility] WEAVER DOBBY LOOM [facility] [address] [facility] [address] [place] [address] Rosa Monahan, RN Endometrial polyp (Primary Dx) 04/10/2025 Travel 04/10/2025 2:00 PM EDT Office Visit [facility] WEAVER DOBBY LOOM [facility] [address] [facility] [address] [place] [address] Keesha Tidwell, RLQ abdominal pain (Primary Dx); Use of tamoxifen (Nolvadex); Thickened endometrium; Endometrial polyp 04/07/2025 Telephone [facility] WEAVER DOBBY LOOM [facility] [address] [facility] [address] [place] [address] Keesha Tidwell, Appointment 03/30/2025 Travel 03/30/2025 1:40 PM EDT Office Visit [facility] WEAVER DOBBY LOOM [facility] [address] [facility] [address] [place] [address] Keesha Tidwell DO Use of tamoxifen (Nolvadex) (Primary Dx); Thickened endometrium; Endometrial polyp 03/27/2025 Telephone [facility] WEAVER DOBBY LOOM - [address] [place] [address] Keesha Tidwell DO Appointment; Confirmation [...] (81 mg total) by mouth. Active vit L-bstrsip-ymha-rut in-hb196 (Bioflex) 655-09-46-40 mg Tab Take by mouth. Active multivitamin [...] mouth daily. 90 tablet 2 5 Active Active Problems Problem Noted Date Diagnosed Date Endometrial polyp 04/10/2025 Malignant neoplasm of upper- inner quadrant of right breast in female, estrogen receptor positive 11/16/2022 Cancer Staging:Clinical stage from 11/16/2022:Stage IA(cT1b, cN0, cM0, G1, ER+, PA+, HER2-) - Signed by Shelia Mora MD on 11/16/2022 Pathologic stage from 11/28/2022:Stage IA(pT1b, pN0(sn), cM0, G1, ER+, PA+, HER2- ) - Signed by Jose Angel [...] week 11/16/2022 How often do you attend [facility] or jewish services? More than 4 times per year 11/16/2022 Do you belong to any clubs o r organizations such as latter-day groups, unions, fraternal or athletic groups, or [...] Date Donavon rded Speak language other than Kosovan at home Not on file 09/28/2023 Want [...] Description 06/25/2025 1:00 PM EDT Hospital Encounter [address] [place] [address] Mehrdad Ford MD [address] [place] [address] 06/25/2025 2:15 PM EDT Office Visit [facility] - [place] [address] [facility] [address] [place] [address] Tracie Menendez PA-C [address] [place] [address] Shelia Mora MD [address] [place] [address] [place] [address] 12/10/2025 1:00 PM EDT Appointment [address] [place] [facility] [address] [place] [address] Mehrdad Ford MD [address] [place] [address] 12/10/2025 2:00 PM EDT Office Visit [facility] [address] [place] [address] Mehrdad Ford MD [address] [place] [address] 05/17/2026 2:00 PM EDT Office Visit [facility] WEAVER DOBBY LOOM - [address] [place] [address] Keesha Tidwell, DO [address] [place] [address] Procedures Procedure Name Priority Date/Time Associated Diagnosis Comments TISSUE EXAM (GREGORIA PAULINO) AP Routine 04/30/2025 1 :51 PM EDT Endometrial polyp ANESTHESIA INTUBATION Routine 04/30/2025 1:39 PM EDT PA DILATION & CURETTAGE DX&/THER NONOBSTETRIC 04/30/2025 1:29 [...] entirely on 1 block. See other report ([id number]) Tissue SPECIMEN FROM ENDOMETRIUM OBTAINED BY CURETTAGE / Unknown 04/30/2025 1:51 PM EDT Tissue specimen (specimen) POLYP / Unknown 04/30/2025 1:51 PM EDT us Keesha Tidwell DO PATHOLOGY/CYTOLOGY ORDERABLES Fi nal Result [facility] [address] [place] [address], [facility] * AN SINGLE LUMEN INTUBATION (04/30/2025 1:39 [...] of other approaches attempted: 0 Rafael Ruvalcaba [facility] ANESTHESIA ORDERABLES Final Result * (ABNORMAL) Glucose, Nova Meter (04/30/2025 11:23 AM EDT) POC-GLUCOSE 113(H) 70 - 110 mg/dL 04/30/2025 11:29 AM EDT [facility] Comment:In the event of poor peripheral blood flow, venous or arterial blood should be used due to the potential of erroneous results. Kennel Helper [id number] 04/30/2025 11:29 AM EDT [facility] Blood WHOLE BLOOD / Unknown 04/30/2025 11:23 AM EDT 04/30/2025 11:29 AM EDT Narrative [facility] - 04/30/2025 11:29 AM EDT Kennel Helper ID is - [id number] us Keesha Tidwell DO POINT OF CARE TEST ORDERABLES Fi nal Result [facility] [address] [phone] * Ultrasound non-ob transvaginal (04/20/2025 2:03 PM [...] by Liliam Edwards PA-C. Shelia Mora MD [facility] DXA ORDERABLES Final Resul t from Last 3 Months or Most Recently Relevant to Health Maintenance Insurance MEDICARE PART A B GENERIC COMMERCIAL Advance Directives For more information, please contact: [phone] * Full Code (Latest Code Status on File) Date Activated Date Inactivated Comments 04/30/2025 10:14 AM 04/30/2025 5:24 PM Care Teams Perinatal Specialist Relationship Specialty Start Date End Date Chris Kim MD [address] [place] [address] PCP - General General Internal Medicine 10/11/22 Shelia Mora MD [address] [facility] [address] [place] [address] Medical Oncologist Hematology and Oncology 11/14/22 Mehrdad Ford MD [address] [facility] [address] [place] [address] General Surgery 12/04/22
--- OUTSIDE RECORDS SUMMARY | 2025-06-22 10:52 | XMS_ITS | Encounter Summary ---
Author Organization [employer] ([place], [place], [place], [place]) Address [address] [place] [address] Care Team Providers Care Restuarant Crew Worker Name Role Phone Chris Kim MD Primary Care Provider [phone] Shelia Mora MD Unavailable [phone] Liliam Raman RN Unavailable Unavailable Mehrdad Ford MD Unavailable [phone] Reason for Referral * Ultrasound (Routine) - Closed Specialty Diagnoses / Procedures Referred By Contac t Referred To Contact Diagnoses Personal history of malignant neoplasm of breast Procedures US breast axilla left US BREAST RIGHT LIMITED Mehrdad Ford MD Phone: tel: fax: Referral ID Status Reason Start Date Expiration Date Visits Re quested Visits Authorized [id number] Closed 11/06/2022 05/05/2023 1 1 Encounter Details Date Type Department Care Team (Late st Contact Info) Description 11/06/2022 Outside Orders [facility] Breast Care [address] [place] [address] [address] [place] [address] Mehrdad Ford MD [address] [facility] [address] [place] [address] Personal history of malignant neoplasm of breast [...] PM EDT Hospital Encounter [facility] Breast [facility] [address] [facility] [address] [place] [address] Mehrdad Ford MD [address] [place] [address] [address] [place] [address] 06/25/2025 2:15 PM EDT Office [facility] [address] [facility] [address] [place] [address] Tracie Menendez PA-C [address] [place] [address] [place] [address] Shelia Mora MD [address] [place] [place] [address] 12/10/2025 1:00 PM EDT Appointment [facility] [address] [facility] [address] [place] [address] Mehrdad Ford MD [address] [place] [address] [address] [place] [address] 12/10/2025 2:00 PM EDT Office Visit [facility] 160 [facility] 101 [place] [address] Mehrdad Ford MD [address] [place] [address] [address] [place] [address] 05/17/2026 2:00 PM EDT [facility] B[facility] MIXER - [address] [place] [address] Keesha Tidwell, DO [address] [place] [address] documented as of this encounter [...] was made with a scalpel. A 16-gauge Bethel biopsy device was introduced into the lesion [...] breast documented in this encounter Care Teams Restuarant Crew Worker Relationship Specialty Start Date End Date Chris Kim MD [address] [facility] [address] [place] [address] PCP - General General Internal Medicine 10/11/22 Shelia Mora MD [address] [facility] [address] [place] [address] Medical Oncologist Hematology and Oncology 11/14/22 Liliam Raman, LÁZARO Nurse Navigator 11/14/22 03/16/24 Mehrdad Ford MD General Surgery 12/04/22 documented as of this encounter
--- OUTSIDE RECORDS SUMMARY | 2025-06-22 10:53 | XMS_ITS | Encounter Summary ---
Author Organization [employer] ([place], [place], [place], [place]) Address [address] [place] [address] Care Team Providers Care Contact Finger Assembler Name Role Phone Chris Kim MD Primary Care Provider [phone] Shelia Mora MD Unavailable [phone] Mehrdad Ford MD Unavailable [phone] Reason for Visit * Reason Onset Date Comments Triage Call 04/29/2025 Encounter Details Date Type Department Care Team (Late st Contact Info) Description 04/29/2025 Telephone [facility] DUST COLLECTOR - [place] [address] [facility] [address] [place] [address] Anisa Castro, office clerk routine Call Social History Tobacco Use Types Packs/Day [...] How often do you attend chur or rastafarian services? More than 4 times per year 11/16/2022 Do you belong to any clubs o r organizations such as caodaism groups, unions, fraternal or athletic groups, or [...] Description 06/25/2025 1:00 PM EDT Hospital Encounter [facility] [address] [facility] [address] [place] [address] Mehrdad Ford MD [address] [place] [address] [address] [place] [address] 06/25/2025 2:15 PM EDT Office Visit [facility] - [place] [address] [facility] [address] [place] [address] Tracie Menendez PA-C [address] [facility] [address] [place] [address] Shelia Mora MD [address] [facility] [address] [place] [address] 12/10/2025 1:00 PM EDT Appointment [facility] [address] [place] [address] Mehrdad Ford MD [address] [place] [address] 12/10/2025 2:00 PM EDT Office Visit [facility] Breast Surgery Clinic [address] [place] [address] [address] [place] [address] Mehrdad Ford MD [address] [place], [place] [address] 05/17/2026 2:00 PM EDT Office Visit [facility] DUST COLLECTOR - [address] [place] [address] Keesha Tidwell, [address] [place] [address] documented as of this encounter Visit Diagnoses Not on filedocumented in this encounter Care Teams Contact Finger Assembler Relationship Specialty Start Date End Date Chris Kim MD [address] [place] [address] PCP - General General Internal Medicine 10/11/22 Shelia Mora MD [address] [facility] [address] [place], [place] [address] Medical Oncologist Hematology and Oncology 11/14/22 Mehrdad Ford MD [address] [facility] [address] [place], [place] [address] General Surgery 12/04/22 documented as of this encounter
--- OUTSIDE RECORDS SUMMARY | 2025-06-22 10:53 | XMS_ITS | Clinical Summary ---
Author Organization Healthcare Address [address] [place] [address] Care Team Providers Care Aquarium Specialist Name Role Phone Pcp, No Primary Care [...] needed for mild pain. Active fish oil (Houston-3) 500 MG capsule Take 500 mg by [...] Screening 1945 [facility]-Medicare Annual Wellness (AWV) 1945 [facility]-/Child/Adol SDOH Screenings 1945 [facility]-Obesity Intervention 1951 [facility]- SDOH Screenings 1963 [facility]-Adult SDOH Screenings 1963 [facility]-DTaP,Tdap,and Td Vaccines (1 - Tdap) 1964 [facility]-Zoster Vaccines (1 of 2) 1964 [facility]-RSV Vaccine: 60+ Years or (1 - 1-dose 75+ series) 2020 [id number] Vaccine ( - season) 2025 06/14/2022, 12/23/2021, [...] Payer (Ef fective 2010-Present) Name:Brooklyn Corbin Member ID:[id number] Relation to Subscriber:Self Name:Brooklyn Corbin Subscriber ID:[id number] Payer ID:MEDICARE Group ID:Not on file Type:Medicare Address: [address] [facility] [employer] [address] [place] [address] MEDICARE GENERIC COMMERCIAL Care Teams Aquarium Specialist Relationship Specialty Start Date End Date Pcp, [place] [address] [place] [address] PCP - General Family Medicine 09/17/21
--- OUTSIDE RECORDS SUMMARY | 2025-06-22 10:53 | XMS_ITS | Encounter Summary ---
Author Organization Healthcare Address [address] 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 COMMENT: Both peripheral margins are involved with tumor. The tumor is decorated by Sox-10. B. LEFT ARM, UPPER DISTAL ANTERIOR ( B, [id number]): - MALIGNANT MELANOMA IN-SITU, RE-EXCISION (SEE COMMENT). COMMENT: One peripheral margin is involved with tumor. C. LEFT ARM, UPPER DISTAL ANTERIOR ([id number]): - MALIGNANT MELANOMA, THICKNESS 0.2 MM (SEE COMMENT). COMMENT: The tumor is decorated by SOX-10. D. LEFT ARM, UPPER PROXIMAL ANTERIOR LATERAL (D, [id number]): - MALIGNANT MELANOMA IN SITU, RE-EXCISION (SEE [...] be viewed as a scanned document in [employer]. 03/31/2021 5:26 PM EDT [facility] [...] [facility] Gross Description A. OU [id number] Received along with a corresponding pathology report from Dermat[facility] are 3 slide(s) labeled outside case: [id number] collected on 08/20/2020. B. OU [id number] Received along with a corresponding pathology report from [facility]ermat[facility] are 4 slide(s) labeled outside case: [id number] collected on 09/03/2020. C. OU [id number] Received along with a corresponding pathology report from [facility]ermat[facility] are 5 slide(s) labeled outside case: [id number] collected on 11/24/2020. DFrances IZQUIERDO [id number] Received along with a corresponding pathology report from Dermatopathology [facility] are 4 slide(s) labeled outside case: [id number] collected on 12/23/2020. 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
--- OUTSIDE RECORDS SUMMARY | 2025-06-22 10:53 | XMS_ITS | Clinical Summary ---
Author Organization [employer] ([place], [place], [place], [place]) Address [address] [place] [address] Care Team Providers Care Heavy Equipment Service Technician Name Role Phone Chris Kim MD Primary Care Provider [phone] Shelia Mora MD Unavailable [phone] Mehrdad Ford MD Unavailable [phone] Allergies Active Allergy Reactions Criticality Noted Date [...] (81 mg total) by mouth. Active vit E-pyrnnnv-dtxw-rut in-hb196 (Bioflex) 335-15-01-40 mg Tab Take by mouth. 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 03/24/2021 Melanoma GERD (gastroesophageal reflux disease) Hypertension Anxiety Encounters Date Type Department Care Team Description 05/13/2025 11:00 AM EDT Office Visit [facility] DRIED YEAST SUPERVISOR - [address] [place] [address] Keesha Tidwell, Postoperative examination (Primary Dx) 05/04/2025 Telephone [facility] DRIED YEAST SUPERVISOR [facility] [address] [place] [address] Anisa Castro, RN Results 04/30/2025 1:43 PM EDT - 04/30/2025 2:46 PM EDT Surgery [facility] Surgery Department [address] [place] [address] Keesha Tidwell, HYSTEROSCOPY, WITH DILATION AND CURETTAGE, WITH POLYPECTOMY OF UTERUS 04/30/2025 1:29 PM EDT Anesthesia Event [facility] Surgery Department [address] [place] [address] Rafael Ruvalcaba, Hector Gallegos MD 04/30/2025 10:39 AM EDT - 04/30/2025 4:09 PM EDT Hospital Encounter [facility] Surgery Department [address] [place] [address] Keesha Tidwell, DO Endometrial polyp Discharge Disposition: Home or Self Care 04/29/2025 Telephone [facility]/GYN [facility] [address] [place] [address] Anisa Castro, reducer Call 04/21/2025 Telephone [facility] DRIED YEAST SUPERVISOR - [address] [facility] [address] [place] [address] Rosa Monahan, LÁZARO Results 04/20/2025 1:31 PM EDT - 04/20/2025 11:59 PM EDT Hospital Encounter [facility] Ultrasound [address] [place] [address] Keesha Tidwell, DO RLQ abdominal pain Discharge Disposition: Home or Self Care 04/10/2025 2:00 PM EDT Office Visit [facility] [address] [facility] [address] [place] [address] Keesha Tidwell, RLQ abdominal pain (Primary Dx); Use of tamoxifen (Nolvadex); Thickened endometrium; Endometrial polyp 04/10/2025 Surgery Prep [facility] [address] [facility] [address] [place] [address] Rosa Monahan RN Endometrial polyp (Primary Dx) 04/10/2025 Travel 04/07/2025 Telephone [facility] [address] [facility] [address] [place] [address] Keesha Tidwell, Appointment 03/30/2025 1:40 PM EDT Office Visit [facility] [address] [facility] [address] [place] [address] Keesha Tidwell DO Use of tamoxifen (Nolvadex) (Primary Dx); Thickened endometrium; Endometrial polyp 03/30/2025 Travel 03/27/[address] [place] [address] Keesha Tidwell, Appointment; Confirmation from Last 3 Months Family History Medical History Relation Name Comments Diabetes Brother 1 Afton Rheum arthritis Brother 2 Noel Cancer Father [place] Prostate cancer Father [place] Stroke Mother Appie Breast cancer Paternal Aunt Eleni Relation Name Status Comments Brother 1 Evgeny Brother 2 [place] Father [place] Mother Appie Paternal Aunt Eleni Social History [...] often do you attend chur ch or druze services? More than 4 times per year 11/16/2022 Do you belong to any clubs o r organizations such as jain groups, unions, fraternal or athletic groups, or [...] Date Donavon rded Speak language other than American at home Not on file 09/28/2023 Want [...] Description 06/25/2025 1:00 PM EDT Hospital Encounter [facility] [address] [facility] [address] [place] [address] Mehrdad Ford MD [address] [place] [address] 06/25/2025 2:15 PM EDT Office Visit [facility] - [address] [place] [address] Tracie Menendez PA-C [address] [place] [address] Shelia Mora MD [address] [place] [address] 12/10/2025 1:00 PM EDT Appointment [facility] [address] [place] [address] Mehrdad Ford MD [address] [place], [place] [address] 12/10/2025 2:00 PM EDT Office Visit [facility] [address] [facility] [address] [place] [address] Mehrdad Ford MD [address] [place], [place] [address] 05/17/2026 2:00 PM EDT Office Visit [facility] DRIED YEAST SUPERVISOR - [address] [place] [address] Keesha Tidwell, DO [address] [place] [address] Health Maintenance Due Date Last [...] ANESTHESIA INTUBATION Routine 04/30/2025 1:39 PM EDT AR DILATION & CURETTAGE DX&/THER NONOBSTETRIC 04/30/2025 [...] entirely on 1 block. See other report ([id number]) Tissue SPECIMEN FROM ENDOMETRIUM OBTAINED BY CURETTAGE / Unknown 04/30/2025 1:51 PM EDT Tissue specimen (specimen) POLYP / Unknown 04/30/2025 1:51 PM EDT us Keesha Tidwell DO PATHOLOGY/CYTOLOGY ORDERABLES Fi nal Result [facility] [address] [place] [address] * AN SINGLE LUMEN INTUBATION (04/30/2025 1:39 [...] - 110 mg/dL 04/30/2025 11:29 AM EDT [facility] Comment:In the event of poor peripheral blood flow, venous or arterial blood should be used due to the potential of erroneous results. Antenna Engineer [id number] 04/30/2025 11:29 AM EDT [facility] Blood WHOLE BLOOD / Unknown 04/30/2025 11:23 AM EDT 04/30/2025 11:29 AM EDT Narrative [facility] - 04/30/2025 11:29 AM EDT Antenna Engineer ID is - [id number] us Keesha Tidwell DO POINT OF CARE TEST ORDERABLES Fi nal Result [facility] [address] [phone] * Ultrasound non-ob transvaginal (04/20/2025 2:03 PM [...] by Liliam Edwards PA-C. Shelia Mora MD IMG DXA ORDERABLES Final Resul t from Last 3 Months or Most Recently Relevant to Health Maintenance Insurance MEDIC[place] [address] Advance Directives For more information, please contact: [phone] * Full Code (Latest Code Status on File) Date Activated Date Inactivated Comments 04/30/2025 10:14 AM 04/30/2025 5:24 PM Care Teams Heavy Equipment Service Technician Relationship Specialty Start Date End Date Chris Kim MD [address] [place] [address] [place] [address] PCP - General General Internal Medicine 10/11/22 Shelia Mora MD [address] [facility] [address] [place] [address] Medical Oncologist Hematology and Oncology 11/14/22 Mehrdad Ford MD [address] [facility] [address] [place] [address] General Surgery 12/04/22
--- OUTSIDE RECORDS SUMMARY | 2025-06-22 10:53 | XMS_ITS | Encounter Summary ---
Author Organization [employer] ([place], [place], [place], [place]) Address [address] [place] [address] Care Team Providers Care Entry Level Lab Technician Name Role Phone Chris Kim MD Primary Care Provider [phone] Shelia Mora MD Unavailable [phone] Mehrdad Ford MD Unavailable [phone] Reason for Visit * Reason Onset Date Comments Results 05/04/2025 Encounter Details Date Type Department Care Team (Late st Contact Info) Description 05/04/2025 Telephone [facility] MARBLEIZER - [place] [address] [facility] [address] [place] [address] Anisa Castro, RN Results Social History [...] How often do you attend chur or baptism services? More than 4 times per year 11/16/2022 Do you belong to any clubs o r organizations such as anabaptism groups, unions, fraternal or athletic groups, or [...] Date Donavon rded Speak language other than Faroese at home Not on file 09/28/2023 Want [...] Description 06/25/2025 1:00 PM EDT Hospital Encounter [facility] [address] [facility] [address] [place] [address] Mehrdad Ford MD [address] [place] [address] 06/25/2025 2:15 PM EDT Office Visit [facility] [address] [facility] [address] [place] [address] Tracie Menendez PA-C [address] [place] [address] Shelia Mora MD [address] [place] [address] 12/10/2025 1:00 PM EDT [facility]ointment [facility] [address] [facility] [address] [place] [address] Mehrdad Ford MD [address] [place] [address] 12/10/2025 2:00 PM EDT Office Visit [facility] [address] [facility] [address] [place] [address] Mehrdad Ford MD [address] [place] [address] 05/17/2026 2:00 PM EDT Office Visit [facility] MARBLEIZER - [address] [place] [address] Keesha Tidwell, [address] [place] [address] documented as of this encounter Visit Diagnoses Not on filedocumented in this encounter Care Teams Entry Level Lab Technician Relationship Specialty Start Date End Date Chris Kim MD [address] [place] [address] [place] [address] PCP - General General Internal Medicine 10/11/22 Shelia Mora MD [address] [facility] [address] [place] [address] Medical Oncologist Hematology and Oncology 11/14/22 Mehrdad Ford MD [address] [facility] [address] [place], [place] [address] General Surgery 12/04/22 documented as of this encounter
--- OUTSIDE RECORDS SUMMARY | 2025-06-22 10:53 | XMS_ITS | Encounter Summary ---
Author Organization [employer] ([place], [place], [place], [place]) Address [address] [place] [address] Care Team Providers Care Boat Loader Helper Name Role Phone Chris Kim MD Primary Care Provider [phone] Shelia Mora MD Unavailable [phone] Liliam Raman RN Unavailable Unavailable Mehrdad Ford MD Unavailable [phone] Reason for Referral * Mammography (Routine) - Closed Specialty Diagnoses / Procedures Referred By Contac t Referred To Contact Diagnoses Malignant neoplasm of right female breast, unspecified estrogen receptor status, unspecified site of breast (HCC) Procedures MM digital mammo diagnostic with sylvain right Mehrdad Ford MD [address] [place] [address] Phone: tel: fax: Referral ID Status Reason Start Date Expiration Date Visits Re quested Visits Authorized [id number] Closed 11/22/2022 05/21/2023 1 1 Encounter Details Date Type Department Care Team (Late st Contact Info) Description 11/22/2022 Outside Orders [facility] Breast Care [address] [place] [address] Mehrdad Ford MD [address] [place] [address] Malignant neoplasm of right female breast, unspecified [...] often do you attend chur ch or confucianism services? More than 4 times per year [...] Description 06/25/2025 1:00 PM EDT Hospital Encounter [facility] [address] [facility] [address] [place] [address] Mehrdad Ford MD [address] [facility] [address] [place] [address] 06/25/2025 2:15 PM EDT Office Visit [facility] [address] [facility] [address] [place] [address] Tracie Menendez PA-C [address] [facility] [address] [place] [address] Shelia Mora MD [address] [facility] [address] [place] [address] 12/10/2025 1:00 PM EDT Appointment [facility] [address] [place] [address] Mehrdad Ford MD [address] [facility] [address] [place], [place] [address] 12/10/2025 2:00 PM EDT Office Visit [facility] [address] [facility] [address] [place] [address] Mehrdad Ford MD [address] [place], [place] [address] 05/17/2026 2:00 PM EDT Office Visit [facility] TECHNICAL DEVELOPER - [address] [place] [address] Keesha Tidwell, DO [address] [place] [address] documented as of this encounter [...] follow-up bilateral mammogram At our facility, a [place] marker is positioned over a visible skin [...] family history of breast cancer COMPARISON STUDY: [facility] [place] 11/28/2022 11/15/2022, 11/01/2022, 10/26/2022, 10/11/2022, 10/10/2021 FINDINGS: [...] (HCC) documented in this encounter Care Teams Boat Loader Helper Relationship Specialty Start Date End Date Chris Kim MD [address] [place] [address] PCP - General General Internal Medicine 10/11/22 Shelia Mora MD [address] [facility] [address] [place] [address] Medical Oncologist Hematology and Oncology 11/14/22 Case, Liliam Nye, RN Nurse Navigator 11/14/22 03/16/24 Mehrdad Ford MD General Surgery 12/04/22 documented as of this encounter
--- NOTE | 2025-06-22 11:13 | CT_ITS ---
FINAL REPORT TECHNIQUE: Thin section axial images were obtained through the abdomen after intravenous contrast. Reconstruction images were obtained from the axial data. This study was performed with techniques to keep radiation doses as low as reasonably achievable, (ALARA). Individualized dose reduction techniques using automated exposure control or adjustment of mA and/or kV according to the patient's size were employed. CLINICAL HISTORY: left lower abdominal pain COMPARISON: 05/13/2024 FINDINGS: There is worsening right middle lobe atelectasis. The lung bases are otherwise clear. The liver is homogeneous. No focal lesion is identified. The gallbladder is present. The spleen and adrenal glands are unremarkable. There is no evidence of pancreatitis or mass. A very small hypodense renal lesion may be a cyst. There is no evidence of small bowel obstruction. The appendix is dilated at 10 mm. There is subtle wall thickening. This is a change from the prior exam. There is mild fluid distention at the remainder of the colon. The uterus and ovaries are unremarkable for age. There is no abdominal or pelvic lymphadenopathy. There is no free fluid. No acute osseous abnormalities identified. IMPRESSION: Dilated appendix with possible wall thickening, early appendicitis not excluded. Fluid distention of the colon. Mild colitis could have this appearance. Please correlate with any history of diarrhea. Reviewed, Interpreted and Dictated by Matilda Baker MD Transcribed by Dayanara Shah Authenticated and [facility]
--- NOTE | 2025-06-22 11:15 | ED_ITS ---
<Statement entered by Austin Moncada DO - 06/23/25 07:28> I was consulted by the SALMA, and we discussed the complexity of problems being addressed. I approved the treatment and management plan for this patient's care in the emergency department, thus performing a substantive portion of the medical decision making. This is an elderly 79-year-old female patient who presented to the emergency department with lower abdominal pain. CT scan showed findings of colitis as well as thickening and dilation of the appendix. She did have focal right lower quadrant abdominal tenderness. Dr. Londono of the general surgery service was consulted and evaluated the patient in the emergency department. He offered admission to the patient for serial abdominal exams and possible necessity for surgery. The patient did not want to stay overnight in the hospital. Therefore Dr. Londono requested that the patient follow-up in his clinic first thing in the morning for a serial abdominal exam and further monitoring. Shared decision making discussion was held with the patient and she acknowledged understanding of risks and benefits. She still wished to proceed with discharge home. Patient was discharged stable condition Austin Moncada DO Discharge Plan Disposition Patient Disposition: Home, Self-Care Prescriptions Prescriptions: No Action venlafaxine 37.5 mg capsule,extended release 24hr PO tamoxifen 20 mg tablet 20 mg PO DAILY polyethylene glycol 3350 [Miralax] 17 gram/dose powder 17 g PO DAILY rsjehifwsnsc-Sf-dtcw-minerals 18-0.4 mg tablet PO acetaminophen [Tylenol] 325 mg tablet 325 mg PO QID PRN Saccharomyces boulardii [Daily Probiotic (S. boulardii)] 250 mg capsule 250 mg PO BID Zyrtec 10 mg capsule 10 mg PO DAILY PRN simethicone [Gas-X Extra Strength] 125 mg capsule 125 mg PO QD-BID PRN Konsyl Sugar-Free 6 gram/6 gram powder 1 tbsp PO DAILY Rx Instructions: mix into at least 8 oz of water or juice before administering dicyclomine 10 mg capsule 10 mg PO BID PRN (Reason: abdominal pain) Qty: 180 3RF buspirone 10 mg tablet 10 mg PO BID Qty: 180 3RF chlordiazepoxide HCl 10 mg capsule 10 mg PO TID PRN (Reason: anxiety) Qty: 90 1RF ciprofloxacin HCl 250 mg tablet 250 mg PO BID Qty: 6 0RF lisinopril-hydrochlorothiazide 20-25 mg tablet See Rx Instructions .ROUTE .COMPLEX Qty: 90 1RF Dose Instruction: TAKE 1 TABLET EVERY MORNING Rx Instructions: TAKE 1 TABLET EVERY MORNING atorvastatin 40 mg tablet See Rx Instructions .ROUTE .COMPLEX Qty: 90 1RF Dose Instruction: TAKE 1 TABLET AT BEDTIME Rx Instructions: TAKE 1 TABLET AT BEDTIME omeprazole 20 mg capsule,delayed release(DR/EC) See Rx Instructions .ROUTE .COMPLEX Qty: 90 1RF Dose Instruction: TAKE 1 CAPSULE EVERY MORNING Rx Instructions: TAKE 1 CAPSULE EVERY MORNING amlodipine 5 mg tablet 5 mg PO DAILY Qty: 90 1RF lidocaine 5 % adhesive patch,medicated 1 patch topical DAILY Qty: 30 0RF Rx Instructions: leave on most painful area for up to 12 hrs Referrals Follow up/Referrals: Terrance Londono MD [Staff Physician, General Surgery] - See instructions Chris Kim MD [Primary Care Provider, Medical] - See instructions Activity Restrictions/Add. Instructions Additional Instructions/Restrictions: Increase fluids and rest. Please be n.p.o. after midnight as per Dr. Londono's instructions. Your appointment is at 8:[address] Londono's office in the morning. You are to go to the lab prior to the office visit in the morning. Report to the outpatient registration in the morning and they will send you to the lab. If you have any problems or concerns overnight please return to the ER immediately. Clinical Impressions Clinical Impression: Colitis Instructions Patient Instructions: DI for Acute Abdominal Pain, DI for Colitis Print Language Print Language: Qatari Discharge ED Provider: Austin Moncada Adult HPI General Chief complaint: Abdominal Pain Stated complaint: Pain in L Side Time Seen by Provider: 06/22/25 10:46 Mode of Arrival: Ambulatory Source of Information: Patient Description of Symptoms (Recalled from ER Triage Doc. by RN): Patient reports left sided lower abdomen pain that started Sunday. States that she is having diarrhea and that she thinks that her diverticulosis is acting up. History of Present Illness HPI narrative: 79-year-old female presents to the ED today for complaint of left lower quadrant abdominal pain that started on Sunday. She has had some diarrhea and thinks her diverticulitis is acting up. She had a colonoscopy 3-1/[address] Martines. That is the last time she saw him. States that she has had nausea but no vomiting. Pain does increase when she moves. She has been taken Konsyl and MiraLAX. She took some Tylenol this morning at 8 AM. Otherwise no symptoms Related Data Home Medications ?Medication ?Instructions ?Recorded ?Confirmed venlafaxine 37.5 mg mg PO 05/13/24 06/04/25 capsule,extended release 24 hr tamoxifen 20 mg tablet 20 mg PO DAILY 07/03/2405/18 Saccharomyces boulardii 250 mg 250 mg PO BID 07/24/24 06/04/25 capsule (Daily Probiotic (S. boulardii)) acetaminophen 325 mg tablet 325 mg PO QID PRN 07/24/24 06/04/25 (Tylenol) cetirizine 10 mg capsule (Zyrtec) 10 mg PO DAILY PRN 1 09/23/23 06/04/25 hxwwvvozolfj-Vd-npqs-minerals 18 tab PO 07/24/2406/04 mg-0.4 mg tablet polyethylene glycol 3350 17 17 g PO DAILY 07/24/24 gram/dose oral powder (Miralax) simethicone 125 mg capsule (Gas-X 125 mg PO QD-BID PRN 07/24/24 06/04/25 Extra Strength) psyllium husk 6 gram/6 gram oral 1 tbsp PO DAILY 01/2106/04/25 powder (Konsyl Sugar-Free) Previous Rx's ?Medication ?Instructions ?Recorded lidocaine 5 % topical patch 1 patch topical DAILY #30 ea 12/26/24 buspirone 10 mg tablet 10 mg PO BID #180 tabs 01/21 dicyclomine 10 mg capsule 10 mg PO BID PRN abdominal p ain 01/21/25 #180 caps atorvastatin 40 mg tablet See Rx Instructions .Route 0 03/26/25 .COMPLEX #90 tabs lisinopril 20 See Rx Instructions .Route 0 03/26/25 mg-hydrochlorothiazide 25 mg tablet .COMPLEX #90 tabs ciprofloxacin HCl 250 mg tablet 250 mg PO BID For UTI #6 tabs 04/29/25 omeprazole 20 mg capsule,delayed See Rx Instructions . Route 05/22/25 release .COMPLEX #90 caps amlodipine 5 mg tablet 5 mg PO DAILY #90 tabs 06/04 chlordiazepoxide HCl 10 mg capsule 10 mg PO TID PRN an xiety #90 caps 06/04/25 Allergies Allergy/AdvReac Type Severity Reaction Status Date / Time No Known Allergies Allergy Verified 06/04/25 09:15 [facility] Disclaimer: The information contained in this section may have been updated after the patient was seen, as this information can be updated by other users. Medical History Hyperlipidemia Carotid artery disease Hypertension History of melanoma History of breast cancer Irritable bowel syndrome Anxiety disorder Hyponatremia Functional dyspepsia Small intestinal bacterial overgrowth (SIBO) Surgical History History of lumpectomy of right breast H/O tubal ligation Family History Father Prostate cancer Social History Smoking Status: Never smoker alcohol intake: never current occupational status: retired Travel in the last 8 weeks?: None Other Medical History Have you received the Flu Vaccine for this season: No Have you received the Pneumonia Vaccine: Yes ROS Obtained: Yes Systems reviewed as appropriate & no additional complaints except as documented Constitutional Constitutional: Reports as per HPI Physical Exam General General appearance: alert Head Head exam: normocephalic Eye Eye exam: Present PERRL and EOMI ENT ENT exam: Present normal oropharynx and mucous membranes moist Neck Neck exam: Present full ROM and trachea midline Respiratory Respiratory exam: Present normal lung sounds bilaterally Cardiovascular Cardiovascular exam: Present regular rate, normal rhythm, normal heart sounds, +S1 and +S2 Abdominal Exam Abdominal exam: Present normal bowel sounds Abdominal tenderness: Present RLQ and LLQ Extremities Exam Extremities exam: Present normal inspection, full ROM and normal capillary refill Neurological Exam Neurological exam: Present alert, oriented X3 and normal gait Skin Skin exam: Present warm, dry and intact Medical Decision Making Medical Records Screening: Per USPSTF and CDC recommendations, given the prevalence of disease in our region, it is our hospital?s policy to screen for HIV and viral Hepatitis for all patients aged 18 and over and those with ongoing risk factors. Baljeet Inquiry Pt receiving controlled substance: No Baljeet was queried for this patient: No Vital Signs: 06/22/25 10:58 06/22/25 11:00 06/22/25 11:00 Temperature 98.1 F Temperature Source Oral Pulse Rate 88 80 Pulse Rate [Radial] 90 Respiratory Rate 16 Blood Pressure 132/69 138/67 Blood Pressure [Left Arm] 132/69 Blood Pressure Mean Blood Pressure Mean [Left Arm] 90 Blood Pressure Source Blood Pressure Source [Left Arm] Automatic Cuff Blood Pressure Position Blood Pressure Position [Left Arm] Sitting 02 Sat by Pulse Oximetry 98 99 100 Oxygen Delivery Method Room Air 06/22/25 11:44 06/22/25 12:00 06/22/25 12:31 Temperature Temperature Source Pulse Rate 67 66 68 Pulse Rate [Radial] Respiratory Rate Blood Pressure 143/67 H 148/69 H 157/66 H Blood Pressure [Left Arm] Blood Pressure Mean Blood Pressure Mean [Left Arm] Blood Pressure Source Blood Pressure Source [Left Arm] Blood Pressure Position Blood Pressure Position [Left Arm] 02 Sat by Pulse Oximetry 96 100 99 Oxygen Delivery Method 06/22/25 13:01 06/22/25 13:30 06/22/25 14:00 Temperature Temperature Source Pulse Rate 65 65 65 Pulse Rate [Radial] Respiratory Rate Blood Pressure 145/70 H 148/65 H 135/69 Blood Pressure [Left Arm] Blood Pressure Mean 102 Blood Pressure Mean [Left Arm] Blood Pressure Source Blood Pressure Source [Left Arm] Blood Pressure Position Blood Pressure Position [Left Arm] 02 Sat by Pulse Oximetry 98 100 98 Oxygen Delivery Method 06/22/25 14:30 06/22/25 14:38 Temperature 98.2 F Temperature Source Oral Pulse Rate 66 72 Pulse Rate [Radial] Respiratory Rate 18 Blood Pressure 139/60 139/60 Blood Pressure [Left Arm] Blood Pressure Mean 99 Blood Pressure Mean [Left Arm] Blood Pressure Source Automatic Cuff Blood Pressure Source [Left Arm] Blood Pressure Position Sitting Blood Pressure Position [Left Arm] 02 Sat by Pulse Oximetry 96 Oxygen Delivery Method Room Air Lab Data Lab Results 06/22/25 10:57: Urine Color Yellow, Urine Appearance Slightly cloudy, Urine pH 6.0, Ur Specific [place] 1.025, Urine Protein 1+ A, Urine Glucose (UA) Negative, Urine Ketones Negative, Urine Blood Trace-i, Urine Nitrate Negative, Urine Bilirubin Negative, Urine Urobilinogen 0.2, Ur Leukocyte Esterase Negative, Urine RBC Occasional, Urine WBC 3-5, Ur Squamous Epith Cells 5-10, Urine Bacteria Trace, Hyaline Casts Occ, Urine Mucus 1+ 06/22/25 11:11: WBC 7.8, RBC 3.63 L, Hgb 11.9 L, Hct 35.4 L, MCV 97.5, MCH 32.8 H, MCHC 33.6, RDW 12.9, Plt Count 192, MPV 10.3, Neut % (Auto) 66.7, Lymph % (Auto) 25.1, [place] % (Auto) 6.3, Eos % (Auto) 1.3, Baso % (Auto) 0.3, Neut # (Auto) 5.2, Lymph # (Auto) 2.0, [place] # (Auto) 0.5, Eos # (Auto) 0.1, Baso # (Auto) 0.0, Sodium 130 L, Potassium 3.8, Chloride 96 L, Carbon Dioxide 25, Anion Gap 12.8, BUN 11, Creatinine 1.00, Estimated Creat Clear 59, Estimated GFR 53 L, Est GFR ( Amer) 65, Glucose 156 H, Calcium 9.0, Magnesium 1.8, Total Bilirubin 1.0, AST 38 H, ALT 31, Alkaline Phosphatase 79, Troponin I < 0.01, Total Protein 6.3, Albumin 4.1, Globulin 2.2, Albumin/Globulin Ratio 1.9 H, Lipase 78, HCV Ab XUAN w/Rflx PCR Qn Negative, HIV Ag/Ab Combo Qual Negative 06/22/25 11:11 06/22/25 11:11 Orders (Tests/Meds): ED MEDICATIONS Discontinued Medications Generic Name Dose Route Start Last Admin Trade Name Freq PRN Reason Stop Dose Admin Famotidine 20 mg 06/22/25 11:12 06/22/25 11:26 Famotidine 20mg/2ml Vial IV 06/22/25 11:13 20 mg ONCE ONE Administration Sodium Chloride 1,000 mls @ 999 mls/hr 06/22/25 11:12 06/22/25 13:49 Sod Chlor 0.9% 1000ml Bag IV 06/22/25 12:12 Infused .Q1H1M ONE Infusion Iopamidol 75 ml 06/22/25 12:25 06/22/25 12:25 Iopamidol-370 (76%);100ml Bottle IV 06/22/25 12:26 75 ml ONCE ONE Administration Ketorolac Tromethamine 30 mg 06/22/25 11:12 06/22/25 11:26 Ketorolac 30mg/Ml Vial IV 06/22/25 11:13 30 mg ONCE ONE Administration Ondansetron HCl 4 mg 06/22/25 11:12 06/22/25 11:26 Ondansetron 4mg/2ml Vial IV 06/22/25 11:13 4 mg ONCE ONE Administration Sodium Chloride 8 ml 06/22/25 11:12 06/22/25 11:26 Sodium Chloride 0.9% 10ml Vial IV 07/22/25 11:11 8 ml NEEDED PRN Administration dilute pepcid Sodium Chloride 10 ml 06/22/25 12:25 06/22/25 12:25 Sodium Chloride 0.9% 10ml Syr (Rad Only) IV 06/22/25 12:26 10 ml ONCE ONE Administration ORDERS Category Date Time Status CT abdomen pelvis w con Stat Cat Scan 06/22/25 11:13 Completed CBC [Complete Blood Count Auto Diff] Stat Lab 06/22/25 11:11 Completed Comprehensive Metabolic Panel Stat Lab 06/22/25 11:11 Completed HIV Combo Stat Lab 06/22/25 11:11 Completed Hepatitis C Ab Qual. W/ RFX Stat Lab 06/22/25 11:11 Completed Lipase Stat Lab 06/22/25 11:11 Completed Magnesium Stat Lab 06/22/25 11:11 Completed Trop I [Troponin I] Stat Lab 06/22/25 11:11 Completed Urinalysis and Microscopic Stat Lab 06/22/25 10:57 Completed Medical Decision Narrative: patient is a 79-year-old female presenting to the emergency department for evaluation of left lower quadrant abdominal pain. Patient is hemodynamically stable and nontoxic-appearing upon arrival, afebrile. Differential diagnosis includes diverticulitis, gastritis, viral illness, and appendicitis, among others. Workup will be conducted with hematologic labs, specific imaging. Initial inventions include crystalloid bolus, analgesics. Initial workup reviewed by me hematologic labs are remarkable for white count of 7.8, AST was 38, otherwise labs are nonactionable. CT scan showed appendix dilated at 10 mm and a subtle wall thickening. There is mild fluid distention of the remainder of the colon. Mild colitis could have this appearance. I called Dr. Londono at [phone] and spoke with him about this finding. He he says he is going to come see the patient. Dr. Londono came in and saw patient. He wants to see patient tomorrow in his office at 8:45 AM. He also wants blood work to be repeated before he sees her. Patient is to return to the ER if any worsening symptoms occur. Patient and Dr. Londono had conversation about this. Patient is safe for discharge home with return precautions. Dr. Londono offered admission but patient wanted to go home. Critical Care Critical Care Time Critical Care Time: No
[2025-06-22 11:21] LABS: Microscopic, Urine URINE MICROSCOPIC (MICROSCOPIC)
[2025-06-22] MEDS: 0.9 % SODIUM CHLORIDE 1000ML 1,000 ML 999 ML IV (11:25)
[2025-06-22] MEDS: ONDANSETRON 4MG/2ML VIAL 4 MG IV (11:26)
[2025-06-22] MEDS: KETOROLAC 30MG/ML VIAL 30 MG IV (11:26)
[2025-06-22] MEDS: FAMOTIDINE 20MG/2ML VIAL 20 MG IV (11:26)
[2025-06-22] MEDS: SODIUM CHLORIDE 0.9% 10ML VIAL 8 ML IV (11:26)
[2025-06-22 11:37] LABS: Alanine Aminotransferase 31 U/L (12-78); Albumin Level 4.1 g/dl (3.5-5.0); Albumin/Globulin Ratio 1.9 (1.1-1.8); Alkaline Phosphatase 79 U/L (38-126); Anion Gap 12.8 mEq/L (5-15); Aspartate Amino Transferase 38 U/L (14-36); Bilirubin,Total 1.0 mg/dl (0.2-1.3); Blood Urea Nitrogen 11 mg/dl (7-17); Calcium 9.0 mg/dl (8.4-10.2); Carbon Dioxide 25 mmol/L (22.0-30.0); Chloride 96 mmol/L (98-107); Creatinine Clearance Estimated 59 mL/min (50-200); Creatinine,Serum 1.00 mg/dl (0.52-1.04); Estimated Glomerular Filt Rate 53 ml/min (>60); GFR (African American) 65 ML/MIN (>60); Globulin 2.2 g/dL (1.3-3.2); Glucose 156 mg/dl (74-100); Lipase 78 U/L (23-300); Magnesium 1.8 mg/dl (1.6-2.3); Potassium 3.8 mmoL/L (3.5-5.1); Sodium 130 mmol/L (136-145); Total Protein,Serum 6.3 g/dl (6.3-8.2)
--- NOTE | 2025-06-22 11:42 | ECG_ITS ---
APPROVED REPORT Exam: Resting ECG HR:63 bpm ECG Measurements Heart Rate 63 AXES VT 177 P 73 QRSd 84 QRS 80 QT 418 T 76 QTc 426 Conclusion Normal sinus rhythm Normal axis Normal intervals No STEMI Electronically signed by : Austin Moncada, 06/22/2025 15:48:52
[2025-06-22 11:43] LABS: Hematocrit 35.4 % (37.0-47.0); Hemoglobin 11.9 g/dL (12.2-16.2); Immature Granulocytes % 0.3 %; Mean Corpuscular HGB Conc 33.6 g/dL (31.8-35.4); Mean Corpuscular Hemoglobin 32.8 pg (27.0-31.2); Mean Corpuscular Volume 97.5 fl (81-99); Nucleated Red Blood Cells % 0 %; Platelet Count 192 K/mm3 (142-424); Red Blood Count 3.63 M/mm3 (4.20-5.40); Red Cell Distribution Width-SD 46.3 fL; White Blood Count 7.8 K/mm3 (4.8-10.8)
[2025-06-22 12:04] LABS: Troponin I < 0.01 ng/ml (0.00-0.034)
[2025-06-22 12:14] LABS: Bilirubin,Urine Negative (Negative); Color,Urine YELLOW (Yellow); Glucose,Urine (UA) Negative (Negative); Ketones,Urine Negative (Negative); Leukocyte Esterase,Urine Negative (Negative); PH,Urine 6.0 (5.0-8.5); Protein,Urine 1+ (Negative); Specific Gravity, Urine 1.025 (1.005-1.030); Urobilinogen,Urine 0.2 EU/dl (0.2)
[2025-06-22] MEDS: IOPAMIDOL-370 (76%);100ML BOTTLE 75 ML IV (12:25)
[2025-06-22] MEDS: SODIUM CHLORIDE 0.9% 10ML SYR (RAD ONLY) 10 ML IV (12:25)
[2025-06-22 12:33] LABS: Hepatitis C Ab Qual. W/ RFX NEGATIVE (Negative)
--- NOTE | 2025-06-22 13:34 | PC.NURSE ---
Had surgery paged to [phone] to speak with [employer] Isela Javier. about this pt
[2025-06-22 13:38] LABS: Bacteria,Urine Trace /lpf; Hyaline Casts,Urine OCC #/lpf (0); Mucus,Urine 1+ /lpf; RBC,Urine Occasional #/hpf (0-3)
--- NOTE | 2025-06-22 14:00 | P.CONS_ITS ---
History of Present Illness *Admission Date: 06/22/25 *Reason for visit:: Abdominal pain *History of present illness: Patient is a 79-year-old female with a history of irritable bowel syndrome, dyspepsia, melanoma, breast cancer, hyperlipidemia who presented to the emergency department today on 06/22/2025 with complaints of left-sided lower abdominal pain since 06/17/2025. She has a known history of diverticulosis. She has been having diarrhea. Last colonoscopy was 3-1/[address] Martines at which time she had a couple of tubular adenomas and left-sided diverticulosis. She is on Konsyl and MiraLAX. She has been followed in the digestive health clinic with Paulina edmonds. She has had intermittent left lower quadrant and right lower quadrant discomfort for at least a couple of months. She states that over the past 5 days she has had this left-sided pain and felt that this may be a diverticular disease flareup. She also has felt like she had incomplete evacuation and had doubled her Konsyl and MiraLAX. Due to the persistence of the pain she presented to the emergency department. Evaluation in the emergency department reveals normal white blood cell count of 7800 with normal differential. She had a CT scan performed which revealed dilated appendix with possible wall thickening and early appendicitis could not be excluded. There was fluid distention of the colon which could be indicative of mild colitis. [facility] Disclaimer: The information contained in this section may have been updated after the patient was seen, as this information can be updated by other users. Medical History Hyperlipidemia Carotid artery disease Hypertension History of melanoma History of breast cancer Irritable bowel syndrome Anxiety disorder Hyponatremia Functional dyspepsia Small intestinal bacterial overgrowth (SIBO) Surgical History History of lumpectomy of right breast H/O tubal ligation Family History Father Prostate cancer Social History Smoking Status: Never smoker alcohol intake: never current occupational status: retired Travel in the last 8 weeks?: None Meds Home Medications and Allergies Home Medications ?Medication ?Instructions ?Recorded ?Confirmed ?Type venlafaxine 37.5 mg mg PO 05/13/24 06/04/25 Hist ory capsule,extended release 24 hr tamoxifen 20 mg tablet 20 mg PO DAILY 07/03/2405/18 History Saccharomyces boulardii 250 mg 250 mg PO BID 07/24/24 06/04/25 History capsule (Daily Probiotic (S. boulardii)) acetaminophen 325 mg tablet 325 mg PO QID PRN 07/24/24 06/04/25 History (Tylenol) cetirizine 10 mg capsule (Zyrtec) 10 mg PO DAILY PRN 1 09/23/23 06/04/25 History bxlkucpwylqo-Lh-omdk-minerals 18 tab PO 07/24/2406/04 History mg-0.4 mg tablet polyethylene glycol 3350 17 17 g PO DAILY 07/24/24 History gram/dose oral powder (Miralax) simethicone 125 mg capsule (Gas-X 125 mg PO QD-BID PRN 07/24/24 06/04/25 History Extra Strength) lidocaine 5 % topical patch 1 patch topical DAILY #30 ea 12/26/24 06/04/25 Rx buspirone 10 mg tablet 10 mg PO BID #180 tabs 01/2106/04/25 Rx dicyclomine 10 mg capsule 10 mg PO BID PRN abdominal p ain 01/21/25 06/04/25 Rx #180 caps psyllium husk 6 gram/6 gram oral 1 tbsp PO DAILY 01/2106/04/25 History powder (Konsyl Sugar-Free) atorvastatin 40 mg tablet See Rx Instructions .Route 0 03/26/25 06/04/25 Rx .COMPLEX #90 tabs lisinopril 20 See Rx Instructions .Route 0 03/26/25 06/04/25 Rx mg-hydrochlorothiazide 25 mg tablet .COMPLEX #90 tabs ciprofloxacin HCl 250 mg tablet 250 mg PO BID For UTI #6 tabs 04/29/25 06/04/25 Rx omeprazole 20 mg capsule,delayed See Rx Instructions . Route 05/22/25 06/04/25 Rx release .COMPLEX #90 caps amlodipine 5 mg tablet 5 mg PO DAILY #90 tabs 06/0406/04/25 Rx chlordiazepoxide HCl 10 mg capsule 10 mg PO TID PRN an xiety #90 caps 06/04/25 06/04/25 Rx New Prescriptions to Start Prescriptions: Allergies Allergy/AdvReac Type Severity Reaction Status Date / Time No Known Allergies Allergy Verified 06/04/25 09:15 Exam (Inpt) Vital signs and Labs for Last 24 Hours: Temp Pulse Resp BP Pulse Ox O2 Del Method 98.1 F 65 16 148/65 H 100 Room Air 06/22/25 11:00 06/22/25 13:30 06/22/25 11:00 06/22/25 13:30 06/22/25 13:30 06/22/25 11:00 Laboratory Results - last 24 hr 06/22/25 10:57: Urine Color Yellow, Urine Appearance Slightly cloudy, Urine pH 6.0, Ur Specific [place] 1.025, Urine Protein 1+ A, Urine Glucose (UA) Negative, Urine Ketones Negative, Urine Blood Trace-i, Urine Nitrate Negative, Urine Bilirubin Negative, Urine Urobilinogen 0.2, Ur Leukocyte Esterase Negative, Urine RBC Occasional, Urine WBC 3-5, Ur Squamous Epith Cells 5-10, Urine Bacteria Trace, Hyaline Casts Occ, Urine Mucus 1+ 06/22/25 11:11: WBC 7.8, RBC 3.63 L, Hgb 11.9 L, Hct 35.4 L, MCV 97.5, MCH 32.8 H, MCHC 33.6, RDW 12.9, Plt Count 192, MPV 10.3, Neut % (Auto) 66.7, Lymph % (Auto) 25.1, [place] % (Auto) 6.3, Eos % (Auto) 1.3, Baso % (Auto) 0.3, Neut # (Auto) 5.2, Lymph # (Auto) 2.0, [place] # (Auto) 0.5, Eos # (Auto) 0.1, Baso # (Auto) 0.0, Sodium 130 L, Potassium 3.8, Chloride 96 L, Carbon Dioxide 25, Anion Gap 12.8, BUN 11, Creatinine 1.00, Estimated Creat Clear 59, Estimated GFR 53 L, Est GFR ( Amer) 65, Glucose 156 H, Calcium 9.0, Magnesium 1.8, Total Bilirubin 1.0, AST 38 H, ALT 31, Alkaline Phosphatase 79, Troponin I < 0.01, Total Protein 6.3, Albumin 4.1, Globulin 2.2, Albumin/Globulin Ratio 1.9 H, Lipase 78, HCV Ab XUAN w/Rflx PCR Qn Negative, HIV Ag/Ab Combo Qual Negative I & O for Labs for Last 24 Hours: Intake & Output 06/20/25 06/21/25 06/22/25 06/23/25 11:59 11:59 11:59 11:59 Intake Total 1000 / 1000 Balance 1000 / 1000 Weight 180 lb Constitutional: no acute distress GI: Present soft Comments:: Mild tenderness without guarding in the left lower quadrant. Subjective discomfort to deep palpation on the right. No guarding or rebound. Results Labs 06/22/25 11:11 06/22/25 11:11 Labs: Laboratory Results - last 24 hr 06/22/25 10:57: Urine Color Yellow, Urine Appearance Slightly cloudy, Urine pH 6.0, Ur Specific [place] 1.025, Urine Protein 1+ A, Urine Glucose (UA) Negative, Urine Ketones Negative, Urine Blood Trace-i, Urine Nitrate Negative, Urine Bilirubin Negative, Urine Urobilinogen 0.2, Ur Leukocyte Esterase Negative, Urine RBC Occasional, Urine WBC 3-5, Ur Squamous Epith Cells 5-10, Urine Bacteria Trace, Hyaline Casts Occ, Urine Mucus 1+ 06/22/25 11:11: WBC 7.8, RBC 3.63 L, Hgb 11.9 L, Hct 35.4 L, MCV 97.5, MCH 32.8 H, MCHC 33.6, RDW 12.9, Plt Count 192, MPV 10.3, Neut % (Auto) 66.7, Lymph % (Auto) 25.1, [place] % (Auto) 6.3, Eos % (Auto) 1.3, Baso % (Auto) 0.3, Neut # (Auto) 5.2, Lymph # (Auto) 2.0, [place] # (Auto) 0.5, Eos # (Auto) 0.1, Baso # (Auto) 0.0, Sodium 130 L, Potassium 3.8, Chloride 96 L, Carbon Dioxide 25, Anion Gap 12.8, BUN 11, Creatinine 1.00, Estimated Creat Clear 59, Estimated GFR 53 L, Est GFR ( Amer) 65, Glucose 156 H, Calcium 9.0, Magnesium 1.8, Total Bilirubin 1.0, AST 38 H, ALT 31, Alkaline Phosphatase 79, Troponin I < 0.01, Total Protein 6.3, Albumin 4.1, Globulin 2.2, Albumin/Globulin Ratio 1.9 H, Lipase 78, HCV Ab XUAN w/Rflx PCR Qn Negative, HIV Ag/Ab Combo Qual Negative Assessment and Plan *Assessment and plan (1) Right lower quadrant abdominal pain: Status: Acute Category: Medical Code(s): R10.31 - Right lower quadrant pain Plan Suspicion for appendicitis is low given the patient's clinical symptoms, normal white blood cell count, extremely subtle questionable findings on CT scan. I discussed the options with her including possible admission for observation. Patient states that she feels quite well and well enough to go home. In this case I will make arrangements for her to see me in the office tomorrow morning with repeat blood work. If diagnosis remains in question may plan for CT scan with oral contrast. Of course if she has findings more consistent with appendicitis she may need laparoscopy.
== END 2025-06-22 14:44 | disposition home or self-care (01) ==
PROVIDERS: Nurse Practitioner; Emergency Provider Student in an Organized Health Care Education/Training Program; PCP Internal Medicine
DX: R10.31 Right lower quadrant pain (principal); R10.32 Left lower quadrant pain; K52.9 Noninfective gastroenteritis and colitis, unspecified; I10 Essential (primary) hypertension; E78.5 Hyperlipidemia, unspecified
CPT/HCPCS: 74177; 80053; 81001; 83690; 83735; 84484; 85025; 86803; 87389; 93005; 96361; 96374; 96375; 99285; J1308; J1885; J2405; J7030; Q9967

== ENCOUNTER 2025-06-23 07:54 | Outpatient (CLI) | payer MEDICARE, OTHER, SELFPAY ==
--- OUTSIDE RECORDS SUMMARY | 2025-04-30 10:39 | XMS_ITS | Encounter Summary ---
Author Organization [employer] ([place], [place], [place], [place]) Address [address] [place] [address] Care Team Providers Care Fha Underwriter Name Role Phone Chris Kim MD Primary Care Provider [phone] Shelia Mora MD Unavailable [phone] Mehrdad Ford MD Unavailable [phone] Reason for Visit * Auth/Cert (Routine) Specialty Diagnoses / Procedures Referred By Edmundo vazquez Referred To Contact Diagnoses Endometrial polyp Endometrial polyp Procedures VA HYSTEROSCOPY BX ENDOMETRIUM&/POLYPC W/WO D&C HYSTEROSCOPY, WITH DILATION AND CURETTAGE OF UTERUS IF INDICATED Keesha Tidwell DO [address] [place] [address] Phone: tel: fax: Referral ID Status Reason Start Date Expiration Date Visits Re quested Visits Authorized [id number] 04/10/2025 1 1 Encounter Details Date Type Department Care Team (Latest Contact Info) Description 04/30/2025 10:39 AM EDT - 04/30/2025 4:09 PM EDT Hospital Encounter [facility] Surgery Department [address] [place] [address] Keesha Tidwell DO [address] [place] [address] Endometrial polyp Discharge Disposition: Home [...] often do you attend chur ch or taoism services? More than 4 times per year 11/16/2022 Do you belong to any clubs o r organizations such as temple groups, unions, fraternal or athletic groups, or [...] Date Donavon rded Speak language other than [place] at home Not on file 09/28/2023 Want [...] through Care Everywhere. * Hysteroscopy Care After ([place]an) * General Anesthesia Adult Care After ([place]an) * Dilation and Curettage or Vacuum Curettage Care After Rbcb-sv-Ziuy ([place]an) documented in this encounter Medications at Time [...] mouth daily. 90 capsule 3 12/04/2024 vit W-dlhzmkq-afxv-lacey n-hb196 (Bioflex) 942-22-80-40 mg Tab Take by mouth. ibuprofen (MOTRIN) 600 MG tablet Take 1 tablet (600 mg total) by mouth every 6 (six) hours as needed for pain for up to 10 days. 40 tablet 04/30/2025 5 documented as of this encounter H&P Notes * Keesha Tidwell, - 04/30/2025 12:57 PM EDT PERPETUAL INVENTORY CLERK History & Physical Name: Brooklyn Corbin Date/Time of Admission: 04/30/2025 10:39 AM CSN: [id number] Attending Provider: Keesha Tidwell DO Room/Bed: Periop [...] by mouth daily. 02/25/25 Leigh B Martyeling, DRAW BENCH OPERATOR lisinopril-hydroCHLOROthiazide (PRINZIDE,ZESTORETIC) 20-25 mg per tablet Take [...] mouth daily. 12/04/24 Tracie Menendez PA-C vit V-phwllqn-zttm-rutin-hb196 (Bioflex) 787-09-25-40 mg Tab Take by mouth. Historical Provider, [...] NODE, SENTINEL; Surgeon: Mehrdad Ford MD; Location: [facility] OR; Service: General Surgery; Laterality: Right; BREAST BIOPSY Right 11/01/2022 COLONOSCOPY LUMPECTOMY Right 11/28/2022 Procedure: LUMPECTOMY, BREAST; Surgeon: Mehrdad Ford MD; Location: [facility] OR; Service: General Surgery; Laterality: Right; LYMPH NODE BIOPSY Left 11/15/2022 left axillary node NEEDLE LOCALIZATION Right 11/28/2022 Procedure: RIGHT BREAST NEEDLE LOCALIZED LUMPECTOMY WITH SENTINEL NODE BX; Surgeon: Mehrdad Ford MD; Location: [facility] OR; Service: General Surgery; Laterality: Right; SKIN [...] input(s): PH , PO2 , PCO2 , KUY3UYU in the last 72 hours. No results for input(s): TSH , [id number] , FOLATE in the last 72 hours. Invalid input(s): [id number] Imaging Ultrasound non-ob transvaginal Result Date: 04/20/2025 [...] Tidwell DO PCP: Chris Kim MD CSN#: [id number] Date of Surgery: 04/30/2025 : 1945 Facility: [...] Contact Info) Description 06/25/2025 1:00 PM EDT Hospital Encounter [facility] Breast [facility] [address] [place] [address] Mehrdad Ford MD [address] [place] [address] 06/25/2025 2:15 PM EDT Office Visit [facility] [address] [place] [address] Tracie Menendez PA-C [address] [place] [address] Shelia Mora MD [address] [place] [address] 12/10/2025 1:00 PM EDT Appointment [facility] [address] [place] [address] Mehrdad Ford MD [address] [place] [address] 12/10/2025 2:00 PM EDT Office Visit [facility] [address] [facility] [address] [place] [address] Mehrdad Ford MD [address] [place] [address] 05/17/2026 2:00 PM EDT Office Visit [facility] WOOL WASHER FEEDER - [address] [place] [address] Keesha Tidwell, DO [address] [place] [address] documented as of this encounter [...] entirely on 1 block. See other report ([id number]) Tissue SPECIMEN FROM ENDOMETRIUM OBTAINED BY CURETTAGE / Unknown 04/30/2025 1:51 PM EDT Tissue specimen (specimen) POLYP / Unknown 04/30/2025 1:51 PM EDT Keesha Tidwell DO PATHOLOGY/CYTOLOGY ORDERABLES Fi nal Result Performing Organization Address [facility] Co de Phone Number [facility] [address] * (ABNORMAL) Glucose, Nova Meter (04/30/2025 11:23 AM EDT) POC-GLUCOSE 113(H) 70 - 110 mg/dL 04/30/2025 11:29 AM EDT [facility] Comment:In the event of poor peripheral blood flow, venous or arterial blood should be used due to the potential of erroneous results. Assembly Worker [id number] 04/30/2025 11:29 AM EDT [facility] Blood WHOLE BLOOD / Unknown 04/30/2025 11:23 AM EDT 04/30/2025 11:29 AM EDT Narrative [facility] - 04/30/2025 11:29 AM EDT Assembly Worker ID is - [id number] Keesha Tidwell DO POINT OF CARE TEST ORDERABLES Fi nal Result Performing Organization Address [facility]/ZIP Co de Phone Number [facility] [address] [phone] documented in this encounter Visit Diagnoses Diagnosis [...] 1329 (New Bag - Prov ider: Rafael Ruvalcaba CRNA)1410 (Anesthesia Volume Adjustment - Provider: Rafael [...] Pre-op documented in this encounter Care Teams Fha Underwriter Relationship Specialty Start Date End Date Chris Kim MD [address] [place] [address] [place] [address] PCP - General General Internal Medicine 10/11/22 Shelia Mora MD [facility] [address] [place] [address] Medical Oncologist Hematology and Oncology 11/14/22 Mehrdad Ford MD [address] [facility] [address] [place], [place] [id number] General Surgery 12/04/22 documented as of this encounter
--- OUTSIDE RECORDS SUMMARY | 2025-04-30 13:29 | XMS_ITS | Encounter Summary ---
Author Organization [employer] ([place], [place], [place], [place]) Address [address] [place] [address] Care Team Providers Care Engineering Technical Specialist Name Role Phone Chris Kim MD Primary Care Provider [phone] Shelia Mora MD Unavailable [phone] Mehrdad Ford MD Unavailable [phone] Reason for Visit * Auth/Cert (Routine) Specialty Diagnoses / Procedures Referred By Contac t Referred To Contact Diagnoses Endometrial polyp Endometrial polyp Procedures [place] HYSTEROSCOPY BX ENDOMETRIUM&/POLYPC W/WO D&C HYSTEROSCOPY, WITH DILATION AND CURETTAGE OF UTERUS IF INDICATED Keesha Tidwell, DO [address] [place] [address] Phone: tel: fax: Referral ID Status Reason Start Date Expiration Date Visits Re quested Visits Authorized [id number] 04/10/2025 1 1 Encounter Details Date Type Department Care Team (Late st Contact Info) Description 04/30/2025 1:29 PM EDT Anesthesia Event [facility] Surgery Department [address] [place] [address] Rafael Ruvalcaba CRNA [address] [place], [place] [phone] Hector Hamilton MD [address] [place], [place] [phone] (work) Anesthesia Record Procedure Summary Procedure Name [...] week 11/16/2022 How often do you attend [facility] or congregational services? More than 4 times per year 11/16/2022 Do you belong to any clubs o r organizations such as protestant groups, unions, fraternal or athletic groups, or [...] Date Donavon rded Speak language other than Italian at home Not on file 09/28/2023 Want [...] Procedure Summary Date: 04/30/25 Room / Location: [facility] OR OPERATING ROOM Anesthesia Start: 1329 [...] and oral airway Hydration status: stable Color: Rodney Activity: Moves 4 extremities Inotropes/Vasopressors: N/A No [...] OF UTERUS IF INDICATED - polypectomy Location: [facility] OR 03 / [facility] OPERATING [facility] [...] risks discussed with patient. Plan discussed with HAM FACER. documented in this encounter Plan of Treatment Upcoming Encounters Date Type Department Care Team (Late st Contact Info) Description 06/25/2025 1:00 PM EDT Hospital Encounter [facility] [address] [facility] [address] [place] [address] Mehrdad Ford MD [address] [facility] [address] [place] [address] 06/25/2025 2:15 PM EDT Office Visit [facility] - [place] [address] [facility] [address] [place] [address] Tracie Menendez PA-C [address] [facility] [address] [place] [address] Shelia Mora MD [address] [facility] [address] [place] [address] 12/10/2025 1:00 PM EDT Appointment [facility] [address] [place] [address] Mehrdad Ford MD [address] [place] [address] 12/10/2025 2:00 PM EDT Office Visit [facility] [address] [facility] [address] [place] [address] Mehrdad Ford MD [address] [place] [address] 05/17/2026 2:00 PM EDT Office Visit [facility] AUTOMOTIVE ELECTRICAL FITTER - [address] [place] [address] Keesha Tidwell, DO [address] [place] [address] documented as of this encounter [...] mg documented in this encounter Care Teams Engineering Technical Specialist Relationship Specialty Start Date End Date Chris Kim MD [address] [facility] [address] [place] [address] PCP - General General Internal Medicine 10/11/22 Shelia Mora MD [address] [facility] [address] [place] [address] Medical Oncologist Hematology and Oncology 11/14/22 Mehrdad Ford MD [address] [facility] [address] [place], [place] [address] General Surgery 12/04/22 documented as of this encounter
--- OUTSIDE RECORDS SUMMARY | 2025-04-30 13:43 | XMS_ITS | Encounter Summary ---
Author Organization [employer] ([place], [place], [place], [place]) Address [address] [place] [address] Care Team Providers Care Field Cane Scale Clerk Name Role Phone Chris Kim MD Primary Care Provider [phone] Shelia Mora MD Unavailable [phone] Mehrdad Ford MD Unavailable [phone] Reason for Visit * Auth/Cert (Routine) Specialty Diagnoses / Procedures Referred By Edmundo vazquez Referred To Contact Diagnoses Endometrial polyp Endometrial polyp Procedures DE HYSTEROSCOPY BX ENDOMETRIUM&/POLYPC W/WO D&C HYSTEROSCOPY, WITH DILATION AND CURETTAGE OF UTERUS IF INDICATED Keesha Tidwell DO [address] [place] [address] Phone: tel: fax: Referral ID Status Reason Start Date Expiration Date Visits Re quested Visits Authorized [id number] 04/10/2025 1 1 Encounter Details Date Type Department Care Team (Late st Contact Info) Description 04/30/2025 1:43 PM EDT - 04/30/2025 2:46 PM EDT Surgery [facility] Surgery Department [address] [place] [address] Keesha Tidwell DO [address] [place] [address] HYSTEROSCOPY, WITH DILATION AND CURETTAGE, [...] often do you attend chur ch or orthodoxy services? More than 4 times per year 11/16/2022 Do you belong to any clubs o r organizations such as roman catholic groups, unions, fraternal or athletic groups, or [...] Date Donavon rded Speak language other than [place]ym[place] at home Not on file 09/28/2023 Want [...] through Care Everywhere. * Hysteroscopy Care After (Cymro) * General Anesthesia Adult Care After (Cymro) * Dilation and Curettage or Vacuum Curettage Care After Lzxf-uv-Vjlk (Cymro) documented in this encounter Medications at Time [...] mouth daily. 90 capsule 3 12/04/2024 vit E-pywicbr-bsyr-lacey n-hb196 (Bioflex) 289-22-16-40 mg Tab Take by mouth. ibuprofen (MOTRIN) 600 MG tablet Take 1 tablet (600 mg total) by mouth every 6 (six) hours as needed for pain for up to 10 days. 40 tablet 04/30/2025 5 documented as of this encounter H&P Notes * Keesha Tidwell DO - 04/30/2025 12:57 PM EDT BILINGUAL STUDENT TUTOR History & Physical Name: Brooklyn Corbin Date/Time of Admission: 04/30/2025 10:39 AM CSN: [id number] Attending Provider: Keesha Tidwell DO Room/Bed: Periop [...] mouth daily. 12/04/24 Tracie Menendez PA-C vit N-mkepxls-qfbe-rutin-hb196 (Bioflex) 804-68-43-40 mg Tab Take by mouth. Historical Provider, [...] NODE, SENTINEL; Surgeon: Mehrdad Ford MD; Location: [facility] OR; Service: General Surgery; Laterality: Right; BREAST BIOPSY Right 11/01/2022 COLONOSCOPY LUMPECTOMY Right 11/28/2022 Procedure: LUMPECTOMY, BREAST; Surgeon: Mehrdad Ford MD; Location: [facility] OR; Service: General Surgery; Laterality: Right; LYMPH NODE BIOPSY Left 11/15/2022 left axillary node NEEDLE LOCALIZATION Right 11/28/2022 Procedure: RIGHT BREAST NEEDLE LOCALIZED LUMPECTOMY WITH SENTINEL NODE BX; Surgeon: Mehrdad Ford MD; Location: [facility] OR; Service: General Surgery; Laterality: Right; SKIN CANCER EXCISION Left 03/23/2021 left arm; melanoma TUBAL LIGATION 1979 FAMHX: Family History Problem Relation Name Age of Onset Stroke Mother Appie Cancer Father [place] Prostate cancer Father [place] Diabetes Brother [place] Rheum arthritis Brother Noel Breast cancer Paternal Aunt Eleni Family Status Relation Name Status Mother Appie Father [place] Brother Spencer Brother Noel Pat Aunt Eleni No partnership [...] input(s): PH , PO2 , PCO2 , KVM2NMS in the last 72 hours. No results for input(s): TSH , [id number] , FOLATE in the last 72 hours. Invalid input(s): [id number] Imaging Ultrasound non-ob transvaginal Result Date: 04/20/2025 [...] Corbin Surgeon: Keesha Tidwell DO PCP: Chris iKm MD [facility]#: [id number] Date of Surgery: 04/30/2025 : 1945 Facility: [...] Description 06/25/2025 1:00 PM EDT Hospital Encounter [facility] [address] [place] [address] Mehrdad Ford MD [address] [place] [address] 06/25/2025 2:15 PM EDT Office Visit [facility] [place] [address] [place] [address] Tracie Menendez PA-C [address] [place] [address] [place] [address] Shelia Mora MD [address] [place] [address] 12/10/2025 1:00 PM EDT Appointment [facility] [address] [place] [address] Mehrdad Ford MD [address] [place] [address] 12/10/2025 2:00 PM EDT Office Visit [facility] [address] [facility] [address] [place] [address] Mehrdad Ford MD [address] [place] [address] [address] [place] [address] 05/17/2026 2:00 PM EDT Office Visit [facility] SEO STRATEGIST - [address] [place] [address] Keesha Tidwell, DO [address] [place] [address] documented as of this encounter Procedures Procedure Name Priority Date/Time Associated Diagnosis Comments TISSUE EXAM (GREGORIA PAULINO) AP Routine 04/30/2025 1 :51 PM EDT Endometrial polyp DE DILATION & CURETTAGE DX&/THER NONOBSTETRIC 04/30/2025 1:29 [...] entirely on 1 block. See other report ([id number]) Tissue SPECIMEN FROM ENDOMETRIUM OBTAINED BY CURETTAGE / Unknown 04/30/2025 1:51 PM EDT Tissue specimen (specimen) POLYP / Unknown 04/30/2025 1:51 PM EDT Keesha Tidwell DO PATHOLOGY/CYTOLOGY ORDERABLES Fi nal Result Performing Organization Address [facility] Co de Phone Number [facility]Y [facility]Y [facility] [address] * (ABNORMAL) Glucose, Nova Meter (04/30/2025 11:23 AM EDT) POC-GLUCOSE 113(H) 70 - 110 mg/dL 04/30/2025 11:29 AM EDT [facility] Comment:In the event of poor peripheral blood flow, venous or arterial blood should be used due to the potential of erroneous results. Environmental Health Inspector [id number] 04/30/2025 11:29 AM EDT [facility] Blood WHOLE BLOOD / Unknown 04/30/2025 11:23 AM EDT 04/30/2025 11:29 AM EDT Narrative [facility] - 04/30/2025 11:29 AM EDT Environmental Health Inspector ID is - [id number] us Keesha Tidwell DO POINT OF CARE TEST ORDERABLES Fi nal Result [facility] [address] [phone] documented in this encounter Visit Diagnoses Diagnosis [...] Pre-op documented in this encounter Care Teams Field Cane Scale Clerk Relationship Specialty Start Date End Date Chris Kim MD [address] [place] [address] PCP - General General Internal Medicine 10/11/22 Shelia Mora MD [address] [facility] [address] [place] [address] Medical Oncologist Hematology and Oncology 11/14/22 Mehrdad Ford MD [address] [facility] [address] [place] [address] General Surgery 12/04/22 documented as of this encounter
--- OUTSIDE RECORDS SUMMARY | 2025-05-13 11:00 | XMS_ITS | Encounter Summary ---
Author Organization [employer] ([place], [place], [place], [place]) Address [address] [place] [address] Care Team Providers Care Crib Tender Name Role Phone Chris Kim MD Primary Care Provider [phone] Shelia Mora MD Unavailable [phone] Mehrdad Ford MD Unavailable [phone] Encounter Details Date Type Department Care Team (Latest Contact Info) Description 05/13/2025 11:00 AM EDT Office Visit [facility] SEWING MACHINE REPAIRER HELPER - [address] [place] [address] Keesha Tidwell, DO [address] [place] [address] Postoperative examination (Primary Dx) Social [...] week 11/16/2022 How often do you attend [facility] or mormonism services? More than 4 times per year 11/16/2022 Do you belong to any clubs o r organizations such as jewish groups, unions, fraternal or athletic groups, or [...] Date Donavon rded Speak language other than Romansh at home Not on file 09/28/2023 Want [...] EDT Hospital Encounter [facility] Breast Care [address] [place] [address] Mehrdad Ford MD [address] [place], [place] [id number] 06/25/2025 2:15 PM EDT Office Visit [facility] - [address] [place] [address] Tracie Menendez PA-C [address] [facility] [address] [place] [address] Shelia Mora MD [address] [facility] [address] [place], [place] [address] 12/10/2025 1:00 PM EDT Appointment [facility] Breast Care [address] [facility] [address] [place] [address] Mehrdad Ford MD [address] [facility] [address] [place], [place] [address] 12/10/2025 2:00 PM EDT Office Visit [facility] Breast Surgery Clinic [address] [facility] 101 [place] [address] Mehrdad Ford MD [address] [facility] [address] [place], [place] [address] 05/17/2026 2:00 PM EDT Office Visit [facility] SEWING MACHINE REPAIRER HELPER - [address] [place] [address] Keesha Tidwell, DO [address] [place] [address] documented as of this encounter Visit Diagnoses Diagnosis Postoperative examination- Primary Follow-up examination, following unspecified surgery documented in this encounter Care Teams Crib Tender Relationship Specialty Start Date End Date Chris Kim MD [address] [place] [address] PCP - General General Internal Medicine 10/11/22 Shelia Mora MD [address] [facility] [address] [place] [address] Medical Oncologist Hematology and Oncology 11/14/22 Mehrdad Ford MD [address] [place] [address] General Surgery 12/04/22 documented as of this encounter
--- OUTSIDE RECORDS SUMMARY | 2025-06-23 07:58 | XMS_ITS | Encounter Summary ---
Author Organization [employer] ([place], [place], [place], [place]) Address [address] [place] [address] Care Team Providers Care Charrer Name Role Phone Chris Kim MD Primary Care Provider [phone] Shelia Mora MD Unavailable [phone] Liliam Raman RN Unavailable Unavailable Mehrdad Ford MD Unavailable [phone] Reason for Referral * Mammography (Routine) - Closed Specialty Diagnoses / Procedures Referred By Contac t Referred To Contact Diagnoses Abnormal mammogram Procedures MM Stereotactic breast biopsy right Leidy Gordillo MD [address] [place] [address] Phone: tel: fax: Referral ID Status Reason Start Date Expiration Date Visits Re quested Visits Authorized [id number] Closed 10/30/2022 04/28/2023 1 1 Encounter Details Date Type Department Care Team (Late st Contact Info) Description 10/30/2022 Outside Orders [facility] Breast Care [address] [place] [address] Leidy Gordillo MD [address] [address] Abnormal mammogram (Primary Dx) Social History Tobacco [...] Encounter [facility] Breast [facility] [address] [place] [address] Mehrdad Ford MD [address] [place] [address] 06/25/2025 2:15 PM EDT Office Visit [facility] [place] [address] [place] [address] Tracie Menendez PA-C [address] [place] [address] Shelia Mora MD [address] [place] [address] 12/10/2025 1:00 PM EDT Appointment [facility] [address] [facility] [address] [place] [address] Mehrdad Ford MD [address] [facility] [address] [place] [address] 12/10/2025 2:00 PM EDT Office Visit [facility] Breast Surgery Clinic [address] [facility] [address] [place] [address] Mehrdad Ford MD [address] [place] [address] [address] [place] [address] 05/17/2026 2:00 PM EDT Office Visit [facility] PROTECTIVE SIGNAL OPERATOR - [address] [place] [address] Keesha Tidwell, DO [address] [place] [address] documented as of this encounter [...] 0.2 cm in greatest dimension. ER positive, CT positive, HER-2/cristin negative These results are concordant with the mammographic evaluation. Leidy Gordillo MD IM MAMMOGRAPHY ORDERABLES Annalise pulido Result documented in this encounter Visit Diagnoses Diagnosis Abnormal mammogram- Primary Abnormal mammogram, unspecified Abnormal mammogram Abnormal mammogram, unspecified documented in this encounter Care Teams Charrer Relationship Specialty Start Date End Date Chris Kim MD [address] [place] [address] PCP - General General Internal Medicine 10/11/22 Shelia Mora MD [address] [facility] [address] [place] [address] Medical Oncologist Hematology and Oncology 11/14/22 Case, Liliam Nye RN Nurse Navigator 11/14/22 03/16/24 Mehrdad Ford MD General Surgery 12/04/22 documented as of this encounter
--- OUTSIDE RECORDS SUMMARY | 2025-06-23 07:58 | XMS_ITS | Encounter Summary ---
Author Organization Healthcare Address [address] 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 COMMENT: Both peripheral margins are involved with tumor. The tumor is decorated by Sox-10. B. 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 COMMENT: One peripheral margin is involved with tumor. C. LEFT ARM, UPPER DISTAL ANTERIOR ([id number]): - MALIGNANT MELANOMA, THICKNESS 0.2 MM (SEE COMMENT). COMMENT: The tumor is decorated by SOX-10. D. LEFT ARM, UPPER PROXIMAL ANTERIOR LATERAL (D, [id number]): - MALIGNANT MELANOMA IN SITU, RE-EXCISION (SEE [...] be viewed as a scanned document in [employer]. 03/31/2021 5:26 PM EDT [facility] [...] [facility] Gross Description A. OU [id number] Received along with a corresponding pathology report from [facility] are 3 slide(s) labeled outside case: [id number] collected on 08/20/2020. B. OU [id number] Received along with a corresponding pathology report from [facility] are 4 slide(s) labeled outside case: [id number] collected on 09/03/2020. C. OU [id number] Received along with a corresponding pathology report from [facility] are 5 slide(s) labeled outside case: [id number] collected on 11/24/2020. DFrances IZQUIERDO [id number] Received along with a corresponding pathology report from [facility] are 4 slide(s) labeled outside case: [id number] collected on 12/23/2020. 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
--- OUTSIDE RECORDS SUMMARY | 2025-06-23 07:58 | XMS_ITS | Referral Summary ---
Author Organization [employer] ([place], [place], [place], [place]) Address [address] [place] [address] Care Team Providers Care Dope Heater Name Role Phone Chris Kim MD Primary Care Provider Shelia Mora MD Unavailable [phone] Mehrdad Ford MD Unavailable [phone] Encounters Date Type Department Care Team Description 05/13/2025 11:00 AM EDT Office Visit [facility] HAND DRILLER - [address] [place] [address] Keesha Tidwell, DO Postoperative examination (Primary Dx) 05/04/2025 Telephone [facility] HAND DRILLER - [place] [address] [facility] [address] [place] [address] Anisa Castro RN Results 04/30/2025 1:43 PM EDT - 04/30/2025 2:46 PM EDT Surgery [facility] Surgery Department [address] [place] [address] Keesha Tidwell, DO HYSTEROSCOPY, WITH DILATION AND CURETTAGE, WITH POLYPECTOMY OF UTERUS 04/30/2025 1:29 PM EDT Anesthesia Event [facility] Surgery Department [address] [place] [address] Rafael Ruvalcaba, Hector Gallegos MD 04/30/2025 10:39 AM EDT - 04/30/2025 4:09 PM EDT Hospital Encounter [facility] Surgery Department [address] [place] [address] Keesha Tidwell, Endometrial polyp Discharge Disposition: Home or Self Care 04/29/2025 Telephone [facility] HAND DRILLER - [place] [address] [facility] [address] [place] [address] Anisa Castro RN Triage Call 04/21/2025 Telephone [facility] HAND DRILLER [facility] [address] [facility] [address] [place] [address] Rosa Monahan, LÁZARO Results 04/20/2025 1:31 PM EDT - 04/20/2025 11:59 PM EDT Hospital Encounter [facility] Ultrasound [address] [place] [address] Keesha Tidwell, RLQ abdominal pain Discharge Disposition: Home or Self Care 04/10/2025 Surgery Prep [facility] HAND DRILLER [facility] [address] [facility] [address] [place] [address] Rosa Monahan, RN Endometrial polyp (Primary Dx) 04/10/2025 Travel 04/10/2025 2:00 PM EDT Office Visit [facility] HAND DRILLER [facility] [address] [facility] [address] [place] [address] Keesha Tidwell, RLQ abdominal pain (Primary Dx); Use of tamoxifen (Nolvadex); Thickened endometrium; Endometrial polyp 04/07/2025 Telephone [facility] HAND DRILLER [facility] [address] [facility] [address] [place] [address] Keesha Tidwell, Appointment 03/30/2025 Travel 03/30/2025 1:40 PM EDT Office Visit [facility] HAND DRILLER [facility] [address] [facility] [address] [place] [address] Keesha Tidwell DO Use of tamoxifen (Nolvadex) (Primary Dx); Thickened endometrium; Endometrial polyp 03/27/2025 Telephone [facility] HAND DRILLER - [address] [place] [address] Keesha Tidwell DO Appointment; Confirmation [...] (81 mg total) by mouth. Active vit K-cumwpab-ughf-rut in-hb196 (Bioflex) 484-43-89-40 mg Tab Take by mouth. Active multivitamin [...] from 11/16/2022:Stage IA(cT1b, cN0, cM0, G1, ER+, CT+, HER2-) - Signed by Shelia Mora MD on 11/16/2022 Pathologic stage from 11/28/2022:Stage IA(pT1b, pN0(sn), cM0, G1, ER+, CT+, HER2- ) - Signed by Jose Angel [...] week 11/16/2022 How often do you attend [facility] or protestant services? More than 4 times per year [...] Date Donavon rded Speak language other than Liberian at home Not on file 09/28/2023 Want [...] Description 06/25/2025 1:00 PM EDT Hospital Encounter [address] [place] [address] Mehrdad Ford MD [address] [place] [address] 06/25/2025 2:15 PM EDT Office Visit [facility] [place] [address] [facility] [address] [place] [address] Tracie Menendez PA-C [address] [place] [address] [place] [address] Shelia Mora MD [address] [place] [address] [place] [address] 12/10/2025 1:00 PM EDT Appointment [address] [facility] [address] [place] [address] eMhrdad Ford MD [address] [place] [address] 12/10/2025 2:00 PM EDT Office Visit [facility] [address] [place] [address] Mehrdad Ford MD [address] [place] [address] 05/17/2026 2:00 PM EDT Office Visit [facility] HAND DRILLER - [address] [place] [address] Keesha Tidwell, DO [address] [place] [address] Procedures Procedure Name Priority Date/Time Associated Diagnosis Comments TISSUE EXAM (GREGORIA PAULINO) AP Routine 04/30/2025 1 :51 PM EDT Endometrial polyp ANESTHESIA INTUBATION Routine 04/30/2025 1:[address] DILATION & CURETTAGE DX&/THER NONOBSTETRIC 04/30/2025 1:29 [...] entirely on 1 block. See other report ([id number]) Tissue SPECIMEN FROM ENDOMETRIUM OBTAINED BY CURETTAGE / Unknown 04/30/2025 1:51 PM EDT Tissue specimen (specimen) POLYP / Unknown 04/30/2025 1:51 PM EDT us Keesha Tidwell DO PATHOLOGY/CYTOLOGY ORDERABLES Fi nal Result [facility] [address] [place] [address], [facility] * AN SINGLE LUMEN INTUBATION (04/30/2025 [...] of other approaches attempted: 0 Rafael Ruvalcaba [facility] ANESTHESIA ORDERABLES Final Result * (ABNORMAL) Glucose, Nova Meter (04/30/2025 11:23 AM EDT) POC-GLUCOSE 113(H) 70 - 110 mg/dL 04/30/2025 11:29 AM EDT [facility] Comment:In the event of poor peripheral blood flow, venous or arterial blood should be used due to the potential of erroneous results. Mercerizer Machine Operator [id number] 04/30/2025 11:29 AM EDT [facility] Blood WHOLE BLOOD / Unknown 04/30/2025 11:23 AM EDT 04/30/2025 11:29 AM EDT Narrative [facility] - 04/30/2025 11:29 AM EDT Mercerizer Machine Operator ID is - [id number] us Keesha Tidwell DO POINT OF CARE TEST ORDERABLES Fi nal Result [facility] [address] [phone] * Ultrasound non-ob transvaginal (04/20/2025 2:03 PM [...] by Liliam Edwards PA-C. Shelia Mora MD [facility] DXA ORDERABLES Final Resul t from Last 3 Months or Most Recently Relevant to Health Maintenance Insurance MEDICARE PART A B GENERIC COMMERCIAL Advance Directives For more information, please contact: [phone] * Full Code (Latest Code Status on File) Date Activated Date Inactivated Comments 04/30/2025 10:14 AM 04/30/2025 5:24 PM Care Teams Dope Heater Relationship Specialty Start Date End Date Chris Kim MD [address] [place] [address] PCP - General General Internal Medicine 10/11/22 Shelia Mora MD [address] [facility] [address] [place] [address] Medical Oncologist Hematology and Oncology 11/14/22 Mehrdad Ford MD [address] [facility] [address] [place] [address] General Surgery 12/04/22
--- OUTSIDE RECORDS SUMMARY | 2025-06-23 07:58 | XMS_ITS | Encounter Summary ---
Author Organization [employer] ([place], [place], [place], [place]) Address [address] [place] [address] Care Team Providers Care Puppet Maker Name Role Phone Chris Kim MD Primary Care Provider [phone] Shelia Mora MD Unavailable Liliam Raman RN Unavailable Unavailable Mehrdad Ford MD Unavailable [phone] Reason for Referral * Ultrasound (Routine) - Closed Specialty Diagnoses / Procedures Referred By Contac t Referred To Contact Diagnoses Personal history of malignant neoplasm of breast Procedures US breast axilla left US BREAST RIGHT LIMITED Mehrdad Ford MD Phone: tel: fax: Referral ID Status Reason Start Date Expiration Date Visits Re quested Visits Authorized [id number] Closed 11/06/2022 05/05/2023 1 1 Encounter Details Date Type Department Care Team (Late st Contact Info) Description 11/06/2022 Outside Orders [facility] Breast Care [address] [place] [address] [address] [place] [address] Mehrdad Ford MD [address] [facility] [address] [place] [address] Personal history of malignant neoplasm of breast [...] Description 06/25/2025 1:00 PM EDT Hospital Encounter [facility] Breast [facility] [address] [facility] [address] [place] [address] Mehrdad Ford MD [address] [place] [address] [address] [place] [address] 06/25/2025 2:15 PM EDT [facility] [address] [facility] [address] [place] [address] Tracie Menendez PA-C [address] [place] [address] [place] [address] Shelia Mora MD [address] [place] [place] [address] 12/10/2025 1:00 PM EDT Appointment [facility] [address] [facility] [address] [place] [address] Mehrdad Ford MD [address] [place] [address] [address] [place] [address] 12/10/2025 2:00 PM EDT Office Visit [facility] Breast Surgery Clinic [address] [facility] [address] [place] [address] Mehrdad Ford MD [address] [place] [address] [address] [place] [address] 05/17/2026 2:00 PM EDT [facility] ROCK CRUSHING MACHINE OPERATOR - [address] [place] [address] Keesha Tidwell, DO [address] [place] [address] documented as of this encounter [...] was made with a scalpel. A 16-gauge Ardara biopsy device was introduced into the lesion [...] breast documented in this encounter Care Teams Puppet Maker Relationship Specialty Start Date End Date Chris Kim MD [address] [facility] [address] [place] [address] PCP - General General Internal Medicine 10/11/22 Shelia Mora MD [address] [facility] [address] [place] [address] Medical Oncologist Hematology and Oncology 11/14/22 Liliam Raman, LÁZARO Nurse Navigator 11/14/22 03/16/24 Mehrdad Ford MD General Surgery 12/04/22 documented as of this encounter
--- OUTSIDE RECORDS SUMMARY | 2025-06-23 07:59 | XMS_ITS | Encounter Summary ---
Author Organization [employer] ([place], [place], [place], [place]) Address [address] [place] [address] Care Team Providers Care Wire Galvanizer Name Role Phone Chris Kim MD Primary Care Provider [phone] Shelia Mora MD Unavailable [phone] Liliam Raman RN Unavailable Unavailable Mehrdad Ford MD Unavailable [phone] Reason for Referral * Mammography (Routine) - Closed Specialty Diagnoses / Procedures Referred By Contac t Referred To Contact Diagnoses Malignant neoplasm of right female breast, unspecified estrogen receptor status, unspecified site of breast (HCC) Procedures MM digital mammo diagnostic with sylvain right Mehrdad Ford MD [address] [place] [address] Phone: tel: fax: Referral ID Status Reason Start Date Expiration Date Visits Re quested Visits Authorized [id number] Closed 11/22/2022 05/21/2023 1 1 Encounter Details Date Type Department Care Team (Late st Contact Info) Description 11/22/2022 Outside Orders [facility] Breast Care [address] [place] [address] Mehrdad Ford MD [address] [place] [address] Malignant neoplasm of right female breast, unspecified [...] any clubs o r organizations such as amish groups, unions, fraternal or athletic groups, or [...] Description 06/25/2025 1:00 PM EDT Hospital Encounter [facility] [address] [facility] [address] [place] [address] Mehrdad Ford MD [address] [facility] [address] [place] [address] 06/25/2025 2:15 PM EDT Office Visit [facility] [place] [facility] [address] [place] [address] Tracie Menendez PA-C [address] [facility] [address] [place] [address] Shelia Mora MD [address] [facility] [address] [place] [address] 12/10/2025 1:00 PM EDT Appointment [facility] [address] [place] [address] Mehrdad Ford MD [address] [facility] [address] [place], [place] [address] 12/10/2025 2:00 PM EDT Office Visit [facility] Breast Surgery [facility] [address] [facility] 101 [place] [address] Mehrdad Ford MD [address] [place], [place] [address] 05/17/2026 2:00 PM EDT Office Visit [facility] FILTER MACHINE OPERATOR - [address] [place] [address] Keesha Tidwell, DO [address] [place] [address] documented as of this [...] follow-up bilateral mammogram At our facility, a grindstone marker is positioned over a visible skin [...] family history of breast cancer COMPARISON STUDY: [facility] 11/28/2022 11/15/2022, 11/01/2022, 10/26/2022, 10/11/2022, [...] (HCC) documented in this encounter Care Teams Wire Galvanizer Relationship Specialty Start Date End Date Chris iKm MD [address] [place] [address] PCP - General General Internal Medicine 10/11/22 Shelia Mora MD [address] [facility] [address] [place] [address] Medical Oncologist Hematology and Oncology 11/14/22 Case, Liliam Nye, RN Nurse Navigator 11/14/22 03/16/24 Mehrdad Ford MD General Surgery 12/04/22 documented as of this encounter
--- OUTSIDE RECORDS SUMMARY | 2025-06-23 07:59 | XMS_ITS | Encounter Summary ---
Author Organization [employer] ([place], [place], [place], [place]) Address [address] [place] [address] Care Team Providers Care Advanced Practice Nurse Name Role Phone Chris Kim MD Primary Care Provider [phone] Shelia Mora MD Unavailable [phone] Mehrdad Ford MD Unavailable [phone] Reason for Visit * Reason Onset Date Comments Results 05/04/2025 Encounter Details Date Type Department Care Team (Late st Contact Info) Description 05/04/2025 Telephone [facility] COMPRESSOR ASSEMBLER - [place] [address] [facility] [address] [place] [address] Anisa Castro, RN Results Social History [...] How often do you attend chur or hoahaoism services? More than 4 times per year 11/16/2022 Do you belong to any clubs o r organizations such as judaism groups, unions, fraternal or athletic groups, or [...] Date Donavon rded Speak language other than Upper Sorbian at home Not on file 09/28/2023 Want [...] Description 06/25/2025 1:00 PM EDT Hospital Encounter [facility] Breast [facility] [address] [facility] [address] [place] [address] Mehrdad Ford MD [address] [place] [address] 06/25/2025 2:15 PM EDT Office Visit [facility] [place] [address] [facility] [address] [place] [address] Tracie Menendez PA-C [address] [place] [address] Shelia Mora MD [address] [place] [address] 12/10/2025 1:00 PM EDT Appointment [facility] [address] [facility] [address] [place] [address] Mehrdad Ford MD [address] [place] [address] 12/10/2025 2:00 PM EDT Office Visit [facility] Breast [facility] [address] [facility] [address] [place] [address] Mehrdad Ford MD [address] [place] [address] 05/17/2026 2:00 PM EDT Office Visit [facility] COMPRESSOR ASSEMBLER - [address] [place] [address] Keesha Tidwell, [address] [place] [address] documented as of this encounter Visit Diagnoses Not on filedocumented in this encounter Care Teams Advanced Practice Nurse Relationship Specialty Start Date End Date Chris Kim MD [address] [place] [address] PCP - General General Internal Medicine 10/11/22 Shelia Mora MD [address] [facility] [address] [place] [address] Medical Oncologist Hematology and Oncology 11/14/22 Mehrdad Ford MD [address] [facility] [address] [place], [place] [address] General Surgery 12/04/22 documented as of this encounter
--- OUTSIDE RECORDS SUMMARY | 2025-06-23 07:59 | XMS_ITS | Clinical Summary ---
Author Organization [facility] ([place], [place], [place], [place]) Address [address] [place] [address] Care Team Providers Care [facility] Name Role Phone Chris Kim MD Primary Care Provider [phone] Shelia Mora MD Unavailable [phone] Mehrdad Ford MD Unavailable [phone] Allergies Active Allergy Reactions Criticality Noted Date [...] (81 mg total) by mouth. Active vit K-tjrsuxc-jurc-rut in-hb196 (Bioflex) 393-64-48-40 mg Tab Take by mouth. 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 Malignant melanoma of left u pper extremity including shoulder 03/24/2021 Melanoma GERD (gastroesophageal reflux disease) Hypertension Anxiety Encounters Date Type Department Care Team Description 05/13/2025 11:00 AM EDT Office Visit [facility] TARGET NETWORK ANALYST - [address] [place] [address] Keesha Tidwell, Postoperative examination (Primary Dx) 05/04/2025 Telephone [facility] TARGET NETWORK ANALYST [facility] [address] [facility] [address] [place] [address] Anisa Castro, RN Results 04/30/2025 1:43 PM EDT - 04/30/2025 2:46 PM EDT Surgery [facility] Surgery Department [address] [place] [address] Keesha Tidwell, HYSTEROSCOPY, WITH DILATION AND CURETTAGE, WITH POLYPECTOMY OF UTERUS 04/30/2025 1:29 PM EDT Anesthesia Event [facility] Surgery Department [address] [place] [address] Rafael Ruvalcaba, Hector Gallegos MD 04/30/2025 10:39 AM EDT - 04/30/2025 4:09 PM EDT Hospital Encounter [facility] Surgery Department [address] [place] [address] Keesha Tidwell, DO Endometrial polyp Discharge Disposition: Home or Self Care 04/29/2025 Telephone [facility]/GYN [facility] [address] [facility] [address] [place] [address] Anisa Castro, denture model maker Call 04/21/2025 Telephone [facility] TARGET NETWORK ANALYST - [address] [facility] [address] [place] [address] Rosa Monahan, LÁZARO Results 04/20/2025 1:31 PM EDT - 04/20/2025 11:59 PM EDT Hospital Encounter [facility] Ultrasound [address] [place] [address] Keesha Tidwell, DO RLQ abdominal pain Discharge Disposition: Home or Self Care 04/10/2025 2:00 PM EDT Office Visit [facility] [address] [place] [address] Keesha Tidwell, RLQ abdominal pain (Primary Dx); Use of tamoxifen (Nolvadex); Thickened endometrium; Endometrial polyp 04/10/2025 Surgery Prep [facility] [address] [place] [address] Rosa Monahan RN Endometrial polyp (Primary Dx) 04/10/2025 Travel 04/07/2025 Telephone [facility] [address] [place] [address] Keesha Tidwell, Appointment 03/30/2025 1:40 PM EDT Office Visit [facility] [address] [place] [address] Keesha Tidwell DO Use of tamoxifen (Nolvadex) (Primary Dx); Thickened endometrium; Endometrial polyp 03/30/2025 Travel 03/27/[address] [place] [address] Keesha Tidwell, Appointment; Confirmation from Last 3 Months Family History Medical History Relation Name Comments Diabetes Brother 1 Duncan Rheum arthritis Brother 2 Noel Cancer Father [place] Prostate cancer Father [place] Stroke Mother Appie Breast cancer Paternal Aunt Eleni Relation Name Status Comments Brother 1 Evgeny Brother 2 [place] Father [place] Mother Appie Paternal Aunt Eleni [...] often do you attend chur ch or anabaptist services? More than 4 times per year 11/16/2022 Do you belong to any clubs o r organizations such as scientology groups, unions, fraternal or athletic groups, or [...] on file 09/28 Educational Attainment Answer Date Odnavon rded Speak language other than [place]de[place] at home Not on file 09/28/2023 Want [...] 06/25/2025 1:00 PM EDT Hospital Encounter [facility] [address] [place] [address] Mehrdad Ford MD [address] [place] [address] 06/25/2025 2:15 PM EDT Office Visit [facility] [address] [place] [address] Tracie Menendez PA-C [address] [place] [address] Shelia Mora MD [address] [place] [address] 12/10/2025 1:00 PM EDT Appointment [facility] [address] [place] [address] Mehrdad Ford MD [address] [place], [place] [address] 12/10/2025 2:00 PM EDT Office Visit [facility] [address] [facility] [address] [place] [address] Mehrdad Ford MD [address] [place], [place] [id number] 05/17/2026 2:00 PM EDT Office Visit [facility] TARGET NETWORK ANALYST - [address] [place] [address] Keesha Tidwell, DO [address] [place] [address] Health Maintenance Due Date Last [...] ANESTHESIA INTUBATION Routine 04/30/2025 1:39 PM EDT SD DILATION & CURETTAGE DX&/THER NONOBSTETRIC 04/30/2025 [...] entirely on 1 block. See other report ([id number]) Tissue SPECIMEN FROM ENDOMETRIUM OBTAINED BY CURETTAGE / Unknown 04/30/2025 1:51 PM EDT Tissue specimen (specimen) POLYP / Unknown 04/30/2025 1:51 PM EDT us Keesha Tidwell DO PATHOLOGY/CYTOLOGY ORDERABLES Fi nal [facility] [address] [place] [address] * AN SINGLE LUMEN INTUBATION (04/30/2025 1:39 [...] - 110 mg/dL 04/30/2025 11:29 AM EDT [facility] Comment:In the event of poor peripheral blood flow, venous or arterial blood should be used due to the potential of erroneous results. Buck Presser [id number] 04/30/2025 11:29 AM EDT [facility] Blood WHOLE BLOOD / Unknown 04/30/2025 11:23 AM EDT 04/30/2025 11:29 AM EDT Narrative [facility] - 04/30/2025 11:29 AM EDT Buck Presser ID is - [id number] us Keesha Tidwell DO POINT OF CARE TEST ORDERABLES Fi nal Result [facility] [address] [phone] * Ultrasound non-ob transvaginal (04/20/2025 2:03 PM [...] Advance Directives For more information, please contact: [phone] * Full Code (Latest Code Status on File) Date Activated Date Inactivated Comments 04/30/2025 10:14 AM 04/30/2025 5:24 PM Care Teams [facility] Relationship Specialty Start Date End Date Chris Kim MD [address] [place] [address] PCP - General General Internal Medicine 10/11/22 Shelia Mora MD [address] [facility] [address] [place] [address] Medical Oncologist Hematology and Oncology 11/14/22 Mehrdad Ford MD [address] [facility] [address] [place] [address] General Surgery 12/04/22
--- OUTSIDE RECORDS SUMMARY | 2025-06-23 07:59 | XMS_ITS | Clinical Summary ---
Author Organization Healthcare Address [address] [place] [address] Care Team Providers Care Artificial Glass Eye Maker Name Role Phone Pcp, No Primary Care [...] needed for mild pain. Active fish oil ([place]thur-3) 500 MG capsule Take 500 mg by [...] or (1 - 1-dose 75+ series) 2020 [id number] Vaccine ( - season) 2025 06/14/2022, 12/23/2021, [...] Payer (Ef fective 2010-Present) Name:Brooklyn Corbin Member ID:[id number] Relation to Subscriber:Self Name:Brooklyn Corbin Subscriber ID:[id number] Payer ID:MEDICARE Group ID:Not on file Type:Medicare Address: [address] [facility] [employer] [address] [place] [address] [place] [address] [employer]CIAL Care Teams Artificial Glass Eye Maker Relationship Specialty Start Date End Date Pcp, [place] [address] [place] [address] PCP - General Family Medicine 09/17/21
--- OUTSIDE RECORDS SUMMARY | 2025-06-23 07:59 | XMS_ITS | Encounter Summary ---
Author Organization [employer] ([place], [place], [place], [place]) Address [address] [place] [address] Care Team Providers Care Mechanical Service Technician Name Role Phone Chris Kim MD Primary Care Provider [phone] Shelia Mora MD Unavailable [phone] Mehrdad Ford MD Unavailable [phone] Reason for Visit * Reason Onset Date Comments Triage Call 04/29/2025 Encounter Details Date Type Department Care Team (Late st Contact Info) Description 04/29/2025 Telephone [facility] ARCADE ATTENDANT - [place] [address] [facility] [address] [place] [address] Anisa Castro, salesperson shoes Call Social History Tobacco Use Types Packs/Day [...] How often do you attend chur or mu-ism services? More than 4 times per year [...] Date Donavon rded Speak language other than [place] at home Not on file 09/28/2023 Want [...] Description 06/25/2025 1:00 PM EDT Hospital Encounter [facility] [address] [facility] [address] [place] [address] Mehrdad Ford MD [address] [place] [address] [address] [place] [address] 06/25/2025 2:15 PM EDT Office Visit [facility] [place] [address] [facility] [address] [place] [address] Tracie Menendez PA-C [address] [facility] [address] [place] [address] Shelia Mora MD [address] [facility] [address] [place] [address] 12/10/2025 1:00 PM EDT Appointment [facility] [address] [place] [address] Mehrdad Ford MD [address] [place] [address] 12/10/2025 2:00 PM EDT Office Visit [facility] [address] [place] [address] [address] [place] [address] Mehrdad Ford MD [address] [place], [place] [address] 05/17/2026 2:00 PM EDT Office Visit [facility] ARCADE ATTENDANT - [address] [place] [address] Keesha Tidwell, [address] [place] [address] documented as of this encounter Visit Diagnoses Not on filedocumented in this encounter Care Teams Mechanical Service Technician Relationship Specialty Start Date End Date Chris Kim MD [address] [place] [address] PCP - General General Internal Medicine 10/11/22 Shelia Mora MD [address] [facility] [address] [place], [place] [id number] Medical Oncologist Hematology and Oncology 11/14/22 Mehrdad Ford MD [address] [facility] [address] [place], [place] [id number] General Surgery 12/04/22 documented as of this encounter
[2025-06-23 08:11] LABS: Hematocrit 32.2 % (37.0-47.0); Immature Granulocytes % 0.3 %; Mean Corpuscular HGB Conc 32.6 g/dL (31.8-35.4); Mean Corpuscular Hemoglobin 32.5 pg (27.0-31.2); Mean Corpuscular Volume 99.7 fl (81-99); Nucleated Red Blood Cells % 0 %; Platelet Count 161 K/mm3 (142-424); Red Blood Count 3.23 M/mm3 (4.20-5.40); Red Cell Distribution Width-SD 47.9 fL; White Blood Count 8.9 K/mm3 (4.8-10.8)
[2025-06-23 08:21] LABS: Hemoglobin 10.6 g/dL (12.2-16.2)
--- NOTE | 2025-06-23 11:30 | CT_ITS ---
FINAL REPORT TECHNIQUE: Thin section axial images are obtained through the abdomen and pelvis after intravenous contrast. Reconstruction images were obtained from the axial data. Exam was performed using dose reduction techniques. This study was performed with techniques to keep radiation doses as low as reasonably achievable (ALARA). Individualized dose reduction techniques using automated exposure control or adjustment of mA and/or kV according to the patient's size were employed. CLINICAL HISTORY: Right lower quad pain w/ oral contrast COMPARISON: 06/22/2025 FINDINGS: LUNG BASES: Lung bases are clear. Heart size is normal. LIVER: Homogeneous. No focal lesion. GALLBLADDER/BILIARY SYSTEM: Gallbladder is present. No gallstones. No biliary dilatation. SPLEEN: Unremarkable. PANCREAS: Unremarkable. ADRENALS: Unremarkable. KIDNEYS/URETERS/BLADDER: No hydronephrosis, renal mass, or renal stone. Unremarkable urinary bladder. GI TRACT: No small bowel obstruction or dilatation. Normal appendix. No acute colon abnormality. Diverticulosis without diverticulitis is noted. PELVIC ORGANS: Unremarkable for age. LYMPH NODES/RETROPERITONEUM/MESENTERY: No lymphadenopathy. No abdominal aortic aneurysm. ABDOMINAL WALL: The abdominal wall is intact. FREE FLUID: No ascites. BONES: No acute osseous abnormality. IMPRESSION: No acute abnormality identified in the abdomen or pelvis. Reviewed, Interpreted and Dictated by Matilda Baker MD Transcribed by Vivi Jansen Authenticated and [facility]
[2025-06-23] MEDS: IOPAMIDOL-370 (76%);100ML BOTTLE 75 ML IV (11:42)
[2025-06-23] MEDS: SODIUM CHLORIDE 0.9% 10ML SYR (RAD ONLY) 10 ML IV (11:42)
== END 2025-06-23 23:59 | disposition home or self-care (01) ==
PROVIDERS: PCP Internal Medicine; Visit Provider Surgery
DX: R10.31 Right lower quadrant pain (principal)
CPT/HCPCS: 36415; 74177; 85025; Q9967

== ENCOUNTER 2025-07-02 09:54 | Outpatient (CLI) | payer MEDICARE, OTHER, SELFPAY ==
--- OUTSIDE RECORDS SUMMARY | 2025-05-13 11:00 | XMS_ITS | Encounter Summary ---
Author Organization [employer] ([place], [place], [place], [place]) Address [address] [place] [address] Care Team Providers Care Sprue Cutting Press Operator Name Role Phone Chris Kim MD Primary Care Provider [phone] Shelia Mora MD Unavailable [phone] Mehrdad Ford MD Unavailable [phone] Encounter Details Date Type Department Care Team (Latest Contact Info) Description 05/13/2025 11:00 AM EDT Office Visit [facility] COMMUNICATION ELECTRONIC TECHNICIAN - [address] [place] [address] Keesha Tidwell, DO [address] [place] [address] Postoperative examination (Primary Dx) Social [...] week 11/16/2022 How often do you attend [facility] or anglican services? More than 4 times per year 11/16/2022 Do you belong to any clubs o r organizations such as buddhist groups, unions, fraternal or athletic groups, or [...] Date Donavon rded Speak language other than [place] Islander at home Not on file 09/28/2023 [...] Care Team (Late st Contact Info) Description 12/10/2025 1:00 PM EDT Appointment [facility] Breast Care [address] [place] [address] [address] [place] [address] Mehrdad Ford MD [address] [place] [address] [address] [place] [address] 12/10/2025 2:00 PM EDT Office Visit [facility] [address] [facility] [address] [place] [address] Mehrdad Ford MD [address] [place] [address] 12/10/2025 3:15 PM EDT Office Visit [facility] - [place] [address] [place] [address] Shelia Mora MD [address] [facility] [address] [place], [place] [address] 05/17/2026 2:00 PM EDT [facility] COMMUNICATION ELECTRONIC TECHNICIAN - [address] [place] [address] Keesha Tidwell, DO [address] [place] [address] documented as of this encounter Visit Diagnoses Diagnosis Postoperative examination- Primary Follow-up examination, following unspecified surgery documented in this encounter Care Teams Sprue Cutting Press Operator Relationship Specialty Start Date End Date Chris Kim MD [address] [place] [address] [place] [address] PCP - General General Internal Medicine 10/11/22 Shelia Mora MD [address] [facility] [address] [place] [address] Medical Oncologist Hematology and Oncology 11/14/22 Mehrdad Ford MD [address] [facility] [address] [place] [address] General Surgery 12/04/22 documented as of this encounter
--- OUTSIDE RECORDS SUMMARY | 2025-06-25 14:15 | XMS_ITS | Encounter Summary ---
Author Organization [employer] ([place], [place], [place], [place]) Address [address] [place] [address] Care Team Providers Care Drapery Worker Name Role Phone Chris Kim MD Primary Care Provider Shelia Mora MD Unavailable [phone] Mehrdad Ford MD Unavailable [phone] Reason for Visit * Reason Comments Follow-up History of breast ca ncer Encounter Details Date Type Department Care Team (Late st Contact Info) Description 06/25/2025 2:15 PM EDT Office Visit [facility] - [address] [facility] [address] [place] [address] Tracie Menendez PA-C [address] [facility] [place] [address] [place] [address] Shelia Mora MD [address] [place] [address] [place] [address] Malignant neoplasm of upper-inner quadrant of right breast in female, estrogen receptor positive (HCC) (Primary Dx); halfway (current) use of selective estrogen receptor modulators (serms); Colitis Social History Tobacco Use Types Packs/Day Years Used Date Smoking Tobacco: Never Passive Smoke Exposure: Never Smokeless Tobacco: Never Tobacco Cessation:Counseling Given: Not Answered Alcohol Use Standard Drinks/Week Comments Never 0 [...] often do you attend chur ch or episcopal services? More than 4 times per year 11/16/2022 Do you belong to any clubs o r organizations such as anglican groups, unions, fraternal or athletic groups, or [...] Sign Reading Time Taken Comments Blood Pressure 144/65 06/25/2025 1:39 PM EDT Pulse 76 06/25/2025 1:39 PM EDT Temperature 36.6 C (97.8 F) 06/25/2025 1:39 PM EDT Respiratory Rate 18 06/25/2025 1:39 PM EDT Oxygen Saturation 97% 06/25/2025 1:39 PM EDT Inhaled Oxygen Concentration - - Weight 82.9 kg (182 lb 12.8 oz) 06/25/2025 1:39 PM EDT Height 165.1 cm (5' 5 ) 06/25/2025 1:39 PM EDT Body Mass Index 30.42 06/25/2025 1:39 PM EDT documented in this encounter Progress Notes * Shelia Mora MD - 06/25/2025 2:15 PM EDT [facility] Note Cancer History: 1. 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 Second shave biopsy 12/05 with superficially invasive malignant melanoma, extensive melanoma in situ, 0.2 mm in depth, margins involved by melanoma in situ. pT1a 2. Reexcision 12/23/2020: Residual melanoma in situ with scar, margins clear. 3. Screening mammography 10/09 with architectural distortion R 3:00, 8mm mass on US. 4. Biopsy positive for invasive lobular carcinoma, ER/MA positive and HER2 negative. 5. Lumpectomy 11/28/2022, PT1bN0 negative margins. 6. Partial breast radiation radiation 01/07. 7. Adjuvant AI 02/06 to current. Intolerant of anastrozole, letrozole, exemestane. Tamoxifen 12/09 - current. Chief complaint: Follow-up (History of breast cancer/) History of Present Illness Brooklyn Corbin is a 79 year old female with lobular carcinoma of the right breast who presents for follow-up. No complaints related to her breast. On tamoxifen. Tolerating well. She experiences significant left-sided abdominal pain and was evaluated at [facility]. No fever, diarrhea, or rectal bleeding. She uses MiraLax and Konsyl powder for bowel management due to mild constipation. Her left lower quadrant pain has not improved since the ER visit at which point she was told she has colitis and to follow-up with her fire pot operator. That appointment isnot available until next week. No vomiting, although some nausea is present. She is able to eat and drink without issues. No knownallergies to antibiotics. Past Medical History: Diagnosis Date Anxiety Arthritis Back pain Breast cancer (HCC) Broken fibula 2013 Left GERD (gastroesophageal reflux disease) High cholesterol Hypertension IBS (irritable bowel syndrome) Melanoma (HCC) left upper arm Seasonal allergies Past Surgical History: Procedure Laterality Date BIOPSY/EXCISION,SENTINEL LYMPH NODE Right 11/28/2022 Procedure: EXCISIONAL BIOPSY, LYMPH NODE, SENTINEL; Surgeon: Mehrdad Ford MD; [facility]; Service: General Surgery; Laterality: Right; BREAST BIOPSY Right 11/01/2022 COLONOSCOPY EVACUATION W/ REPAIR 04/30/2025 Procedure: DILATION AND CURETTAGE, UTERUS; Surgeon: Keesha Tidwell DO; [facility]; Service: Obstetrics & Gynecology (feeder tender);; HYSTEROSCOPY,MYOSURE RESECTION N/A 04/30/2025 Procedure: HYSTEROSCOPY, WITH DILATION AND CURETTAGE, WITH POLYPECTOMY OF UTERUS; Surgeon: Keesha Tidwell DO; Location: [facility]; Service: Obstetrics & Gynecology (feeder tender); Laterality: N/A; polypectomy LUMPECTOMY Right 11/28/2022 Procedure: LUMPECTOMY, BREAST; Surgeon: Mehrdad Ford MD; Location: [facility]; Service: General Surgery; Laterality: Right; LYMPH NODE BIOPSY Left 11/15/2022 left axillary node NEEDLE LOCALIZATION Right 11/28/2022 Procedure: RIGHT BREAST NEEDLE LOCALIZED LUMPECTOMY WITH SENTINEL NODE BX; Surgeon: Mehrdad Ford MD; Location: [facility]; Service: General Surgery; Laterality: Right; SKIN CANCER EXCISION Left 03/23/2021 left arm; melanoma TUBAL LIGATION 1979 Family History Problem Relation Name Age of Onset Stroke Mother Appashley Cancer Father Dakota Prostate cancer Father Dakota Diabetes Brother Evgeny Rheum arthritis Brother Noel Breast cancer Paternal Aunt Eleni Allergies: Pollen Extracts Medications: Current Outpatient Medications Medication Instructions acetaminophen (TYLENOL) 500 mg, Every 6 hours PRN amLODIPine (NORVASC) 5 mg, Daily aspirin 81 mg atorvastatin (LIPITOR) 40 MG tablet Take by mouth. busPIRone (BUSPAR) 5 mg, 2 times daily calcium carbonate-vitamin D3 (Calcium 600 + D,3,) 600 mg-10 mcg (400 unit) Tab 1 tablet, oral, 2 times daily calcium polycarbophil (KONSYL FIBER ORAL) Daily cetirizine (ZYRTEC) 10 mg, Daily chlordiazePOXIDE (LIBRIUM) 10 mg ciprofloxacin HCl (CIPRO) 500 mg, oral, 2 times daily dicyclomine (BENTYL) 10 mg, Every 6 hours PRN lisinopril-hydroCHLOROthiazide (PRINZIDE,ZESTORETIC) 20-25 mg per tablet Take by mouth. metroNIDAZOLE (FLAGYL) 500 mg, oral, 3 times daily, Look-alike/Sound-alike medication multivitamin per tablet 1 tablet, Daily omeprazole (PriLOSEC) 20 MG capsule Take by mouth. ondansetron (ZOFRAN-ODT) 8 mg, oral, 3 times daily PRN polyethylene glycol (GLYCOLAX) 17 g, Daily tamoxifen (NOLVADEX) 20 mg, oral, Daily venlafaxine XR (EFFEXOR-XR) 37.5 mg, oral, Daily vit [id number] (Bioflex) 813-04-94-40 mg Tab Take by mouth. Review of Systems: 10 systems reviewed and negative except as noted per HPI Vitals Vitals: 06/25/25 1339 BP: (!) 144/65 BP Location: Left arm Patient Position: Sitting Cuff Size: Adult Long Pulse: 76 Resp: 18 Temp: 97.8 ??F (36.6 ??C) TempSrc: Temporal Artery SpO2: 97% Weight: 82.9 kg (182 lb 12.8 oz) Height: 1.651 m (5' 5 ) Gain/Loss Since Last Wt (Kgs): 1 kg Physical Exam Vitals and nursing note reviewed. Constitutional: General: She is not in acute distress. Appearance: Normal appearance. She is not ill-appearing or toxic-appearing. HENT: Head: Normocephalic and atraumatic. Nose: Nose normal. Eyes: Extraocular Movements: Extraocular movements intact. Conjunctiva/sclera: Conjunctivae normal. Cardiovascular: Rate and Rhythm: Normal rate and regular rhythm. Heart sounds: Normal heart sounds. Pulmonary: Effort: Pulmonary effort is normal. No respiratory distress. Breath sounds: Normal breath sounds. No wheezing, rhonchi or rales. Chest: Chest wall: No mass or tenderness. Breasts: Right: No inverted nipple, mass, skin change or tenderness. Left: No inverted nipple, mass, skin change or tenderness. Comments: Well-healed postsurgical incisions following lumpectomy to right breast. Dense tissue underlying lumpectomy incision. Favor scar tissue. No overt masses or adenopathy palpated. Abdominal: General: Abdomen is flat. There is no distension. Palpations: Abdomen is soft. Tenderness: There is abdominal tenderness in the left lower quadrant. There is no guarding or rebound. Musculoskeletal: General: No swelling or deformity. Normal range of motion. Cervical back: Normal range of motion and neck supple. Right lower leg: No edema. Left lower leg: No edema. Lymphadenopathy: Cervical: No cervical adenopathy. Upper Body: Right upper body: No supraclavicular or axillary adenopathy. Left upper body: No supraclavicular or axillary adenopathy. Skin: General: Skin is warm and dry. Coloration: Skin is not jaundiced or pale. Findings: No rash. Neurological: General: No focal deficit present. Mental Status: She is alert and oriented to person, place, and time. Motor: No weakness. Gait: Gait normal. Psychiatric: Mood and Affect: Mood normal. Behavior: Behavior normal. Thought Content: Thought content normal. Judgment: Judgment normal. Results: OSH: CT imaging reviewed from 06/22/2025 with dilated appendix, possible wall thickening early appendicitis. Early colitis as well. CT 06/23/25 with no acute abnormality in the abdomen or pelvis CBC reviewed WBC 7.8 hemoglobin 11.9 platelets 192 creatinine 1.0 surgical Consult note reviewed from Dr. Allran low suspicion for appendicitis clinically Assessment/Plan: Cancer Staging Malignant neoplasm of upper-inner quadrant of right breast in female, estrogen receptor positive (HCC) Staging form: Breast, AJCC 8th Edition - Clinical stage from 11/16/2022: Stage IA (cT1b, cN0, cM0, G1, ER+, MA+, HER2-) - Signed by Shelia Mora MD on 11/16/2022 - Pathologic stage from 11/28/2022: Stage IA (pT1b, pN0(sn), cM0, G1, ER+, MA+, HER2-) - Signed by Jose Angel Parrish MD on 12/04/2022 Assessment & Plan Estrogen receptor positive right breast lobular carcinoma -Recent imaging and exam showed no suspicious findings. Continue tamoxifen. We did review her pelvic ultrasound and D&C results which were benign. Continue to follow with gynecology. Acute left lower quadrant abdominal pain with suspected colitis or diverticulitis -Acute pain likely due to colitis or diverticulitis. CT scan reviewed, early colitis. Her pain clearly localizes to the left as opposed to right lower quadrant. I encouraged her to keep follow-up with gastroenterology next week but I did prescribe ciprofloxacin and Flagyl for possible infectious colitis for now. - Prescribe Zofran for nausea. - Advise to increase fluid intake. - Instruct to call if symptoms persist beyond two to three days or worsen. - Plan follow-up with Dr. Martines on July 01. Next mammography due 12/10 and next DEXA 06/12. New Medications Ordered This Visit Medications metroNIDAZOLE (FLAGYL) 500 MG tablet Sig: Take 1 tablet (500 mg total) by mouth 3 (three) times daily Look-alike/Sound-alike medication. Dispense: 21 tablet Refill: 0 ciprofloxacin HCl (Cipro) 500 MG tablet Sig: Take 1 tablet (500 mg total) by mouth 2 (two) times daily. Dispense: 14 tablet Refill: 0 ondansetron (ZOFRAN-ODT) 8 MG disintegrating tablet Sig: Take 1 tablet (8 mg total) by mouth 3 (three) times daily as needed for nausea. Dispense: 20 tablet Refill: 2 Signed: Electronically signed by Shelia Mora MD 06/25/25 3:23 PM EDT The following consent language was reviewed verbally with the patient in full: Tomasz, I am using a tool to help me do my notes. It is recording our conversation and creates my notes automatically and I can focus on our discussion instead of typing in the room. Is that okay with you? The patient demonstrated understanding and verbally agreed to the above consent language. All questions were addressed, and the patient provided informed consent to proceed. documented in this encounter Plan of Treatment Upcoming Encounters Date Type Department Care Team (Late st Contact Info) Description 12/10/2025 1:00 PM EDT Appointment [facility] [address] [facility] [address] [place] [address] Mehradd Ford MD [address] [facility] [address] [place] [address] 12/10/2025 2:00 PM EDT Office Visit [facility] [address] [facility] [address] [place] [phone] Mehrdad Ford MD [address] [facility] [address] [place], [place] [id number] 12/10/2025 3:15 PM EDT Office Visit [facility] - [place] [address] [facility] [address] [place] [address] Shelia Mora MD [address] [place] [address] [place] [address] 05/17/2026 2:00 PM EDT Office Visit [facility] TECHNICAL SERVICE REP - [address] [place] [address] Keesha Tidwell, DO [address] [place] [address] documented as of this encounter Visit Diagnoses Diagnosis Malignant neoplasm of upper-inner quadrant of right breast in female, estrogen receptor positive (HCC)- Primary halfway (current) use of selective estrogen receptor modulators (serms) Colitis Other and unspecified noninfectious gastroenteritis and colitis documented in this encounter Care Teams Drapery Worker Relationship Specialty Start Date End Date Chris Kim MD [address] [place] [address] [place] [address] PCP - General General Internal Medicine 10/11/22 Shelia Mora MD [address] [place] [address] [place] [address] Medical Oncologist Hematology and Oncology 11/14/22 Mehrdad Ford MD [address] [facility] [address] [place] [id number] General Surgery 12/04/22 documented as of this encounter
[2025-07-02 10:03] LABS: Clostridium Difficile A/B, PCR Not Detected (NotDetected); Cyclospora Cayetanesis Not Detected (NotDetected); Salmonella, PCR Not Detected (NotDetected); Shiga-like toxin E coli Not Detected (NotDetected); Shigella Enterovasive E coli Not Detected (NotDetected); Yersinia Entercolitica, PCR Not Detected (NotDetected)
--- OUTSIDE RECORDS SUMMARY | 2025-07-02 10:10 | XMS_ITS | Clinical Summary ---
Author Organization Healthcare Address [address] [place] [address] Care Team Providers Care Anvil Seating Press Operator Name Role Phone Pcp, No Primary Care [...] needed for mild pain. Active fish oil ([place] Vernia-3) 500 MG capsule Take 500 mg by [...] or (1 - 1-dose 75+ series) 2020 [id number] Vaccine ( - season) 2025 06/14/2022, 12/23/2021, [...] Payer (Ef fective 2010-Present) Name:Brooklyn Corbin Member ID:[id number] Relation to Subscriber:Self Name:Brooklyn Corbin Subscriber ID:[id number] Payer ID:MEDICARE Group ID:Not on file Type:Medicare Address: [address] [facility] [place] [address] [place] [address] [place] [address] GENERIC COMMERCIAL Care Teams Anvil Seating Press Operator Relationship Specialty Start Date End Date Pcp, Merly [address] [place] [address] PCP - General Family Medicine 09/17/21
--- OUTSIDE RECORDS SUMMARY | 2025-07-02 10:10 | XMS_ITS | Encounter Summary ---
Author Organization [employer] ([place], [place], [place], [place]) Address [address] [place] [address] Care Team Providers Care Corrosion Engineer Name Role Phone Chris Kim MD Primary Care Provider [phone] Shelia Mora MD Unavailable [phone] Liliam Raman RN Unavailable Unavailable Mehrdad Ford MD Unavailable [phone] Reason for Referral * Mammography (Routine) - Closed Specialty Diagnoses / Procedures Referred By Contac t Referred To Contact Diagnoses Abnormal mammogram Procedures MM Stereotactic breast biopsy right Leidy Gordillo MD [address] [place] [address] Phone: tel: fax: Referral ID Status Reason Start Date Expiration Date Visits Re quested Visits Authorized [id number] Closed 10/30/2022 04/28/2023 1 1 Encounter Details Date Type Department Care Team (Late st Contact Info) Description 10/30/2022 Outside Orders [facility] [address] [place] [address] Leidy Gordillo MD [address] [place] [id number] Abnormal mammogram (Primary Dx) Social History Tobacco [...] Info) Description 12/10/2025 1:00 PM EDT Appointment [facility] [address] [facility] [address] [place] [phone] Mehrdad Ford MD [address] [place] [address] 12/10/2025 2:00 PM EDT Office Visit [facility] [address] [facility] [address] [place] [phone] Mehrdad Ford MD [address] [place] [address] 12/10/2025 3:15 PM EDT Office Visit [facility] - [address] [facility] [address] [place] [address] Shelia Mora MD [address] [facility] [address] [place], [place] [id number] 05/17/2026 2:00 PM EDT [facility] - [address] [place] [address] Keesha Tidwell, [address] [place] [address] documented as of this encounter [...] 0.2 cm in greatest dimension. ER positive, AK positive, HER-2/cristin negative These results are concordant with the mammographic evaluation. Leidy Gordillo MD IM MAMMOGRAPHY ORDERABLES Annalise l Result documented in this encounter Visit Diagnoses Diagnosis Abnormal mammogram- Primary Abnormal mammogram, unspecified Abnormal mammogram Abnormal mammogram, unspecified documented in this encounter Care Teams Corrosion Engineer Relationship Specialty Start Date End Date Chris Kim MD [address] [place] [address] PCP - General General Internal Medicine 10/11/22 Shelia Mora MD [address] [place] [address] Medical Oncologist Hematology and Oncology 11/14/22 Lamine, Liliam Nye, RN Nurse Navigator 11/14/22 03/16/24 Mehrdad Ford MD General Surgery 12/04/22 documented as of this encounter
--- OUTSIDE RECORDS SUMMARY | 2025-07-02 10:10 | XMS_ITS | Referral Summary ---
Author Organization [employer] ([place], [place], [place], [place]) Address [address] [place] [address] Care Team Providers Care Content Development Manager Name Role Phone Chris Kim MD Primary Care Provider [phone] Shelia Mora MD Unavailable [phone] Mehrdad Ford MD Unavailable [phone] Encounters Date Type Department Care Team Description 06/25/2025 Orders Only [facility] [place] [address] [place] [address] Provider, MD Monserrat 06/25/2025 Travel 06/25/2025 2:15 PM EDT Office Visit [facility] [place] [address] [place] [address] Tracie Menendez, Shelia Silva MD Malignant neoplasm of upper-inner quadrant of right breast in female, estrogen receptor positive (HCC) (Primary Dx); terminal manager (current) use of selective estrogen receptor modulators (serms); Colitis 05/13/2025 11:00 AM EDT Office Visit [facility] HEAT SET OPERATOR - [address] [place] [address] Keesha Tidwell DO Postoperative examination (Primary Dx) 05/04/2025 Telephone [facility] HEAT SET OPERATOR - [place] [address] [place] [address] Anisa Castro RN Results 04/30/2025 1:43 PM EDT - 04/30/2025 2:46 PM EDT Surgery [facility] Surgery Department [address] [place] [address] Keesha Tidwell, HYSTEROSCOPY, WITH DILATION AND CURETTAGE, WITH POLYPECTOMY OF UTERUS 04/30/2025 1:29 PM EDT Anesthesia Event [facility] [address] [place] [address] Rafael Ruvalcaba, Hector Gallegos MD 04/30/2025 10:39 AM EDT - 04/30/2025 4:09 PM EDT Hospital Encounter [facility] [address] [place] [address] Keesha Tidwell, DO Endometrial polyp Discharge Disposition: Home or Self Care 04/29/2025 Telephone [facility] HEAT SET OPERATOR - [place] [address] [facility] [place] [address] Anisa Castro RN Triage Call 04/21/2025 Telephone [facility] HEAT SET OPERATOR [facility] [address] [facility] [address] [place] [address] Rosa Monahan RN Results 04/20/2025 1:31 PM EDT - 04/20/2025 11:59 PM EDT Hospital Encounter [facility] Ultrasound [address] [place] [address] Keesha Tidwell, DO RLQ abdominal pain Discharge Disposition: Home or Self Care 04/10/2025 Surgery Prep [facility] HEAT SET OPERATOR - [facility] [address] [facility] [address] [place] [address] Rosa Monahan, RN Endometrial polyp (Primary Dx) 04/10/2025 Travel 04/10/2025 2:00 PM EDT Office Visit [facility] HEAT SET OPERATOR - [facility] [address] [place] [address] Keesha Tidwell DO RLQ abdominal pain (Primary Dx); Use of tamoxifen (Nolvadex); Thickened endometrium; Endometrial polyp 04/07/2025 Telephone [facility] HEAT SET OPERATOR - [facility] [address] [facility] [address] [place] [address] Keesha Tidwell DO Appointment from Last 3 Months Allergies Active Allergy Reactions Criticality Noted Date Comments Pollen Extracts Other (See Comments) Low 03/24/2021 Medications omeprazole (PriLOSEC) 20 MG capsule Take by mouth. 08/30/20 Active lisinopril-hydroCH LOROthiazide (PRINZIDE,ZESTORET IC) 20-25 mg per tablet Take by mouth. 08/30/20 Active atorvastatin (LIPITOR) 40 MG tablet Take by mouth. 08/30/20 Active busPIRone (BUSPAR) 5 MG tablet Take [...] (81 mg total) by mouth. Active vit B-vguhmzx-pgdt-rut in-hb196 (Bioflex) 120-40-23-40 mg Tab Take by mouth. Activ e multivitamin per tablet Take 1 tablet by mouth daily. Active polyethylene glycol (GLYCOLAX) 17 gram packet Take 17 g by mouth daily. Active calcium polycarbophil (KONSYL FIBER ORAL) Take by mouth daily. Active calcium carbonate-vitamin D3 (Calcium 600 + D,3,) 600 mg-10 mcg (400 unit) Tab Take 1 tablet by mouth 2 (two) times daily. 180 tablet 3 05/14/20 23 Active Additional Information Patient not taking.Reported on 06/25/2025 dicyclomine (BENTYL) 10 MG capsule Take 1 capsule (10 mg total) by mouth every 6 (six) hours as needed. 08/07/20 23 Active amLODIPine (NORVASC) 5 MG tablet Take 1 tablet (5 mg total) by mouth daily. 09/15/20 24 Active tamoxifen (NOLVADEX) 20 MG tabletIndications: History of breast cancer Take 1 tablet (20 mg total) by mouth daily. 90 tablet 3 12/05/19 25 Active venlafaxine XR (EFFEXOR-XR) 37.5 MG 24 hr capsuleIndications :History of breast cancer Take 1 capsule (37.5 mg total) by mouth daily. 90 capsule 3 12/05/19 25 Active metroNIDAZOLE (FLAGYL) 500 MG tablet Take 1 tablet (500 mg total) by mouth 3 (three) times daily Look-alike/So und-alike medication. 21 tablet 06/25/20 25 Active ciprofloxacin HCl (Cipro) 500 MG tablet Take 1 tablet (500 mg total) by mouth 2 (two) times daily. 14 tablet 06/25/20 25 Active ondansetron (ZOFRAN-ODT) 8 MG disintegrating tablet Take 1 tablet (8 mg total) by mouth 3 (three) times daily as needed for nausea. 20 tablet 2 06/25/20 25 Active exemestane (AROMASIN) 25 mg tabletIndications: Malignant neoplasm of upper-inner quadrant of right breast in female, estrogen receptor positive (HCC),Post-menopau se,Vasomotor symptoms due to menopause Take 1 tablet (25 mg total) by mouth daily. 90 tablet 2 02/26/20 25 025 Discontin ued(Per Patient: Not Taking) Active Problems Problem Noted Date Diagnosed Date Endometrial polyp 04/10/2025 Malignant neoplasm of upper- inner quadrant of right breast in female, estrogen receptor positive 11/16/2022 Cancer Staging:Clinical stage from 11/16/2022:Stage IA(cT1b, cN0, cM0, G1, ER+, OK+, HER2-) - Signed by Shelia Mora MD on 11/16/2022 Pathologic stage from 11/28/2022:Stage IA(pT1b, pN0(sn), cM0, G1, ER+, OK+, HER2- ) - Signed by Jose Angel [...] often do you attend chur ch or pentecostal services? More than 4 times per year 11/16/2022 Do you belong to any clubs o r organizations such as uatsdin groups, unions, fraternal or athletic groups, or [...] Date Donavon rded Speak language other than Yoruba at home Not on file 09/28/2023 Want [...] Mass Index 30.42 06/25/2025 1:39 PM EDT Plan of Treatment Upcoming Encounters Date Type Department Care Team (Late st Contact Info) Description 12/10/2025 1:00 PM EDT Appointment [facility] [address] [place] [address] Mehrdad Ford MD [address] [place] [address] [address] [place] [address] 12/10/2025 2:00 PM EDT Office Visit [facility] [address] [facility] [address] [place] [address] Mehrdad Ford MD [address] [place], [place] [address] 12/10/2025 3:15 PM EDT Office Visit [facility] [place] [address] [place] [address] Shelia Mora MD [address] [place], [place] [address] 05/17/2026 2:00 PM EDT Office Visit [facility] HEAT SET OPERATOR - [address] [place] [address] Keesha Tidwell DO [address] [place] [address] Procedures Procedure Name Priority Date/Time Associated Diagnosis Comments EXTERNAL IMAGING - CT Routine 06/25/2025 3:39 PM EDT EXTERNAL IMAGING - CT Routine 06/25/2025 3:25 PM EDT TISSUE EXAM ([place]) AP Routine 04/30/2025 1 :51 PM EDT Endometrial polyp ANESTHESIA INTUBATION Routine 04/30/2025 1:39 PM EDT [place] DILATION & CURETTAGE DX&/THER NONOBSTETRIC 04/30/2025 1:29 [...] Recently Relevant to Health Maintenance Results * EXTERNAL IMAGING - CT (06/25/2025 3:39 PM EDT) Only the most recent of2 resultswithin the time period is included. Anatomical Region Laterality Modality Other us Historical Provider HEALTH MAINTENANCE Final Result * Tissue Exam (04/30/2025 1:51 PM EDT) [...] entirely on 1 block. See other report ([id number]) Tissue SPECIMEN FROM ENDOMETRIUM OBTAINED BY CURETTAGE / Unknown 04/30/2025 1:51 PM EDT Tissue specimen (specimen) POLYP / Unknown 04/30/2025 1:51 PM EDT us Keesha Tidwell DO PATHOLOGY/CYTOLOGY ORDERABLES Fi nal Result Performing Organization Address [facility]/ZIP Co de Phone Number [facility] [address] * AN SINGLE LUMEN INTUBATION (04/30/2025 1:39 [...] due to the potential of erroneous results. Education Teacher [id number] 04/30/2025 11:29 AM EDT [facility] Blood WHOLE BLOOD / Unknown 04/30/2025 11:23 AM EDT 04/30/2025 11:29 AM EDT Narrative [facility] - 04/30/2025 11:29 AM EDT Education Teacher ID is - [id number] us Keesha Tidwell DO POINT OF CARE TEST ORDERABLES Fi nal Result Performing Organization Address City/[facility]/ZIP Co de Phone Number [facility] [address] [place] [address] [phone] * Ultrasound non-ob transvaginal (04/20/2025 2:03 PM [...] -2.6. Z score is -0.9. Procedure Note Papa Ludwig MD - 06/12/2024 BONE MINERAL DENSITOMETRY, [...] Health Maintenance Insurance MEDICARE PART A B [employer] Advance Directives For more information, please contact: [phone] * Full Code (Latest Code Status on File) Date Activated Date Inactivated Comments 04/30/2025 10:14 AM 04/30/2025 5:24 PM Care Teams Content Development Manager Relationship Specialty Start Date End Date Chris Kim MD [address] [place] [address] PCP - General General Internal Medicine 10/11/22 Shelia Mora MD [address] [facility] [address] [place] [address] Medical Oncologist Hematology and Oncology 11/14/22 Mehrdad Frod MD [address] [facility] [address] [place] [address] General Surgery 12/04/22
--- OUTSIDE RECORDS SUMMARY | 2025-07-02 10:10 | XMS_ITS | Encounter Summary ---
Author Organization Healthcare Address [address] 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 COMMENT: Both peripheral margins are involved with tumor. The tumor is decorated by Sox-10. B. LEFT ARM, UPPER DISTAL ANTERIOR ( B, [id number]): - MALIGNANT MELANOMA IN-SITU, RE-EXCISION (SEE COMMENT). COMMENT: One peripheral margin is involved with tumor. C. LEFT ARM, UPPER DISTAL ANTERIOR ([id number]): - MALIGNANT MELANOMA, THICKNESS 0.2 MM (SEE COMMENT). COMMENT: The tumor is decorated by SOX-10. D. LEFT ARM, UPPER PROXIMAL ANTERIOR LATERAL (D, [id number]): - MALIGNANT MELANOMA IN SITU, RE-EXCISION (SEE [...] be viewed as a scanned document in [employer]. 03/31/2021 5:26 PM EDT [facility] [...] [facility] Gross Description A. OU [id number] Received along with a corresponding pathology report from [facility] are 3 slide(s) labeled outside case: [id number] collected on 08/20/2020. B. OU [id number] Received along with a corresponding pathology report from [facility] are 4 slide(s) labeled outside case: [id number] collected on 09/03/2020. C. OU [id number] Received along with a corresponding pathology report from [facility] are 5 slide(s) labeled outside case: [id number] collected on 11/24/2020. DFrances IZQUIERDO [id number] Received along with a corresponding pathology report from [facility] are 4 slide(s) labeled outside case: [id number] collected on 12/23/2020. 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
--- OUTSIDE RECORDS SUMMARY | 2025-07-02 10:10 | XMS_ITS | Encounter Summary ---
Author Organization [employer] ([place], [place], [place], [place]) Address [address] [place] [address] Care Team Providers Care Traffic Workforce Representative Name Role Phone Chris Kim MD Primary Care Provider [phone] Shelia Mora MD Unavailable [phone] Mehrdad Ford MD Unavailable [phone] Reason for Visit * Reason Onset Date Comments Results 05/04/2025 Encounter Details Date Type Department Care Team (Late st Contact Info) Description 05/04/2025 Telephone [facility] SUPERINTENDENT LOCAL - [place] [address] [place] [address] Anisa Castro, RN Results Social History [...] How often do you attend chur or sabianist services? More than 4 times per year [...] Date Donavon rded Speak language other than Rwandan at home Not on file 09/28/2023 Want [...] Info) Description 12/10/2025 1:00 PM EDT Appointment [facility] [address] [place] [address] Mehrdad Ford MD [address] [place] [address] 12/10/2025 2:00 PM EDT Office Visit [facility] [address] [facility] [address] [place] [address] Mehrdad Ford MD [address] [place] [address] 12/10/2025 3:15 PM EDT Office Visit [facility] [place] [address] [facility] [address] [place] [address] Shelia Mora MD [address] [place], [place] [address] 05/17/2026 2:00 PM EDT Office Visit [facility] SUPERINTENDENT LOCAL - [address] [place] [address] Keesha Tidwell, [address] [place] [address] documented as of this encounter Visit Diagnoses Not on filedocumented in this encounter Care Teams Traffic Workforce Representative Relationship Specialty Start Date End Date Chris Kim MD [address] [place] [address] PCP - General General Internal Medicine 10/11/22 Shelia Mora MD [facility] [address] [address] Medical Oncologist Hematology and Oncology 11/14/22 Mehrdad Ford MD [facility] [address] [address] General Surgery 12/04/22 documented as of this encounter
--- OUTSIDE RECORDS SUMMARY | 2025-07-02 10:10 | XMS_ITS | Clinical Summary ---
Author Organization [employer] ([place], [place], [place], [place]) Address [address] [place] [address] Care Team Providers Care Energy Rater Name Role Phone Chris Kim MD Primary Care Provider [phone] Shelia Mora MD Unavailable [phone] Mehrdad Ford MD Unavailable [phone] Allergies Active Allergy Reactions Criticality Noted Date Comments Pollen Extracts Other (See Comments) Low 03/24/2021 Medications omeprazole (PriLOSEC) 20 MG capsule Take by mouth. 08/30/20 22 Active lisinopril-hydroCH LOROthiazide (PRINZIDE,ZESTORET IC) 20-25 mg per tablet Take by mouth. 08/30/20 22 Active atorvastatin (LIPITOR) 40 MG tablet Take [...] (81 mg total) by mouth. Active vit R-nzzoaqz-gpak-rut in-hb196 (Bioflex) 837-27-50-40 mg Tab Take by mouth. Activ e [...] Date Type Department Care Team Description 06/25/2025 2:15 PM EDT Office Visit [facility] [place] [address] [place] [address] Tracie Menendez, Shelia Silva MD Malignant neoplasm of upper-inner quadrant of right breast in female, estrogen receptor positive (HCC) (Primary Dx); jail (current) use of selective estrogen receptor modulators (serms); Colitis 06/25/2025 Orders Only [facility] [place] [address] [place] [address] ProviderMonserrat MD 06/25/2025 Travel 05/13/2025 11:00 AM EDT Office Visit [facility] TEACHER OF GIFTED STUDENTS - [address] [place] [address] Keesha Tidwell, Postoperative examination (Primary Dx) 05/04/2025 Telephone [facility] TEACHER OF GIFTED STUDENTS - [place] [address] [facility] [address] [place] [address] Anisa Castro RN Results 04/30/2025 1:43 PM EDT - 04/30/2025 2:46 PM EDT Surgery [facility] Surgery Department [address] [place] [address] Keesha Tidwell, DO HYSTEROSCOPY, WITH DILATION AND CURETTAGE, WITH POLYPECTOMY OF UTERUS 04/30/2025 1:29 PM EDT Anesthesia Event [facility] Surgery Department [address] [place] [address] Rafael Ruvalcaba, Hector Gallegos MD 04/30/2025 10:39 AM EDT - 04/30/2025 4:09 PM EDT Hospital Encounter [facility] Surgery Department [address] [place] [address] Keesha Tidwell, DO Endometrial polyp Discharge Disposition: Home or Self Care 04/29/2025 Telephone [facility] TEACHER OF GIFTED STUDENTS [address] [place] [address] Anisa Castro RN Triage Call 04/21/2025 Telephone [facility] TEACHER OF GIFTED STUDENTS [address] [place] [address] Rosa Monahan RN Results 04/20/2025 1:31 PM EDT - 04/20/2025 11:59 PM EDT Hospital Encounter [facility] Ultrasound [address] [place] [address] Keesha Tidwell, DO RLQ abdominal pain Discharge Disposition: Home or Self Care 04/10/2025 2:00 PM EDT Office Visit [facility] [address] [facility] [address] [place] [address] Keesha Tidwell, RLQ abdominal pain (Primary Dx); Use of tamoxifen (Nolvadex); Thickened endometrium; Endometrial polyp 04/10/2025 Surgery Prep [facility] [address] [facility] [address] [place] [address] Rosa Monahan, LÁZARO Endometrial polyp (Primary Dx) 04/10/2025 Travel 04/07/2025 Telephone [facility] [address] [place] [address] Keesha Tidwell, DO Appointment from Last 3 Months Family History Medical History Relation Name Comments Diabetes Brother 1 [place] Rheum arthritis Brother 2 Noel Cancer Father [place] Prostate cancer Father [place] Stroke Mother Appie Breast cancer Paternal Aunt Eleni Relation Name Status Comments Brother 1 [place] Brother 2 Noel Father [place] Mother Appie Paternal Aunt Eleni Social History [...] often do you attend chur ch or yarsani services? More than 4 times [...] Date Donavon rded Speak language other than Finnish at home Not on file 09/28/2023 Want [...] Info) Description 12/10/2025 1:00 PM EDT Appointment [facility] [address] [place] [address] Mehrdad Ford MD [address] [place], [place] [address] 12/10/2025 2:00 PM EDT Office Visit [facility] Breast Surgery Clinic [address] [facility] [address] [place] [address] Mehrdad Ford MD [address] [facility] [address] [place], [place] [address] 12/10/2025 3:15 PM EDT Office Visit [facility] - [facility] [address] [place] [address] Shelia Mora MD [address] [facility] [address] [place], [place] [address] 05/17/2026 2:00 PM EDT Office Visit [facility] TEACHER OF GIFTED STUDENTS - [address] [place] [address] Keesha Tidwell, DO [address] [place] [address] Health Maintenance Due Date Last [...] 2025 06/01/2022 Depression Screening (12+) 12/04/2025 12/04/2024 DXA SCAN 06/12/2026 06/12/2024 Tobacco Cessation Counseling and Screening (12+) 06/25/2026 06/25/2025 Pneumococcal 50+ years Completed 03/24/2022, 2020 Procedures Procedure Name Priority Date/Time Associated Diagnosis Comments EXTERNAL IMAGING - CT Routine 06/25/2025 3:39 PM EDT EXTERNAL IMAGING - CT Routine 06/25/2025 3:25 PM EDT TISSUE EXAM (GREGORAI PAULINO) AP Routine 04/30/2025 1 :51 PM [...] entirely on 1 block. See other report ([id number]) Tissue SPECIMEN FROM ENDOMETRIUM OBTAINED BY CURETTAGE / Unknown 04/30/2025 1:51 PM EDT Tissue specimen (specimen) POLYP / Unknown 04/30/2025 1:51 PM EDT Keesha Tidwell DO PATHOLOGY/CYTOLOGY ORDERABLES Fi nal Result Performing Organization Address City/State/[facility] Co de Phone Number PATH[facility]TOLOGY LAB[facility]ATORY [address] [place] [address] * AN SINGLE LUMEN INTUBATION (04/30/2025 1:39 [...] of other approaches attempted: 0 Rafael Ruvalcaba [facility] ANESTHESIA ORDERABLES Final Result * (ABNORMAL) Glucose, Nova Meter (04/30/2025 11:23 AM EDT) POC-GLUCOSE 113(H) 70 - 110 mg/dL 04/30/2025 11:29 AM EDT [facility] Comment:In the event of poor peripheral blood flow, venous or arterial blood should be used due to the potential of erroneous results. Block Cable[address] [id number] 04/30/2025 11:29 AM EDT [facility] Blood WHOLE BLOOD / Unknown 04/30/2025 11:23 AM EDT 04/30/2025 11:29 AM EDT Narrative [facility] - 04/30/2025 11:29 AM EDT Block Cableman ID is - [id number] us Keesha Tidewll DO POINT OF CARE TEST ORDERABLES Fi nal Result [facility] [address] [phone] * Ultrasound non-ob transvaginal (04/20/2025 2:03 PM [...] Most Recently Relevant to Health Maintenance Insurance [address] [address] MEDICARE PART A B [employer] Advance Directives For more information, please contact: [phone] * Full Code (Latest Code Status on File) Date Activated Date Inactivated Comments 04/30/2025 10:14 AM 04/30/2025 5:24 PM Care Teams Energy Rater Relationship Specialty Start Date End Date Chris Kim MD [address] [place] [address] [place] [address] PCP - General General Internal Medicine 10/11/22 Shelia Mora MD [address] [place] [address] [address] [place] [address] Medical Oncologist Hematology and Oncology 11/14/22 Mehrdad Ford MD [address] [facility] [address] [place] [address] General Surgery 12/04/22
--- OUTSIDE RECORDS SUMMARY | 2025-07-02 10:10 | XMS_ITS | Encounter Summary ---
Author Organization [employer] ([place], [place], [place], [place]) Address [address] [place] [address] Care Team Providers Care Night Guard Name Role Phone Chris Kim MD Primary Care Provider [phone] Shelia Mora MD Unavailable [phone] Liliam Raman RN Unavailable Unavailable Mehrdad Ford MD Unavailable [phone] Reason for Referral * Ultrasound (Routine) - Closed Specialty Diagnoses / Procedures Referred By Contac t Referred To Contact Diagnoses Personal history of malignant neoplasm of breast Procedures US breast axilla left US BREAST RIGHT LIMITED Mehrdad Ford MD Phone: tel: fax: Referral ID Status Reason Start Date Expiration Date Visits Re quested Visits Authorized [id number] Closed 11/06/2022 05/05/2023 1 1 Encounter Details Date Type Department Care Team (Late st Contact Info) Description 11/06/2022 Outside Orders [facility] [address] [place] [address] [address] [place] [address] Mehrdad Ford MD [address] [facility] [address] [place] [address] Personal history of malignant neoplasm of breast [...] Info) Description 12/10/2025 1:00 PM EDT Appointment [facility] [address] [facility] [address] [place] [address] Mehrdad Ford MD [address] [facility] [address] [place] [address] 12/10/2025 2:00 PM EDT Office Visit [facility] [address] [facility] [address] [place] [phone] Mehrdad Ford MD [address] [facility] [address] [place] [address] 12/10/2025 3:15 PM EDT Office Visit [facility] [address] [facility] [address] [place] [address] Shelia Mora MD [address] [facility] [address] [place], [place] [id number] 05/17/2026 2:00 PM EDT Office Visit [facility] PLANT TECHNICAL SPECIALIST - [address] [place] [address] Keesha Tidwell DO [address] [place] [address] documented as of this encounter [...] was made with a scalpel. A 16-gauge [place] biopsy device was introduced into the lesion [...] breast documented in this encounter Care Teams Night Guard Relationship Specialty Start Date End Date Chris Kim MD [address] [place] [address] [place] [address] PCP - General General Internal Medicine 10/11/22 Shelia Mora MD [address] [facility] [address] [place] [address] Medical Oncologist Hematology and Oncology 11/14/22 Case, Liliam Nye, RN Nurse Navigator 11/14/22 03/16/24 Mehrdad Ford MD General Surgery 12/04/22 documented as of this encounter
--- OUTSIDE RECORDS SUMMARY | 2025-07-02 10:10 | XMS_ITS | Encounter Summary ---
Author Organization [employer] ([place], [place], [place], [place]) Address [address] [place] [address] Care Team Providers Care Supervisor Purification Name Role Phone Chris Kim MD Primary Care Provider [phone] Shelia Mora MD Unavailable [phone] Liliam Raman RN Unavailable Unavailable Mehrdad Ford MD Unavailable [phone] Reason for Referral * Mammography (Routine) - Closed Specialty Diagnoses / Procedures Referred By Contac t Referred To Contact Diagnoses Malignant neoplasm of right female breast, unspecified estrogen receptor status, unspecified site of breast (HCC) Procedures MM digital mammo diagnostic with sylvain right Mehrdad Ford MD [address] [place] [address] Phone: tel: fax: Referral ID Status Reason Start Date Expiration Date Visits Re quested Visits Authorized [id number] Closed 11/22/2022 05/21/2023 1 1 Encounter Details Date Type Department Care Team (Late st Contact Info) Description 11/22/2022 Outside Orders [facility] Breast [facility] [address] [place] [address] Mehrdad Ford MD [address] [place] [address] Malignant neoplasm of right female breast, unspecified [...] often do you attend chur ch or rastafari services? More than 4 times per year 11/16/2022 Do you belong to any clubs o r organizations such as hindu groups, unions, fraternal or athletic groups, or [...] Appointment [facility] [address] [facility] [address] [place] [address] Mehrdad Ford MD [address] [facility] [address] [place] [address] 12/10/2025 2:00 PM EDT Office Visit [facility] Surgery Clinic [address] [facility] [address] [place] [address] Mehrdad Ford MD [address] [facility] [address] [place] [address] 12/10/2025 3:15 PM EDT Office Visit [facility] [place] [address] [facility] [address] [place] [address] Shelia Mora MD [address] [facility] [address] [place] [address] 05/17/2026 2:00 PM EDT Office Visit [facility] FILLER WIPER - [address] [place] [address] Keesha Tidwell DO [address] [place] [address] documented as of this encounter [...] follow-up bilateral mammogram At our facility, a [place] marker is positioned over a visible skin [...] family history of breast cancer COMPARISON STUDY: [facility] 11/28/2022 11/15/2022, 11/01/2022, 10/26/2022, 10/11/2022, 10/10/2021 FINDINGS: [...] (HCC) documented in this encounter Care Teams Supervisor Purification Relationship Specialty Start Date End Date Chris Kim MD [address] [place] [address] PCP - General General Internal Medicine 10/11/22 Shelia Mora MD [address] [facility] [address] [place] [address] Medical Oncologist Hematology and Oncology 11/14/22 Case, Liliam Nye RN Nurse Navigator 11/14/22 03/16/24 Mehrdad Ford MD General Surgery 12/04/22 documented as of this encounter
--- OUTSIDE RECORDS SUMMARY | 2025-07-02 10:11 | XMS_ITS | Encounter Summary ---
Author Organization [employer] ([place], [place], [place]) Address [address] [place] [address] Care Team Providers Care Service Liaison Representative Name Role Phone Chris Kim MD Primary Care Provider [phone] Shelia Mora MD Unavailable [phone] Mehrdad Ford MD Unavailable [phone] Encounter Details Date Type Department Care Team (Late st Contact Info) Description 06/25/2025 Orders Only [facility] [place] [address] [place] [phone] Provider, MD Monserrat [address] [place] [address] Social History Tobacco Use Types Packs/Day Years [...] often do you attend chur ch or jainism services? More than 4 times per year 11/16/2022 Do you belong to any clubs o r organizations such as lutheran groups, unions, fraternal or athletic groups, or [...] Date Donavon rded Speak language other than [place] at home Not on file 09/28/2023 Want [...] 12/10/2025 1:00 PM EDT Appointment [facility] [address] [place] [address] Mehrdad Ford MD [address] [place], [place] [address] 12/10/2025 2:00 PM EDT Office Visit [facility] [address] [facility] [address] [place] [address] Mehrdad Ford MD [address] [place], [place] [address] 12/10/2025 3:15 PM EDT Office Visit [facility] [place] [address] [facility] [address] [place] [phone] Shelia Mora MD [address] [place], [place] [address] 05/17/2026 2:00 PM EDT Office Visit [facility] STUDENT SUCCESS COUNSELOR - [address] [place] [address] Keesha Tidwell DO [address] [place] [address] documented as of this encounter Procedures Procedure Name Priority Date/Time Associated Diagnosis Comments EXTERNAL IMAGING - CT Routine 06/25/2025 3:39 PM EDT EXTERNAL IMAGING - CT Routine 06/25/2025 3:25 PM EDT documented in this encounter Results * EXTERNAL IMAGING - CT (06/25/2025 3:39 PM EDT) Anatomical Region Laterality Modality Other Historical Provider HEALTH MAINTENANCE Final Result * EXTERNAL IMAGING - CT (06/25/2025 3:25 PM EDT) Anatomical Region Laterality Modality Other Historical Provider HEALTH MAINTENANCE Final Result documented in this encounter Visit Diagnoses Not on filedocumented in this encounter Care Teams Service Liaison Representative Relationship Specialty Start Date End Date Chris Kim MD [address] [place] [address] [place] [address] PCP - General General Internal Medicine 10/11/22 Shelia Mora MD [address] [facility] [address] [place] [address] Medical Oncologist Hematology and Oncology 11/14/22 Mehrdad Ford MD [address] [facility] [address] [place], [place] [id number] General Surgery 12/04/22 documented as of this encounter
--- OUTSIDE RECORDS SUMMARY | 2025-07-02 10:11 | XMS_ITS | Encounter Summary ---
Author Organization [employer] ([place], [place], [place], [place]) Address [address] [place] [address] Care Team Providers Care Spikemaking Supervisor Name Role Phone Chris Kim MD Primary Care Provider [phone] Shelia Mora MD Unavailable [phone] Mehrdad oFrd MD Unavailable [phone] Encounter Details Date Type Department Care Team (Latest Contact Info) Description 06/25/2025 Travel Social History Tobacco Use Types Packs/Day [...] often do you attend chur ch or roman catholic services? More than 4 times per year [...] Date Donavon rded Speak language other than [place] at home Not on file 09/28/2023 Want [...] Info) Description 12/10/2025 1:00 PM EDT Appointment [facility] [address] [place] [address] Mehrdad Ford MD [address] [place] [address] 12/10/2025 2:00 PM EDT Office Visit [facility] Surgery [facility] [address] [place] [address] Mehrdad Ford MD [address] [place], [place] [address] 12/10/2025 3:15 PM EDT Office Visit [facility] [place] [address] [place] [address] Shelia Mora MD [address] [place] [place], [place] [address] 05/17/2026 2:00 PM EDT Office Visit [facility] YARD DEMURRAGE CLERK - [address] [place] [address] Keesha Tidwell, DO [address] [place] [address] documented as of this encounter Visit Diagnoses Not on filedocumented in this encounter Care Teams Spikemaking Supervisor Relationship Specialty Start Date End Date Chris Kim MD [address] [place] [address] [place] [address] PCP - General General Internal Medicine 10/11/22 hSelia Mora MD [address] [place] [address] Medical Oncologist Hematology and Oncology 11/14/22 Mehrdad Ford MD [address] [place] [address] [place], [place] [id number] General Surgery 12/04/22 documented as of this encounter
[2025-07-02 12:07] LABS: Occult Blood,Stool Negative (Negative)
[2025-07-02 14:31] LABS: Vibrio, PCR Detected (NotDetected)
== END 2025-07-02 23:59 | disposition home or self-care (01) ==
LOC: LAB 09:55
PROVIDERS: PCP Internal Medicine; Visit Provider Nurse Practitioner Family
DX: K63.8219 Small intestinal bacterial overgrowth, unspecified (principal); A09 Infectious gastroenteritis and colitis, unspecified; K30 Functional dyspepsia; K58.9 Irritable bowel syndrome, unspecified; K92.1 Melena
CPT/HCPCS: 82272; 87506; G0328